=== PATIENT | male | born 1945 | race African-American/Black ===

== ENCOUNTER 2018-02-25 22:59 | Inpatient (IN) | payer MEDICARE, MEDICAID ==
[~2018-02-25] VITALS: Ht 170.2 cm; Wt 95.4 kg
--- NOTE | 2018-02-26 01:20 | NUR ---
NURSE NOTES: Patient admitted to 2W room 236-2 via ambulance from [facility].Received report from ELLIOT GIFFORD.patient is A/OX2 to name and place. Speaks in full clear sentences, no facial droop noted. Respiration even and unlabored.SR on monitor. BP 128/77 HR 98 Temp 99.0F. O2 sat 94% with RA. Denies any at this time.skin body assessment done. skin intact.but right side weakness noted. IV to RAC and LAC G 20 patent and asymptomatic, saline locked. Has 16 [address] in [address] with dark tono urine.call light in reach.bed in locked and lowest position.Bed alarm on. safety measures maintained.will initiate plan of nursing care.
[2018-02-26 01:30] VITALS: BP 128/77
--- NOTE | 2018-02-26 01:41 | NUR ---
NURSE NOTES: Left message to Dr ALEJANDRA for admitting orders. [place] Dennis already knows the patient is here.awaiting MD call back.
[2018-02-26 04:00] VITALS: BP 134/78
--- NOTE | 2018-02-26 04:01 | NUR ---
NURSE NOTES: Patient is asleep in no acute distress noted. vs stable. afebrile. no sign of pain. SR on monitor. keep patient comfortable.
[2018-02-26] MEDS ORDERED: Sodium Bicarbonate 50 ML in NS 1000ml 1,000 ML IV SCH ×2 (06:30→08:00)
--- NOTE | 2018-02-26 07:54 | NUR ---
HAND-OFF: Report given to CHARLENE GIFFORD.
--- NOTE | 2018-02-26 07:55 | NUR ---
NURSE NOTES: Received patient from BALTA Peck. Patient has a temperature at this time. Tylenol has been given. When temperature was reassessed, it was 101.8. Patient denies pain at this time. Patient alert and oriented to person and place but confused about time. Patient is lethargic at this time. Patient is on 2L NC and is short of breath. Patient RR is 28 at this time. Patient's abdomen is distended and taught. Patient reactive to cold touching the skin due to his fever. Patient placed on cooling measures at this time. Patient also has a high WBC count at this time. patient has a lugo for urine retention that was inserted at [place] before patient was transferred to the hospital. Patient has right AC 20G that is patent and asymptomatic at this time. Patient has a left AC 20G that is patent and asymptomatic at this time. Will follow up with primary MD regarding the fever, WBC count, and SOB. Patient has an order for renal ultrasound, chest x-ray, and EKG this morning. Will follow up.
[2018-02-26 08:00] VITALS: BP 154/82
[2018-02-26 08:34] LABS: HEMATOCRIT 34.2 % (42.0-52.0); HEMOGLOBIN 11.7 G/DL (14.2-18.0); MEAN CORPUSCULAR VOLUME 85 FL (80-99); PLATELET COUNT 276 K/UL (150-450); RED BLOOD COUNT 4.03 M/UL (4.70-6.10); RED CELL DISTRIBUTION WIDTH 11.3 % (11.6-14.8)
[2018-02-26 08:58] LABS: ANION GAP 24 mmol/L (5-15); BLOOD UREA NITROGEN 132 mg/dL (7-18); CALCIUM 8.2 MG/DL (8.5-10.1); CARBON DIOXIDE 15 MMOL/L (21-32); CHLORIDE 92 MMOL/L (98-107); CREATININE 8.6 MG/DL (0.55-1.30); POTASSIUM 4.5 MMOL/L (3.5-5.1); SODIUM 130 MMOL/L (136-145)
[2018-02-26 09:12] LABS: CREATINE KINASE > 10000 U/L (26-308); PHOSPHORUS 7.4 MG/DL (2.5-4.9)
--- NOTE | 2018-02-26 09:25 | NUR ---
NURSE NOTES: Patient temperature is 101.8 at this time. patient given tylenol at this time. Cooling measures applied at this time. Will continue to monitor.
[2018-02-26] MEDS: Heparin 5000 units/ml inj SUBQ SCH ×2 (09:27→21:35)
--- NOTE | 2018-02-26 09:32 | NUR ---
RADIOLOGY DEPT CHEST X-RAY DONE.-P.DYE
--- NOTE | 2018-02-26 10:15 | NUR ---
NURSE NOTES: Patient's temperature is now 102. Tylenol cannot be given again until 1pm. Dr Dinh made aware.
--- NOTE | 2018-02-26 10:24 | Diagnostic Imaging Report ---
Indication: Shortness of breath Technique: One view of the chest Comparison: none Findings: There is dense consolidation of the left midlung periphery. There is also some consolidation at the left lung base. There is likely some pleural fluid on the left. Right lung and pleural space are clear. The heart is borderline enlarged. Impression: Left lung infiltrates, likely pneumonia, and pleural fluid Borderline cardiomegaly
--- NOTE | 2018-02-26 10:25 | Consultation ---
History of Present Illness Present Illness HPI 72 year old male with unknown PMHx was taken to [facility] with CC of confusion. He as on the ground at his apartment for 3-4 days. Pt thinks it has been three weeks. He slipped in his bathroom and fell down and couldn't get up. He has new weakness of his right hand/arm. He was found in [place] to have acute renal failure. He is transferred to [facility] for further treatment. He is slightly short of breath and still is weak at right side of the body. Allergies: Coded Allergies: NO KNOWN ALLERGIES (Verified Allergy, Unknown, 02/26/18) Patient History Healthcare decision maker Resuscitation status Full Code Advanced Directive on File No Past Medical/Surgical History Past Medical/Surgical History: (1) Unknown Review of Systems All Other Systems: negative except mentioned in HPI Physical Exam General Appearance: WD/WN Lines, tubes and drains: peripheral HEENT: normocephalic, atraumatic Neck: non-tender, normal alignment Respiratory/Chest: chest wall non-tender, lungs clear Breasts: no masses Cardiovascular/Chest: normal peripheral pulses Abdomen: normal bowel sounds, soft Genitourinary/Rectal: normal rectal exam Extremities: normal range of motion Skin Exam: normal pigmentation 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 Lymphatic: anterior cervical Last 24 Hour Vital Signs Date Time Temp Pulse Resp B/P (MAP) Pulse Ox O2 Delivery O2 Flow Rate FiO2 02/26/18 08:00 107 02/26/18 04:00 Nasal Cannula 2.0 02/26/18 04:00 99.6 106 32 134/78 (96) 94 02/26/18 04:00 102 02/26/18 01:30 99.0 98 22 128/77 (94) 94 02/26/18 01:30 Room Air 02/26/18 01:27 100 Intake and Output 02/25/18 02/26/18 19:00 07:00 Output Total 100 ml Balance -100 ml Output Urine Total 100 ml Laboratory Tests Test 02/26/18 07:50 White Blood Count 30.0 K/UL (4.8-10.8) *H Red Blood Count 4.03 M/UL (4.70-6.10) L Hemoglobin 11.7 G/DL (14.2-18.0) L Hematocrit 34.2 % (42.0-52.0) L Mean Corpuscular Volume 85 FL (80-99) Mean Corpuscular Hemoglobin 29.0 PG (27.0-31.0) Mean Corpuscular Hemoglobin Concent 34.1 G/DL (32.0-36.0) Red Cell Distribution Width 11.3 % (11.6-14.8) L Platelet Count 276 K/UL (150-450) Mean Platelet Volume 7.8 FL (6.5-10.1) Neutrophils (%) (Auto) % (45.0-75.0) Lymphocytes (%) (Auto) % (20.0-45.0) Monocytes (%) (Auto) % (1.0-10.0) Eosinophils (%) (Auto) % (0.0-3.0) Basophils (%) (Auto) % (0.0-2.0) Neutrophils % (Manual) Pending Lymphocytes % (Manual) Pending Platelet Estimate Pending Platelet Morphology Pending Sodium Level 130 MMOL/L (136-145) L Potassium Level 4.5 MMOL/L (3.5-5.1) Chloride Level 92 MMOL/L (98-107) L Carbon Dioxide Level 15 MMOL/L (21-32) L Anion Gap 24 mmol/L (5-15) H Blood Urea Nitrogen 132 mg/dL (7-18) H Creatinine 8.6 MG/DL (0.55-1.30) H Estimat Glomerular Filtration Rate mL/min (>60) Glucose Level 120 MG/DL (74-106) H Osmolality 312 mOsm/kg (297-317) Calcium Level 8.2 MG/DL (8.5-10.1) L Phosphorus Level 7.4 MG/DL (2.5-4.9) H Magnesium Level 3.1 MG/DL (1.8-2.4) H Total Creatine Kinase > 06453 U/L (26-308) H Troponin I 1.257 ng/mL (0.000-0.056) Height (Feet): 5 Height (Inches): 7.00 Weight (Pounds): 210 Medications Current Medications Medications (Trade) Dose Ordered Sig/Aristides Route PRN Reason Start Time Stop Time Status Last Admin Dose Admin Acetaminophen (Tylenol) 650 mg Q6H PRN ORAL Mild Pain/Temp > 100.5 02/26/18 06:30 03/28/18 06:29 02/26/18 09:24 Heparin Sodium (Porcine) (Heparin 5000 units/ml) 5,000 units EVERY 12 HOURS SUBQ 02/26/18 09:00 03/28/18 08:59 02/26/18 09:27 Sodium Bicarbonate 50 ml/ Sodium Chloride 1,050 ml @ 75 mls/hr Q14H IV 02/26/18 08:00 03/28/18 07:59 02/26/18 07:51 Assessment/Plan Problem List: (1) Rhabdomyolysis ICD Codes: M62.82 - Rhabdomyolysis SNOMED: 694678834 (2) Pneumonia ICD Codes: J18.9 - Pneumonia, unspecified organism SNOMED: 732266209 (3) ATN (acute tubular necrosis) ICD Codes: N17.0 - Acute kidney failure with tubular necrosis SNOMED: 49503840 (4) Acute CVA (cerebrovascular accident) ICD Codes: I63.9 - Cerebral infarction, unspecified SNOMED: 883484212, 250813747 Status: ambulating well Assessment/Plan iv fluids, NS bolus renal studies, including US CT of chest when bun/creatinine better MRI of brain pt/ot check electrolytes might need HD if urine 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 James Dinh MD Feb 26, 2018 10:25
[2018-02-26] MEDS ORDERED: Miralax 17gm pkt ORAL PRN (10:30)
[2018-02-26] MEDS ORDERED: Morphine Sulfate 2mg/ml Inj IVP PRN (10:30)
[2018-02-26] MEDS ORDERED: Nitroglycerin Subl 0.4mg tab SL PRN (10:45)
[2018-02-26 11:03] LABS: ALANINE AMINOTRANSFERASE 242 U/L (12-78); ALBUMIN 1.9 G/DL (3.4-5.0); ALKALINE PHOSPHATASE 133 U/L (46-116); ASPARTATE AMINO TRANSFERASE 1189 U/L (15-37); BILIRUBIN,DIRECT 3.8 MG/DL (0.0-0.3); BILIRUBIN,TOTAL 4.4 MG/DL (0.2-1.0); PHOSPHORUS 7.3 MG/DL (2.5-4.9)
[2018-02-26 12:00] VITALS: BP 143/86
--- NOTE | 2018-02-26 12:02 | Consultation ---
History of Present Illness Present Illness HPI 72-year-old male, who presents with chief complaint of altered mental status. The patient states had shortness of breath. the pt is waxing and waning of consciousness. The pt has cognitive impairment. and is unable to provide any history. The pt is easily agitated Allergies: Coded Allergies: NO KNOWN ALLERGIES (Verified Allergy, Unknown, 02/26/18) Patient History Limited by: medical condition History Provided By: Patient Healthcare decision maker Resuscitation status Full Code Advanced Directive on File No Past Medical/Surgical History Past Medical/Surgical History: (1) Sepsis (2) Unknown (3) ATN (acute tubular necrosis) (4) Pneumonia (5) Acute CVA (cerebrovascular accident) (6) Rhabdomyolysis (7) Cardiac enzymes elevated (8) Hypercholesterolemia (9) Hyponatremia (10) Leukocytosis (11) Renal failure (12) Syncope (13) Prostate cancer (14) Colon cancer (15) Hypertension (16) Elevated liver function tests Review of Systems Psychiatric: Reports: prior hx, anxiety, depressed feelings, emotional problems Physical Exam General Appearance: lethargic, confused, agitated Neurologic: depressed affect Last 24 Hour Vital Signs Date Time Temp Pulse Resp B/P (MAP) Pulse Ox O2 Delivery O2 Flow Rate FiO2 02/26/18 09:54 102.0 02/26/18 08:00 107 02/26/18 04:00 Nasal Cannula 2.0 02/26/18 04:00 99.6 106 32 134/78 (96) 94 02/26/18 04:00 102 02/26/18 01:30 99.0 98 22 128/77 (94) 94 02/26/18 01:30 Room Air 02/26/18 01:27 100 Intake and Output 02/25/18 02/26/18 19:00 07:00 Output Total 100 ml Balance -100 ml Output Urine Total 100 ml Laboratory Tests Test 02/26/18 07:50 02/26/18 10:50 White Blood Count 30.0 K/UL (4.8-10.8) *H Red Blood Count 4.03 M/UL (4.70-6.10) L Hemoglobin 11.7 G/DL (14.2-18.0) L Hematocrit 34.2 % (42.0-52.0) L Mean Corpuscular Volume 85 FL (80-99) Mean Corpuscular Hemoglobin 29.0 PG (27.0-31.0) Mean Corpuscular Hemoglobin Concent 34.1 G/DL (32.0-36.0) Red Cell Distribution Width 11.3 % (11.6-14.8) L Platelet Count 276 K/UL (150-450) Mean Platelet Volume 7.8 FL (6.5-10.1) Neutrophils (%) (Auto) % (45.0-75.0) Lymphocytes (%) (Auto) % (20.0-45.0) Monocytes (%) (Auto) % (1.0-10.0) Eosinophils (%) (Auto) % (0.0-3.0) Basophils (%) (Auto) % (0.0-2.0) Differential Total Cells Counted 100 Neutrophils % (Manual) 83 % (45-75) H Lymphocytes % (Manual) 8 % (20-45) L Monocytes % (Manual) 5 % (1-10) Eosinophils % (Manual) 0 % (0-3) Basophils % (Manual) 0 % (0-2) Band Neutrophils 4 % (0-8) Platelet Estimate Adequate Platelet Morphology Normal Hypochromasia 1+ Sodium Level 130 MMOL/L (136-145) L Potassium Level 4.5 MMOL/L (3.5-5.1) Chloride Level 92 MMOL/L (98-107) L Carbon Dioxide Level 15 MMOL/L (21-32) L Anion Gap 24 mmol/L (5-15) H Blood Urea Nitrogen 132 mg/dL (7-18) H Creatinine 8.6 MG/DL (0.55-1.30) H Estimat Glomerular Filtration Rate mL/min (>60) Glucose Level 120 MG/DL (74-106) H Osmolality 312 mOsm/kg (297-317) Uric Acid 18.3 MG/DL (2.6-7.2) H Calcium Level 8.2 MG/DL (8.5-10.1) L Phosphorus Level 7.3 MG/DL (2.5-4.9) H Magnesium Level 3.1 MG/DL (1.8-2.4) H Total Bilirubin 4.4 MG/DL (0.2-1.0) H Direct Bilirubin 3.8 MG/DL (0.0-0.3) H Aspartate Amino Transf (AST/SGOT) 1189 U/L (15-37) H Alanine Aminotransferase (ALT/SGPT) 242 U/L (12-78) H Alkaline Phosphatase 133 U/L (46-116) H Total Creatine Kinase > 67863 U/L (26-308) H Troponin I 1.257 ng/mL (0.000-0.056) Total Protein 7.9 G/DL (6.4-8.2) Albumin 1.9 G/DL (3.4-5.0) L Free Thyroxine 0.89 NG/DL (0.76-1.46) Arterial Blood pH 7.433 (7.350-7.450) Arterial Blood Partial Pressure CO2 20.9 mmHg (35.0-45.0) *L Arterial Blood Partial Pressure O2 68.4 mmHg (75.0-100.0) L Arterial Blood HCO3 13.7 mmol/L (22.0-26.0) *L Arterial Blood Oxygen Saturation 92.1 % (95-100) L Arterial Blood Base Excess -8.6 (-2-2) L Scottie Test Positive Height (Feet): 5 Height (Inches): 7.00 Weight (Pounds): 210 Medications Current Medications Medications (Trade) Dose Ordered Sig/Aristides Route PRN Reason Start Time Stop Time Status Last Admin Dose Admin Acetaminophen (Tylenol) 650 mg Q4H PRN ORAL T>100.5 02/26/18 10:30 03/28/18 10:29 Acetaminophen (Tylenol) 650 mg Q6H PRN ORAL Mild Pain/Temp > 100.5 02/26/18 06:30 03/28/18 06:29 02/26/18 09:24 Albuterol/ Ipratropium (Albuterol/ Ipratropium) 3 ml Q4H PRN HHN Shortness of Breath 02/26/18 10:30 03/03/18 10:29 Cefepime HCl 1 gm/ Dextrose 55 ml @ 110 mls/hr Q24H IVPB 02/26/18 12:00 03/05/18 11:59 Dextrose (Dextrose 50%) 25 ml Q30M PRN IV hypoglycemia 02/26/18 10:45 03/28/18 10:42 Dextrose (Dextrose 50%) 50 ml Q30M PRN IV hypoglycemia 02/26/18 10:45 03/28/18 10:44 Heparin Sodium (Porcine) (Heparin 5000 units/ml) 5,000 units EVERY 12 HOURS SUBQ 02/26/18 09:00 03/28/18 08:59 02/26/18 09:27 Morphine Sulfate (Morphine Sulfate) 2 mg Q4H PRN IVP PAIN 4-10 02/26/18 10:30 03/05/18 10:29 Nitroglycerin (Ntg) 0.4 mg Q5MIN X 3 DOSES PRN SL Prn Chest Pain 02/26/18 10:45 03/28/18 10:44 Ondansetron HCl (Zofran) 4 mg Q6H PRN IVP Nausea & Vomiting 02/26/18 10:30 03/28/18 10:29 Polyethylene Glycol (Miralax) 17 gm DAILYPRN PRN ORAL Constipation 02/26/18 10:30 03/28/18 10:29 Sodium Chloride 1,000 ml @ 150 mls/hr Q6H40M IV 02/26/18 11:30 03/28/18 11:29 Temazepam (Restoril) 15 mg HSPRN PRN ORAL Insomnia 02/26/18 21:00 03/05/18 20:59 Vancomycin HCl (Vanco rx to dose) 1 ea DAILY PRN MISC . 02/26/18 11:00 03/28/18 10:59 Vancomycin HCl/ Dextrose 250 ml @ 125 mls/hr ONCE ONCE IVPB 02/26/18 13:00 02/26/18 14:59 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 Assessment/Plan seroquel prn provided ro/Emely Dangelo MD Feb 26, 2018 12:02
--- NOTE | 2018-02-26 12:14 | NUR ---
NURSE NOTES: Patient temp is now 101.8. Cooling measures replaced. Patient has a bolus running at this time. Patient is now on Venturi Mask at 50%. Patient has a stat ABG with result of pH 7.433, pCO2 20.9, pO2 68.4, and HCO3 13.7 and base excess -8.6. Patient tolerating venturi with O2 saturation of 91% at this time. Patient is forgetful and a little confused at this time.
--- NOTE | 2018-02-26 12:22 | Consultation ---
Consult Note Consult Note asked to eval for high BUN and Cr 72 year old male with unknown PMHx was taken to [facility] with CC of confusion. He as on the ground at his apartment for 3-4 days. Pt thinks it has been three weeks. He slipped in his bathroom and fell down and couldn't get up. He has new weakness of his right hand/arm. He was found in [place] to have acute renal failure. He is transferred to [facility] for further treatment. He is slightly short of breath and still is weak at right side of the body. Allergies: Coded Allergies: NO KNOWN ALLERGIES (Verified Allergy, Unknown, 02/26/18) interviewed examined data reviewed discussed with RN Patient confused Assessment/Plan Acute renal failure- Rhabdo Pneumonia CVA ? Vigorous Hydrate- Fortune Monitor CPK - Uric Acid- LFTs monitor Renal parameters Avoid Nephrotoxics per orders Yayo Lora MD Feb 26, 2018 12:22
[2018-02-26] MEDS ORDERED: Vancomycin 1.5 GM/D5W 250ML IVPB ONE (13:00)
[2018-02-26] MEDS: Cefepime 1gm/D5W 55ml IVPB SCH ×2 (13:58)
--- NOTE | 2018-02-26 14:14 | Consultation ---
History of Present Illness General Date patient seen: Feb 26, 2018 Present Illness HPI 72 y/o M with hx unknown prior medical history is transferred from [facility] to [place] on 02/26 with confusion. Patient was found on the ground in his apartment; he was like that for 3-4 days. He slipped in his bathroom and feel down and couldn't get up. Also endorses SOB and R side weakness. Allergies: Coded Allergies: NO KNOWN ALLERGIES (Verified Allergy, Unknown, 02/26/18) Patient History Healthcare decision maker Resuscitation status Full Code Advanced Directive on File No Patient History Narrative Pmhx: as above Shx: reviewed Fhx: non contributory Review of Systems All Other Systems: negative except mentioned in HPI Physical Exam Physical Exam Narrative General Appearance: WD/WN Lines, tubes and drains: peripheral HEENT: normocephalic, atraumatic Neck: non-tender, normal alignment Respiratory/Chest: chest wall non-tender, lungs clear Breasts: no masses Cardiovascular/Chest: normal peripheral pulses Abdomen: normal bowel sounds, soft Extremities: normal range of motion Skin Exam: normal pigmentation 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 Lymphatic: anterior cervical Last 24 Hour Vital Signs Date Time Temp Pulse Resp B/P (MAP) Pulse Ox O2 Delivery O2 Flow Rate FiO2 02/26/18 09:54 102.0 02/26/18 08:00 107 02/26/18 04:00 Nasal Cannula 2.0 02/26/18 04:00 99.6 106 32 134/78 (96) 94 02/26/18 04:00 102 02/26/18 01:30 99.0 98 22 128/77 (94) 94 02/26/18 01:30 Room Air 02/26/18 01:27 100 Intake and Output 02/25/18 02/26/18 19:00 07:00 Output Total 100 ml Balance -100 ml Output Urine Total 100 ml Laboratory Tests Test 02/26/18 07:50 02/26/18 10:50 White Blood Count 30.0 K/UL (4.8-10.8) *H Red Blood Count 4.03 M/UL (4.70-6.10) L Hemoglobin 11.7 G/DL (14.2-18.0) L Hematocrit 34.2 % (42.0-52.0) L Mean Corpuscular Volume 85 FL (80-99) Mean Corpuscular Hemoglobin 29.0 PG (27.0-31.0) Mean Corpuscular Hemoglobin Concent 34.1 G/DL (32.0-36.0) Red Cell Distribution Width 11.3 % (11.6-14.8) L Platelet Count 276 K/UL (150-450) Mean Platelet Volume 7.8 FL (6.5-10.1) Neutrophils (%) (Auto) % (45.0-75.0) Lymphocytes (%) (Auto) % (20.0-45.0) Monocytes (%) (Auto) % (1.0-10.0) Eosinophils (%) (Auto) % (0.0-3.0) Basophils (%) (Auto) % (0.0-2.0) Differential Total Cells Counted 100 Neutrophils % (Manual) 83 % (45-75) H Lymphocytes % (Manual) 8 % (20-45) L Monocytes % (Manual) 5 % (1-10) Eosinophils % (Manual) 0 % (0-3) Basophils % (Manual) 0 % (0-2) Band Neutrophils 4 % (0-8) Platelet Estimate Adequate Platelet Morphology Normal Hypochromasia 1+ Sodium Level 130 MMOL/L (136-145) L Potassium Level 4.5 MMOL/L (3.5-5.1) Chloride Level 92 MMOL/L (98-107) L Carbon Dioxide Level 15 MMOL/L (21-32) L Anion Gap 24 mmol/L (5-15) H Blood Urea Nitrogen 132 mg/dL (7-18) H Creatinine 8.6 MG/DL (0.55-1.30) H Estimat Glomerular Filtration Rate mL/min (>60) Glucose Level 120 MG/DL (74-106) H Osmolality 312 mOsm/kg (297-317) Uric Acid 18.3 MG/DL (2.6-7.2) H Calcium Level 8.2 MG/DL (8.5-10.1) L Phosphorus Level 7.3 MG/DL (2.5-4.9) H Magnesium Level 3.1 MG/DL (1.8-2.4) H Total Bilirubin 4.4 MG/DL (0.2-1.0) H Direct Bilirubin 3.8 MG/DL (0.0-0.3) H Gamma Glutamyl Transpeptidase 127 U/L (5-85) H Aspartate Amino Transf (AST/SGOT) 1189 U/L (15-37) H Alanine Aminotransferase (ALT/SGPT) 242 U/L (12-78) H Alkaline Phosphatase 133 U/L (46-116) H Total Creatine Kinase > 57134 U/L (26-308) H Troponin I 1.257 ng/mL (0.000-0.056) Total Protein 7.9 G/DL (6.4-8.2) Albumin 1.9 G/DL (3.4-5.0) L Free Thyroxine 0.89 NG/DL (0.76-1.46) Arterial Blood pH 7.433 (7.350-7.450) Arterial Blood Partial Pressure CO2 20.9 mmHg (35.0-45.0) *L Arterial Blood Partial Pressure O2 68.4 mmHg (75.0-100.0) L Arterial Blood HCO3 13.7 mmol/L (22.0-26.0) *L Arterial Blood Oxygen Saturation 92.1 % (95-100) L Arterial Blood Base Excess -8.6 (-2-2) L Scottie Test Positive Height (Feet): 5 Height (Inches): 7.00 Weight (Pounds): 210 Medications Current Medications Medications (Trade) Dose Ordered Sig/Aristides Route PRN Reason Start Time Stop Time Status Last Admin Dose Admin Acetaminophen (Tylenol) 650 mg Q4H PRN ORAL T>100.5 02/26/18 10:30 03/28/18 10:29 Acetaminophen (Tylenol) 650 mg Q6H PRN ORAL Mild Pain/Temp > 100.5 02/26/18 06:30 03/28/18 06:29 02/26/18 09:24 Albuterol/ Ipratropium (Albuterol/ Ipratropium) 3 ml Q4H PRN HHN Shortness of Breath 02/26/18 10:30 03/03/18 10:29 Cefepime HCl 1 gm/ Dextrose 55 ml @ 110 mls/hr Q24H IVPB 02/26/18 12:00 03/05/18 11:59 02/26/18 13:58 Dextrose (Dextrose 50%) 25 ml Q30M PRN IV hypoglycemia 02/26/18 10:45 03/28/18 10:42 Dextrose (Dextrose 50%) 50 ml Q30M PRN IV hypoglycemia 02/26/18 10:45 03/28/18 10:44 Heparin Sodium (Porcine) (Heparin 5000 units/ml) 5,000 units EVERY 12 HOURS SUBQ 02/26/18 09:00 03/28/18 08:59 02/26/18 09:27 Morphine Sulfate (Morphine Sulfate) 2 mg Q4H PRN IVP PAIN 4-10 02/26/18 10:30 03/05/18 10:29 Nitroglycerin (Ntg) 0.4 mg Q5MIN X 3 DOSES PRN SL Prn Chest Pain 02/26/18 10:45 03/28/18 10:44 Ondansetron HCl (Zofran) 4 mg Q6H PRN IVP Nausea & Vomiting 02/26/18 10:30 03/28/18 10:29 Polyethylene Glycol (Miralax) 17 gm DAILYPRN PRN ORAL Constipation 02/26/18 10:30 03/28/18 10:29 Quetiapine Fumarate (SEROquel) 12.5 mg Q4H PRN ORAL agitation 02/26/18 12:15 03/28/18 12:14 Sodium Chloride 1,000 ml @ 200 mls/hr Q5H IV 02/26/18 12:30 03/28/18 12:29 02/26/18 12:25 Temazepam (Restoril) 15 mg HSPRN PRN ORAL Insomnia 02/26/18 21:00 03/05/18 20:59 Vancomycin HCl (Vanco rx to dose) 1 ea DAILY PRN MISC . 02/26/18 11:00 03/28/18 10:59 Vancomycin HCl/ Dextrose 250 ml @ 125 mls/hr ONCE ONCE IVPB 02/26/18 13:00 02/26/18 14:59 Assessment/Plan Assessment/Plan Abx: IV Vancomycin 02/26- Cefepime 02/26- Assessment: SEpsis - 2ry to PNA- r/o bacteremia -CXR: Left lung infiltrates, likely pneumonia, and pleural fluid. Borderline cardiomegaly -Bcx p Fever Leukocytosis BRITT Rhabdomyolosis AMS s/p Fall Shock liver- r/o acute hepatitis Plan: -Continue empiric IV Vancomycin and Cefpime for PNA and add Flagyl for anaerobic coverage -Influenza sc, sp cx -Hep panel, HIV ab -f/u cx -Monitor CBC/CMP, temperatures -Renal f/u Thank you for this consultation. Will continue to follow along with you. Discussed with Melissa Coffman M.D. Feb 26, 2018 14:14
--- NOTE | 2018-02-26 14:17 | Cardiology Report ---
APPROVED REPORT EXAM: Two-dimensional and M-mode echocardiogram with Doppler and color Doppler. INDICATION Hypertension/HCVD M-Mode DIMENSIONS IVSd1.5 (0.7-1.1cm)Left Atrium (MM)4.0 (1.6-4.0cm) LVDd3.7 (3.5-5.6cm)Aortic Root3.6 (2.0-3.7cm) PWd0.9 (0.7-1.1cm)Aortic Cusp Exc.2.1 (1.5-2.0cm) IVSs1.6 cm LVDs2.6 (2.5-4.0cm) PWs1.4 cm Technically difficult study due to poor acoustical windows. Normal left ventricular chamber size, systolic function and wall motion to extent visualized. Left ventricular ejection fraction estimated to be 60-65%. No evidence of left ventricular hypertrophy. Anterior Echo-free space, may be due to pericardial fat or effusion. All other cardiac chamber sizes are within normal limits. Focal aortic valve sclerosis with adequate cusp excursion. Mildly thickened mitral valve leaflets with normal excursion. Mitral annulus and aortic root calcification. Pulmonic valve structure not well visualized . Normal tricuspid valve structure. IVC at size 2.1 with physiologic collapse. A color flow and spectral Doppler study was performed and revealed: No aortic regurgitation. Trace mitral regurgitation. Mitral diastolic velocities suggest reduced left ventricular relaxation c/w mild LV diastolic dysfunction (Grade I ) Mild tricuspid regurgitation. Tricuspid systolic velocities suggests peak right ventricular systolic pressure of 28mmHg.
--- NOTE | 2018-02-26 15:44 | NUR ---
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 102.0 HR 107 RR 32 B/P 134/78 2L NC O2 SAT @ 95% WBC 30.0 NA 130 BUN 132 CR 8.6 TCK>1000 TROP 1.257 PH 7.44 PCO2 20.9 PO2 68.8 HCO3 13.7 O2 SAT @ 92.0 CXR= LEFT LUNG INFILTRATES LIKELY PNA IS: IV BOLUS NS X 1 LITER NA BICARB IV CEFEPIME IV VANCO IV ALBUMIN IV ADMITTED TO STEP DOWN STEP DOWN STATUS DCP PENDING HOSPITAL STAY
[2018-02-26 16:00] VITALS: BP 120/62
[2018-02-26] MEDS: metroNIDAZOLE 500mg tab ORAL SCH ×2 (16:20→21:30)
[2018-02-26 16:51] LABS: APPEARANCE,URINE TURBID; BILIRUBIN, URINE 2+ (NEGATIVE); COLOR,URINE BROWN; GLUCOSE, URINE (UA) NEGATIVE (NEGATIVE); KETONES,URINE NEGATIVE (NEGATIVE); LEUKOCYTE ESTERASE ,URINE 2+ (NEGATIVE); NITRITE,URINE POSITIVE (NEGATIVE); PH,URINE 5 (4.5-8.0); PROTEIN,URINE 3+ (NEGATIVE); UROBILINOGEN,URINE 4 MG/DL (0.0-1.0)
--- NOTE | 2018-02-26 16:57 | Diagnostic Imaging Report ---
Indication: Abdominal pain and distention Technique: Supine view of the abdomen Comparison: none Findings: Considerable gas is seen in nondilated colon. Surgical clips are seen in the pelvis. No unusual masses or calcifications. There are degenerative changes of lumbar spine. Impression: Findings as noted. No definite acute process
--- NOTE | 2018-02-26 18:06 | History & Physical ---
History and Physical History & Physicial Dictated for Int Med-Dr Cowan no. [id number] Christofer Biggs MD Feb 26, 2018 18:06
[2018-02-26 18:50] LABS: ANION GAP 22 mmol/L (5-15); BLOOD UREA NITROGEN 138 mg/dL (7-18); CARBON DIOXIDE 15 MMOL/L (21-32); CHLORIDE 93 MMOL/L (98-107); CREATININE 9.4 MG/DL (0.55-1.30); POTASSIUM 4.5 MMOL/L (3.5-5.1); SODIUM 130 MMOL/L (136-145)
--- NOTE | 2018-02-26 19:15 | NUR ---
HAND-OFF: Report given to BALTA Kelley. Patient temperature is 99.3 at this time. Patient is runnign 1L bolus at this time. Patient had an abdominal x-ray today that showed gas in the colon. Dr Dinh is aware. Patient abdomen still distended. patient only had 275mL of urine output today. Patient to be put back on NS at 200mL/hr after bolus is finished. Patient denies discomfort at this time. Endorsed to follow up and monitor fever.
[2018-02-26 20:00] VITALS: BP 114/66
--- NOTE | 2018-02-26 20:00 | NUR ---
NURSE NOTES: Received Pt is sleeping on the bed and forgetful. On Tele monitor with SR. On Venturi mask with FiO2 50% with Sao2 96% noted. Rt decrease O2 to FiO2 45% and SaO2 95% noted. Denied pain. On Fortune cath and patent and tono color urine urinated. Iv site intact and no sign of infiltration noted. Still noted abdomen distention. changed position. Placed Fall precaution. checked BT : 99F. Keep cooling measure. Will continue to care plan. Will continue to monitor any change of condition.
[2018-02-26] MEDS ORDERED: Cefepime HCl 2 GM in D5W 110 ML IV SCH (21:00)
[2018-02-26] MEDS ORDERED: Heparin 5000 units/ml inj SUBQ SCH (21:00)
--- NOTE | 2018-02-26 22:00 | History and Physical Report ---
DATE OF ADMISSION: 02/26/2018 CHIEF COMPLAINT: The patient is a 72-year-old male, who presents with chief complaint of altered mental status. HISTORY OF PRESENT ILLNESS: The patient states he was not feeling well for approximately a week. The patient had shortness of breath. The patient apparently was found yesterday on the floor. The patient had right-sided weakness. The patient apparently had acute loss of consciousness. Last time, the patient had been seen by family members was on Sunday. The patient initially presented to [facility] Emergency Room. The patient was transferred to [facility] for insurance purposes. The patient is admitted for altered mental status and acute loss of consciousness. REVIEW OF SYSTEMS: CONSTITUTIONAL: The patient denies weight loss or weight gain. The patient denies fevers or chills. HEENT: The patient denies ear or throat pain. The patient denies headache. CARDIOVASCULAR: The patient denies palpitations or chest pain. CHEST: The patient complains of some shortness of breath as above. The patient denies wheezes. ABDOMEN: The patient denies nausea, vomiting, diarrhea, or constipation. GENITOURINARY: The patient denies dysuria or increased frequency of urination. NEUROMUSCULAR: The patient denies seizures or generalized weakness. PAST MEDICAL HISTORY: Significant for, 1. Hypertension. 2. Hypercholesterolemia. 3. Prostate cancer. 4. Colorectal cancer. PAST SURGICAL HISTORY: Significant for, 1. Colorectal resection. 2. Prostatectomy. CURRENT MEDICATIONS: Unknown. ALLERGIES: No known drug allergies. SOCIAL HISTORY: The patient is currently living alone. The patient denies tobacco use. The patient admits to occasional alcohol use. PHYSICAL EXAMINATION: VITAL SIGNS: Temperature 99.6, respirations 32, pulse 102 to 106, and blood pressure 134/70. GENERAL: The patient is a well-developed and well-nourished, slightly obese male, in no apparent distress. HEENT: Eyes, pupils are equal and responsive to light and accommodation. Extraocular movements are intact. NECK: Supple without lymphadenopathy. CHEST: Lungs are clear to auscultation bilaterally without wheezes or rales. CARDIOVASCULAR: Regular rhythm and rate. S1 and S2 are normal without murmurs, rubs, or gallops. ABDOMEN: Soft, nontender, and nondistended. Positive bowel sounds. No evidence of hepatosplenomegaly. Currently, no rebound or guarding noted. EXTREMITIES: Negative for clubbing, cyanosis, or edema. RECTAL/GENITAL: Refused. NEUROLOGICAL: Cranial nerves II through XII are grossly intact without focal deficits. Motor strength is 5/5 bilaterally. Deep tendon reflexes are 2+ plantar. LABORATORY AND DIAGNOSTIC DATA: WBC 29.3, hemoglobin 12.4, hematocrit 35.1, and platelets 269,000. Sodium 124, potassium 4.3, chloride 87, CO2 15, BUN 113, creatinine 8.01, and glucose 228. Troponin elevated at 0.22. AST elevated at 989 and ALT elevated at 180. Creatine kinase elevated at 24,719. Chest x-ray revealed left upper lobe pneumonia. ASSESSMENT: This is a 72-year-old male. 1. Left upper lobe pneumonia. 2. Hyponatremia. 3. Renal failure. 4. Syncope. 5. Right-sided weakness. 6. Hypertension. 7. Hypercholesteremia. 8. Rhabdomyolysis. 9. History of prostate cancer. 10. History of colon cancer. TREATMENT: 1. Left upper lobe pneumonia. An Infectious Disease consultation has been obtained with Dr. Ramirez. The patient has been started empirically on intravenous vancomycin and metronidazole. The patient has also been started on cefepime. We will follow recommendations of Infectious Disease. 2. Hyponatremia. The patient is currently receiving intravenous fluids. 3. Renal failure. A Nephrology consultation has been obtained with Dr. Lora. The patient may be severely dehydrated. We will follow recommendations of Nephrology. 4. Syncope. This may be secondary to pneumonia and shortness of breath as above. 5. Hypertension. The patient is currently hypotensive. 6. Hypercholesterolemia. 7. Rhabdomyolysis. The patient has elevated CPK and troponin. A Cardiology consultation has been obtained with Dr. Car Nelson. 8. History of prostate cancer. 9. History of colon cancer. Christofer Biggs M.D. DR: MARLENY JOB#: [id number] CC:
[2018-02-27] VITALS: BP 134/81
[2018-02-27] MEDS ORDERED: Vancomycin 1 GM in D5W 275 ML IV SCH (00:30)
[2018-02-27 04:00] VITALS: BP 149/73
[2018-02-27] MEDS: Albuterol/Ipratropium 3ml neb HHN PRN ×2 (04:14→23:03)
[2018-02-27 05:43] LABS: HEMATOCRIT 30.6 % (42.0-52.0); HEMOGLOBIN 10.3 G/DL (14.2-18.0); MEAN CORPUSCULAR VOLUME 90 FL (80-99); PLATELET COUNT 290 K/UL (150-450); RED BLOOD COUNT 3.41 M/UL (4.70-6.10); RED CELL DISTRIBUTION WIDTH 11.4 % (11.6-14.8)
[2018-02-27 05:47] LABS: INR 1.3 (0.9-1.1)
[2018-02-27] MEDS: metroNIDAZOLE 500mg tab ORAL SCH ×3 (06:01→21:41)
[2018-02-27 06:19] LABS: % IRON SATURATION 54 % (15-50); IRON 61 ug/dL (50-175); TOTAL IRON BINDING CAPACITY 114 ug/dL (250-450)
[2018-02-27 06:27] LABS: WHITE BLOOD COUNT 29.1 K/UL (4.8-10.8)
[2018-02-27 06:32] LABS: LACTATE DEHYDROGENASE 1504 U/L (81-234); PHOSPHORUS 8.5 MG/DL (2.5-4.9)
[2018-02-27 06:54] LABS: ALANINE AMINOTRANSFERASE 273 U/L (12-78); ALBUMIN 1.6 G/DL (3.4-5.0); ALBUMIN/GLOBULIN RATIO 0.3 (1.0-2.7); ALKALINE PHOSPHATASE 119 U/L (46-116); ANION GAP 22 mmol/L (5-15); ASPARTATE AMINO TRANSFERASE 1101 U/L (15-37); BILIRUBIN,TOTAL 4.9 MG/DL (0.2-1.0); BLOOD UREA NITROGEN 137 mg/dL (7-18); CALCIUM 7.4 MG/DL (8.5-10.1); CARBON DIOXIDE 13 MMOL/L (21-32); CHLORIDE 94 MMOL/L (98-107); CREATININE 9.6 MG/DL (0.55-1.30); POTASSIUM 4.5 MMOL/L (3.5-5.1); SODIUM 129 MMOL/L (136-145)
[2018-02-27 06:59] LABS: BILIRUBIN,DIRECT 4.2 MG/DL (0.0-0.3)
[2018-02-27 07:05] LABS: CREATINE KINASE > 10000 U/L (26-308)
--- NOTE | 2018-02-27 07:28 | NUR ---
NURSE NOTES: Report received from BALTA Kelley. Observed patient in bed sleeping. Arousable by voice and verbally responsive. Denies pain at this time. IVF running at prescribed rate. Receiving 10L of oxygen via venturi mask with no distress noted. F/C intact and draining well. Bed in lowest position. Call light within reach. Will continue to monitor.
--- NOTE | 2018-02-27 07:35 | NUR ---
HAND-OFF: Report given to BALTA Booker. Pt is resting on the bed and On Venturi mask with FiO2 45% and Sao2 95% noted.
--- NOTE | 2018-02-27 07:44 | NUR ---
NURSE NOTES: Bedside report received from BALTA Wilson at bedside. AOx4, able to make needs known. RA, sating well. Skin clean, dry, intact. Urinal at bedside. No apparent distress. Bed locked in lowest position, SRx3, call henderson within reach, bed alarm on. Report given to [facility]. Patient DC'd. Addendum: 02/27/18 at 2007 by Jacy Maravilla RN time 1944 Addendum: 02/27/18 at 2008 by Jacy Maravilla RN wrong pt
[2018-02-27 08:00] VITALS: BP 158/87
--- NOTE | 2018-02-27 08:36 | Diagnostic Imaging Report ---
Indication: Abnormal renal function tests Technique: Grayscale and duplex images of the kidneys, retroperitoneum, and bladder were obtained. Comparison: none Findings: Right kidney measures 13.3 cm in length. Left kidney measures 12.9 cm in length. Both kidneys demonstrate normal echogenicity. No hydronephrosis. The left kidney demonstrates an 8.1 cm lower pole cyst but contains a small mural calcification. Normal inferior vena cava. Bladder is empty, not visualized. Impression: Negative for hydronephrosis Incidental finding left lower pole renal cyst Nonvisualized bladder.
--- NOTE | 2018-02-27 08:56 | NUR ---
RADIOLOGY DEPT CHEST X-RAY DONE.-P.DYE
[2018-02-27] MEDS: Heparin 5000 units/ml inj SUBQ SCH ×2 (10:12→21:42)
--- NOTE | 2018-02-27 10:22 | Diagnostic Imaging Report ---
Indication: Dyspnea Technique: One view of the chest Comparison: 02/26/2018 Findings: There is increased consolidation in the left upper lobe. There may be a small amount of pleural fluid present. Right lung and pleural space remain clear. Impression: Increasing left upper lobe consolidation, over one day.
--- NOTE | 2018-02-27 10:45 | Pulmonology Progress Note ---
Assessment/Plan Problems: (1) Rhabdomyolysis (2) Pneumonia (3) ATN (acute tubular necrosis) (4) Acute CVA (cerebrovascular accident) Assessment/Plan getting NS 200 cc/hour, but still very small amount of urine might need HD if no response to Laisx 40 mg IV respiratory treatment check electrolytes, CPK cxr in am dvt prophylaxis sputum induction Subjective ROS Limited/Unobtainable: No Constitutional: Reports: no symptoms HEENT: Repors: no symptoms Allergies: Coded Allergies: NO KNOWN ALLERGIES (Verified Allergy, Unknown, 02/26/18) Objective Last 24 Hour Vital Signs Date Time Temp Pulse Resp B/P (MAP) Pulse Ox O2 Delivery O2 Flow Rate FiO2 02/27/18 08:00 Venturi Mask 10.0 02/27/18 08:00 106 02/27/18 08:00 100.8 106 24 158/87 (110) 95 02/27/18 04:23 103 22 93 Venturi Mask 10.0 45 02/27/18 04:14 45 02/27/18 04:14 102 20 92 Venturi Mask 10.0 45 02/27/18 04:00 99.2 101 22 149/73 (98) 95 02/27/18 04:00 104 02/27/18 04:00 Venturi Mask 10.0 02/27/18 00:00 95 02/27/18 00:00 100.0 100 22 134/81 (98) 95 02/27/18 00:00 Venturi Mask 10.0 02/26/18 20:31 98 Venturi Mask 10.0 45 02/26/18 20:31 Venturi Mask 10.0 45 02/26/18 20:19 80 14 Venturi Mask 10.0 45 02/26/18 20:00 99.0 93 22 114/66 (82) 95 02/26/18 20:00 Venturi Mask 10.0 02/26/18 20:00 93 02/26/18 16:00 Venturi Mask 15.0 02/26/18 16:00 100.0 96 22 120/62 (81) 95 02/26/18 16:00 98 02/26/18 14:38 100.2 02/26/18 12:00 107 02/26/18 12:00 102.6 106 24 143/86 (105) 94 02/26/18 12:00 Venturi Mask 15.0 Intake and Output 02/26/18 02/27/18 19:00 07:00 Intake Total 4055 ml 1400 ml Output Total 275 ml 400 ml Balance 3780 ml 1000 ml Intake Oral 1800 ml 200 ml IV Total 2255 ml 1200 ml Output Urine Total 275 ml 400 ml # Bowel Movements 2 2 General Appearance: WD/WN HEENT: normocephalic, atraumatic Respiratory/Chest: chest wall non-tender, crackles/rales Cardiovascular: normal peripheral pulses, normal rate Abdomen: distended Genitourinary: normal external genitalia Extremities: no cyanosis Skin: no rash Neurologic/Psychiatric: motor rebuilder II-XII grossly normal Lymphatic: no neck adenopathy Microbiology Date/Time Source Procedure Growth Status 02/26/18 22:30 Nasopharynx Influenza Types A,B Antigen (MARYSOL) - Final Complete 02/26/18 22:40 Stool Clostridium difficile Toxin Assay - Final Complete 02/26/18 14:15 Urine,Clean Catch Urine Culture - Preliminary NO GROWTH Resulted Laboratory Tests 02/26/18 10:50: Arterial Blood pH 7.433, Arterial Blood Partial Pressure CO2 20.9*L, Arterial Blood Partial Pressure O2 68.4L, Arterial Blood HCO3 13.7*L, Arterial Blood Oxygen Saturation 92.1L, Arterial Blood Base Excess -8.6L, Scottie Test Positive 02/26/18 14:15: Urine Color Brown, Urine Appearance Turbid, Urine pH 5, Urine Specific [place] 1.015, Urine Protein 3+H, Urine Glucose (UA) Negative, Urine Ketones Negative, Urine Blood 5+H, Urine Nitrite PositiveH, Urine Bilirubin 2+H, Urine Ictotest Positive, Urine Urobilinogen 4H, Urine Leukocyte Esterase 2+H, Urine RBC TntcH, Urine WBC 2-4, Urine Squamous Epithelial Cells ModerateH, Urine Amorphous Sediment ManyH, Urine Bacteria ManyH, Urine Eosinophils None seen, Urine Osmolality 318L, Urine Random Sodium 34, Urine Random Chloride 45L, Urine Potassium Timed 41, Urine Legionella Antigen [Pending] 02/26/18 16:38: Stool Occult Blood Negative 02/26/18 18:10: Sodium Level 130L, Potassium Level 4.5, Chloride Level 93L, Carbon Dioxide Level 15L, Anion Gap 22H, Blood Urea Nitrogen 138H, Creatinine 9.4H, Estimat Glomerular Filtration Rate , Glucose Level 148H, Calcium Level 7.0L 02/27/18 03:50: White Blood Count 29.1*H, Red Blood Count 3.41L, Hemoglobin 10.3L, Hematocrit 30.6L, Mean Corpuscular Volume 90, Mean Corpuscular Hemoglobin 30.2, Mean Corpuscular Hemoglobin Concent 33.7, Red Cell Distribution Width 11.4L, Platelet Count 290, Mean Platelet Volume 7.0, Neutrophils (%) (Auto) , Lymphocytes (%) (Auto) , Monocytes (%) (Auto) , Eosinophils (%) (Auto) , Basophils (%) (Auto) , Differential Total Cells Counted 100, Neutrophils % ( Manual) 87H, Lymphocytes % (Manual) 2L, Monocytes % (Manual) 2, Eosinophils % ( Manual) 0, Basophils % (Manual) 0, Band Neutrophils 9H, Platelet Estimate Adequate, Platelet Morphology Normal, Hypochromasia 1+, Erythrocyte Sedimentation Rate 88H, Reticulocyte Count 0.5, Prothrombin Time 13.6H, Prothromb Time International Ratio 1.3H, Activated Partial Thromboplast Time 42H , Sodium Level 129L, Potassium Level 4.5, Chloride Level 94L, Carbon Dioxide Level 13L, Anion Gap 22H, Blood Urea Nitrogen 137H, Creatinine 9.6H, Estimat Glomerular Filtration Rate , Glucose Level 81, Uric Acid 16.0H, Calcium Level 7.4L, Phosphorus Level 8.5H, Magnesium Level 2.6H, Iron Level 61, Total Iron Binding Capacity 114L, Percent Iron Saturation 54H, Unsaturated Iron Binding 53L , Total Bilirubin 4.9H, Direct Bilirubin 4.2H, Aspartate Amino Transf (AST/SGOT ) 1101H, Alanine Aminotransferase (ALT/SGPT) 273H, Alkaline Phosphatase 119H, Lactate Dehydrogenase 1504H, Total Creatine Kinase > 27005V, Troponin I 0.632H, C-Reactive Protein, Quantitative > 70.0H, Pro-B-Type Natriuretic Peptide 2444H, Total Protein 7.2, Albumin 1.6L, Globulin 5.6, Albumin/Globulin Ratio 0.3L, Carcinoembryonic Antigen [Pending], Vitamin B12 Level > 2000H, Folate 47.3, Hepatitis A IgM Antibody [Pending], Hepatitis B Surface Antigen [Pending], Hepatitis B Core IgM Antibody [Pending], Hepatitis C Antibody [Pending], HIV (1& 2) Antibody Rapid Negative Current Medications Medications (Trade) Dose Ordered Sig/Aristides Route PRN Reason Start Time Stop Time Status Last Admin Dose Admin Acetaminophen (Tylenol) 650 mg Q4H PRN ORAL T>100.5 02/26/18 10:30 03/28/18 10:29 02/26/18 14:08 Acetaminophen (Tylenol) 650 mg Q6H PRN ORAL Mild Pain/Temp > 100.5 02/26/18 06:30 03/28/18 06:29 02/26/18 09:24 Albuterol/ Ipratropium (Albuterol/ Ipratropium) 3 ml Q4H PRN HHN Shortness of Breath 02/26/18 10:30 03/03/18 10:29 02/27/18 04:14 Cefepime HCl 1 gm/ Dextrose 55 ml @ 110 mls/hr Q24H IVPB 02/26/18 12:00 03/05/18 11:59 02/26/18 13:58 Dextrose (Dextrose 50%) 25 ml Q30M PRN IV hypoglycemia 02/26/18 10:45 03/28/18 10:42 Dextrose (Dextrose 50%) 50 ml Q30M PRN IV hypoglycemia 02/26/18 10:45 03/28/18 10:44 Furosemide (Lasix) 100 mg ONCE ONCE IV 02/27/18 10:30 02/27/18 10:31 UNV Heparin Sodium (Porcine) (Heparin 5000 units/ml) 5,000 units EVERY 12 HOURS SUBQ 02/26/18 09:00 03/28/18 08:59 02/27/18 10:12 Metronidazole (Flagyl) 500 mg Q8HR ORAL 02/26/18 15:00 03/05/18 14:59 02/27/18 06:01 Morphine Sulfate (Morphine Sulfate) 2 mg Q4H PRN IVP PAIN 4-10 02/26/18 10:30 03/05/18 10:29 Nitroglycerin (Ntg) 0.4 mg Q5MIN X 3 DOSES PRN SL Prn Chest Pain 02/26/18 10:45 03/28/18 10:44 Ondansetron HCl (Zofran) 4 mg Q6H PRN IVP Nausea & Vomiting 02/26/18 10:30 03/28/18 10:29 Polyethylene Glycol (Miralax) 17 gm DAILYPRN PRN ORAL Constipation 02/26/18 10:30 03/28/18 10:29 Quetiapine Fumarate (SEROquel) 12.5 mg Q4H PRN ORAL agitation 02/26/18 12:15 03/28/18 12:14 Temazepam (Restoril) 15 mg HSPRN PRN ORAL Insomnia 02/26/18 21:00 03/05/18 20:59 Vancomycin HCl (Vanco rx to dose) 1 ea DAILY PRN MISC . 02/26/18 11:00 03/28/18 10:59 James Dinh MD Feb 27, 2018 10:45
[2018-02-27] MEDS ORDERED: Lidocaine 1% Plain 30 ml INJ ONE (11:15)
[2018-02-27] MEDS ORDERED: Heparin 2000 units/Ns 1000ml INJ ONE (11:15)
[2018-02-27] MEDS: Cefepime 1gm/D5W 55ml IVPB SCH ×2 (11:45)
[2018-02-27 12:00] VITALS: BP 143/86
--- NOTE | 2018-02-27 12:00 | Infectious Diseases Prog Note ---
Assessment/Plan Assessment/Plan Abx: IV Vancomycin 02/26- Cefepime 02/26- Assessment: SEpsis - 2ry to PNA and UTI- r/o bacteremia -02/27 CXR: Increasing left upper lobe consolidation, over one day. -CXR: Left lung infiltrates, likely pneumonia, and pleural fluid. Borderline cardiomegaly -Bcx p -u/a wbc tnct, nit +, leuk +2; cx NTD -influenza sc neg Fever, improving Leukocytosis, improving BRITT, worsening Rhabdomyolosis AMS s/p Fall Shock liver- r/o acute hepatitis -HIV ab sc neg Plan: -Switch empiric IV Vancomycin to PO Linezolid (in the setting of BRITT) and continue Cefepime #2 and Flagyl #2 for PNA, UTI, pending cultures -f/u Hep panel, HIV ab -f/u cx (Bl, sp, u) -Monitor CBC/CMP, temperatures -Renal f/u Thank you for this consultation. Will continue to follow along with you. Discussed with RN. Subjective Allergies: Coded Allergies: NO KNOWN ALLERGIES (Verified Allergy, Unknown, 02/26/18) Subjective Tm 102.6 wbc slighlty improved ucx NTD Objective Vital Signs Last 24 Hour Vital Signs Date Time Temp Pulse Resp B/P (MAP) Pulse Ox O2 Delivery O2 Flow Rate FiO2 02/27/18 11:21 99.8 02/27/18 08:00 Venturi Mask 10.0 02/27/18 08:00 106 02/27/18 08:00 100.8 106 24 158/87 (110) 95 02/27/18 04:23 103 22 93 Venturi Mask 10.0 45 02/27/18 04:14 45 02/27/18 04:14 102 20 92 Venturi Mask 10.0 45 02/27/18 04:00 99.2 101 22 149/73 (98) 95 02/27/18 04:00 104 02/27/18 04:00 Venturi Mask 10.0 02/27/18 00:00 95 02/27/18 00:00 100.0 100 22 134/81 (98) 95 02/27/18 00:00 Venturi Mask 10.0 02/26/18 20:31 98 Venturi Mask 10.0 45 02/26/18 20:31 Venturi Mask 10.0 45 02/26/18 20:19 80 14 Venturi Mask 10.0 45 02/26/18 20:00 99.0 93 22 114/66 (82) 95 02/26/18 20:00 Venturi Mask 10.0 02/26/18 20:00 93 02/26/18 16:00 Venturi Mask 15.0 02/26/18 16:00 100.0 96 22 120/62 (81) 95 02/26/18 16:00 98 02/26/18 12:00 107 02/26/18 12:00 102.6 106 24 143/86 (105) 94 02/26/18 12:00 Venturi Mask 15.0 Height (Feet): 5 Height (Inches): 7.00 Weight (Pounds): 216 Microbiology Date/Time Source Procedure Growth Status 02/26/18 22:30 Nasopharynx Influenza Types A,B Antigen (MARYSOL) - Final Complete 02/26/18 22:40 Stool Clostridium difficile Toxin Assay - Final Complete 02/26/18 14:15 Urine,Clean Catch Urine Culture - Preliminary NO GROWTH Resulted Laboratory Tests Test 02/26/18 14:15 02/26/18 16:38 02/26/18 18:10 02/27/18 03:50 Urine Color Brown Urine Appearance Turbid Urine pH 5 (4.5-8.0) Urine Specific [place] 1.015 (1.005-1.035) Urine Protein 3+ (NEGATIVE) H Urine Glucose (UA) Negative (NEGATIVE) Urine Ketones Negative (NEGATIVE) Urine Blood 5+ (NEGATIVE) H Urine Nitrite Positive (NEGATIVE) H Urine Bilirubin 2+ (NEGATIVE) H Urine Ictotest Positive (NEGATIVE) Urine Urobilinogen 4 MG/DL (0.0-1.0) H Urine Leukocyte Esterase 2+ (NEGATIVE) H Urine RBC Tntc /HPF (0 - 0) H Urine WBC 2-4 /HPF (0 - 0) Urine Squamous Epithelial Cells Moderate /LPF (NONE/OCC) H Urine Amorphous Sediment Many /LPF (NONE) H Urine Bacteria Many /HPF (NONE) H Urine Eosinophils None seen (NONE SEEN) Urine Osmolality 318 mOsm/kg (429-449) L Urine Random Sodium 34 mmol/L (20-110) Urine Random Chloride 45 mmol/L (55-125) L Urine Potassium Timed 41 mmol/L (12-62) Urine Legionella Antigen Pending Stool Occult Blood Negative (NEGATIVE) Sodium Level 130 MMOL/L (136-145) L 129 MMOL/L (136-145) L Potassium Level 4.5 MMOL/L (3.5-5.1) 4.5 MMOL/L (3.5-5.1) Chloride Level 93 MMOL/L (98-107) L 94 MMOL/L (98-107) L Carbon Dioxide Level 15 MMOL/L (21-32) L 13 MMOL/L (21-32) L Anion Gap 22 mmol/L (5-15) H 22 mmol/L (5-15) H Blood Urea Nitrogen 138 mg/dL (7-18) H 137 mg/dL (7-18) H Creatinine 9.4 MG/DL (0.55-1.30) H 9.6 MG/DL (0.55-1.30) H Estimat Glomerular Filtration Rate mL/min (>60) mL/min (>60) Glucose Level 148 MG/DL (74-106) H 81 MG/DL (74-106) Calcium Level 7.0 MG/DL (8.5-10.1) L 7.4 MG/DL (8.5-10.1) L White Blood Count 29.1 K/UL (4.8-10.8) *H Red Blood Count 3.41 M/UL (4.70-6.10) L Hemoglobin 10.3 G/DL (14.2-18.0) L Hematocrit 30.6 % (42.0-52.0) L Mean Corpuscular Volume 90 FL (80-99) Mean Corpuscular Hemoglobin 30.2 PG (27.0-31.0) Mean Corpuscular Hemoglobin Concent 33.7 G/DL (32.0-36.0) Red Cell Distribution Width 11.4 % (11.6-14.8) L Platelet Count 290 K/UL (150-450) Mean Platelet Volume 7.0 FL (6.5-10.1) Neutrophils (%) (Auto) % (45.0-75.0) Lymphocytes (%) (Auto) % (20.0-45.0) Monocytes (%) (Auto) % (1.0-10.0) Eosinophils (%) (Auto) % (0.0-3.0) Basophils (%) (Auto) % (0.0-2.0) Differential Total Cells Counted 100 Neutrophils % (Manual) 87 % (45-75) H Lymphocytes % (Manual) 2 % (20-45) L Monocytes % (Manual) 2 % (1-10) Eosinophils % (Manual) 0 % (0-3) Basophils % (Manual) 0 % (0-2) Band Neutrophils 9 % (0-8) H Platelet Estimate Adequate Platelet Morphology Normal Hypochromasia 1+ Erythrocyte Sedimentation Rate 88 MM/HR (0-20) H Reticulocyte Count 0.5 % (0.0-2.0) Prothrombin Time 13.6 SEC (9.30-11.50) H Prothromb Time International Ratio 1.3 (0.9-1.1) H Activated Partial Thromboplast Time 42 SEC (23-33) H Uric Acid 16.0 MG/DL (2.6-7.2) H Phosphorus Level 8.5 MG/DL (2.5-4.9) H Magnesium Level 2.6 MG/DL (1.8-2.4) H Iron Level 61 ug/dL (50-175) Total Iron Binding Capacity 114 ug/dL (250-450) L Percent Iron Saturation 54 % (15-50) H Unsaturated Iron Binding 53 ug/dL (112-346) L Total Bilirubin 4.9 MG/DL (0.2-1.0) H Direct Bilirubin 4.2 MG/DL (0.0-0.3) H Aspartate Amino Transf (AST/SGOT) 1101 U/L (15-37) H Alanine Aminotransferase (ALT/SGPT) 273 U/L (12-78) H Alkaline Phosphatase 119 U/L (46-116) H Lactate Dehydrogenase 1504 U/L (81-234) H Total Creatine Kinase > 22458 U/L (26-308) H Troponin I 0.632 ng/mL (0.000-0.056) C-Reactive Protein, Quantitative > 70.0 mg/dL (0.00-0.90) H Pro-B-Type Natriuretic Peptide 2444 pg/mL (0-125) H Total Protein 7.2 G/DL (6.4-8.2) Albumin 1.6 G/DL (3.4-5.0) L Globulin 5.6 g/dL Albumin/Globulin Ratio 0.3 (1.0-2.7) L Carcinoembryonic Antigen Pending Vitamin B12 Level > 2000 PG/ML (193-986) H Folate 47.3 NG/ML (8.6-58.9) Hepatitis A IgM Antibody Pending Hepatitis B Surface Antigen Pending Hepatitis B Core IgM Antibody Pending Hepatitis C Antibody Pending HIV (1&2) Antibody Rapid Negative (NEGATIVE) Current Medications Medications (Trade) Dose Ordered Sig/Aristides Route PRN Reason Start Time Stop Time Status Last Admin Dose Admin Acetaminophen (Tylenol) 650 mg Q4H PRN ORAL T>100.5 02/26/18 10:30 03/28/18 10:29 02/27/18 10:51 Acetaminophen (Tylenol) 650 mg Q6H PRN ORAL Mild Pain 02/27/18 11:45 03/28/18 06:29 Albuterol/ Ipratropium (Albuterol/ Ipratropium) 3 ml Q4H PRN HHN Shortness of Breath 02/26/18 10:30 03/03/18 10:29 02/27/18 04:14 Cefepime HCl 1 gm/ Dextrose 55 ml @ 110 mls/hr Q24H IVPB 02/26/18 12:00 03/05/18 11:59 02/27/18 11:45 Dextrose (Dextrose 50%) 25 ml Q30M PRN IV hypoglycemia 02/26/18 10:45 03/28/18 10:42 Dextrose (Dextrose 50%) 50 ml Q30M PRN IV hypoglycemia 02/26/18 10:45 03/28/18 10:44 Heparin Sodium (Porcine) (Heparin 5000 units/ml) 5,000 units EVERY 12 HOURS SUBQ 02/26/18 09:00 03/28/18 08:59 02/27/18 10:12 Metronidazole (Flagyl) 500 mg Q8HR ORAL 02/26/18 15:00 03/05/18 14:59 02/27/18 06:01 Morphine Sulfate (Morphine Sulfate) 2 mg Q4H PRN IVP PAIN 4-10 02/26/18 10:30 03/05/18 10:29 Nitroglycerin (Ntg) 0.4 mg Q5MIN X 3 DOSES PRN SL Prn Chest Pain 02/26/18 10:45 03/28/18 10:44 Ondansetron HCl (Zofran) 4 mg Q6H PRN IVP Nausea & Vomiting 02/26/18 10:30 03/28/18 10:29 Polyethylene Glycol (Miralax) 17 gm DAILYPRN PRN ORAL Constipation 02/26/18 10:30 03/28/18 10:29 Quetiapine Fumarate (SEROquel) 12.5 mg Q4H PRN ORAL agitation 02/26/18 12:15 03/28/18 12:14 Temazepam (Restoril) 15 mg HSPRN PRN ORAL Insomnia 02/26/18 21:00 03/05/18 20:59 Vancomycin HCl (Vanco rx to dose) 1 ea DAILY PRN MISC . 02/26/18 11:00 03/28/18 10:59 Melissa Martinez M.D. Feb 27, 2018 12:00
--- NOTE | 2018-02-27 12:57 | Internal Med Progress Note ---
Subjective Date of Service: Feb 27, 2018 Physician Name Christofer Biggs Attending Physician Ruperto Cowan MD Current Medications Medications (Trade) Dose Ordered Sig/Aristides Route PRN Reason Start Time Stop Time Status Last Admin Dose Admin Acetaminophen (Tylenol) 650 mg Q4H PRN ORAL T>100.5 02/26/18 10:30 03/28/18 10:29 02/27/18 10:51 Acetaminophen (Tylenol) 650 mg Q6H PRN ORAL Mild Pain 02/27/18 11:45 03/28/18 06:29 Albuterol/ Ipratropium (Albuterol/ Ipratropium) 3 ml Q4H PRN HHN Shortness of Breath 02/26/18 10:30 03/03/18 10:29 02/27/18 04:14 Cefepime HCl 1 gm/ Dextrose 55 ml @ 110 mls/hr Q24H IVPB 02/26/18 12:00 03/05/18 11:59 02/27/18 11:45 Dextrose (Dextrose 50%) 25 ml Q30M PRN IV hypoglycemia 02/26/18 10:45 03/28/18 10:42 Dextrose (Dextrose 50%) 50 ml Q30M PRN IV hypoglycemia 02/26/18 10:45 03/28/18 10:44 Heparin Sodium (Porcine) (Heparin 5000 units/ml) 5,000 units EVERY 12 HOURS SUBQ 02/26/18 09:00 03/28/18 08:59 02/27/18 10:12 Linezolid (Zyvox) 600 mg EVERY 12 HOURS ORAL 02/27/18 21:00 03/04/18 20:59 Metronidazole (Flagyl) 500 mg Q8HR ORAL 02/26/18 15:00 03/05/18 14:59 02/27/18 06:01 Morphine Sulfate (Morphine Sulfate) 2 mg Q4H PRN IVP PAIN 4-10 02/26/18 10:30 03/05/18 10:29 Nitroglycerin (Ntg) 0.4 mg Q5MIN X 3 DOSES PRN SL Prn Chest Pain 02/26/18 10:45 03/28/18 10:44 Ondansetron HCl (Zofran) 4 mg Q6H PRN IVP Nausea & Vomiting 02/26/18 10:30 03/28/18 10:29 Polyethylene Glycol (Miralax) 17 gm DAILYPRN PRN ORAL Constipation 02/26/18 10:30 03/28/18 10:29 Quetiapine Fumarate (SEROquel) 12.5 mg Q4H PRN ORAL agitation 02/26/18 12:15 03/28/18 12:14 Temazepam (Restoril) 15 mg HSPRN PRN ORAL Insomnia 02/26/18 21:00 03/05/18 20:59 Allergies: Coded Allergies: NO KNOWN ALLERGIES (Verified Allergy, Unknown, 02/26/18) ROS Limited/Unobtainable: No Constitutional: Reports: no symptoms HEENT: Reports: no symptoms Cardiovascular: Reports: no symptoms Respiratory: Reports: shortness of breath Gastrointestinal/Abdominal: Reports: no symptoms Genitourinary: Reports: no symptoms Neurologic/Psychiatric: Reports: no symptoms Subjective 72 YO M admitted after syncopal episode. Now pneumonia and renal failure. Cover for Int Med-Dr Cowan. HANANE. Continues on venturi mask Objective Last Vital Signs Date Time Temp Pulse Resp B/P (MAP) Pulse Ox O2 Delivery O2 Flow Rate FiO2 02/27/18 12:00 99.8 105 25 143/86 (105) 95 02/27/18 12:00 Venturi Mask 10.0 02/27/18 08:28 45 Laboratory Tests Test 02/26/18 14:15 02/26/18 16:38 02/26/18 18:10 02/27/18 03:50 Urine Color Brown Urine Appearance Turbid Urine pH 5 (4.5-8.0) Urine Specific [place] 1.015 (1.005-1.035) Urine Protein 3+ (NEGATIVE) H Urine Glucose (UA) Negative (NEGATIVE) Urine Ketones Negative (NEGATIVE) Urine Blood 5+ (NEGATIVE) H Urine Nitrite Positive (NEGATIVE) H Urine Bilirubin 2+ (NEGATIVE) H Urine Ictotest Positive (NEGATIVE) Urine Urobilinogen 4 MG/DL (0.0-1.0) H Urine Leukocyte Esterase 2+ (NEGATIVE) H Urine RBC Tntc /HPF (0 - 0) H Urine WBC 2-4 /HPF (0 - 0) Urine Squamous Epithelial Cells Moderate /LPF (NONE/OCC) H Urine Amorphous Sediment Many /LPF (NONE) H Urine Bacteria Many /HPF (NONE) H Urine Eosinophils None seen (NONE SEEN) Urine Osmolality 318 mOsm/kg (429-449) L Urine Random Sodium 34 mmol/L (20-110) Urine Random Chloride 45 mmol/L (55-125) L Urine Potassium Timed 41 mmol/L (12-62) Urine Legionella Antigen Pending Stool Occult Blood Negative (NEGATIVE) Sodium Level 130 MMOL/L (136-145) L 129 MMOL/L (136-145) L Potassium Level 4.5 MMOL/L (3.5-5.1) 4.5 MMOL/L (3.5-5.1) Chloride Level 93 MMOL/L (98-107) L 94 MMOL/L (98-107) L Carbon Dioxide Level 15 MMOL/L (21-32) L 13 MMOL/L (21-32) L Anion Gap 22 mmol/L (5-15) H 22 mmol/L (5-15) H Blood Urea Nitrogen 138 mg/dL (7-18) H 137 mg/dL (7-18) H Creatinine 9.4 MG/DL (0.55-1.30) H 9.6 MG/DL (0.55-1.30) H Estimat Glomerular Filtration Rate mL/min (>60) mL/min (>60) Glucose Level 148 MG/DL (74-106) H 81 MG/DL (74-106) Calcium Level 7.0 MG/DL (8.5-10.1) L 7.4 MG/DL (8.5-10.1) L White Blood Count 29.1 K/UL (4.8-10.8) *H Red Blood Count 3.41 M/UL (4.70-6.10) L Hemoglobin 10.3 G/DL (14.2-18.0) L Hematocrit 30.6 % (42.0-52.0) L Mean Corpuscular Volume 90 FL (80-99) Mean Corpuscular Hemoglobin 30.2 PG (27.0-31.0) Mean Corpuscular Hemoglobin Concent 33.7 G/DL (32.0-36.0) Red Cell Distribution Width 11.4 % (11.6-14.8) L Platelet Count 290 K/UL (150-450) Mean Platelet Volume 7.0 FL (6.5-10.1) Neutrophils (%) (Auto) % (45.0-75.0) Lymphocytes (%) (Auto) % (20.0-45.0) Monocytes (%) (Auto) % (1.0-10.0) Eosinophils (%) (Auto) % (0.0-3.0) Basophils (%) (Auto) % (0.0-2.0) Differential Total Cells Counted 100 Neutrophils % (Manual) 87 % (45-75) H Lymphocytes % (Manual) 2 % (20-45) L Monocytes % (Manual) 2 % (1-10) Eosinophils % (Manual) 0 % (0-3) Basophils % (Manual) 0 % (0-2) Band Neutrophils 9 % (0-8) H Other Cell Type Pathologist comment Platelet Estimate Adequate Platelet Morphology Normal Hypochromasia 1+ Erythrocyte Sedimentation Rate 88 MM/HR (0-20) H Reticulocyte Count 0.5 % (0.0-2.0) Prothrombin Time 13.6 SEC (9.30-11.50) H Prothromb Time International Ratio 1.3 (0.9-1.1) H Activated Partial Thromboplast Time 42 SEC (23-33) H Uric Acid 16.0 MG/DL (2.6-7.2) H Phosphorus Level 8.5 MG/DL (2.5-4.9) H Magnesium Level 2.6 MG/DL (1.8-2.4) H Iron Level 61 ug/dL (50-175) Total Iron Binding Capacity 114 ug/dL (250-450) L Percent Iron Saturation 54 % (15-50) H Unsaturated Iron Binding 53 ug/dL (112-346) L Total Bilirubin 4.9 MG/DL (0.2-1.0) H Direct Bilirubin 4.2 MG/DL (0.0-0.3) H Aspartate Amino Transf (AST/SGOT) 1101 U/L (15-37) H Alanine Aminotransferase (ALT/SGPT) 273 U/L (12-78) H Alkaline Phosphatase 119 U/L (46-116) H Lactate Dehydrogenase 1504 U/L (81-234) H Total Creatine Kinase > 06380 U/L (26-308) H Troponin I 0.632 ng/mL (0.000-0.056) C-Reactive Protein, Quantitative > 70.0 mg/dL (0.00-0.90) H Pro-B-Type Natriuretic Peptide 2444 pg/mL (0-125) H Total Protein 7.2 G/DL (6.4-8.2) Albumin 1.6 G/DL (3.4-5.0) L Globulin 5.6 g/dL Albumin/Globulin Ratio 0.3 (1.0-2.7) L Carcinoembryonic Antigen Pending Vitamin B12 Level > 2000 PG/ML (193-986) H Folate 47.3 NG/ML (8.6-58.9) Hepatitis A IgM Antibody Pending Hepatitis B Surface Antigen Pending Hepatitis B Core IgM Antibody Pending Hepatitis C Antibody Pending HIV (1&2) Antibody Rapid Negative (NEGATIVE) Microbiology Date/Time Source Procedure Growth Status 02/26/18 22:30 Nasopharynx Influenza Types A,B Antigen (MARYSOL) - Final Complete 02/26/18 22:40 Stool Clostridium difficile Toxin Assay - Final Complete 02/26/18 14:15 Urine,Clean Catch Urine Culture - Preliminary NO GROWTH Resulted Intake and Output 02/26/18 02/27/18 19:00 07:00 Intake Total 4055 ml 1400 ml Output Total 275 ml 400 ml Balance 3780 ml 1000 ml Intake Oral 1800 ml 200 ml IV Total 2255 ml 1200 ml Output Urine Total 275 ml 400 ml # Bowel Movements 2 2 Objective PHYSICAL EXAMINATION: GENERAL: The patient is a well-developed and well-nourished, slightly obese male, in no apparent distress. HEENT: Eyes, pupils are equal and responsive to light and accommodation. Extraocular movements are intact. NECK: Supple without lymphadenopathy. CHEST: venturi mask; wheezes bilaterally, without rales. CARDIOVASCULAR: Regular rhythm and rate. S1 and S2 are normal without murmurs, rubs, or gallops. ABDOMEN: Soft, nontender, and nondistended. Positive bowel sounds. No evidence of hepatosplenomegaly. Currently, no rebound or guarding noted. EXTREMITIES: Negative for clubbing, cyanosis, or edema. RECTAL/GENITAL: Refused. NEUROLOGICAL: Cranial nerves II through XII are grossly intact without focal deficits. Motor strength is 5/5 bilaterally. Deep tendon reflexes are 2+ plantar. Assessment/Plan Problem List: (1) Leukocytosis Assessment & Plan: See ID note. Continue linezolid, cefepime and flagyl per ID (2) Renal failure Assessment & Plan: See nephrology note. (3) Elevated liver function tests Assessment & Plan: Await GI consult. (4) Syncope (5) Hyponatremia Assessment & Plan: Continue IVF per nephrology (6) Hypertension (7) Hypercholesterolemia (8) Prostate cancer (9) Colon cancer (10) Rhabdomyolysis (11) Pneumonia Assessment & Plan: See pulmonary note. Continue linezolid, cefepime and flagyl per ID Status: not improved Christofer Biggs MD Feb 27, 2018 12:57
--- NOTE | 2018-02-27 13:09 | General Progress Note ---
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 Status: stable Assessment/Plan seroquel prn provided ro/st Subjective Neurologic/Psychiatric: Reports: anxiety Allergies: Coded Allergies: NO KNOWN ALLERGIES (Verified Allergy, Unknown, 02/26/18) Objective Last 24 Hour Vital Signs Date Time Temp Pulse Resp B/P (MAP) Pulse Ox O2 Delivery O2 Flow Rate FiO2 02/27/18 12:00 99.8 105 25 143/86 (105) 95 02/27/18 12:00 Venturi Mask 10.0 02/27/18 11:21 99.8 02/27/18 08:28 Venturi Mask 10.0 45 02/27/18 08:27 94 Venturi Mask 10.0 45 02/27/18 08:26 103 20 Venturi Mask 10.0 45 02/27/18 08:00 Venturi Mask 10.0 02/27/18 08:00 106 02/27/18 08:00 100.8 106 24 158/87 (110) 95 02/27/18 04:23 103 22 93 Venturi Mask 10.0 45 02/27/18 04:14 45 02/27/18 04:14 102 20 92 Venturi Mask 10.0 45 02/27/18 04:00 99.2 101 22 149/73 (98) 95 02/27/18 04:00 104 02/27/18 04:00 Venturi Mask 10.0 02/27/18 00:00 95 02/27/18 00:00 100.0 100 22 134/81 (98) 95 02/27/18 00:00 Venturi Mask 10.0 02/26/18 20:31 98 Venturi Mask 10.0 45 02/26/18 20:31 Venturi Mask 10.0 45 02/26/18 20:19 80 14 Venturi Mask 10.0 45 02/26/18 20:00 99.0 93 22 114/66 (82) 95 02/26/18 20:00 Venturi Mask 10.0 02/26/18 20:00 93 02/26/18 16:00 Venturi Mask 15.0 02/26/18 16:00 100.0 96 22 120/62 (81) 95 02/26/18 16:00 98 Intake and Output 02/26/18 02/27/18 19:00 07:00 Intake Total 4055 ml 1400 ml Output Total 275 ml 400 ml Balance 3780 ml 1000 ml Intake Oral 1800 ml 200 ml IV Total 2255 ml 1200 ml Output Urine Total 275 ml 400 ml # Bowel Movements 2 2 Laboratory Tests 02/26/18 14:15: Urine Color Brown, Urine Appearance Turbid, Urine pH 5, Urine Specific [place] 1.015, Urine Protein 3+H, Urine Glucose (UA) Negative, Urine Ketones Negative, Urine Blood 5+H, Urine Nitrite PositiveH, Urine Bilirubin 2+H, Urine Ictotest Positive, Urine Urobilinogen 4H, Urine Leukocyte Esterase 2+H, Urine RBC TntcH, Urine WBC 2-4, Urine Squamous Epithelial Cells ModerateH, Urine Amorphous Sediment ManyH, Urine Bacteria ManyH, Urine Eosinophils None seen, Urine Osmolality 318L, Urine Random Sodium 34, Urine Random Chloride 45L, Urine Potassium Timed 41, Urine Legionella Antigen [Pending] 02/26/18 16:38: Stool Occult Blood Negative 02/26/18 18:10: Sodium Level 130L, Potassium Level 4.5, Chloride Level 93L, Carbon Dioxide Level 15L, Anion Gap 22H, Blood Urea Nitrogen 138H, Creatinine 9.4H, Estimat Glomerular Filtration Rate , Glucose Level 148H, Calcium Level 7.0L 02/27/18 03:50: Sodium Level 129L, Potassium Level 4.5, Chloride Level 94L, Carbon Dioxide Level 13L, Anion Gap 22H, Blood Urea Nitrogen 137H, Creatinine 9.6H, Estimat Glomerular Filtration Rate , Glucose Level 81, Calcium Level 7.4L, White Blood Count 29.1*H, Red Blood Count 3.41L, Hemoglobin 10.3L, Hematocrit 30.6L, Mean Corpuscular Volume 90, Mean Corpuscular Hemoglobin 30.2, Mean Corpuscular Hemoglobin Concent 33.7, Red Cell Distribution Width 11.4L, Platelet Count 290, Mean Platelet Volume 7.0, Neutrophils (%) (Auto) , Lymphocytes (%) (Auto) , Monocytes (%) (Auto) , Eosinophils (%) (Auto) , Basophils (%) (Auto) , Differential Total Cells Counted 100, Neutrophils % (Manual) 87H, Lymphocytes % (Manual) 2L, Monocytes % (Manual) 2, Eosinophils % (Manual) 0, Basophils % ( Manual) 0, Band Neutrophils 9H, Other Cell Type Pathologist comment, Platelet Estimate Adequate, Platelet Morphology Normal, Hypochromasia 1+, Erythrocyte Sedimentation Rate 88H, Reticulocyte Count 0.5, Prothrombin Time 13.6H, Prothromb Time International Ratio 1.3H, Activated Partial Thromboplast Time 42H , Uric Acid 16.0H, Phosphorus Level 8.5H, Magnesium Level 2.6H, Iron Level 61, Total Iron Binding Capacity 114L, Percent Iron Saturation 54H, Unsaturated Iron Binding 53L, Total Bilirubin 4.9H, Direct Bilirubin 4.2H, Aspartate Amino Transf (AST/SGOT) 1101H, Alanine Aminotransferase (ALT/SGPT) 273H, Alkaline Phosphatase 119H, Lactate Dehydrogenase 1504H, Total Creatine Kinase > 64688J, Troponin I 0.632H, C-Reactive Protein, Quantitative > 70.0H, Pro-B-Type Natriuretic Peptide 2444H, Total Protein 7.2, Albumin 1.6L, Globulin 5.6, Albumin/Globulin Ratio 0.3L, Carcinoembryonic Antigen [Pending], Vitamin B12 Level > 2000H, Folate 47.3, Hepatitis A IgM Antibody [Pending], Hepatitis B Surface Antigen [Pending], Hepatitis B Core IgM Antibody [Pending], Hepatitis C Antibody [Pending], HIV (1&2) Antibody Rapid Negative Height (Feet): 5 Height (Inches): 7.00 Weight (Pounds): 216 General Appearance: lethargic, confused, agitated Emely Henry MD Feb 27, 2018 13:09
--- NOTE | 2018-02-27 14:17 | Nephrology Progress Note ---
Assessment/Plan Problem List: (1) ATN (acute tubular necrosis) (2) Rhabdomyolysis (3) Pneumonia Assessment Acute renal failure- Rhabdo Pneumonia CVA ? Plan hemodialysis Phos binders renal diet Vigorous Hydrate- Fortune Monitor CPK - Uric Acid- LFTs monitor Renal parameters Avoid Nephrotoxics per orders Subjective ROS Limited/Unobtainable: No Constitutional: Reports: malaise, weakness Objective Objective Last 24 Hour Vital Signs Date Time Temp Pulse Resp B/P (MAP) Pulse Ox O2 Delivery O2 Flow Rate FiO2 02/27/18 12:00 99.8 105 25 143/86 (105) 95 02/27/18 12:00 Venturi Mask 10.0 02/27/18 11:57 103 02/27/18 11:21 99.8 02/27/18 08:28 Venturi Mask 10.0 45 02/27/18 08:27 94 Venturi Mask 10.0 45 02/27/18 08:26 103 20 Venturi Mask 10.0 45 02/27/18 08:00 Venturi Mask 10.0 02/27/18 08:00 106 02/27/18 08:00 100.8 106 24 158/87 (110) 95 02/27/18 04:23 103 22 93 Venturi Mask 10.0 45 02/27/18 04:14 45 02/27/18 04:14 102 20 92 Venturi Mask 10.0 45 02/27/18 04:00 99.2 101 22 149/73 (98) 95 02/27/18 04:00 104 02/27/18 04:00 Venturi Mask 10.0 02/27/18 00:00 95 02/27/18 00:00 100.0 100 22 134/81 (98) 95 02/27/18 00:00 Venturi Mask 10.0 02/26/18 20:31 98 Venturi Mask 10.0 45 18 20:31 Venturi Mask 10.0 45 02/26/18 20:19 80 14 Venturi Mask 10.0 45 02/26/18 20:00 99.0 93 22 114/66 (82) 95 02/26/18 20:00 Venturi Mask 10.0 02/26/18 20:00 93 02/26/18 16:00 Venturi Mask 15.0 02/26/18 16:00 100.0 96 22 120/62 (81) 95 02/26/18 16:00 98 Intake and Output 02/26/18 02/27/18 19:00 07:00 Intake Total 4055 ml 1400 ml Output Total 275 ml 400 ml Balance 3780 ml 1000 ml Intake Oral 1800 ml 200 ml IV Total 2255 ml 1200 ml Output Urine Total 275 ml 400 ml # Bowel Movements 2 2 Laboratory Tests 02/26/18 16:38: Stool Occult Blood Negative 02/26/18 18:10: Sodium Level 130L, Potassium Level 4.5, Chloride Level 93L, Carbon Dioxide Level 15L, Anion Gap 22H, Blood Urea Nitrogen 138H, Creatinine 9.4H, Estimat Glomerular Filtration Rate , Glucose Level 148H, Calcium Level 7.0L 02/27/18 03:50: Sodium Level 129L, Potassium Level 4.5, Chloride Level 94L, Carbon Dioxide Level 13L, Anion Gap 22H, Blood Urea Nitrogen 137H, Creatinine 9.6H, Estimat Glomerular Filtration Rate , Glucose Level 81, Calcium Level 7.4L, White Blood Count 29.1*H, Red Blood Count 3.41L, Hemoglobin 10.3L, Hematocrit 30.6L, Mean Corpuscular Volume 90, Mean Corpuscular Hemoglobin 30.2, Mean Corpuscular Hemoglobin Concent 33.7, Red Cell Distribution Width 11.4L, Platelet Count 290, Mean Platelet Volume 7.0, Neutrophils (%) (Auto) , Lymphocytes (%) (Auto) , Monocytes (%) (Auto) , Eosinophils (%) (Auto) , Basophils (%) (Auto) , Differential Total Cells Counted 100, Neutrophils % (Manual) 87H, Lymphocytes % (Manual) 2L, Monocytes % (Manual) 2, Eosinophils % (Manual) 0, Basophils % ( Manual) 0, Band Neutrophils 9H, Other Cell Type Pathologist comment, Platelet Estimate Adequate, Platelet Morphology Normal, Hypochromasia 1+, Erythrocyte Sedimentation Rate 88H, Reticulocyte Count 0.5, Prothrombin Time 13.6H, Prothromb Time International Ratio 1.3H, Activated Partial Thromboplast Time 42H , Uric Acid 16.0H, Phosphorus Level 8.5H, Magnesium Level 2.6H, Iron Level 61, Total Iron Binding Capacity 114L, Percent Iron Saturation 54H, Unsaturated Iron Binding 53L, Total Bilirubin 4.9H, Direct Bilirubin 4.2H, Aspartate Amino Transf (AST/SGOT) 1101H, Alanine Aminotransferase (ALT/SGPT) 273H, Alkaline Phosphatase 119H, Lactate Dehydrogenase 1504H, Total Creatine Kinase > 32211B, Troponin I 0.632H, C-Reactive Protein, Quantitative > 70.0H, Pro-B-Type Natriuretic Peptide 2444H, Total Protein 7.2, Albumin 1.6L, Globulin 5.6, Albumin/Globulin Ratio 0.3L, Carcinoembryonic Antigen [Pending], Vitamin B12 Level > 2000H, Folate 47.3, Hepatitis A IgM Antibody [Pending], Hepatitis B Surface Antigen [Pending], Hepatitis B Core IgM Antibody [Pending], Hepatitis C Antibody [Pending], HIV (1&2) Antibody Rapid Negative Height (Feet): 5 Height (Inches): 7.00 Weight (Pounds): 216 General Appearance: mild distress Cardiovascular: tachycardia Respiratory/Chest: decreased breath sounds Abdomen: distended Yayo Lora MD Feb 27, 2018 14:17
--- NOTE | 2018-02-27 14:33 | NUR ---
NURSE NOTES: Called and inform Catracho, hemodialysis nurse from [facility] about dialysis order for today. Catracho said Paula will call us back with the ETA.
--- NOTE | 2018-02-27 14:42 | Pre-Procedure Note/Attestation ---
Pre-Procedure Note/Attestation Complete Prior to Procedure Planned Procedure: not applicable Procedure Narrative: Dialysis catheter Indications for Procedure Pre-Operative Diagnosis: Renal failure Attestation I attest that I discussed the nature of the procedure; its benefits; risks and complications; and alternatives (and the risks and benefits of such alternatives ), prior to the procedure, with the patient (or the patient's legal malt liquors sales representative). I attest that, if there was a reasonable possibility of needing a blood transfusion, the patient (or the patient's legal malt liquors sales representative) was given the [facility] standardized written summary, pursuant to the Daniel Dacia Blood Safety Act ([place] Health and Safety Code # 1645, as amended). I attest that I re-evaluated the patient just prior to the surgery and that there has been no change in the patient's H&P, except as documented below: discussed in person with pt's. Artemio Espinosa MD Feb 27, 2018 14:42
--- NOTE | 2018-02-27 14:44 | Brief Operative Note ---
Immediate Post Operative Note Operative Note Pre-op Diagnosis: Renal failure Procedure: Anat mcdonnell Post-op Diagnosis: same as pre-op Surgeon: Anat Osborne Anesthesia: local Specimen: none Complications: none Condition: stable Fluids: none Implant(s) used?: No Artemio Osborne MD Feb 27, 2018 14:44
--- NOTE | 2018-02-27 14:49 | Diagnostic Imaging Report ---
Indication: Needs access for dialysis; renal failure Technique: Procedure performed at bedside. Procedural timeout performed. Total sterile technique, including sterile probe cover and sterile gel, sterile gloves, hand hygiene, hat, mask, sterile gown, large sterile drape, and preparation with 2% chlorhexidine utilized. Local anesthesia with 1% lidocaine. Under real-time ultrasound guidance, puncture right internal jugular vein using 21-gauge micropuncture needle, passage 0.018 guidewire, insertion 4 [place] introducer, passage 0.035 guidewire, over which was passed serial dilators and then a 13 [place] 15 cm triple-lumen temporary dialysis catheter. Guidewire was removed. Catheter ports were aspirated and flushed. The catheter was fixed to the skin. Patient tolerated procedure well. A chest x-ray was obtained, documents catheter tip position at the cavoatrial junction, no pneumothorax. Comparison: 02/27/2018 Findings: As above Impression: Successful bedside placement of right transjugular temporary dialysis catheter, as described.
[2018-02-27 15:50] VITALS: BP 133/83
--- NOTE | 2018-02-27 16:19 | NUR ---
NURSE NOTES: Informed Dr. Nelson that patient had episode of 7 beats of V-tach with no new order at this time.
[2018-02-27] MEDS: Docusate 100mg cap ORAL SCH (17:21)
--- NOTE | 2018-02-27 17:57 | Cardiology Report ---
APPROVED REPORT EKG Measurement Heart [id number] Normal sinus rhythm Prolonged QT Abnormal ECG
--- NOTE | 2018-02-27 19:07 | NUR ---
HAND-OFF: Report given to BALTA Skelton. Stable condition.
--- NOTE | 2018-02-27 19:51 | Cardiology Progress Note ---
Assessment/Plan Assessment/Plan rhabdo acyute on chronic renal isnuf fall pneumonia abn trop relatedt o rhabdo with cross reactivity with cardaic tro pin setting of arf no evidence for sichemia on ekg echo normla wall motion s/p polypectomy near anl verge hs of prostae cancer s/ radi prostatectomy lyrica allergy will follow [id number] Objective Last 24 Hour Vital Signs Date Time Temp Pulse Resp B/P (MAP) Pulse Ox O2 Delivery O2 Flow Rate FiO2 02/27/18 16:00 Venturi Mask 10.0 02/27/18 15:50 98.5 98 23 133/83 (100) 96 02/27/18 15:20 97 02/27/18 12:00 99.8 105 25 143/86 (105) 95 02/27/18 12:00 Venturi Mask 10.0 02/27/18 11:57 103 02/27/18 11:21 99.8 02/27/18 08:28 Venturi Mask 10.0 45 02/27/18 08:27 94 Venturi Mask 10.0 45 02/27/18 08:26 103 20 Venturi Mask 10.0 45 02/27/18 08:00 Venturi Mask 10.0 02/27/18 08:00 106 02/27/18 08:00 100.8 106 24 158/87 (110) 95 02/27/18 04:23 103 22 93 Venturi Mask 10.0 45 02/27/18 04:14 45 02/27/18 04:14 102 20 92 Venturi Mask 10.0 45 02/27/18 04:00 99.2 101 22 149/73 (98) 95 02/27/18 04:00 104 02/27/18 04:00 Venturi Mask 10.0 02/27/18 00:00 95 02/27/18 00:00 100.0 100 22 134/81 (98) 95 02/27/18 00:00 Venturi Mask 10.0 02/26/18 20:31 98 Venturi Mask 10.0 45 18 20:31 Venturi Mask 10.0 45 18 20:19 80 14 Venturi Mask 10.0 45 02/26/18 20:00 99.0 93 22 114/66 (82) 95 02/26/18 20:00 Venturi Mask 10.0 02/26/18 20:00 93 Intake and Output 02/26/18 02/27/18 19:00 07:00 Intake Total 4055 ml 1400 ml Output Total 275 ml 400 ml Balance 3780 ml 1000 ml Intake Oral 1800 ml 200 ml IV Total 2255 ml 1200 ml Output Urine Total 275 ml 400 ml # Bowel Movements 2 2 Laboratory Tests Test 02/27/18 03:50 02/27/18 15:04 White Blood Count 29.1 K/UL (4.8-10.8) *H Red Blood Count 3.41 M/UL (4.70-6.10) L Hemoglobin 10.3 G/DL (14.2-18.0) L Hematocrit 30.6 % (42.0-52.0) L Mean Corpuscular Volume 90 FL (80-99) Mean Corpuscular Hemoglobin 30.2 PG (27.0-31.0) Mean Corpuscular Hemoglobin Concent 33.7 G/DL (32.0-36.0) Red Cell Distribution Width 11.4 % (11.6-14.8) L Platelet Count 290 K/UL (150-450) Mean Platelet Volume 7.0 FL (6.5-10.1) Neutrophils (%) (Auto) % (45.0-75.0) Lymphocytes (%) (Auto) % (20.0-45.0) Monocytes (%) (Auto) % (1.0-10.0) Eosinophils (%) (Auto) % (0.0-3.0) Basophils (%) (Auto) % (0.0-2.0) Differential Total Cells Counted 100 Neutrophils % (Manual) 87 % (45-75) H Lymphocytes % (Manual) 2 % (20-45) L Monocytes % (Manual) 2 % (1-10) Eosinophils % (Manual) 0 % (0-3) Basophils % (Manual) 0 % (0-2) Band Neutrophils 9 % (0-8) H Other Cell Type Pathologist comment Platelet Estimate Adequate Platelet Morphology Normal Hypochromasia 1+ Erythrocyte Sedimentation Rate 88 MM/HR (0-20) H Reticulocyte Count 0.5 % (0.0-2.0) Prothrombin Time 13.6 SEC (9.30-11.50) H Prothromb Time International Ratio 1.3 (0.9-1.1) H Activated Partial Thromboplast Time 42 SEC (23-33) H Sodium Level 129 MMOL/L (136-145) L Potassium Level 4.5 MMOL/L (3.5-5.1) Chloride Level 94 MMOL/L (98-107) L Carbon Dioxide Level 13 MMOL/L (21-32) L Anion Gap 22 mmol/L (5-15) H Blood Urea Nitrogen 137 mg/dL (7-18) H Creatinine 9.6 MG/DL (0.55-1.30) H Estimat Glomerular Filtration Rate mL/min (>60) Glucose Level 81 MG/DL (74-106) Uric Acid 16.0 MG/DL (2.6-7.2) H Calcium Level 7.4 MG/DL (8.5-10.1) L Phosphorus Level 8.5 MG/DL (2.5-4.9) H Magnesium Level 2.6 MG/DL (1.8-2.4) H Iron Level 61 ug/dL (50-175) Total Iron Binding Capacity 114 ug/dL (250-450) L Percent Iron Saturation 54 % (15-50) H Unsaturated Iron Binding 53 ug/dL (112-346) L Total Bilirubin 4.9 MG/DL (0.2-1.0) H Direct Bilirubin 4.2 MG/DL (0.0-0.3) H Aspartate Amino Transf (AST/SGOT) 1101 U/L (15-37) H Alanine Aminotransferase (ALT/SGPT) 273 U/L (12-78) H Alkaline Phosphatase 119 U/L (46-116) H Lactate Dehydrogenase 1504 U/L (81-234) H Total Creatine Kinase > 95745 U/L (26-308) H Troponin I 0.632 ng/mL (0.000-0.056) C-Reactive Protein, Quantitative > 70.0 mg/dL (0.00-0.90) H Pro-B-Type Natriuretic Peptide 2444 pg/mL (0-125) H Total Protein 7.2 G/DL (6.4-8.2) Albumin 1.6 G/DL (3.4-5.0) L Globulin 5.6 g/dL Albumin/Globulin Ratio 0.3 (1.0-2.7) L Carcinoembryonic Antigen Pending Vitamin B12 Level > 2000 PG/ML (193-986) H Folate 47.3 NG/ML (8.6-58.9) Hepatitis A IgM Antibody Pending Hepatitis B Surface Antigen Pending Hepatitis B Core IgM Antibody Pending Hepatitis C Antibody Pending HIV (1&2) Antibody Rapid Negative (NEGATIVE) Urine Opiates Screen Negative (NEGATIVE) Urine Barbiturates Screen Negative (NEGATIVE) Phencyclidine (PCP) Screen Negative (NEGATIVE) Urine Amphetamines Screen Negative (NEGATIVE) Urine Benzodiazepines Screen Negative (NEGATIVE) Urine Cocaine Screen Negative (NEGATIVE) Urine Marijuana (THC) Screen Negative (NEGATIVE) Microbiology Date/Time Source Procedure Growth Status 02/26/18 22:30 Nasopharynx Influenza Types A,B Antigen (MARYSOL) - Final Complete 02/26/18 22:40 Stool Clostridium difficile Toxin Assay - Final Complete 02/26/18 14:15 Urine,Clean Catch Urine Culture - Preliminary NO GROWTH Resulted Car Nelson MD Feb 27, 2018 19:51
[2018-02-27 20:00] VITALS: BP 115/60
[2018-02-27] MEDS: Dyna-Hex 2% Top Sol 2oz TOPIC SCH (21:40)
[2018-02-28] VITALS: BP 133/86
--- NOTE | 2018-02-28 00:17 | NUR ---
NURSE NOTES: Pt refusing sputum culture, and induced sputum culture. Unable to collect at this time. Educated pt on importance of collection and culture. Will continue to monitor and follow plan of care.
--- NOTE | 2018-02-28 01:45 | Consultation ---
DATE OF CONSULTATION: 02/27/2018 CARDIOLOGY CONSULTATION CONSULTING PHYSICIAN: Car Nelson M.D. REFERRING PHYSICIAN: Ruperto Cowan M.D. REASON FOR REFERRAL: Abnormal cardiac enzymes. HISTORY OF PRESENT ILLNESS: This is an elderly gentleman who is really not a very good historian. The patient was apparently initially taken to [facility] Emergency Room with complaints of having been found on the floor. Apparently, he told the staff at [facility] that he was on the floor for three weeks but the family and caregivers indicated that it was consistent with three to four days. He told them that he was urinating when he slipped in his bathroom and fell down. No head trauma. No loss of consciousness. He was unable to ambulate and remained on the ground since. The caretakers found him on the day of his presentation to [facility], which was on 02/25/2018 and they called the emergency medical services. He indicated initially that he had a problem moving his right hand. After he had some labs drawn, he was transferred to [facility]. His labs at the [facility] showed EKG showing sinus tachycardia, T-wave inversion in III and V1 only, no ST-elevation. No chest pain. Chest x-ray, left upper lobe infiltrate with mass and CT scan of the head, no intracranial hemorrhage was noted. His white count was 29,000 with hemoglobin 12.1 and platelet count 265,000. His sodium was down to 124 and his BUN was 113 with creatinine of 8. His total blood sugar was 220. Troponin was 0.22. AST and ALT both elevated, but AST of 989 with ALT of 180. Alkaline phosphatase was 97. Lactic acid was 3.6. CK was 24,719. He is on the dialysis machine at the present time here at [facility] placed. He denies having any chest pain or shortness of breath, although he does appear to be visibly short of breath at this time. PAST MEDICAL HISTORY: Information from the chart indicates that this patient's past medical history followed by [facility], history of gout, hypertension, hyperlipidemia, prostate cancer, status post radical prostatectomy in 2001, history of peripheral neuropathy, systemic hypertension, shingles, chronic kidney disease stage 3, tubular adenoma of the colon, and gout as well. His most recent evaluation indicated he has had a rectal polyp status post transanal excision one year ago, tubulovillous adenoma was diagnosed. He reportedly has a history of GI disorder as well as shingles. ALLERGIES: To Lyrica. SOCIAL HISTORY: He never smoked. 21 cans of beer per week. Previously, no drugs being used. REVIEW OF SYSTEMS: GASTROINTESTINAL: Denies any nausea or vomiting, though questionably he has had diarrhea. GENITOURINARY: Denies any burning on urination. PULMONARY: He does have some coughing and congestion. CONSTITUTIONAL: No fevers or chills. NEUROLOGIC: Negative. PHYSICAL EXAMINATION: NECK: Supple. LUNGS: Showed some crackles and some rhonchi noted mainly on the right side. CARDIAC: Regular rate and rhythm. No heaves or thrills. ABDOMEN: Soft and slightly distended. EXTREMITIES: There is trace edema. LABORATORY DATA: His labs from [facility] reviewed as mentioned above with sodium of 124, troponin of 0.22, BUN of 113, creatinine of 8.0, glucose of 226, AST of 989, total CK of 24,719, INR 1.6, lactic acid at 3.6, this is from [facility] and his telemetry shows sinus rhythm. His EKG shows sinus rhythm, normal QRS axis, no ST or T-wave abnormalities. Venous duplex of lower extremities showed no deep venous thrombosis. Labs here today showed a white count of 29.1, hemoglobin 10.3, platelet count of 290,000; 9% bands and neutrophils are noted and the pathologist comment no blasts were seen. The blood gases, pH is 7.4, pCO2 of 21, pO2 of 68, and bicarbonate of 13. Total CK was greater than 10,000. Troponin 0.632. ProBNP is 2400. CRP of greater than 70. Magnesium of 2.6. Iron is 54% saturation. Sodium 129, potassium 4.5, chloride 94, bicarbonate of 13, BUN of 137, creatinine 9.7, bilirubin of 4.9, and gamma GT of 1100. AST and ALT are elevated 273 and 119 respectively. Vitamin B12 greater than 2000. Free T4 of 0.89. ASSESSMENT AND PLAN: 1. Rhabdomyolysis. 2. Status post fall. 3. Prostate cancer, status post prostatectomy. 4. Colonic polyps, status post resection recently. 5. Acute renal failure on chronic renal insufficiency. 6. Leukocytosis. 7. Probable pneumonia, possible aspiration. 8. Mild diastolic relaxation on echocardiogram. Dr. Cowan, this patient was seen in cardiac consultation. [facility] data was reviewed. Present chart was reviewed. The patient is examined. He is getting dialysis. He has chronic renal insufficiency. Likely because of the rhabdomyolysis, he was pushed over to chronic renal failure. His echocardiogram shows normal left ventricular systolic function. His electrocardiogram does not show evidence of ischemia. His cardiac enzyme abnormalities are related to cross-reactivity between cardiac troponin as well as significantly elevated CK secondary to rhabdomyolysis and decreased clearance secondary to renal insufficiency. I doubt an acute coronary syndrome. The patient will be followed and further recommendations as they become necessary. Car Nelosn M.D. DR: ASAF JOB#: [id number] CC:
[2018-02-28 04:00] VITALS: BP 137/81
[2018-02-28 05:29] LABS: HEMATOCRIT 31.5 % (42.0-52.0); HEMOGLOBIN 10.8 G/DL (14.2-18.0); MEAN CORPUSCULAR VOLUME 89 FL (80-99); PLATELET COUNT 377 K/UL (150-450); RED BLOOD COUNT 3.54 M/UL (4.70-6.10); RED CELL DISTRIBUTION WIDTH 11.2 % (11.6-14.8)
[2018-02-28] MEDS: metroNIDAZOLE 500mg tab ORAL SCH (05:30)
[2018-02-28 06:07] LABS: WHITE BLOOD COUNT 29.9 K/UL (4.8-10.8)
[2018-02-28 06:11] LABS: ALANINE AMINOTRANSFERASE 218 U/L (12-78); ALBUMIN 1.6 G/DL (3.4-5.0); ALKALINE PHOSPHATASE 124 U/L (46-116); ANION GAP 21 mmol/L (5-15); ASPARTATE AMINO TRANSFERASE 634 U/L (15-37); BILIRUBIN,TOTAL 3.8 MG/DL (0.2-1.0); BLOOD UREA NITROGEN 113 mg/dL (7-18); CALCIUM 8.1 MG/DL (8.5-10.1); CARBON DIOXIDE 18 MMOL/L (21-32); CHLORIDE 95 MMOL/L (98-107); CREATININE 7.8 MG/DL (0.55-1.30); POTASSIUM 3.8 MMOL/L (3.5-5.1); SODIUM 134 MMOL/L (136-145)
[2018-02-28 06:20] LABS: BILIRUBIN,DIRECT 2.1 MG/DL (0.0-0.3)
--- NOTE | 2018-02-28 07:00 | NUR ---
HAND-OFF: Report given to BALTA Wilson.
--- NOTE | 2018-02-28 07:01 | NUR ---
NURSE NOTES: RECEIVED PATIENT FROM Addy JUNG RN. PATIENT IS AWAKE ALERT BUT CONFUSED. 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 ON VENTURI MASK AT 10L, FIO2 AT 45%. NO SIGNS OF DISTRESS. NOTED TO KEEP REMOVING MASK OFF. NPO FOR PROCEDURE TODAY. DUMAS FOR RETENTION, CONNECTED TO BAG, PATENT AND DRAINING DARK URINE. IVS ON R AC, G20 AND L AC G20, PATENT AND INTACT. R IJ FOR HD PORT, DRESSING DRY AND INTACT. CALL LIGHT WITHIN REACH. BED AT LOWEST POSITION. SIDE RAILS UP. WILL CONTINUE TO MONITOR.
[2018-02-28 08:00] VITALS: BP 147/93
--- NOTE | 2018-02-28 08:00 | NUR ---
NURSE NOTES: PATIENT WAS SEEN TAKING THE VENTURI MASK OFF. ENCOURAGED TO PUT IT BACK DUE TO O2 SAT WENT DOWN TO 90% ON ROOM AIR. NO SIGNS OF DISTRESS. WILL CONTINUE TO MONITOR.
[2018-02-28] MEDS: Docusate 100mg cap ORAL SCH ×3 (08:20→17:53)
[2018-02-28] MEDS: Heparin 5000 units/ml inj SUBQ SCH ×2 (08:21→20:09)
--- NOTE | 2018-02-28 10:01 | NUR ---
Concerning MRCP...Unstable respiratory, can't lay flat. BALTA Wilson to call. Also pt is confused, can't follow breathing instructions or stay still for exam. GOGO
--- NOTE | 2018-02-28 10:05 | NUR ---
NURSE NOTES: PATIENT NOTED OF PULLING THE VENTURI MASK ON AND OFF. NO SIGNS OF DISTRESS. WILL CONTINUE TO MONITOR.
--- NOTE | 2018-02-28 10:15 | Pulmonology Progress Note ---
Assessment/Plan Problems: (1) Rhabdomyolysis (2) Pneumonia (3) ATN (acute tubular necrosis) (4) Acute CVA (cerebrovascular accident) Assessment/Plan got dialyzed yesterday 400 CC of urine in the last 24 hours WBC still high, respiratory treatment check electrolytes, CPK cxr in am dvt prophylaxis sputum induction f/u CPK level Subjective ROS Limited/Unobtainable: No Constitutional: Reports: no symptoms HEENT: Repors: no symptoms Respiratory: Reports: no symptoms Allergies: Coded Allergies: NO KNOWN ALLERGIES (Verified Allergy, Unknown, 02/26/18) Objective Last 24 Hour Vital Signs Date Time Temp Pulse Resp B/P (MAP) Pulse Ox O2 Delivery O2 Flow Rate FiO2 02/28/18 08:00 98.0 109 23 147/93 (111) 93 02/28/18 08:00 Venturi Mask 10.0 02/28/18 07:36 109 02/28/18 04:00 Venturi Mask 10.0 02/28/18 04:00 105 02/28/18 04:00 97.7 104 32 137/81 (99) 94 02/28/18 01:05 98.8 02/28/18 00:00 100.2 110 32 133/86 (102) 94 02/28/18 00:00 Venturi Mask 10.0 02/28/18 00:00 110 02/27/18 23:02 96 Venturi Mask 10.0 45 02/27/18 23:02 108 24 96 Venturi Mask 10.0 45 02/27/18 23:02 Venturi Mask 10.0 45 02/27/18 23:00 108 24 Venturi Mask 10.0 45 02/27/18 20:00 99.3 107 22 115/60 (78) 96 02/27/18 20:00 Venturi Mask 10.0 02/27/18 19:11 102 02/27/18 16:00 Venturi Mask 10.0 02/27/18 15:50 98.5 98 23 133/83 (100) 96 02/27/18 15:20 97 02/27/18 12:00 99.8 105 25 143/86 (105) 95 02/27/18 12:00 Venturi Mask 10.0 02/27/18 11:57 103 02/27/18 11:21 99.8 Intake and Output 02/27/18 02/28/18 19:00 07:00 Intake Total 155 ml Output Total 425 ml 400 ml Balance -270 ml -400 ml Intake Oral 100 ml IV Total 55 ml Output Urine Total 425 ml 400 ml # Bowel Movements 1 General Appearance: WD/WN HEENT: normocephalic, atraumatic Respiratory/Chest: chest wall non-tender, lungs clear Cardiovascular: normal peripheral pulses, regular rhythm Abdomen: normal bowel sounds, soft, non tender Extremities: no cyanosis Skin: no rash Neurologic/Psychiatric: suspension cord tier II-XII grossly normal Lymphatic: no neck adenopathy Microbiology Date/Time Source Procedure Growth Status 02/26/18 08:00 Blood Blood Culture - Preliminary NO GROWTH AFTER 48 HOURS Resulted 02/26/18 07:50 Blood Blood Culture - Preliminary NO GROWTH AFTER 48 HOURS Resulted 02/26/18 22:30 Nasopharynx Influenza Types A,B Antigen (MARYSOL) - Final Complete 02/26/18 22:40 Stool Clostridium difficile Toxin Assay - Final Complete 02/26/18 14:15 Urine,Clean Catch Urine Culture - Final NO GROWTH AFTER 48 HOURS Complete Laboratory Tests 02/27/18 15:04: Urine Opiates Screen Negative, Urine Barbiturates Screen Negative, Phencyclidine (PCP) Screen Negative, Urine Amphetamines Screen Negative, Urine Benzodiazepines Screen Negative, Urine Cocaine Screen Negative, Urine Marijuana (THC) Screen Negative 02/28/18 03:55: White Blood Count 29.9*H, Red Blood Count 3.54L, Hemoglobin 10.8L, Hematocrit 31.5L, Mean Corpuscular Volume 89, Mean Corpuscular Hemoglobin 30.4, Mean Corpuscular Hemoglobin Concent 34.2, Red Cell Distribution Width 11.2L, Platelet Count 377, Mean Platelet Volume 7.0, Neutrophils (%) (Auto) , Lymphocytes (%) (Auto) , Monocytes (%) (Auto) , Eosinophils (%) (Auto) , Basophils (%) (Auto) , Differential Total Cells Counted 100, Neutrophils % ( Manual) 88H, Lymphocytes % (Manual) 3L, Monocytes % (Manual) 2, Eosinophils % ( Manual) 0, Basophils % (Manual) 0, Band Neutrophils 7, Platelet Estimate Adequate, Platelet Morphology Normal, Hypochromasia 1+, Sodium Level 134L, Potassium Level 3.8, Chloride Level 95L, Carbon Dioxide Level 18L, Anion Gap 21H , Blood Urea Nitrogen 113H, Creatinine 7.8H, Estimat Glomerular Filtration Rate , Glucose Level 118H, Uric Acid 11.8H, Calcium Level 8.1L, Phosphorus Level 9.0H , Magnesium Level 2.6H, Total Bilirubin 3.8H, Direct Bilirubin 2.1H, Gamma Glutamyl Transpeptidase 93H, Aspartate Amino Transf (AST/SGOT) 634H, Alanine Aminotransferase (ALT/SGPT) 218H, Alkaline Phosphatase 124H, Pro-B-Type Natriuretic Peptide 3919H, Total Protein 7.0, Albumin 1.6L, Globulin 6.0, Random Vancomycin Level 15.0, Hepatitis A IgM Antibody [Pending], Hepatitis B Surface Antigen [Pending], Hepatitis B Core IgM Antibody [Pending], Hepatitis C Antibody [Pending] Current Medications Medications (Trade) Dose Ordered Sig/Aristides Route PRN Reason Start Time Stop Time Status Last Admin Dose Admin Acetaminophen (Tylenol) 650 mg Q4H PRN ORAL T>100.5 02/26/18 10:30 03/28/18 10:29 02/27/18 10:51 Acetaminophen (Tylenol) 650 mg Q6H PRN ORAL Mild Pain 02/27/18 11:45 03/28/18 06:29 02/28/18 00:35 Albuterol/ Ipratropium (Albuterol/ Ipratropium) 3 ml Q4H PRN HHN Shortness of Breath 02/26/18 10:30 03/03/18 10:29 02/27/18 23:03 Cefepime HCl 1 gm/ Dextrose 55 ml @ 110 mls/hr Q24H IVPB 02/26/18 12:00 03/05/18 11:59 02/27/18 11:45 Chlorhexidine Gluconate (Silva-Hex 2%) 1 applic DAILY@2000 TOPIC 02/27/18 20:00 03/29/18 19:59 02/27/18 21:40 Dextrose (Dextrose 50%) 25 ml Q30M PRN IV hypoglycemia 02/26/18 10:45 03/28/18 10:42 Dextrose (Dextrose 50%) 50 ml Q30M PRN IV hypoglycemia 02/26/18 10:45 03/28/18 10:44 Docusate Sodium (Colace) 100 mg THREE TIMES A DAY ORAL 02/27/18 18:00 03/29/18 17:59 02/28/18 08:20 Heparin Sodium (Porcine) (Heparin 5000 units/ml) 5,000 units EVERY 12 HOURS SUBQ 02/26/18 09:00 03/28/18 08:59 02/28/18 08:21 Linezolid (Zyvox) 600 mg EVERY 12 HOURS ORAL 02/27/18 21:00 03/04/18 20:59 02/28/18 08:19 Metronidazole (Flagyl) 500 mg Q8HR ORAL 02/26/18 15:00 03/05/18 14:59 02/28/18 05:30 Morphine Sulfate (Morphine Sulfate) 2 mg Q4H PRN IVP PAIN 4-10 02/26/18 10:30 03/05/18 10:29 Nitroglycerin (Ntg) 0.4 mg Q5MIN X 3 DOSES PRN SL Prn Chest Pain 02/26/18 10:45 03/28/18 10:44 Ondansetron HCl (Zofran) 4 mg Q6H PRN IVP Nausea & Vomiting 02/26/18 10:30 03/28/18 10:29 Pantoprazole (Protonix) 40 mg EVERY 12 HOURS ORAL 02/27/18 21:00 03/29/18 20:59 02/28/18 08:20 Polyethylene Glycol (Miralax) 17 gm DAILYPRN PRN ORAL Constipation 02/26/18 10:30 03/28/18 10:29 Quetiapine Fumarate (SEROquel) 12.5 mg Q4H PRN ORAL agitation 02/26/18 12:15 03/28/18 12:14 Sevelamer Carbonate (Renvela) 1,600 mg THREE TIMES A DAY ORAL 02/27/18 18:00 03/29/18 17:59 02/28/18 08:20 Temazepam (Restoril) 15 mg HSPRN PRN ORAL Insomnia 02/26/18 21:00 03/05/18 20:59 James Dinh MD Feb 28, 2018 10:15
--- NOTE | 2018-02-28 10:48 | Diagnostic Imaging Report ---
Indication: Dyspnea Technique: XRAY Chest 1v Comparison: 02/27/2018 Findings: Interval placement of a right transjugular temporary dialysis catheter, tip in the region of the lower superior vena cava. No pneumothorax. Left upper lung airspace disease not significant changed allowing for differences in patient positioning. Small left-sided pleural effusion also likely unchanged. No definite pneumothorax. Osseous structures stable. Impression: Interval placement of a right transjugular temporary dialysis catheter. Left upper lung airspace disease and small left pleural effusion unchanged allowing for differences in patient positioning
--- NOTE | 2018-02-28 11:59 | Internal Med Progress Note ---
Subjective Date of Service: Feb 28, 2018 Physician Name Christofer Biggs Attending Physician Ruperto Cowan MD Current Medications Medications (Trade) Dose Ordered Sig/Aristides Route PRN Reason Start Time Stop Time Status Last Admin Dose Admin Acetaminophen (Tylenol) 650 mg Q4H PRN ORAL T>100.5 02/26/18 10:30 03/28/18 10:29 02/27/18 10:51 Acetaminophen (Tylenol) 650 mg Q6H PRN ORAL Mild Pain 02/27/18 11:45 03/28/18 06:29 02/28/18 00:35 Albuterol/ Ipratropium (Albuterol/ Ipratropium) 3 ml Q4H PRN HHN Shortness of Breath 02/26/18 10:30 03/03/18 10:29 02/27/18 23:03 Cefepime HCl 1 gm/ Dextrose 55 ml @ 110 mls/hr Q24H IVPB 02/26/18 12:00 03/05/18 11:59 02/27/18 11:45 Chlorhexidine Gluconate (Silva-Hex 2%) 1 applic DAILY@2000 TOPIC 02/27/18 20:00 03/29/18 19:59 02/27/18 21:40 Dextrose (Dextrose 50%) 25 ml Q30M PRN IV hypoglycemia 02/26/18 10:45 03/28/18 10:42 Dextrose (Dextrose 50%) 50 ml Q30M PRN IV hypoglycemia 02/26/18 10:45 03/28/18 10:44 Docusate Sodium (Colace) 100 mg THREE TIMES A DAY ORAL 02/27/18 18:00 03/29/18 17:59 02/28/18 08:20 Heparin Sodium (Porcine) (Heparin 5000 units/ml) 5,000 units EVERY 12 HOURS SUBQ 02/26/18 09:00 03/28/18 08:59 02/28/18 08:21 Linezolid (Zyvox) 600 mg EVERY 12 HOURS ORAL 02/27/18 21:00 03/04/18 20:59 02/28/18 08:19 Metronidazole (Flagyl) 500 mg Q8HR ORAL 02/26/18 15:00 03/05/18 14:59 02/28/18 05:30 Morphine Sulfate (Morphine Sulfate) 2 mg Q4H PRN IVP PAIN 4-10 02/26/18 10:30 03/05/18 10:29 Nitroglycerin (Ntg) 0.4 mg Q5MIN X 3 DOSES PRN SL Prn Chest Pain 02/26/18 10:45 03/28/18 10:44 Ondansetron HCl (Zofran) 4 mg Q6H PRN IVP Nausea & Vomiting 02/26/18 10:30 03/28/18 10:29 Pantoprazole (Protonix) 40 mg EVERY 12 HOURS ORAL 02/27/18 21:00 03/29/18 20:59 02/28/18 08:20 Polyethylene Glycol (Miralax) 17 gm DAILYPRN PRN ORAL Constipation 02/26/18 10:30 03/28/18 10:29 Quetiapine Fumarate (SEROquel) 12.5 mg Q4H PRN ORAL agitation 02/26/18 12:15 03/28/18 12:14 Sevelamer Carbonate (Renvela) 1,600 mg THREE TIMES A DAY ORAL 02/27/18 18:00 03/29/18 17:59 02/28/18 08:20 Temazepam (Restoril) 15 mg HSPRN PRN ORAL Insomnia 02/26/18 21:00 03/05/18 20:59 Allergies: Coded Allergies: NO KNOWN ALLERGIES (Verified Allergy, Unknown, 02/26/18) ROS Limited/Unobtainable: No Constitutional: Reports: no symptoms HEENT: Reports: no symptoms Cardiovascular: Reports: no symptoms Respiratory: Reports: shortness of breath Gastrointestinal/Abdominal: Reports: no symptoms Genitourinary: Reports: no symptoms Neurologic/Psychiatric: Reports: no symptoms Subjective 72 YO M admitted after syncopal episode. Now pneumonia and renal failure. Cover for Int Med-Dr Cowan. HANANE. Continues on venturi mask Objective Last Vital Signs Date Time Temp Pulse Resp B/P (MAP) Pulse Ox O2 Delivery O2 Flow Rate FiO2 02/28/18 08:00 98.0 109 23 147/93 (111) 93 02/28/18 08:00 Venturi Mask 10.0 02/27/18 23:02 45 Laboratory Tests Test 02/27/18 15:04 02/28/18 03:55 Urine Opiates Screen Negative (NEGATIVE) Urine Barbiturates Screen Negative (NEGATIVE) Phencyclidine (PCP) Screen Negative (NEGATIVE) Urine Amphetamines Screen Negative (NEGATIVE) Urine Benzodiazepines Screen Negative (NEGATIVE) Urine Cocaine Screen Negative (NEGATIVE) Urine Marijuana (THC) Screen Negative (NEGATIVE) White Blood Count 29.9 K/UL (4.8-10.8) *H Red Blood Count 3.54 M/UL (4.70-6.10) L Hemoglobin 10.8 G/DL (14.2-18.0) L Hematocrit 31.5 % (42.0-52.0) L Mean Corpuscular Volume 89 FL (80-99) Mean Corpuscular Hemoglobin 30.4 PG (27.0-31.0) Mean Corpuscular Hemoglobin Concent 34.2 G/DL (32.0-36.0) Red Cell Distribution Width 11.2 % (11.6-14.8) L Platelet Count 377 K/UL (150-450) Mean Platelet Volume 7.0 FL (6.5-10.1) Neutrophils (%) (Auto) % (45.0-75.0) Lymphocytes (%) (Auto) % (20.0-45.0) Monocytes (%) (Auto) % (1.0-10.0) Eosinophils (%) (Auto) % (0.0-3.0) Basophils (%) (Auto) % (0.0-2.0) Differential Total Cells Counted 100 Neutrophils % (Manual) 88 % (45-75) H Lymphocytes % (Manual) 3 % (20-45) L Monocytes % (Manual) 2 % (1-10) Eosinophils % (Manual) 0 % (0-3) Basophils % (Manual) 0 % (0-2) Band Neutrophils 7 % (0-8) Platelet Estimate Adequate Platelet Morphology Normal Hypochromasia 1+ Sodium Level 134 MMOL/L (136-145) L Potassium Level 3.8 MMOL/L (3.5-5.1) Chloride Level 95 MMOL/L (98-107) L Carbon Dioxide Level 18 MMOL/L (21-32) L Anion Gap 21 mmol/L (5-15) H Blood Urea Nitrogen 113 mg/dL (7-18) H Creatinine 7.8 MG/DL (0.55-1.30) H Estimat Glomerular Filtration Rate mL/min (>60) Glucose Level 118 MG/DL (74-106) H Uric Acid 11.8 MG/DL (2.6-7.2) H Calcium Level 8.1 MG/DL (8.5-10.1) L Phosphorus Level 9.0 MG/DL (2.5-4.9) H Magnesium Level 2.6 MG/DL (1.8-2.4) H Total Bilirubin 3.8 MG/DL (0.2-1.0) H Direct Bilirubin 2.1 MG/DL (0.0-0.3) H Gamma Glutamyl Transpeptidase 93 U/L (5-85) H Aspartate Amino Transf (AST/SGOT) 634 U/L (15-37) H Alanine Aminotransferase (ALT/SGPT) 218 U/L (12-78) H Alkaline Phosphatase 124 U/L (46-116) H Pro-B-Type Natriuretic Peptide 3919 pg/mL (0-125) H Total Protein 7.0 G/DL (6.4-8.2) Albumin 1.6 G/DL (3.4-5.0) L Globulin 6.0 g/dL Random Vancomycin Level 15.0 ug/mL Hepatitis A IgM Antibody Pending Hepatitis B Surface Antigen Pending Hepatitis B Core IgM Antibody Pending Hepatitis C Antibody Pending Microbiology Date/Time Source Procedure Growth Status 02/26/18 08:00 Blood Blood Culture - Preliminary NO GROWTH AFTER 48 HOURS Resulted 02/26/18 07:50 Blood Blood Culture - Preliminary NO GROWTH AFTER 48 HOURS Resulted 02/26/18 22:30 Nasopharynx Influenza Types A,B Antigen (MARYSOL) - Final Complete 02/26/18 22:40 Stool Clostridium difficile Toxin Assay - Final Complete 02/26/18 14:15 Urine,Clean Catch Urine Culture - Final NO GROWTH AFTER 48 HOURS Complete Intake and Output 02/27/18 02/28/18 19:00 07:00 Intake Total 155 ml Output Total 425 ml 400 ml Balance -270 ml -400 ml Intake Oral 100 ml IV Total 55 ml Output Urine Total 425 ml 400 ml # Bowel Movements 1 Objective PHYSICAL EXAMINATION: GENERAL: The patient is a well-developed and well-nourished, slightly obese male, in no apparent distress. HEENT: Eyes, pupils are equal and responsive to light and accommodation. Extraocular movements are intact. NECK: Supple without lymphadenopathy. CHEST: venturi mask; wheezes bilaterally, without rales. CARDIOVASCULAR: Regular rhythm and rate. S1 and S2 are normal without murmurs, rubs, or gallops. ABDOMEN: Soft, nontender, and nondistended. Positive bowel sounds. No evidence of hepatosplenomegaly. Currently, no rebound or guarding noted. EXTREMITIES: Negative for clubbing, cyanosis, or edema. RECTAL/GENITAL: Refused. NEUROLOGICAL: Cranial nerves II through XII are grossly intact without focal deficits. Motor strength is 5/5 bilaterally. Deep tendon reflexes are 2+ plantar. Assessment/Plan Problem List: (1) Leukocytosis Assessment & Plan: See ID note. Continue linezolid, cefepime and flagyl per ID (2) Renal failure Assessment & Plan: See nephrology note. (3) Elevated liver function tests Assessment & Plan: Await GI consult. (4) Syncope (5) Hyponatremia Assessment & Plan: Continue IVF per nephrology (6) Hypertension (7) Hypercholesterolemia (8) Prostate cancer (9) Colon cancer (10) Rhabdomyolysis Assessment & Plan: CK>10,000. See cardiology note. (11) Pneumonia Assessment & Plan: See pulmonary note. Continue linezolid, cefepime and flagyl per ID (12) Respiratory failure Status: not improved Christofer Biggs MD Feb 28, 2018 11:59
[2018-02-28 12:00] VITALS: BP 139/94
--- NOTE | 2018-02-28 12:01 | General Progress Note ---
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 Status: not improved, unchanged Assessment/Plan seroquel prn provided ro/st Subjective Neurologic/Psychiatric: Reports: anxiety, depressed, emotional problems Allergies: Coded Allergies: NO KNOWN ALLERGIES (Verified Allergy, Unknown, 02/26/18) Subjective more alert still confused Objective Last 24 Hour Vital Signs Date Time Temp Pulse Resp B/P (MAP) Pulse Ox O2 Delivery O2 Flow Rate FiO2 02/28/18 08:00 98.0 109 23 147/93 (111) 93 02/28/18 08:00 Venturi Mask 10.0 02/28/18 07:36 109 02/28/18 04:00 Venturi Mask 10.0 02/28/18 04:00 105 02/28/18 04:00 97.7 104 32 137/81 (99) 94 02/28/18 01:05 98.8 02/28/18 00:00 100.2 110 32 133/86 (102) 94 02/28/18 00:00 Venturi Mask 10.0 02/28/18 00:00 110 02/27/18 23:02 96 Venturi Mask 10.0 45 02/27/18 23:02 108 24 96 Venturi Mask 10.0 45 02/27/18 23:02 Venturi Mask 10.0 45 02/27/18 23:00 108 24 Venturi Mask 10.0 45 02/27/18 20:00 99.3 107 22 115/60 (78) 96 02/27/18 20:00 Venturi Mask 10.0 02/27/18 19:11 102 02/27/18 16:00 Venturi Mask 10.0 02/27/18 15:50 98.5 98 23 133/83 (100) 96 02/27/18 15:20 97 Intake and Output 02/27/18 02/28/18 19:00 07:00 Intake Total 155 ml Output Total 425 ml 400 ml Balance -270 ml -400 ml Intake Oral 100 ml IV Total 55 ml Output Urine Total 425 ml 400 ml # Bowel Movements 1 Laboratory Tests 02/27/18 15:04: Urine Opiates Screen Negative, Urine Barbiturates Screen Negative, Phencyclidine (PCP) Screen Negative, Urine Amphetamines Screen Negative, Urine Benzodiazepines Screen Negative, Urine Cocaine Screen Negative, Urine Marijuana (THC) Screen Negative 02/28/18 03:55: White Blood Count 29.9*H, Red Blood Count 3.54L, Hemoglobin 10.8L, Hematocrit 31.5L, Mean Corpuscular Volume 89, Mean Corpuscular Hemoglobin 30.4, Mean Corpuscular Hemoglobin Concent 34.2, Red Cell Distribution Width 11.2L, Platelet Count 377, Mean Platelet Volume 7.0, Neutrophils (%) (Auto) , Lymphocytes (%) (Auto) , Monocytes (%) (Auto) , Eosinophils (%) (Auto) , Basophils (%) (Auto) , Differential Total Cells Counted 100, Neutrophils % ( Manual) 88H, Lymphocytes % (Manual) 3L, Monocytes % (Manual) 2, Eosinophils % ( Manual) 0, Basophils % (Manual) 0, Band Neutrophils 7, Platelet Estimate Adequate, Platelet Morphology Normal, Hypochromasia 1+, Sodium Level 134L, Potassium Level 3.8, Chloride Level 95L, Carbon Dioxide Level 18L, Anion Gap 21H , Blood Urea Nitrogen 113H, Creatinine 7.8H, Estimat Glomerular Filtration Rate , Glucose Level 118H, Uric Acid 11.8H, Calcium Level 8.1L, Phosphorus Level 9.0H , Magnesium Level 2.6H, Total Bilirubin 3.8H, Direct Bilirubin 2.1H, Gamma Glutamyl Transpeptidase 93H, Aspartate Amino Transf (AST/SGOT) 634H, Alanine Aminotransferase (ALT/SGPT) 218H, Alkaline Phosphatase 124H, Pro-B-Type Natriuretic Peptide 3919H, Total Protein 7.0, Albumin 1.6L, Globulin 6.0, Random Vancomycin Level 15.0, Hepatitis A IgM Antibody [Pending], Hepatitis B Surface Antigen [Pending], Hepatitis B Core IgM Antibody [Pending], Hepatitis C Antibody [Pending] Height (Feet): 5 Height (Inches): 7.00 Weight (Pounds): 216 General Appearance: alert, confused, agitated Emely Henry MD Feb 28, 2018 12:01
--- NOTE | 2018-02-28 12:05 | Diagnostic Imaging Report ---
Indication: Abdominal pain Technique: Multiplanar grayscale and color Doppler imaging of the abdomen. Comparison: None Findings: Imaged portions of the pancreatic head are grossly unremarkable. Liver is normal in size with the right hepatic lobe measuring 16 cm in length. Liver demonstrates diffuse increased echogenicity. Hepatic contour is smooth. No focal hepatic mass lesion is appreciated sonographically. The portal vein is patent with normal direction of flow. Some layering sludge is noted within the gallbladder. No shadowing gallstones identified. No gallbladder wall thickening or pericholecystic fluid. Sonographic Mchugh sign reported as negative. No intrahepatic biliary ductal dilatation. Common bile duct measures 4 to 5 mm in diameter. No evidence of choledocholithiasis. Kidneys are symmetric in size. Both kidneys demonstrate normal echogenicity. There is no hydronephrosis or sonographically appreciable renal stone. A large simple appearing cyst in the left kidney measures up to approximately 8.8 cm. Normal color flow to the bilateral kidneys noted. Spleen is normal in size and appearance. A left pleural effusion is partially visualized. Imaged portions of the abdominal aorta are normal in caliber however please note that portions of the mid and distal abdominal aorta not visualized due to overlying bowel gas. No ascites demonstrated. IMPRESSION: * Mild gallbladder sludge. No sonographic evidence to suggest acute cholecystitis. Sonographic Mchugh sign reported as negative. * No biliary ductal dilatation. * Increased hepatic echogenicity most commonly related to hepatic steatosis. Additional hepatocellular disease should be excluded clinically. * Approximately 8.8 cm simple left renal cyst. * Left pleural effusion partially visualized.
[2018-02-28] MEDS ORDERED: Isovue-300 100ml vial INJ PRN (12:15)
[2018-02-28] MEDS ORDERED: Gastrograffin 30ml ORAL PRN (12:15)
[2018-02-28] MEDS: Cefepime 1gm/D5W 55ml IVPB SCH ×2 (12:16)
--- NOTE | 2018-02-28 12:42 | Infectious Diseases Prog Note ---
Assessment/Plan Assessment/Plan Abx: IV Vancomycin 02/26- Cefepime 02/26- Assessment: SEpsis - 2ry to Legionella PNA and UTI- r/o bacteremia -02/27 CXR: Increasing left upper lobe consolidation, over one day. -CXR: Left lung infiltrates, likely pneumonia, and pleural fluid. Borderline cardiomegaly -Bcx NTD -u/a wbc tnct, nit +, leuk +2; cx NTD -influenza sc neg -legionella ag urine + Fever, improving Leukocytosis, persistent BRITT, worsening- started on HD 02/28 Rhabdomyolosis AMS s/p Fall Acute transaminitis, infection-2ry to Legionella infection -HIV ab sc neg -Acute hepatitis panel neg Plan: -Start PO Levaquin 750mg q48hrs for LEgionella for 10-14 days -Continue empiric PO Linezolid #2 (abx d#3) and continue Cefepime #2 for now pending sp and ur cultures -D/c Flagyl #2 -02/27 SP IV Vancomycin #2 -f/u cx (Bl, sp, u) -Monitor CBC/CMP, temperatures -Renal f/u Thank you for this consultation. Will continue to follow along with you. Discussed with RN. Subjective Allergies: Coded Allergies: NO KNOWN ALLERGIES (Verified Allergy, Unknown, 02/26/18) Subjective Tm 102.6 wbc slighlty improved ucx NTD Objective Vital Signs Last 24 Hour Vital Signs Date Time Temp Pulse Resp B/P (MAP) Pulse Ox O2 Delivery O2 Flow Rate FiO2 02/28/18 08:00 98.0 109 23 147/93 (111) 93 02/28/18 08:00 Venturi Mask 10.0 02/28/18 07:36 109 02/28/18 04:00 Venturi Mask 10.0 02/28/18 04:00 105 02/28/18 04:00 97.7 104 32 137/81 (99) 94 02/28/18 01:05 98.8 02/28/18 00:00 100.2 110 32 133/86 (102) 94 02/28/18 00:00 Venturi Mask 10.0 02/28/18 00:00 110 02/27/18 23:02 96 Venturi Mask 10.0 45 02/27/18 23:02 108 24 96 Venturi Mask 10.0 45 02/27/18 23:02 Venturi Mask 10.0 45 02/27/18 23:00 108 24 Venturi Mask 10.0 45 02/27/18 20:00 99.3 107 22 115/60 (78) 96 02/27/18 20:00 Venturi Mask 10.0 02/27/18 19:11 102 02/27/18 16:00 Venturi Mask 10.0 02/27/18 15:50 98.5 98 23 133/83 (100) 96 02/27/18 15:20 97 Height (Feet): 5 Height (Inches): 7.00 Weight (Pounds): 216 Microbiology Date/Time Source Procedure Growth Status 02/26/18 08:00 Blood Blood Culture - Preliminary NO GROWTH AFTER 48 HOURS Resulted 02/26/18 07:50 Blood Blood Culture - Preliminary NO GROWTH AFTER 48 HOURS Resulted 02/26/18 22:30 Nasopharynx Influenza Types A,B Antigen (MARYSOL) - Final Complete 02/26/18 22:40 Stool Clostridium difficile Toxin Assay - Final Complete 02/26/18 14:15 Urine,Clean Catch Urine Culture - Final NO GROWTH AFTER 48 HOURS Complete Laboratory Tests Test 02/27/18 15:04 02/28/18 03:55 Urine Opiates Screen Negative (NEGATIVE) Urine Barbiturates Screen Negative (NEGATIVE) Phencyclidine (PCP) Screen Negative (NEGATIVE) Urine Amphetamines Screen Negative (NEGATIVE) Urine Benzodiazepines Screen Negative (NEGATIVE) Urine Cocaine Screen Negative (NEGATIVE) Urine Marijuana (THC) Screen Negative (NEGATIVE) White Blood Count 29.9 K/UL (4.8-10.8) *H Red Blood Count 3.54 M/UL (4.70-6.10) L Hemoglobin 10.8 G/DL (14.2-18.0) L Hematocrit 31.5 % (42.0-52.0) L Mean Corpuscular Volume 89 FL (80-99) Mean Corpuscular Hemoglobin 30.4 PG (27.0-31.0) Mean Corpuscular Hemoglobin Concent 34.2 G/DL (32.0-36.0) Red Cell Distribution Width 11.2 % (11.6-14.8) L Platelet Count 377 K/UL (150-450) Mean Platelet Volume 7.0 FL (6.5-10.1) Neutrophils (%) (Auto) % (45.0-75.0) Lymphocytes (%) (Auto) % (20.0-45.0) Monocytes (%) (Auto) % (1.0-10.0) Eosinophils (%) (Auto) % (0.0-3.0) Basophils (%) (Auto) % (0.0-2.0) Differential Total Cells Counted 100 Neutrophils % (Manual) 88 % (45-75) H Lymphocytes % (Manual) 3 % (20-45) L Monocytes % (Manual) 2 % (1-10) Eosinophils % (Manual) 0 % (0-3) Basophils % (Manual) 0 % (0-2) Band Neutrophils 7 % (0-8) Platelet Estimate Adequate Platelet Morphology Normal Hypochromasia 1+ Sodium Level 134 MMOL/L (136-145) L Potassium Level 3.8 MMOL/L (3.5-5.1) Chloride Level 95 MMOL/L (98-107) L Carbon Dioxide Level 18 MMOL/L (21-32) L Anion Gap 21 mmol/L (5-15) H Blood Urea Nitrogen 113 mg/dL (7-18) H Creatinine 7.8 MG/DL (0.55-1.30) H Estimat Glomerular Filtration Rate mL/min (>60) Glucose Level 118 MG/DL (74-106) H Uric Acid 11.8 MG/DL (2.6-7.2) H Calcium Level 8.1 MG/DL (8.5-10.1) L Phosphorus Level 9.0 MG/DL (2.5-4.9) H Magnesium Level 2.6 MG/DL (1.8-2.4) H Total Bilirubin 3.8 MG/DL (0.2-1.0) H Direct Bilirubin 2.1 MG/DL (0.0-0.3) H Gamma Glutamyl Transpeptidase 93 U/L (5-85) H Aspartate Amino Transf (AST/SGOT) 634 U/L (15-37) H Alanine Aminotransferase (ALT/SGPT) 218 U/L (12-78) H Alkaline Phosphatase 124 U/L (46-116) H Pro-B-Type Natriuretic Peptide 3919 pg/mL (0-125) H Total Protein 7.0 G/DL (6.4-8.2) Albumin 1.6 G/DL (3.4-5.0) L Globulin 6.0 g/dL Random Vancomycin Level 15.0 ug/mL Hepatitis A IgM Antibody Pending Hepatitis B Surface Antigen Pending Hepatitis B Core IgM Antibody Pending Hepatitis C Antibody Pending Current Medications Medications (Trade) Dose Ordered Sig/Aristides Route PRN Reason Start Time Stop Time Status Last Admin Dose Admin Acetaminophen (Tylenol) 650 mg Q4H PRN ORAL T>100.5 02/26/18 10:30 03/28/18 10:29 02/27/18 10:51 Acetaminophen (Tylenol) 650 mg Q6H PRN ORAL Mild Pain 02/27/18 11:45 03/28/18 06:29 02/28/18 00:35 Albuterol/ Ipratropium (Albuterol/ Ipratropium) 3 ml Q4H PRN HHN Shortness of Breath 02/26/18 10:30 03/03/18 10:29 02/27/18 23:03 Cefepime HCl 1 gm/ Dextrose 55 ml @ 110 mls/hr Q24H IVPB 02/26/18 12:00 03/05/18 11:59 02/28/18 12:16 Chlorhexidine Gluconate (Silva-Hex 2%) 1 applic DAILY@2000 TOPIC 02/27/18 20:00 03/29/18 19:59 02/27/18 21:40 Dextrose (Dextrose 50%) 25 ml Q30M PRN IV hypoglycemia 02/26/18 10:45 03/28/18 10:42 Dextrose (Dextrose 50%) 50 ml Q30M PRN IV hypoglycemia 02/26/18 10:45 03/28/18 10:44 Diatrizoate Meglum/ Diatrizoate Sod (Gastrografin) 30 ml NOW PRN ORAL Radiology Procedure 02/28/18 12:15 03/02/18 12:13 Docusate Sodium (Colace) 100 mg THREE TIMES A DAY ORAL 02/27/18 18:00 03/29/18 17:59 02/28/18 08:20 Heparin Sodium (Porcine) (Heparin 5000 units/ml) 5,000 units EVERY 12 HOURS SUBQ 02/26/18 09:00 03/28/18 08:59 02/28/18 08:21 Iopamidol (Isovue-300 100ml) 100 ml NOW PRN INJ Radiology Procedure 02/28/18 12:15 03/02/18 12:13 Linezolid (Zyvox) 600 mg EVERY 12 HOURS ORAL 02/27/18 21:00 03/04/18 20:59 02/28/18 08:19 Metronidazole (Flagyl) 500 mg Q8HR ORAL 02/26/18 15:00 03/05/18 14:59 02/28/18 05:30 Morphine Sulfate (Morphine Sulfate) 2 mg Q4H PRN IVP PAIN 4-10 02/26/18 10:30 03/05/18 10:29 Nitroglycerin (Ntg) 0.4 mg Q5MIN X 3 DOSES PRN SL Prn Chest Pain 02/26/18 10:45 03/28/18 10:44 Ondansetron HCl (Zofran) 4 mg Q6H PRN IVP Nausea & Vomiting 02/26/18 10:30 03/28/18 10:29 Pantoprazole (Protonix) 40 mg EVERY 12 HOURS ORAL 02/27/18 21:00 03/29/18 20:59 02/28/18 08:20 Polyethylene Glycol (Miralax) 17 gm DAILYPRN PRN ORAL Constipation 02/26/18 10:30 03/28/18 10:29 Quetiapine Fumarate (SEROquel) 12.5 mg Q4H PRN ORAL agitation 02/26/18 12:15 03/28/18 12:14 Sevelamer Carbonate (Renvela) 1,600 mg THREE TIMES A DAY ORAL 02/27/18 18:00 03/29/18 17:59 02/28/18 08:20 Temazepam (Restoril) 15 mg HSPRN PRN ORAL Insomnia 02/26/18 21:00 03/05/18 20:59 Melissa Martinez M.D. Feb 28, 2018 12:42
--- NOTE | 2018-02-28 13:07 | GI Initial Consult Note ---
History of Present Illness General Date patient seen: Feb 28, 2018 Time patient seen: 12:57 Referring physician: SHIELA ALEJANDRA Reason for Consultation: ABNORMAL LFTs Present Illness HPI The patient states he was not feeling well for approximately a week. The patient had shortness of breath. The patient apparently was found yesterday on the floor. The patient had right-sided weakness. The patient apparently had acute loss of consciousness. GI consulted for abnormal LFTs. ROS limited, the patient was seen awake alert no apparent distress. No noted nausea vomiting or reported diarrhea at this time. The abdomen was assessed, found to be very distended; tympanic in all quadrants. Recorded in the medical record the patient has had 5 bowel movements the past 2 days. labs reviewed showed that the patient presents today with severe leukocytosis with a WBC of 30, mild normocytic anemia, elevated creatinine levels, elevated LFTs with AST to ALT ratio of 3:1. Occult blood stool was also negative. Unknown history of endoscopic or colonoscopy at this time. Allergies: Coded Allergies: NO KNOWN ALLERGIES (Verified Allergy, Unknown, 02/26/18) Patient History Limited by: medical condition History Provided By: Medical Record [facility] Narrative 1. Hypertension. 2. Hypercholesterolemia. 3. Prostate cancer. 4. Colorectal cancer. PAST SURGICAL HISTORY: Significant for, 1. Colorectal resection. 2. Prostatectomy. Social History: Denies: smoking, alcohol use, drug use, other Review of Systems All Other Systems: limited Physical Exam Vital Signs Date Time Temp Pulse Resp B/P (MAP) Pulse Ox O2 Delivery O2 Flow Rate FiO2 02/26/18 01:27 100 02/26/18 01:30 Room Air 02/26/18 01:30 99.0 22 128/77 (94) 94 02/26/18 04:00 2.0 02/26/18 20:19 45 Sp02 EP Interpretation: reviewed, normal Labs Laboratory Tests Test 02/27/18 15:04 02/28/18 03:55 Urine Opiates Screen Negative (NEGATIVE) Urine Barbiturates Screen Negative (NEGATIVE) Phencyclidine (PCP) Screen Negative (NEGATIVE) Urine Amphetamines Screen Negative (NEGATIVE) Urine Benzodiazepines Screen Negative (NEGATIVE) Urine Cocaine Screen Negative (NEGATIVE) Urine Marijuana (THC) Screen Negative (NEGATIVE) White Blood Count 29.9 K/UL (4.8-10.8) *H Red Blood Count 3.54 M/UL (4.70-6.10) L Hemoglobin 10.8 G/DL (14.2-18.0) L Hematocrit 31.5 % (42.0-52.0) L Mean Corpuscular Volume 89 FL (80-99) Mean Corpuscular Hemoglobin 30.4 PG (27.0-31.0) Mean Corpuscular Hemoglobin Concent 34.2 G/DL (32.0-36.0) Red Cell Distribution Width 11.2 % (11.6-14.8) L Platelet Count 377 K/UL (150-450) Mean Platelet Volume 7.0 FL (6.5-10.1) Neutrophils (%) (Auto) % (45.0-75.0) Lymphocytes (%) (Auto) % (20.0-45.0) Monocytes (%) (Auto) % (1.0-10.0) Eosinophils (%) (Auto) % (0.0-3.0) Basophils (%) (Auto) % (0.0-2.0) Differential Total Cells Counted 100 Neutrophils % (Manual) 88 % (45-75) H Lymphocytes % (Manual) 3 % (20-45) L Monocytes % (Manual) 2 % (1-10) Eosinophils % (Manual) 0 % (0-3) Basophils % (Manual) 0 % (0-2) Band Neutrophils 7 % (0-8) Platelet Estimate Adequate Platelet Morphology Normal Hypochromasia 1+ Sodium Level 134 MMOL/L (136-145) L Potassium Level 3.8 MMOL/L (3.5-5.1) Chloride Level 95 MMOL/L (98-107) L Carbon Dioxide Level 18 MMOL/L (21-32) L Anion Gap 21 mmol/L (5-15) H Blood Urea Nitrogen 113 mg/dL (7-18) H Creatinine 7.8 MG/DL (0.55-1.30) H Estimat Glomerular Filtration Rate mL/min (>60) Glucose Level 118 MG/DL (74-106) H Uric Acid 11.8 MG/DL (2.6-7.2) H Calcium Level 8.1 MG/DL (8.5-10.1) L Phosphorus Level 9.0 MG/DL (2.5-4.9) H Magnesium Level 2.6 MG/DL (1.8-2.4) H Total Bilirubin 3.8 MG/DL (0.2-1.0) H Direct Bilirubin 2.1 MG/DL (0.0-0.3) H Gamma Glutamyl Transpeptidase 93 U/L (5-85) H Aspartate Amino Transf (AST/SGOT) 634 U/L (15-37) H Alanine Aminotransferase (ALT/SGPT) 218 U/L (12-78) H Alkaline Phosphatase 124 U/L (46-116) H Pro-B-Type Natriuretic Peptide 3919 pg/mL (0-125) H Total Protein 7.0 G/DL (6.4-8.2) Albumin 1.6 G/DL (3.4-5.0) L Globulin 6.0 g/dL Random Vancomycin Level 15.0 ug/mL Hepatitis A IgM Antibody Pending Hepatitis B Surface Antigen Pending Hepatitis B Core IgM Antibody Pending Hepatitis C Antibody Pending General Appearance: well appearing, no apparent distress, alert Head: normocephalic EENT: PERRL/EOMI, normal ENT inspection Neck: supple Respiratory: normal breath sounds, no respiratory distress Cardiovascular: normal rate Gastrointestinal: normal inspection, non tender, soft, normal bowel sounds, distended Rectal: deferred Genitourinary: deferred Musculoskeletal: normal inspection, back normal Neurologic: alert, responsive Skin: normal inspection, normal color, no rash, warm/dry, palpation normal, well hydrated Lymphatic: normal inspection, no adenopathy Current Medications Current Medications Medications (Trade) Dose Ordered Sig/Aristides Route PRN Reason Start Time Stop Time Status Last Admin Dose Admin Acetaminophen (Tylenol) 650 mg Q4H PRN ORAL T>100.5 02/26/18 10:30 03/28/18 10:29 02/27/18 10:51 Acetaminophen (Tylenol) 650 mg Q6H PRN ORAL Mild Pain 02/27/18 11:45 03/28/18 06:29 02/28/18 00:35 Albuterol/ Ipratropium (Albuterol/ Ipratropium) 3 ml Q4H PRN HHN Shortness of Breath 02/26/18 10:30 03/03/18 10:29 02/27/18 23:03 Cefepime HCl 1 gm/ Dextrose 55 ml @ 110 mls/hr Q24H IVPB 02/26/18 12:00 12/25/18 11:59 02/28/18 12:16 Chlorhexidine Gluconate (Silva-Hex 2%) 1 applic DAILY@2000 TOPIC 02/27/18 20:00 03/29/18 19:59 02/27/18 21:40 Dextrose (Dextrose 50%) 25 ml Q30M PRN IV hypoglycemia 02/26/18 10:45 03/28/18 10:42 Dextrose (Dextrose 50%) 50 ml Q30M PRN IV hypoglycemia 02/26/18 10:45 03/28/18 10:44 Diatrizoate Meglum/ Diatrizoate Sod (Gastrografin) 30 ml NOW PRN ORAL Radiology Procedure 02/28/18 12:15 03/02/18 12:13 Docusate Sodium (Colace) 100 mg THREE TIMES A DAY ORAL 02/27/18 18:00 03/29/18 17:59 02/28/18 08:20 Heparin Sodium (Porcine) (Heparin 5000 units/ml) 5,000 units EVERY 12 HOURS SUBQ 02/26/18 09:00 03/28/18 08:59 02/28/18 08:21 Iopamidol (Isovue-300 100ml) 100 ml NOW PRN INJ Radiology Procedure 02/28/18 12:15 03/02/18 12:13 Levofloxacin (Levaquin) 500 mg QOD ORAL 03/02/18 09:00 03/09/18 08:59 Levofloxacin (Levaquin) 750 mg ONCE ORAL 02/28/18 13:00 02/28/18 14:00 Linezolid (Zyvox) 600 mg EVERY 12 HOURS ORAL 02/27/18 21:00 03/04/18 20:59 02/28/18 08:19 Morphine Sulfate (Morphine Sulfate) 2 mg Q4H PRN IVP PAIN 4-10 02/26/18 10:30 03/05/18 10:29 Nitroglycerin (Ntg) 0.4 mg Q5MIN X 3 DOSES PRN SL Prn Chest Pain 02/26/18 10:45 03/28/18 10:44 Ondansetron HCl (Zofran) 4 mg Q6H PRN IVP Nausea & Vomiting 02/26/18 10:30 03/28/18 10:29 Pantoprazole (Protonix) 40 mg EVERY 12 HOURS ORAL 02/27/18 21:00 03/29/18 20:59 02/28/18 08:20 Polyethylene Glycol (Miralax) 17 gm DAILYPRN PRN ORAL Constipation 02/26/18 10:30 03/28/18 10:29 Quetiapine Fumarate (SEROquel) 12.5 mg Q4H PRN ORAL agitation 02/26/18 12:15 03/28/18 12:14 Sevelamer Carbonate (Renvela) 1,600 mg THREE TIMES A DAY ORAL 02/27/18 18:00 03/29/18 17:59 02/28/18 08:20 Temazepam (Restoril) 15 mg HSPRN PRN ORAL Insomnia 02/26/18 21:00 03/05/18 20:59 GI: Plan Problems: (1) Anemia (2) Elevated liver function tests (3) Colon cancer (4) encephalopathy due to toxin (5) Abdominal distention Plan History of colorectal cancer status post colorectal resection Abdominal ultrasound was reviewed with no evidence of cirrhosis, no evidence of choledocholithiasis, no evidence of intrahepatic biliary ductal dilation. Anemia workup reviewed Abdominal pelvis CT ordered We will consider rectal tube for colonic decompression Turn patient every 2 hours Simethicone as needed Maintain n.p.o. IV fluids Electrolyte correction PPI Follow-up labs Discussed with Dr. Matos. Thank you for this patient referral, we will follow. The patient was seen and examined at bedside and all new and available data was reviewed in the patients chart. I agree with the above findings, impression and plan. (Patient seen earlier today. Signature stamp does not reflect patient encounter time.). - MD Keila MendozaSt. Mary'S HospitalRomulo DINING ROOM HELPER Feb 28, 2018 13:07
[2018-02-28] MEDS ORDERED: Simethicone 80mg tab ORAL PRN (13:27)
[2018-02-28] MEDS ORDERED: Simethicone 80mg tab ORAL SCH (13:28)
--- NOTE | 2018-02-28 13:47 | Nephrology Progress Note ---
Assessment/Plan Problem List: (1) ATN (acute tubular necrosis) (2) Rhabdomyolysis (3) Pneumonia Assessment Acute renal failure- Rhabdo Pneumonia CVA ? Plan hemodialysis 02/27 next 03/01 Phos binders renal diet Vigorous Hydrate- Fortune Monitor CPK - Uric Acid- LFTs monitor Renal parameters Avoid Nephrotoxics per orders Subjective ROS Limited/Unobtainable: No Constitutional: Reports: malaise, weakness Objective Objective Last 24 Hour Vital Signs Date Time Temp Pulse Resp B/P (MAP) Pulse Ox O2 Delivery O2 Flow Rate FiO2 02/28/18 08:00 98.0 109 23 147/93 (111) 93 02/28/18 08:00 Venturi Mask 10.0 02/28/18 07:36 109 02/28/18 04:00 Venturi Mask 10.0 02/28/18 04:00 105 02/28/18 04:00 97.7 104 32 137/81 (99) 94 02/28/18 01:05 98.8 02/28/18 00:00 100.2 110 32 133/86 (102) 94 02/28/18 00:00 Venturi Mask 10.0 02/28/18 00:00 110 02/27/18 23:02 96 Venturi Mask 10.0 45 02/27/18 23:02 108 24 96 Venturi Mask 10.0 45 02/27/18 23:02 Venturi Mask 10.0 45 02/27/18 23:00 108 24 Venturi Mask 10.0 45 02/27/18 20:00 99.3 107 22 115/60 (78) 96 02/27/18 20:00 Venturi Mask 10.0 02/27/18 19:11 102 02/27/18 16:00 Venturi Mask 10.0 02/27/18 15:50 98.5 98 23 133/83 (100) 96 02/27/18 15:20 97 Intake and Output 02/27/18 02/28/18 19:00 07:00 Intake Total 155 ml Output Total 425 ml 400 ml Balance -270 ml -400 ml Intake Oral 100 ml IV Total 55 ml Output Urine Total 425 ml 400 ml # Bowel Movements 1 Laboratory Tests 02/27/18 15:04: Urine Opiates Screen Negative, Urine Barbiturates Screen Negative, Phencyclidine (PCP) Screen Negative, Urine Amphetamines Screen Negative, Urine Benzodiazepines Screen Negative, Urine Cocaine Screen Negative, Urine Marijuana (THC) Screen Negative 02/28/18 03:55: White Blood Count 29.9*H, Red Blood Count 3.54L, Hemoglobin 10.8L, Hematocrit 31.5L, Mean Corpuscular Volume 89, Mean Corpuscular Hemoglobin 30.4, Mean Corpuscular Hemoglobin Concent 34.2, Red Cell Distribution Width 11.2L, Platelet Count 377, Mean Platelet Volume 7.0, Neutrophils (%) (Auto) , Lymphocytes (%) (Auto) , Monocytes (%) (Auto) , Eosinophils (%) (Auto) , Basophils (%) (Auto) , Differential Total Cells Counted 100, Neutrophils % ( Manual) 88H, Lymphocytes % (Manual) 3L, Monocytes % (Manual) 2, Eosinophils % ( Manual) 0, Basophils % (Manual) 0, Band Neutrophils 7, Platelet Estimate Adequate, Platelet Morphology Normal, Hypochromasia 1+, Sodium Level 134L, Potassium Level 3.8, Chloride Level 95L, Carbon Dioxide Level 18L, Anion Gap 21H , Blood Urea Nitrogen 113H, Creatinine 7.8H, Estimat Glomerular Filtration Rate , Glucose Level 118H, Uric Acid 11.8H, Calcium Level 8.1L, Phosphorus Level 9.0H , Magnesium Level 2.6H, Total Bilirubin 3.8H, Direct Bilirubin 2.1H, Gamma Glutamyl Transpeptidase 93H, Aspartate Amino Transf (AST/SGOT) 634H, Alanine Aminotransferase (ALT/SGPT) 218H, Alkaline Phosphatase 124H, Pro-B-Type Natriuretic Peptide 3919H, Total Protein 7.0, Albumin 1.6L, Globulin 6.0, Random Vancomycin Level 15.0, Hepatitis A IgM Antibody [Pending], Hepatitis B Surface Antigen [Pending], Hepatitis B Core IgM Antibody [Pending], Hepatitis C Antibody [Pending] Height (Feet): 5 Height (Inches): 7.00 Weight (Pounds): 216 General Appearance: no apparent distress, lethargic, confused Cardiovascular: tachycardia Respiratory/Chest: decreased breath sounds Abdomen: distended Yayo Lora MD Feb 28, 2018 13:47
--- NOTE | 2018-02-28 13:57 | NUR ---
NURSE NOTES: PATIENT WAS SEEN REMOVING VENTURI MASK. HEALT TEACHING DONE RE USE OF O2. DR OCHOA MADE AWARE THAT PATIENT REFUSED SPUTUM COLLECTION AND ORAL MEDS. WILL CONTINUE TO MONITOR.
--- NOTE | 2018-02-28 14:31 | NUR ---
NURSE NOTES: PATIENT REFUSED TO USE THE VENTURI MASK. O2 SAT AT ROOM AIR AROUND 90%. INFORMED DR CALHOUN AND ASKED FOR RESTRAINT ORDER. WILL CONTINUE TO MONITOR.
[2018-02-28] MEDS ORDERED: NS 275ml ONE (15:05)
--- NOTE | 2018-02-28 15:41 | NUR ---
CASE MANAGEMENT: REVIEW SI: AMS . DEHYDRATION T 99.3 HR 109 RR 25 BP 147/93 SAT 93% VENTURI MASK 10.0 WBC 29.9 H/H 10.8/31.5 NA 134 IS: ZYVOX IV Q12HR LEVOFLOXACIN IV Q48HR CEFEPIME IV Q24HR HEMODIALYSIS PRN STEP DOWN UNIT STATUS DCP: PATIENT IS FROM HOME
[2018-02-28 16:00] VITALS: BP 136/89
--- NOTE | 2018-02-28 18:12 | NUR ---
NURSE NOTES: CONSENT WAS GIVEN BY BRAD (KIMMY) FOR THE CT SCAN W/ CONTRAST. MADE AWARE THAT PATIENT IS ON RESTRAINTS DUE TO PULLING OFF THE VENTURI MASK. KEPT CLEAN AND DRY. WILL CONTINUE TO MONITOR.
--- NOTE | 2018-02-28 19:06 | Cardiology Progress Note ---
Assessment/Plan Assessment/Plan 1. Rhabdomyolysis. 2. Status post fall. 3. Prostate cancer, status post prostatectomy. 4. Colonic polyps, status post resection recently. 5. Acute renal failure on chronic renal insufficiency. 6. Leukocytosis. 7. Probable pneumonia, possible aspiration. 8. Mild diastolic relaxation on echocardiogram. 9. lyrica allergy 10. non sustianed wide complex tachy tele noted nsvt sinus tachy ekg noted per rn refuses all po meds will see if able to take iv metoprolol for hr control echo has shown normal wall motion cp still sig elevated not able to measure on the presetn scale as sig elevated dialysis as sched Subjective Cardiovascular: Reports: lightheadedness; Denies: chest pain Respiratory: Denies: shortness of breath Gastrointestinal/Abdominal: Denies: abdominal pain Genitourinary: Denies: burning Objective Last 24 Hour Vital Signs Date Time Temp Pulse Resp B/P (MAP) Pulse Ox O2 Delivery O2 Flow Rate FiO2 02/28/18 16:00 Venturi Mask 10.0 02/28/18 16:00 98.9 108 23 136/89 (105) 95 02/28/18 15:47 108 02/28/18 13:52 Venturi Mask 10.0 45 02/28/18 13:52 92 Venturi Mask 10.0 45 02/28/18 13:50 108 18 Venturi Mask 10.0 45 02/28/18 12:00 Venturi Mask 10.0 02/28/18 12:00 99.3 109 25 139/94 (109) 91 02/28/18 11:41 107 02/28/18 08:00 98.0 109 23 147/93 (111) 93 02/28/18 08:00 Venturi Mask 10.0 02/28/18 07:36 109 02/28/18 04:00 Venturi Mask 10.0 02/28/18 04:00 105 02/28/18 04:00 97.7 104 32 137/81 (99) 94 02/28/18 01:05 98.8 02/28/18 00:00 100.2 110 32 133/86 (102) 94 02/28/18 00:00 Venturi Mask 10.0 02/28/18 00:00 110 02/27/18 23:02 96 Venturi Mask 10.0 45 02/27/18 23:02 108 24 96 Venturi Mask 10.0 45 02/27/18 23:02 Venturi Mask 10.0 45 02/27/18 23:00 108 24 Venturi Mask 10.0 45 02/27/18 20:00 99.3 107 22 115/60 (78) 96 02/27/18 20:00 Venturi Mask 10.0 02/27/18 19:11 102 General Appearance: no apparent distress, alert Neck: supple Cardiovascular: normal rate Respiratory/Chest: lungs clear Abdomen: normal bowel sounds, non tender, soft Extremities: no swelling Intake and Output 02/27/18 02/28/18 19:00 07:00 Intake Total 155 ml Output Total 425 ml 400 ml Balance -270 ml -400 ml Intake Oral 100 ml IV Total 55 ml Output Urine Total 425 ml 400 ml # Bowel Movements 1 Laboratory Tests Test 02/28/18 03:55 White Blood Count 29.9 K/UL (4.8-10.8) *H Red Blood Count 3.54 M/UL (4.70-6.10) L Hemoglobin 10.8 G/DL (14.2-18.0) L Hematocrit 31.5 % (42.0-52.0) L Mean Corpuscular Volume 89 FL (80-99) Mean Corpuscular Hemoglobin 30.4 PG (27.0-31.0) Mean Corpuscular Hemoglobin Concent 34.2 G/DL (32.0-36.0) Red Cell Distribution Width 11.2 % (11.6-14.8) L Platelet Count 377 K/UL (150-450) Mean Platelet Volume 7.0 FL (6.5-10.1) Neutrophils (%) (Auto) % (45.0-75.0) Lymphocytes (%) (Auto) % (20.0-45.0) Monocytes (%) (Auto) % (1.0-10.0) Eosinophils (%) (Auto) % (0.0-3.0) Basophils (%) (Auto) % (0.0-2.0) Differential Total Cells Counted 100 Neutrophils % (Manual) 88 % (45-75) H Lymphocytes % (Manual) 3 % (20-45) L Monocytes % (Manual) 2 % (1-10) Eosinophils % (Manual) 0 % (0-3) Basophils % (Manual) 0 % (0-2) Band Neutrophils 7 % (0-8) Platelet Estimate Adequate Platelet Morphology Normal Hypochromasia 1+ Sodium Level 134 MMOL/L (136-145) L Potassium Level 3.8 MMOL/L (3.5-5.1) Chloride Level 95 MMOL/L (98-107) L Carbon Dioxide Level 18 MMOL/L (21-32) L Anion Gap 21 mmol/L (5-15) H Blood Urea Nitrogen 113 mg/dL (7-18) H Creatinine 7.8 MG/DL (0.55-1.30) H Estimat Glomerular Filtration Rate mL/min (>60) Glucose Level 118 MG/DL (74-106) H Uric Acid 11.8 MG/DL (2.6-7.2) H Calcium Level 8.1 MG/DL (8.5-10.1) L Phosphorus Level 9.0 MG/DL (2.5-4.9) H Magnesium Level 2.6 MG/DL (1.8-2.4) H Total Bilirubin 3.8 MG/DL (0.2-1.0) H Direct Bilirubin 2.1 MG/DL (0.0-0.3) H Gamma Glutamyl Transpeptidase 93 U/L (5-85) H Aspartate Amino Transf (AST/SGOT) 634 U/L (15-37) H Alanine Aminotransferase (ALT/SGPT) 218 U/L (12-78) H Alkaline Phosphatase 124 U/L (46-116) H Pro-B-Type Natriuretic Peptide 3919 pg/mL (0-125) H Total Protein 7.0 G/DL (6.4-8.2) Albumin 1.6 G/DL (3.4-5.0) L Globulin 6.0 g/dL Random Vancomycin Level 15.0 ug/mL Hepatitis A IgM Antibody Pending Hepatitis B Surface Antigen Pending Hepatitis B Core IgM Antibody Pending Hepatitis C Antibody Pending Microbiology Date/Time Source Procedure Growth Status 02/26/18 08:00 Blood Blood Culture - Preliminary NO GROWTH AFTER 48 HOURS Resulted 02/26/18 07:50 Blood Blood Culture - Preliminary NO GROWTH AFTER 48 HOURS Resulted 02/26/18 22:30 Nasopharynx Influenza Types A,B Antigen (MARYSOL) - Final Complete 02/26/18 22:40 Stool Clostridium difficile Toxin Assay - Final Complete 02/26/18 14:15 Urine,Clean Catch Urine Culture - Final NO GROWTH AFTER 48 HOURS Complete Car Nelson MD Feb 28, 2018 19:06
[2018-02-28] MEDS ORDERED: Metoprolol Tartrate 5 MG in D5W 55 ML IVPB PRN (19:15)
--- NOTE | 2018-02-28 19:20 | NUR ---
NURSE NOTES: Received report from Katie RN, pt. in bed, Alert to name and place- no s/s of acute cardiac or respiratory distress noted, bed in lowest position and call light within easy reach, bed alarm on, side rails up x's3, safety brakes engaged, pt. appears to be tolerating current Venti mask settings at 10L Fio2 at 45%- sating at 97%, Fortune intact and draining to gravity, pt. clean and dry, bilateral soft restraints removed- skin intact and pulses palpable, Rt. AC 20G IV intact and patent, Rt. IJ for HD intact, pt. appears to be resting comfortably, safety measures continued, will continue with plan of care.
--- NOTE | 2018-02-28 19:42 | NUR ---
HAND-OFF: Report given to Maria Fountain RN.
[2018-02-28] MEDS ORDERED: Metoprolol 5mg/5ml Inj IVP PRN (19:45)
[2018-02-28 20:00] VITALS: BP 117/63
[2018-02-28] MEDS: Dyna-Hex 2% Top Sol 2oz TOPIC SCH (20:08)
[2018-03-01] VITALS: BP 128/75
[2018-03-01 04:00] VITALS: BP 121/72
[2018-03-01 05:53] LABS: HEMATOCRIT 29.4 % (42.0-52.0); HEMOGLOBIN 9.5 G/DL (14.2-18.0); MEAN CORPUSCULAR VOLUME 90 FL (80-99); PLATELET COUNT 419 K/UL (150-450); RED BLOOD COUNT 3.26 M/UL (4.70-6.10); RED CELL DISTRIBUTION WIDTH 12.1 % (11.6-14.8)
[2018-03-01 06:25] LABS: WHITE BLOOD COUNT 30.9 K/UL (4.8-10.8)
--- NOTE | 2018-03-01 06:32 | NUR ---
NURSE NOTES: left message for DR. Martinez- regarding elevated WBC's- left message with public message service supervisor- waiting for call back from doctor.
[2018-03-01 06:47] LABS: ALANINE AMINOTRANSFERASE 174 U/L (12-78); ALKALINE PHOSPHATASE 119 U/L (46-116); ANION GAP 20 mmol/L (5-15); ASPARTATE AMINO TRANSFERASE 396 U/L (15-37); BILIRUBIN,TOTAL 2.7 MG/DL (0.2-1.0); BLOOD UREA NITROGEN 155 mg/dL (7-18); CARBON DIOXIDE 18 MMOL/L (21-32); CHLORIDE 97 MMOL/L (98-107); CREATININE 8.4 MG/DL (0.55-1.30); POTASSIUM 3.8 MMOL/L (3.5-5.1); SODIUM 135 MMOL/L (136-145)
[2018-03-01 06:55] LABS: ALBUMIN 1.6 G/DL (3.4-5.0); PHOSPHORUS 10.7 MG/DL (2.5-4.9)
[2018-03-01 07:00] LABS: ALBUMIN/GLOBULIN RATIO 0.3 (1.0-2.7); BILIRUBIN,DIRECT 1.9 MG/DL (0.0-0.3)
--- NOTE | 2018-03-01 07:08 | NUR ---
HAND-OFF: Report given to Katie Rn, pt. stable and no s/s of acute distress noted. Aware to f/u on elevated WBC's.
--- NOTE | 2018-03-01 07:09 | NUR ---
NURSE NOTES: Report received from BALTA Monk. Patient seen in bed, alert, responsive, able to make needs known. denies any pain/ discomfort at this time. Patient is on oxygen via venturi mask at 10 L/min, fi02 45%. No acute respiratory distress present at this time. Remains on NPO. Iv site to right AC 20G and right IJ ( for HD) is intact. Patient is on soft wrist restraint secondary to taking off venturi mask. Bed is in lowest position. Call light is within easy reach. Will continue to monitor.
[2018-03-01 07:43] LABS: CREATINE KINASE 5884 U/L (26-308)
[2018-03-01 08:00] VITALS: BP 121/72
[2018-03-01] MEDS: Docusate 100mg cap ORAL SCH ×3 (08:22→18:30)
[2018-03-01] MEDS: Heparin 5000 units/ml inj SUBQ SCH ×2 (08:34→20:50)
[2018-03-01] MEDS ORDERED: D5NS 1,000 ML IV SCH (09:30)
[2018-03-01] MEDS: Cefepime 1gm/D5W 55ml IVPB SCH ×2 (11:42)
[2018-03-01 12:00] VITALS: BP 139/90
[2018-03-01] MEDS ORDERED: Gastrograffin 30ml ORAL PRN (12:15)
--- NOTE | 2018-03-01 12:49 | Diagnostic Imaging Report ---
Indication: Shortness of breath Technique: One view of the chest Comparison: 02/28/2018 Findings: Right jugular Keshav catheter remains. Infiltrates throughout the left lung persists, unchanged. Probable small left pleural effusion persists. Right lung and pleural space remain clear Impression: Unchanged, over one day, findings as above.
--- NOTE | 2018-03-01 13:41 | Pulmonology Progress Note ---
Assessment/Plan Assessment/Plan Pulmonary Progress Note Assessment/Plan Problems: (1) Rhabdomyolysis (2) Pneumonia (3) ATN (acute tubular necrosis) (4) Acute CVA (cerebrovascular accident) Assessment/Plan Intermittant Dialysis 400, oliguria WBC still high, respiratory treatment Antibiotics check electrolytes, CPK cxr in am dvt prophylaxis sputum induction f/u labs Subjective ROS Limited/Unobtainable: No Constitutional: Reports: no symptoms HEENT: Repors: no symptoms Respiratory: Reports: no symptoms Allergies: Coded Allergies: NO KNOWN ALLERGIES (Verified Allergy, Unknown, 02/26/18) Objective Vital Signs Notes General Appearance: WD/WN HEENT: normocephalic, atraumatic Respiratory/Chest: chest wall non-tender, lungs clear Cardiovascular: normal peripheral pulses, regular rhythm Abdomen: normal bowel sounds, soft, non tender Extremities: no cyanosis Skin: no rash 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 II-XII grossly normal Lymphatic: no neck adenopathy Microbiology Date/Time Source Procedure Growth Status 02/26/18 08:00 Blood Blood Culture - Preliminary NO GROWTH AFTER 48 HOURS Resulted 02/26/18 07:50 Blood Blood Culture - Preliminary NO GROWTH AFTER 48 HOURS Resulted 02/26/18 22:30 Nasopharynx Influenza Types A,B Antigen (MARYSOL) - Final Complete 02/26/18 22:40 Stool Clostridium difficile Toxin Assay - Final Complete 02/26/18 14:15 Urine,Clean Catch Urine Culture - Final NO GROWTH AFTER 48 HOURS Complete Laboratory Tests 02/27/18 15:04: Urine Opiates Screen Negative, Urine Barbiturates Screen Negative, Phencyclidine (PCP) Screen Negative, Urine Amphetamines Screen Negative, Urine Benzodiazepines Screen Negative, Urine Cocaine Screen Negative, Urine Marijuana (THC) Screen Negative 02/28/18 03:55: White Blood Count 29.9*H, Red Blood Count 3.54L, Hemoglobin 10.8L, Hematocrit 31.5L, Mean Corpuscular Volume 89, Mean Corpuscular Hemoglobin 30.4, Mean Corpuscular Hemoglobin Concent 34.2, Red Cell Distribution Width 11.2L, Platelet Count 377, Mean Platelet Volume 7.0, Neutrophils (%) (Auto) , Lymphocytes (%) (Auto) , Monocytes (%) (Auto) , Eosinophils (%) (Auto) , Basophils (%) (Auto) , Differential Total Cells Counted 100, Neutrophils % ( Manual) 88H, Lymphocytes % (Manual) 3L, Monocytes % (Manual) 2, Eosinophils % ( Manual) 0, Basophils % (Manual) 0, Band Neutrophils 7, Platelet Estimate Adequate, Platelet Morphology Normal, Hypochromasia 1+, Sodium Level 134L, Potassium Level 3.8, Chloride Level 95L, Carbon Dioxide Level 18L, Anion Gap 21H , Blood Urea Nitrogen 113H, Creatinine 7.8H, Estimat Glomerular Filtration Rate , Glucose Level 118H, Uric Acid 11.8H, Calcium Level 8.1L, Phosphorus Level 9.0H , Magnesium Level 2.6H, Total Bilirubin 3.8H, Direct Bilirubin 2.1H, Gamma Glutamyl Transpeptidase 93H, Aspartate Amino Transf (AST/SGOT) 634H, Alanine Aminotransferase (ALT/SGPT) 218H, Alkaline Phosphatase 124H, Pro-B-Type Natriuretic Peptide 3919H, Total Protein 7.0, Albumin 1.6L, Globulin 6.0, Random Vancomycin Level 15.0, Hepatitis A IgM Antibody [Pending], Hepatitis B Surface Antigen [Pending], Hepatitis B Core IgM Antibody [Pending], Hepatitis C Antibody [Pending] Current Medications Medications (Trade) Dose Ordered Sig/Aristides Route PRN Reason Start Time Stop Time Status Last Admin Dose Admin Acetaminophen (Tylenol) 650 mg Q4H PRN ORAL T>100.5 02/26/18 10:30 03/28/18 10:29 02/27/18 10:51 Acetaminophen (Tylenol) 650 mg Q6H PRN ORAL Mild Pain 02/27/18 11:45 03/28/18 06:29 02/28/18 00:35 Albuterol/ Ipratropium (Albuterol/ Ipratropium) 3 ml Q4H PRN HHN Shortness of Breath 02/26/18 10:30 03/03/18 10:29 02/27/18 23:03 Cefepime HCl 1 gm/ Dextrose 55 ml @ 110 mls/hr Q24H IVPB 02/26/18 12:00 03/05/18 11:59 02/27/18 11:45 Chlorhexidine Gluconate (Silva-Hex 2%) 1 applic DAILY@2000 TOPIC 02/27/18 20:00 03/29/18 19:59 02/27/18 21:40 Dextrose (Dextrose 50%) 25 ml Q30M PRN IV hypoglycemia 02/26/18 10:45 03/28/18 10:42 Dextrose (Dextrose 50%) 50 ml Q30M PRN IV hypoglycemia 02/26/18 10:45 03/28/18 10:44 Docusate Sodium (Colace) 100 mg THREE TIMES A DAY ORAL 02/27/18 18:00 03/29/18 17:59 02/28/18 08:20 Heparin Sodium (Porcine) (Heparin 5000 units/ml) 5,000 units EVERY 12 HOURS SUBQ 02/26/18 09:00 03/28/18 08:59 02/28/18 08:21 Linezolid (Zyvox) 600 mg EVERY 12 HOURS ORAL 02/27/18 21:00 03/04/18 20:59 02/28/18 08:19 Metronidazole (Flagyl) 500 mg Q8HR ORAL 02/26/18 15:00 03/05/18 14:59 02/28/18 05:30 Morphine Sulfate (Morphine Sulfate) 2 mg Q4H PRN IVP PAIN 4-10 02/26/18 10:30 03/05/18 10:29 Nitroglycerin (Ntg) 0.4 mg Q5MIN X 3 DOSES PRN SL Prn Chest Pain 02/26/18 10:45 03/28/18 10:44 Ondansetron HCl (Zofran) 4 mg Q6H PRN IVP Nausea & Vomiting 02/26/18 10:30 03/28/18 10:29 Pantoprazole (Protonix) 40 mg EVERY 12 HOURS ORAL 02/27/18 21:00 03/29/18 20:59 02/28/18 08:20 Polyethylene Glycol (Miralax) 17 gm DAILYPRN PRN ORAL Constipation 02/26/18 10:30 03/28/18 10:29 Quetiapine Fumarate (SEROquel) 12.5 mg Q4H PRN ORAL agitation 02/26/18 12:15 03/28/18 12:14 Sevelamer Carbonate (Renvela) 1,600 mg THREE TIMES A DAY ORAL 02/27/18 18:00 03/29/18 17:59 02/28/18 08:20 Temazepam (Restoril) 15 mg HSPRN PRN ORAL Insomnia 02/26/18 21:00 03/05/18 20:59 Subjective ROS Limited/Unobtainable: No Allergies: Coded Allergies: NO KNOWN ALLERGIES (Verified Allergy, Unknown, 02/26/18) Objective Last 24 Hour Vital Signs Date Time Temp Pulse Resp B/P (MAP) Pulse Ox O2 Delivery O2 Flow Rate FiO2 03/01/18 12:00 Venturi Mask 10.0 03/01/18 12:00 97.3 98 24 139/90 (106) 97 03/01/18 10:19 65 20 Venturi Mask 10.0 45 03/01/18 10:19 Venturi Mask 10.0 45 03/01/18 10:19 95 Trach Collar 10.0 45 03/01/18 08:00 Venturi Mask 10.0 03/01/18 08:00 98.2 104 18 121/72 (88) 96 03/01/18 08:00 97 03/01/18 04:00 98.2 104 18 121/72 (88) 96 03/01/18 04:00 99 03/01/18 04:00 Venturi Mask 10.0 03/01/18 00:00 Venturi Mask 10.0 03/01/18 00:00 103 03/01/18 00:00 98.3 101 18 128/75 (92) 97 02/28/18 21:49 96 Venturi Mask 10.0 45 02/28/18 21:49 96 18 Venturi Mask 10.0 45 02/28/18 21:49 Venturi Mask 10.0 45 02/28/18 20:00 Venturi Mask 10.0 02/28/18 20:00 105 02/28/18 20:00 98.1 91 20 117/63 (81) 96 02/28/18 16:00 Venturi Mask 10.0 02/28/18 16:00 98.9 108 23 136/89 (105) 95 02/28/18 15:47 108 02/28/18 13:52 Venturi Mask 10.0 45 02/28/18 13:52 92 Venturi Mask 10.0 45 02/28/18 13:50 108 18 Venturi Mask 10.0 45 Intake and Output 02/28/18 03/01/18 19:00 07:00 Intake Total 210 ml 300 ml Output Total 500 ml 600 ml Balance -290 ml -300 ml IV Total 210 ml 300 ml Output Urine Total 500 ml 600 ml Microbiology Date/Time Source Procedure Growth Status 02/26/18 22:30 Nasopharynx Influenza Types A,B Antigen (MARYSOL) - Final Complete 02/26/18 22:40 Stool Clostridium difficile Toxin Assay - Final Complete 02/26/18 14:15 Urine,Clean Catch Urine Culture - Final NO GROWTH AFTER 48 HOURS Complete Laboratory Tests 03/01/18 04:10: White Blood Count 30.9*H, Red Blood Count 3.26L, Hemoglobin 9.5L, Hematocrit 29.4L, Mean Corpuscular Volume 90, Mean Corpuscular Hemoglobin 29.2, Mean Corpuscular Hemoglobin Concent 32.3, Red Cell Distribution Width 12.1, Platelet Count 419, Mean Platelet Volume 6.6, Neutrophils (%) (Auto) , Lymphocytes (%) ( Auto) , Monocytes (%) (Auto) , Eosinophils (%) (Auto) , Basophils (%) (Auto) , Differential Total Cells Counted 100, Neutrophils % (Manual) 92H, Lymphocytes % (Manual) 6L, Monocytes % (Manual) 2, Eosinophils % (Manual) 0, Basophils % ( Manual) 0, Band Neutrophils 0, Platelet Estimate Adequate, Platelet Morphology Normal, Hypochromasia 2+, Anisocytosis 1+, Sodium Level 135L, Potassium Level 3.8, Chloride Level 97L, Carbon Dioxide Level 18L, Anion Gap 20H, Blood Urea Nitrogen 155H, Creatinine 8.4H, Estimat Glomerular Filtration Rate , Glucose Level 190H, Uric Acid 14.9H, Calcium Level 8.0L, Phosphorus Level 10.7H, Magnesium Level 3.0H, Total Bilirubin 2.7H, Direct Bilirubin 1.9H, Gamma Glutamyl Transpeptidase 79, Aspartate Amino Transf (AST/SGOT) 396H, Alanine Aminotransferase (ALT/SGPT) 174H, Alkaline Phosphatase 119H, Total Creatine Kinase 5884H, Troponin I 0.087H, C-Reactive Protein, Quantitative 57.1H, Pro-B- Type Natriuretic Peptide 2109H, Total Protein 6.9, Albumin 1.6L, Globulin 5.3, Albumin/Globulin Ratio 0.3L Current Medications Medications (Trade) Dose Ordered Sig/Aristides Route PRN Reason Start Time Stop Time Status Last Admin Dose Admin Acetaminophen (Tylenol) 650 mg Q4H PRN ORAL T>100.5 02/26/18 10:30 03/28/18 10:29 02/27/18 10:51 Acetaminophen (Tylenol) 650 mg Q6H PRN ORAL Mild Pain 02/27/18 11:45 03/28/18 06:29 02/28/18 00:35 Albuterol/ Ipratropium (Albuterol/ Ipratropium) 3 ml Q4H PRN HHN Shortness of Breath 02/26/18 10:30 03/03/18 10:29 02/27/18 23:03 Allopurinol (Allopurinol) 300 mg DAILY ORAL 03/02/18 09:00 04/01/18 08:59 Cefepime HCl 1 gm/ Dextrose 55 ml @ 110 mls/hr Q24H IVPB 02/26/18 12:00 03/05/18 11:59 03/01/18 11:42 Chlorhexidine Gluconate (Silva-Hex 2%) 1 applic DAILY@2000 TOPIC 02/27/18 20:00 03/29/18 19:59 02/28/18 20:08 Dextrose (Dextrose 50%) 25 ml Q30M PRN IV hypoglycemia 02/26/18 10:45 03/28/18 10:42 Dextrose (Dextrose 50%) 50 ml Q30M PRN IV hypoglycemia 02/26/18 10:45 03/28/18 10:44 Dextrose/Sodium Chloride 1,000 ml @ 75 mls/hr [id number] IV 03/01/18 09:30 03/31/18 09:29 03/01/18 11:39 Diatrizoate Meglum/ Diatrizoate Sod (Gastrografin) 30 ml NOW PRN ORAL Radiology Procedure 02/28/18 12:15 03/02/18 12:13 Docusate Sodium (Colace) 100 mg THREE TIMES A DAY ORAL 02/27/18 18:00 03/29/18 17:59 03/01/18 13:03 Heparin Sodium (Porcine) (Heparin 5000 units/ml) 5,000 units EVERY 12 HOURS SUBQ 02/26/18 09:00 03/28/18 08:59 03/01/18 08:34 Iopamidol (Isovue-300 100ml) 100 ml NOW PRN INJ Radiology Procedure 02/28/18 12:15 03/02/18 12:13 Levofloxacin 150 ml @ 100 mls/hr Q48H IVPB 02/28/18 17:00 03/07/18 16:59 02/28/18 16:52 Linezolid 300 ml @ 300 mls/hr Q12HR IVPB 02/28/18 21:00 03/07/18 20:59 03/01/18 08:22 Metoprolol Tartrate (Lopressor) 5 mg Q6H PRN IVP FOR HEART RATE >110 02/28/18 19:45 03/30/18 19:44 Morphine Sulfate (Morphine Sulfate) 2 mg Q4H PRN IVP PAIN 4-10 02/26/18 10:30 03/05/18 10:29 Nitroglycerin (Ntg) 0.4 mg Q5MIN X 3 DOSES PRN SL Prn Chest Pain 02/26/18 10:45 03/28/18 10:44 Ondansetron HCl (Zofran) 4 mg Q6H PRN IVP Nausea & Vomiting 02/26/18 10:30 03/28/18 10:29 Pantoprazole (Protonix) 40 mg EVERY 12 HOURS ORAL 02/27/18 21:00 03/29/18 20:59 03/01/18 08:22 Polyethylene Glycol (Miralax) 17 gm DAILYPRN PRN ORAL Constipation 02/26/18 10:30 03/28/18 10:29 Quetiapine Fumarate (SEROquel) 12.5 mg Q4H PRN ORAL agitation 02/26/18 12:15 03/28/18 12:14 Sevelamer Carbonate (Renvela) 2,400 mg THREE TIMES A DAY ORAL 03/01/18 13:00 03/29/18 17:59 03/01/18 13:07 Temazepam (Restoril) 15 mg HSPRN PRN ORAL Insomnia 02/26/18 21:00 03/05/18 20:59 Juancarlos Malin MD Mar 01, 2018 13:41
--- NOTE | 2018-03-01 14:39 | Internal Med Progress Note ---
Subjective Date of Service: Mar 01, 2018 Physician Name Christofer Biggs Attending Physician Ruperto Cowan MD Current Medications Medications (Trade) Dose Ordered Sig/Aristides Route PRN Reason Start Time Stop Time Status Last Admin Dose Admin Acetaminophen (Tylenol) 650 mg Q4H PRN ORAL T>100.5 02/26/18 10:30 03/28/18 10:29 02/27/18 10:51 Acetaminophen (Tylenol) 650 mg Q6H PRN ORAL Mild Pain 02/27/18 11:45 03/28/18 06:29 02/28/18 00:35 Albuterol/ Ipratropium (Albuterol/ Ipratropium) 3 ml Q4H PRN HHN Shortness of Breath 02/26/18 10:30 03/03/18 10:29 02/27/18 23:03 Allopurinol (Allopurinol) 300 mg DAILY ORAL 03/02/18 09:00 04/01/18 08:59 Cefepime HCl 1 gm/ Dextrose 55 ml @ 110 mls/hr Q24H IVPB 02/26/18 12:00 03/05/18 11:59 03/01/18 11:42 Chlorhexidine Gluconate (Silva-Hex 2%) 1 applic DAILY@2000 TOPIC 02/27/18 20:00 03/29/18 19:59 02/28/18 20:08 Dextrose (Dextrose 50%) 25 ml Q30M PRN IV hypoglycemia 02/26/18 10:45 03/28/18 10:42 Dextrose (Dextrose 50%) 50 ml Q30M PRN IV hypoglycemia 02/26/18 10:45 03/28/18 10:44 Dextrose/Sodium Chloride 1,000 ml @ 75 mls/hr [id number] IV 03/01/18 09:30 03/31/18 09:29 03/01/18 11:39 Diatrizoate Meglum/ Diatrizoate Sod (Gastrografin) 30 ml NOW PRN ORAL Radiology Procedure 02/28/18 12:15 03/02/18 12:13 Docusate Sodium (Colace) 100 mg THREE TIMES A DAY ORAL 02/27/18 18:00 03/29/18 17:59 03/01/18 13:03 Heparin Sodium (Porcine) (Heparin 5000 units/ml) 5,000 units EVERY 12 HOURS SUBQ 02/26/18 09:00 03/28/18 08:59 03/01/18 08:34 Iopamidol (Isovue-300 100ml) 100 ml NOW PRN INJ Radiology Procedure 02/28/18 12:15 03/02/18 12:13 Levofloxacin 150 ml @ 100 mls/hr Q48H IVPB 02/28/18 17:00 03/07/18 16:59 02/28/18 16:52 Linezolid 300 ml @ 300 mls/hr Q12HR IVPB 02/28/18 21:00 03/07/18 20:59 03/01/18 08:22 Metoprolol Tartrate (Lopressor) 5 mg Q6H PRN IVP FOR HEART RATE >110 02/28/18 19:45 03/30/18 19:44 Morphine Sulfate (Morphine Sulfate) 2 mg Q4H PRN IVP PAIN 4-10 02/26/18 10:30 03/05/18 10:29 Nitroglycerin (Ntg) 0.4 mg Q5MIN X 3 DOSES PRN SL Prn Chest Pain 02/26/18 10:45 03/28/18 10:44 Ondansetron HCl (Zofran) 4 mg Q6H PRN IVP Nausea & Vomiting 02/26/18 10:30 03/28/18 10:29 Pantoprazole (Protonix) 40 mg EVERY 12 HOURS ORAL 02/27/18 21:00 03/29/18 20:59 03/01/18 08:22 Polyethylene Glycol (Miralax) 17 gm DAILYPRN PRN ORAL Constipation 02/26/18 10:30 03/28/18 10:29 Quetiapine Fumarate (SEROquel) 12.5 mg Q4H PRN ORAL agitation 02/26/18 12:15 03/28/18 12:14 Sevelamer Carbonate (Renvela) 2,400 mg THREE TIMES A DAY ORAL 03/01/18 13:00 03/29/18 17:59 03/01/18 13:07 Temazepam (Restoril) 15 mg HSPRN PRN ORAL Insomnia 02/26/18 21:00 03/05/18 20:59 Allergies: Coded Allergies: NO KNOWN ALLERGIES (Verified Allergy, Unknown, 02/26/18) ROS Limited/Unobtainable: Yes Subjective 72 YO M admitted after syncopal episode. Now pneumonia and renal failure. Cover for Int [facility]-Dr Cowan. HANANE. Continues on venturi mask. Currently receiving hemodialysis Objective Last Vital Signs Date Time Temp Pulse Resp B/P (MAP) Pulse Ox O2 Delivery O2 Flow Rate FiO2 03/01/18 12:00 Venturi Mask 10.0 03/01/18 12:00 97.3 98 24 139/90 (106) 97 03/01/18 10:19 45 Laboratory Tests Test 03/01/18 04:10 White Blood Count 30.9 K/UL (4.8-10.8) *H Red Blood Count 3.26 M/UL (4.70-6.10) L Hemoglobin 9.5 G/DL (14.2-18.0) L Hematocrit 29.4 % (42.0-52.0) L Mean Corpuscular Volume 90 FL (80-99) Mean Corpuscular Hemoglobin 29.2 PG (27.0-31.0) Mean Corpuscular Hemoglobin Concent 32.3 G/DL (32.0-36.0) Red Cell Distribution Width 12.1 % (11.6-14.8) Platelet Count 419 K/UL (150-450) Mean Platelet Volume 6.6 FL (6.5-10.1) Neutrophils (%) (Auto) % (45.0-75.0) Lymphocytes (%) (Auto) % (20.0-45.0) Monocytes (%) (Auto) % (1.0-10.0) Eosinophils (%) (Auto) % (0.0-3.0) Basophils (%) (Auto) % (0.0-2.0) Differential Total Cells Counted 100 Neutrophils % (Manual) 92 % (45-75) H Lymphocytes % (Manual) 6 % (20-45) L Monocytes % (Manual) 2 % (1-10) Eosinophils % (Manual) 0 % (0-3) Basophils % (Manual) 0 % (0-2) Band Neutrophils 0 % (0-8) Platelet Estimate Adequate Platelet Morphology Normal Hypochromasia 2+ Anisocytosis 1+ Sodium Level 135 MMOL/L (136-145) L Potassium Level 3.8 MMOL/L (3.5-5.1) Chloride Level 97 MMOL/L (98-107) L Carbon Dioxide Level 18 MMOL/L (21-32) L Anion Gap 20 mmol/L (5-15) H Blood Urea Nitrogen 155 mg/dL (7-18) H Creatinine 8.4 MG/DL (0.55-1.30) H Estimat Glomerular Filtration Rate mL/min (>60) Glucose Level 190 MG/DL (74-106) H Uric Acid 14.9 MG/DL (2.6-7.2) H Calcium Level 8.0 MG/DL (8.5-10.1) L Phosphorus Level 10.7 MG/DL (2.5-4.9) H Magnesium Level 3.0 MG/DL (1.8-2.4) H Total Bilirubin 2.7 MG/DL (0.2-1.0) H Direct Bilirubin 1.9 MG/DL (0.0-0.3) H Gamma Glutamyl Transpeptidase 79 U/L (5-85) Aspartate Amino Transf (AST/SGOT) 396 U/L (15-37) H Alanine Aminotransferase (ALT/SGPT) 174 U/L (12-78) H Alkaline Phosphatase 119 U/L (46-116) H Total Creatine Kinase 5884 U/L (26-308) H Troponin I 0.087 ng/mL (0.000-0.056) C-Reactive Protein, Quantitative 57.1 mg/dL (0.00-0.90) H Pro-B-Type Natriuretic Peptide 2109 pg/mL (0-125) H Total Protein 6.9 G/DL (6.4-8.2) Albumin 1.6 G/DL (3.4-5.0) L Globulin 5.3 g/dL Albumin/Globulin Ratio 0.3 (1.0-2.7) L Microbiology Date/Time Source Procedure Growth Status 02/26/18 22:30 Nasopharynx Influenza Types A,B Antigen (MARYSOL) - Final Complete 02/26/18 22:40 Stool Clostridium difficile Toxin Assay - Final Complete Intake and Output 02/28/18 03/01/18 19:00 07:00 Intake Total 210 ml 300 ml Output Total 500 ml 600 ml Balance -290 ml -300 ml IV Total 210 ml 300 ml Output Urine Total 500 ml 600 ml Objective PHYSICAL EXAMINATION: GENERAL: The patient is a well-developed and well-nourished, slightly obese male, in no apparent distress. HEENT: Eyes, pupils are equal and responsive to light and accommodation. Extraocular movements are intact. NECK: Supple without lymphadenopathy. CHEST: venturi mask; wheezes bilaterally, without rales. CARDIOVASCULAR: Regular rhythm and rate. S1 and S2 are normal without murmurs, rubs, or gallops. ABDOMEN: Soft, nontender, and nondistended. Positive bowel sounds. No evidence of hepatosplenomegaly. Currently, no rebound or guarding noted. EXTREMITIES: Negative for clubbing, cyanosis, or edema. RECTAL/GENITAL: Refused. NEUROLOGICAL: Cranial nerves II through XII are grossly intact without focal deficits. Motor strength is 5/5 bilaterally. Deep tendon reflexes are 2+ plantar. Assessment/Plan Problem List: (1) Leukocytosis Assessment & Plan: See ID note. Continue linezolid, cefepime and flagyl per ID (2) Renal failure Assessment & Plan: Hemodialysis 03/01/18. See nephrology note. (3) Elevated liver function tests Assessment & Plan: Await GI consult. (4) Syncope (5) Hyponatremia Assessment & Plan: Continue IVF per nephrology (6) Hypertension (7) Hypercholesterolemia (8) Prostate cancer (9) Colon cancer (10) Rhabdomyolysis Assessment & Plan: CK>10,000. See cardiology note. (11) Pneumonia Assessment & Plan: See pulmonary note. Continue linezolid, cefepime and flagyl per ID (12) Respiratory failure Status: progressing Christofer Biggs MD Mar 01, 2018 14:38
--- NOTE | 2018-03-01 14:46 | GI Progress Note ---
Assessment/Plan Problems: (1) Abdominal distention ICD Codes: R14.0 - Abdominal distension (gaseous) SNOMED: 19839789 (2) Anemia ICD Codes: D64.9 - Anemia, unspecified SNOMED: 801794027 (3) encephalopathy due to toxin (4) Elevated liver function tests ICD Codes: R94.5 - Abnormal results of liver function studies SNOMED: 872313738, 153388715 Status: unchanged Status Narrative Discussed with Dr. Matos Assessment/Plan History of colorectal cancer status post colorectal resection Abdominal ultrasound was reviewed with no evidence of cirrhosis, no evidence of choledocholithiasis, no evidence of intrahepatic biliary ductal dilation. Anemia workup reviewed Abdominal pelvis CT done today, follow-up results Maintain n.p.o. IV fluids, will consider advancing diet after reviewing CT results We will consider rectal tube for colonic decompression Turn patient every 2 hours Simethicone as needed Electrolyte correction PPI Follow-up labs The patient was seen and examined at bedside and all new and available data was reviewed in the patients chart. I agree with the above findings, impression and plan. (Patient seen earlier today. Signature stamp does not reflect patient encounter time.). - Ismael Matso MD Subjective Subjective Hungry Objective Last 24 Hour Vital Signs Date Time Temp Pulse Resp B/P (MAP) Pulse Ox O2 Delivery O2 Flow Rate FiO2 03/01/18 12:00 Venturi Mask 10.0 03/01/18 12:00 97.3 98 24 139/90 (106) 97 03/01/18 10:19 65 20 Venturi Mask 10.0 45 03/01/18 10:19 Venturi Mask 10.0 45 03/01/18 10:19 95 Trach Collar 10.0 45 03/01/18 08:00 Venturi Mask 10.0 03/01/18 08:00 98.2 104 18 121/72 (88) 96 03/01/18 08:00 97 03/01/18 04:00 98.2 104 18 121/72 (88) 96 03/01/18 04:00 99 03/01/18 04:00 Venturi Mask 10.0 03/01/18 00:00 Venturi Mask 10.0 03/01/18 00:00 103 03/01/18 00:00 98.3 101 18 128/75 (92) 97 12/20/18 21:49 96 Venturi Mask 10.0 45 18 21:49 96 18 Venturi Mask 10.0 45 02/28/18 21:49 Venturi Mask 10.0 45 02/28/18 20:00 Venturi Mask 10.0 02/28/18 20:00 105 02/28/18 20:00 98.1 91 20 117/63 (81) 96 02/28/18 16:00 Venturi Mask 10.0 02/28/18 16:00 98.9 108 23 136/89 (105) 95 02/28/18 15:47 108 Intake and Output 02/28/18 03/01/18 19:00 07:00 Intake Total 210 ml 300 ml Output Total 500 ml 600 ml Balance -290 ml -300 ml IV Total 210 ml 300 ml Output Urine Total 500 ml 600 ml Laboratory Tests Test 03/01/18 04:10 White Blood Count 30.9 K/UL (4.8-10.8) *H Red Blood Count 3.26 M/UL (4.70-6.10) L Hemoglobin 9.5 G/DL (14.2-18.0) L Hematocrit 29.4 % (42.0-52.0) L Mean Corpuscular Volume 90 FL (80-99) Mean Corpuscular Hemoglobin 29.2 PG (27.0-31.0) Mean Corpuscular Hemoglobin Concent 32.3 G/DL (32.0-36.0) Red Cell Distribution Width 12.1 % (11.6-14.8) Platelet Count 419 K/UL (150-450) Mean Platelet Volume 6.6 FL (6.5-10.1) Neutrophils (%) (Auto) % (45.0-75.0) Lymphocytes (%) (Auto) % (20.0-45.0) Monocytes (%) (Auto) % (1.0-10.0) Eosinophils (%) (Auto) % (0.0-3.0) Basophils (%) (Auto) % (0.0-2.0) Differential Total Cells Counted 100 Neutrophils % (Manual) 92 % (45-75) H Lymphocytes % (Manual) 6 % (20-45) L Monocytes % (Manual) 2 % (1-10) Eosinophils % (Manual) 0 % (0-3) Basophils % (Manual) 0 % (0-2) Band Neutrophils 0 % (0-8) Platelet Estimate Adequate Platelet Morphology Normal Hypochromasia 2+ Anisocytosis 1+ Sodium Level 135 MMOL/L (136-145) L Potassium Level 3.8 MMOL/L (3.5-5.1) Chloride Level 97 MMOL/L (98-107) L Carbon Dioxide Level 18 MMOL/L (21-32) L Anion Gap 20 mmol/L (5-15) H Blood Urea Nitrogen 155 mg/dL (7-18) H Creatinine 8.4 MG/DL (0.55-1.30) H Estimat Glomerular Filtration Rate mL/min (>60) Glucose Level 190 MG/DL (74-106) H Uric Acid 14.9 MG/DL (2.6-7.2) H Calcium Level 8.0 MG/DL (8.5-10.1) L Phosphorus Level 10.7 MG/DL (2.5-4.9) H Magnesium Level 3.0 MG/DL (1.8-2.4) H Total Bilirubin 2.7 MG/DL (0.2-1.0) H Direct Bilirubin 1.9 MG/DL (0.0-0.3) H Gamma Glutamyl Transpeptidase 79 U/L (5-85) Aspartate Amino Transf (AST/SGOT) 396 U/L (15-37) H Alanine Aminotransferase (ALT/SGPT) 174 U/L (12-78) H Alkaline Phosphatase 119 U/L (46-116) H Total Creatine Kinase 5884 U/L (26-308) H Troponin I 0.087 ng/mL (0.000-0.056) C-Reactive Protein, Quantitative 57.1 mg/dL (0.00-0.90) H Pro-B-Type Natriuretic Peptide 2109 pg/mL (0-125) H Total Protein 6.9 G/DL (6.4-8.2) Albumin 1.6 G/DL (3.4-5.0) L Globulin 5.3 g/dL Albumin/Globulin Ratio 0.3 (1.0-2.7) L Height (Feet): 5 Height (Inches): 7.00 Weight (Pounds): 216 General Appearance: WD/WN, no apparent distress, alert Cardiovascular: normal rate Respiratory/Chest: normal breath sounds, no respiratory distress Abdominal Exam: normal bowel sounds, non tender, soft Extremities: normal range of motion, non-tender Chapito Pedraza NP Mar 01, 2018 14:46
--- NOTE | 2018-03-01 15:05 | Infectious Diseases Prog Note ---
Assessment/Plan Assessment/Plan Abx: IV Vancomycin 02/26- Cefepime 02/26- Assessment: SEpsis - 2ry to Legionella PNA and UTI- r/o bacteremia -02/27 CXR: Increasing left upper lobe consolidation, over one day. -CXR: Left lung infiltrates, likely pneumonia, and pleural fluid. Borderline cardiomegaly -Bcx NTD -u/a wbc tnct, nit +, leuk +2; cx NTD -influenza sc neg -legionella ag urine + Fever, improving Leukocytosis, persistent BRITT, worsening- started on HD 02/28 Rhabdomyolosis AMS s/p Fall Acute transaminitis, infection-2ry to Legionella infection -HIV ab sc neg -Acute hepatitis panel neg Plan: -Continue Levaquin 750mg q48hrs #2 for LEgionella for 10-14 days -IV as patient refusing PO -Continue empiric PO Linezolid #3 (abx d#4) and continue Cefepime #3 for now pending sp and ur cultures -02/28 SP Flagyl #2 -02/27 SP IV Vancomycin #2 - If wbc persistent, will obtain CT chest/abd/p -f/u cx (Bl, sp, u) -Monitor CBC/CMP, temperatures -Renal f/u Thank you for this consultation. Will continue to follow along with you. Discussed with RN. Subjective Allergies: Coded Allergies: NO KNOWN ALLERGIES (Verified Allergy, Unknown, 02/26/18) Subjective afebrile >36hrs WBC remains 30s Bcx NTD on VM Objective Vital Signs Last 24 Hour Vital Signs Date Time Temp Pulse Resp B/P (MAP) Pulse Ox O2 Delivery O2 Flow Rate FiO2 03/01/18 12:00 Venturi Mask 10.0 03/01/18 12:00 97.3 98 24 139/90 (106) 97 03/01/18 10:19 65 20 Venturi Mask 10.0 45 03/01/18 10:19 Venturi Mask 10.0 45 03/01/18 10:19 95 Trach Collar 10.0 45 03/01/18 08:00 Venturi Mask 10.0 03/01/18 08:00 98.2 104 18 121/72 (88) 96 03/01/18 08:00 97 03/01/18 04:00 98.2 104 18 121/72 (88) 96 03/01/18 04:00 99 03/01/18 04:00 Venturi Mask 10.0 03/01/18 00:00 Venturi Mask 10.0 03/01/18 00:00 103 03/01/18 00:00 98.3 101 18 128/75 (92) 97 02/28/18 21:49 96 Venturi Mask 10.0 45 18 21:49 96 18 Venturi Mask 10.0 45 02/28/18 21:49 Venturi Mask 10.0 45 02/28/18 20:00 Venturi Mask 10.0 02/28/18 20:00 105 02/28/18 20:00 98.1 91 20 117/63 (81) 96 02/28/18 16:00 Venturi Mask 10.0 02/28/18 16:00 98.9 108 23 136/89 (105) 95 02/28/18 15:47 108 Height (Feet): 5 Height (Inches): 7.00 Weight (Pounds): 216 Microbiology Date/Time Source Procedure Growth Status 02/26/18 22:30 Nasopharynx Influenza Types A,B Antigen (MARYSOL) - Final Complete 02/26/18 22:40 Stool Clostridium difficile Toxin Assay - Final Complete Laboratory Tests Test 03/01/18 04:10 White Blood Count 30.9 K/UL (4.8-10.8) *H Red Blood Count 3.26 M/UL (4.70-6.10) L Hemoglobin 9.5 G/DL (14.2-18.0) L Hematocrit 29.4 % (42.0-52.0) L Mean Corpuscular Volume 90 FL (80-99) Mean Corpuscular Hemoglobin 29.2 PG (27.0-31.0) Mean Corpuscular Hemoglobin Concent 32.3 G/DL (32.0-36.0) Red Cell Distribution Width 12.1 % (11.6-14.8) Platelet Count 419 K/UL (150-450) Mean Platelet Volume 6.6 FL (6.5-10.1) Neutrophils (%) (Auto) % (45.0-75.0) Lymphocytes (%) (Auto) % (20.0-45.0) Monocytes (%) (Auto) % (1.0-10.0) Eosinophils (%) (Auto) % (0.0-3.0) Basophils (%) (Auto) % (0.0-2.0) Differential Total Cells Counted 100 Neutrophils % (Manual) 92 % (45-75) H Lymphocytes % (Manual) 6 % (20-45) L Monocytes % (Manual) 2 % (1-10) Eosinophils % (Manual) 0 % (0-3) Basophils % (Manual) 0 % (0-2) Band Neutrophils 0 % (0-8) Platelet Estimate Adequate Platelet Morphology Normal Hypochromasia 2+ Anisocytosis 1+ Sodium Level 135 MMOL/L (136-145) L Potassium Level 3.8 MMOL/L (3.5-5.1) Chloride Level 97 MMOL/L (98-107) L Carbon Dioxide Level 18 MMOL/L (21-32) L Anion Gap 20 mmol/L (5-15) H Blood Urea Nitrogen 155 mg/dL (7-18) H Creatinine 8.4 MG/DL (0.55-1.30) H Estimat Glomerular Filtration Rate mL/min (>60) Glucose Level 190 MG/DL (74-106) H Uric Acid 14.9 MG/DL (2.6-7.2) H Calcium Level 8.0 MG/DL (8.5-10.1) L Phosphorus Level 10.7 MG/DL (2.5-4.9) H Magnesium Level 3.0 MG/DL (1.8-2.4) H Total Bilirubin 2.7 MG/DL (0.2-1.0) H Direct Bilirubin 1.9 MG/DL (0.0-0.3) H Gamma Glutamyl Transpeptidase 79 U/L (5-85) Aspartate Amino Transf (AST/SGOT) 396 U/L (15-37) H Alanine Aminotransferase (ALT/SGPT) 174 U/L (12-78) H Alkaline Phosphatase 119 U/L (46-116) H Total Creatine Kinase 5884 U/L (26-308) H Troponin I 0.087 ng/mL (0.000-0.056) C-Reactive Protein, Quantitative 57.1 mg/dL (0.00-0.90) H Pro-B-Type Natriuretic Peptide 2109 pg/mL (0-125) H Total Protein 6.9 G/DL (6.4-8.2) Albumin 1.6 G/DL (3.4-5.0) L Globulin 5.3 g/dL Albumin/Globulin Ratio 0.3 (1.0-2.7) L Current Medications Medications (Trade) Dose Ordered Sig/Aristides Route PRN Reason Start Time Stop Time Status Last Admin Dose Admin Acetaminophen (Tylenol) 650 mg Q4H PRN ORAL T>100.5 02/26/18 10:30 03/28/18 10:29 02/27/18 10:51 Acetaminophen (Tylenol) 650 mg Q6H PRN ORAL Mild Pain 02/27/18 11:45 03/28/18 06:29 02/28/18 00:35 Albuterol/ Ipratropium (Albuterol/ Ipratropium) 3 ml Q4H PRN HHN Shortness of Breath 02/26/18 10:30 03/03/18 10:29 02/27/18 23:03 Allopurinol (Allopurinol) 300 mg DAILY ORAL 03/02/18 09:00 04/01/18 08:59 Cefepime HCl 1 gm/ Dextrose 55 ml @ 110 mls/hr Q24H IVPB 02/26/18 12:00 03/05/18 11:59 03/01/18 11:42 Chlorhexidine Gluconate (Silva-Hex 2%) 1 applic DAILY@2000 TOPIC 02/27/18 20:00 03/29/18 19:59 02/28/18 20:08 Dextrose (Dextrose 50%) 25 ml Q30M PRN IV hypoglycemia 02/26/18 10:45 03/28/18 10:42 Dextrose (Dextrose 50%) 50 ml Q30M PRN IV hypoglycemia 02/26/18 10:45 03/28/18 10:44 Dextrose/Sodium Chloride 1,000 ml @ 75 mls/hr [id number] IV 03/01/18 09:30 03/31/18 09:29 03/01/18 11:39 Diatrizoate Meglum/ Diatrizoate Sod (Gastrografin) 30 ml NOW PRN ORAL Radiology Procedure 02/28/18 12:15 03/02/18 12:13 Docusate Sodium (Colace) 100 mg THREE TIMES A DAY ORAL 02/27/18 18:00 03/29/18 17:59 03/01/18 13:03 Heparin Sodium (Porcine) (Heparin 5000 units/ml) 5,000 units EVERY 12 HOURS SUBQ 02/26/18 09:00 03/28/18 08:59 03/01/18 08:34 Iopamidol (Isovue-300 100ml) 100 ml NOW PRN INJ Radiology Procedure 02/28/18 12:15 03/02/18 12:13 Levofloxacin 150 ml @ 100 mls/hr Q48H IVPB 02/28/18 17:00 03/07/18 16:59 02/28/18 16:52 Linezolid 300 ml @ 300 mls/hr Q12HR IVPB 02/28/18 21:00 03/07/18 20:59 03/01/18 08:22 Metoprolol Tartrate (Lopressor) 5 mg Q6H PRN IVP FOR HEART RATE >110 02/28/18 19:45 03/30/18 19:44 Morphine Sulfate (Morphine Sulfate) 2 mg Q4H PRN IVP PAIN 4-10 02/26/18 10:30 03/05/18 10:29 Nitroglycerin (Ntg) 0.4 mg Q5MIN X 3 DOSES PRN SL Prn Chest Pain 02/26/18 10:45 03/28/18 10:44 Ondansetron HCl (Zofran) 4 mg Q6H PRN IVP Nausea & Vomiting 02/26/18 10:30 03/28/18 10:29 Pantoprazole (Protonix) 40 mg EVERY 12 HOURS ORAL 02/27/18 21:00 03/29/18 20:59 03/01/18 08:22 Polyethylene Glycol (Miralax) 17 gm DAILYPRN PRN ORAL Constipation 02/26/18 10:30 03/28/18 10:29 Quetiapine Fumarate (SEROquel) 12.5 mg Q4H PRN ORAL agitation 02/26/18 12:15 03/28/18 12:14 Sevelamer Carbonate (Renvela) 2,400 mg THREE TIMES A DAY ORAL 03/01/18 13:00 03/29/18 17:59 03/01/18 13:07 Temazepam (Restoril) 15 mg HSPRN PRN ORAL Insomnia 02/26/18 21:00 03/05/18 20:59 Melissa Martinez M.D. Mar 01, 2018 15:05
--- NOTE | 2018-03-01 15:54 | Diagnostic Imaging Report ---
Clinical Indication: Abdominal distention Technique: Patient given oral contrast. IV administration nonionic contrast. Venous phase spiral acquisition obtained through the abdomen and pelvis. Multiplanar reconstructions were generated. Total dose length product 902.11 mGycm. CTDIvol(s) 17.25 mGy. Dose reduction achieved using automated exposure control Comparison: Reference made to ultrasound abdomen dated 02/28/2018. No comparison CTs Findings: The appendix is normal. The colon is gas-filled, diffusely upper limits normal in caliber no evidence of diverticulosis or diverticulitis. Contrast has traversed the entirety of the small bowel and reached the colon. No small bowel distention or small bowel wall thickening. The distal esophagus, stomach, duodenum are unremarkable. No free or loculated intraperitoneal gas or fluid. The liver is unremarkable. Hepatic steatosis suspected on recent ultrasound is not clearly evident. The gallbladder demonstrates equivocal slight increased density of the luminal contents, may reflect sludge described on recent ultrasound. Bile ducts, pancreas, spleen, adrenals are unremarkable. There is slight indistinctness to the renal margins bilaterally and slight perinephric fat stranding. The kidneys are somewhat diffusely hypoattenuating No renal or ureteral calculi, hydronephrosis, or hydroureter. A 9 cm cyst is seen coming off of the lower pole of the left kidney. No retroperitoneal or mesenteric mass or adenopathy. A Fortune catheter is present within the bladder, which is nondistended. There is evidence of prior prostatectomy. There are small bilateral fat-containing inguinal hernias. There is edema of the subcutaneous fat of the flanks bilaterally. Included lung bases demonstrate dense consolidation of the posterior left upper lobe. There is a small amount of pleural fluid on the left. Impression: Dense left lower lobe consolidation and small pleural effusion. This is consistent with findings described on recent chest radiograph Hypoattenuating bilateral kidneys with indistinctness of the renal margins, could indicate inflammatory change Edema of the subcutaneous fat of the flanks bilaterally The colon is diffusely gas-filled, upper limits normal in caliber. Probably indicates functional changes as no obstructive pathology is demonstrated Other findings as noted, including small fat-containing bilateral inguinal hernias, 9 cm left renal cyst The CT scanner at [facility] is accredited by the [employer] and the scans are performed using protocols designed to limit radiation exposure to as low as reasonably achievable to attain images of sufficient resolution adequate for diagnostic evaluation.
[2018-03-01 16:00] VITALS: BP 115/61
--- NOTE | 2018-03-01 17:39 | Nephrology Progress Note ---
Assessment/Plan Problem List: (1) ATN (acute tubular necrosis) (2) Rhabdomyolysis (3) Pneumonia Assessment Acute renal failure- Rhabdo Pneumonia CVA ? Plan Slow Hydrate- Add Allopurinol hemodialysis 02/27 next 03/01 Phos binders renal diet Vigorous Hydrate- Fortune Monitor CPK - Uric Acid- LFTs monitor Renal parameters Avoid Nephrotoxics per orders Subjective ROS Limited/Unobtainable: No Constitutional: Reports: malaise, weakness Objective Objective Last 24 Hour Vital Signs Date Time Temp Pulse Resp B/P (MAP) Pulse Ox O2 Delivery O2 Flow Rate FiO2 03/01/18 12:00 Venturi Mask 10.0 03/01/18 12:00 98 03/01/18 12:00 97.3 98 24 139/90 (106) 97 03/01/18 10:19 65 20 Venturi Mask 10.0 45 03/01/18 10:19 Venturi Mask 10.0 45 03/01/18 10:19 95 Trach Collar 10.0 45 03/01/18 08:00 Venturi Mask 10.0 03/01/18 08:00 98.2 104 18 121/72 (88) 96 03/01/18 08:00 97 03/01/18 04:00 98.2 104 18 121/72 (88) 96 03/01/18 04:00 99 03/01/18 04:00 Venturi Mask 10.0 03/01/18 00:00 Venturi Mask 10.0 03/01/18 00:00 103 03/01/18 00:00 98.3 101 18 128/75 (92) 97 02/28/18 21:49 96 Venturi Mask 10.0 45 02/28/18 21:49 96 18 Venturi Mask 10.0 45 02/28/18 21:49 Venturi Mask 10.0 45 02/28/18 20:00 Venturi Mask 10.0 02/28/18 20:00 105 02/28/18 20:00 98.1 91 20 117/63 (81) 96 Intake and Output 02/28/18 03/01/18 19:00 07:00 Intake Total 210 ml 300 ml Output Total 500 ml 600 ml Balance -290 ml -300 ml IV Total 210 ml 300 ml Output Urine Total 500 ml 600 ml Laboratory Tests 03/01/18 04:10: White Blood Count 30.9*H, Red Blood Count 3.26L, Hemoglobin 9.5L, Hematocrit 29.4L, Mean Corpuscular Volume 90, Mean Corpuscular Hemoglobin 29.2, Mean Corpuscular Hemoglobin Concent 32.3, Red Cell Distribution Width 12.1, Platelet Count 419, Mean Platelet Volume 6.6, Neutrophils (%) (Auto) , Lymphocytes (%) ( Auto) , Monocytes (%) (Auto) , Eosinophils (%) (Auto) , Basophils (%) (Auto) , Differential Total Cells Counted 100, Neutrophils % (Manual) 92H, Lymphocytes % (Manual) 6L, Monocytes % (Manual) 2, Eosinophils % (Manual) 0, Basophils % ( Manual) 0, Band Neutrophils 0, Platelet Estimate Adequate, Platelet Morphology Normal, Hypochromasia 2+, Anisocytosis 1+, Sodium Level 135L, Potassium Level 3.8, Chloride Level 97L, Carbon Dioxide Level 18L, Anion Gap 20H, Blood Urea Nitrogen 155H, Creatinine 8.4H, Estimat Glomerular Filtration Rate , Glucose Level 190H, Uric Acid 14.9H, Calcium Level 8.0L, Phosphorus Level 10.7H, Magnesium Level 3.0H, Total Bilirubin 2.7H, Direct Bilirubin 1.9H, Gamma Glutamyl Transpeptidase 79, Aspartate Amino Transf (AST/SGOT) 396H, Alanine Aminotransferase (ALT/SGPT) 174H, Alkaline Phosphatase 119H, Total Creatine Kinase 5884H, Troponin I 0.087H, C-Reactive Protein, Quantitative 57.1H, Pro-B- Type Natriuretic Peptide 2109H, Total Protein 6.9, Albumin 1.6L, Globulin 5.3, Albumin/Globulin Ratio 0.3L Height (Feet): 5 Height (Inches): 7.00 Weight (Pounds): 216 General Appearance: no apparent distress, confused Cardiovascular: tachycardia Respiratory/Chest: decreased breath sounds Abdomen: distended Yayo Lora MD Mar 01, 2018 17:39
--- NOTE | 2018-03-01 18:42 | Cardiology Progress Note ---
Assessment/Plan Assessment/Plan 1. Rhabdomyolysis. 2. Status post fall. 3. Prostate cancer, status post prostatectomy. 4. Colonic polyps, status post resection recently. 5. Acute renal failure on chronic renal insufficiency. 6. Leukocytosis. 7. Probable pneumonia, possible aspiration. 8. Mild diastolic relaxation on echocardiogram. 9. lyrica allergy 10. non sustianed wide complex tachy tele noted sinus iv metoprolol for hr control echo has shown normal wall motion dialysis as sched ct noted min trop down trend liekly demand related / renal insuf related Subjective Cardiovascular: Denies: chest pain Respiratory: Reports: cough, shortness of breath Gastrointestinal/Abdominal: Denies: abdomen distended Genitourinary: Denies: burning Objective Last 24 Hour Vital Signs Date Time Temp Pulse Resp B/P (MAP) Pulse Ox O2 Delivery O2 Flow Rate FiO2 03/01/18 12:00 Venturi Mask 10.0 03/01/18 12:00 98 03/01/18 12:00 97.3 98 24 139/90 (106) 97 03/01/18 10:19 65 20 Venturi Mask 10.0 45 03/01/18 10:19 Venturi Mask 10.0 45 03/01/18 10:19 95 Trach Collar 10.0 45 03/01/18 08:00 Venturi Mask 10.0 03/01/18 08:00 98.2 104 18 121/72 (88) 96 03/01/18 08:00 97 03/01/18 04:00 98.2 104 18 121/72 (88) 96 03/01/18 04:00 99 03/01/18 04:00 Venturi Mask 10.0 03/01/18 00:00 Venturi Mask 10.0 03/01/18 00:00 103 03/01/18 00:00 98.3 101 18 128/75 (92) 97 02/28/18 21:49 96 Venturi Mask 10.0 45 02/28/18 21:49 96 18 Venturi Mask 10.0 45 02/28/18 21:49 Venturi Mask 10.0 45 02/28/18 20:00 Venturi Mask 10.0 02/28/18 20:00 105 02/28/18 20:00 98.1 91 20 117/63 (81) 96 General Appearance: no apparent distress, alert Neck: supple Cardiovascular: normal rate Respiratory/Chest: lungs clear Abdomen: normal bowel sounds, non tender, soft Extremities: no swelling Intake and Output 02/28/18 03/01/18 19:00 07:00 Intake Total 210 ml 300 ml Output Total 500 ml 600 ml Balance -290 ml -300 ml IV Total 210 ml 300 ml Output Urine Total 500 ml 600 ml Laboratory Tests Test 03/01/18 04:10 White Blood Count 30.9 K/UL (4.8-10.8) *H Red Blood Count 3.26 M/UL (4.70-6.10) L Hemoglobin 9.5 G/DL (14.2-18.0) L Hematocrit 29.4 % (42.0-52.0) L Mean Corpuscular Volume 90 FL (80-99) Mean Corpuscular Hemoglobin 29.2 PG (27.0-31.0) Mean Corpuscular Hemoglobin Concent 32.3 G/DL (32.0-36.0) Red Cell Distribution Width 12.1 % (11.6-14.8) Platelet Count 419 K/UL (150-450) Mean Platelet Volume 6.6 FL (6.5-10.1) Neutrophils (%) (Auto) % (45.0-75.0) Lymphocytes (%) (Auto) % (20.0-45.0) Monocytes (%) (Auto) % (1.0-10.0) Eosinophils (%) (Auto) % (0.0-3.0) Basophils (%) (Auto) % (0.0-2.0) Differential Total Cells Counted 100 Neutrophils % (Manual) 92 % (45-75) H Lymphocytes % (Manual) 6 % (20-45) L Monocytes % (Manual) 2 % (1-10) Eosinophils % (Manual) 0 % (0-3) Basophils % (Manual) 0 % (0-2) Band Neutrophils 0 % (0-8) Platelet Estimate Adequate Platelet Morphology Normal Hypochromasia 2+ Anisocytosis 1+ Sodium Level 135 MMOL/L (136-145) L Potassium Level 3.8 MMOL/L (3.5-5.1) Chloride Level 97 MMOL/L (98-107) L Carbon Dioxide Level 18 MMOL/L (21-32) L Anion Gap 20 mmol/L (5-15) H Blood Urea Nitrogen 155 mg/dL (7-18) H Creatinine 8.4 MG/DL (0.55-1.30) H Estimat Glomerular Filtration Rate mL/min (>60) Glucose Level 190 MG/DL (74-106) H Uric Acid 14.9 MG/DL (2.6-7.2) H Calcium Level 8.0 MG/DL (8.5-10.1) L Phosphorus Level 10.7 MG/DL (2.5-4.9) H Magnesium Level 3.0 MG/DL (1.8-2.4) H Total Bilirubin 2.7 MG/DL (0.2-1.0) H Direct Bilirubin 1.9 MG/DL (0.0-0.3) H Gamma Glutamyl Transpeptidase 79 U/L (5-85) Aspartate Amino Transf (AST/SGOT) 396 U/L (15-37) H Alanine Aminotransferase (ALT/SGPT) 174 U/L (12-78) H Alkaline Phosphatase 119 U/L (46-116) H Total Creatine Kinase 5884 U/L (26-308) H Troponin I 0.087 ng/mL (0.000-0.056) C-Reactive Protein, Quantitative 57.1 mg/dL (0.00-0.90) H Pro-B-Type Natriuretic Peptide 2109 pg/mL (0-125) H Total Protein 6.9 G/DL (6.4-8.2) Albumin 1.6 G/DL (3.4-5.0) L Globulin 5.3 g/dL Albumin/Globulin Ratio 0.3 (1.0-2.7) L Microbiology Date/Time Source Procedure Growth Status 02/26/18 22:30 Nasopharynx Influenza Types A,B Antigen (MARYSOL) - Final Complete 02/26/18 22:40 Stool Clostridium difficile Toxin Assay - Final Complete Car Nelson MD Mar 01, 2018 18:42
--- NOTE | 2018-03-01 19:24 | NUR ---
HAND-OFF: Report given to Rodger Reynoso RN.
--- NOTE | 2018-03-01 19:25 | NUR ---
NURSE NOTES: Received patient from DAGMAR/JOSHUA RN.Awake, able to communicate.Breathing via Venturi mask 45% with no SOB. O2 sat 97%. SR on monitor vs table. afebrile.Denies any pain at this time.Keep NPO as ordered. Fortune cath in place with dark tono urine.on Bilateral soft wrist restraints to prevent removing IV line and venturi mask. skin intact on both wrist.Right IJ for HD and LH G 22 is intact and infusing D5NS at 75cc/hr.bed in locked and lowest position. bed alarm on.safety measures maintained. will resume plan of nursing care.
[2018-03-01] MEDS ORDERED: Tubing IV Secondary IV ONE (19:36)
[2018-03-01] MEDS ORDERED: NS 275ml ONE (19:36)
[2018-03-01 20:00] VITALS: BP 113/72
[2018-03-01] MEDS: Dyna-Hex 2% Top Sol 2oz TOPIC SCH (20:47)
[2018-03-01] MEDS ORDERED: Nitroglycerin Subl 0.4mg tab SL PRN (21:15)
[2018-03-01] MEDS ORDERED: Isovue-300 100ml vial INJ PRN (21:15)
--- NOTE | 2018-03-01 22:00 | NUR ---
NURSE NOTES: Report received from Liv GIFFORD. Pt transferred to 203-1 without incidence. Belongings checked with patient and transferring RN. Pt is resting in bed in stable condition. Pt is awake, alert, and oriented x3. Pt is on Venturi mask at 10L and 45% FiO2. Breathing is even and unlabored. O2 saturation noted to be 97%. Bilateral soft wrist restraints are noted to be in place. No swelling noted at sites and skin is intact. Fortune is noted to be patent and draining tono colored urine. IV site is asymptomatic, patent, and intact and running IV fluids at rx rate. Central line site is noted to be dry and intact, dressing is coming off and will be changed per RN. Bed is in lowest position with brake engaged, side rails up x3, and bed alarm on. Call light and side table are within reach. Will continue to monitor.
--- NOTE | 2018-03-01 22:00 | NUR ---
NURSE NOTES: Patient transferred to Room 203-1. Report given to Alban ENGEL RN. no acute distress noted upon transfer. Belongings carried with patient.patient remains stable.
[2018-03-01] MEDS ORDERED: Albuterol/Ipratropium 3ml neb HHN PRN (22:30)
[2018-03-01] MEDS ORDERED: Morphine Sulfate 2mg/ml Inj IVP PRN (22:30)
[2018-03-01] MEDS: D5NS 1,000 ML IV SCH (22:50)
[2018-03-02] VITALS: BP 125/82
--- NOTE | 2018-03-02 01:27 | General Progress Note ---
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 Assessment/Plan seroquel prn provided ro/st Subjective Neurologic/Psychiatric: Reports: anxiety Allergies: Coded Allergies: NO KNOWN ALLERGIES (Verified Allergy, Unknown, 02/26/18) Subjective more alert still confused Objective Last 24 Hour Vital Signs Date Time Temp Pulse Resp B/P (MAP) Pulse Ox O2 Delivery O2 Flow Rate FiO2 03/02/18 00:00 Venturi Mask 10.0 03/02/18 00:00 98.0 100 20 125/82 (96) 97 03/01/18 21:00 Venturi Mask 10.0 45 03/01/18 21:00 96 Venturi Mask 10.0 45 03/01/18 21:00 98 20 Venturi Mask 10.0 45 03/01/18 20:00 Venturi Mask 10.0 03/01/18 20:00 97.5 101 28 113/72 (86) 97 03/01/18 20:00 98 03/01/18 16:00 97.3 99 24 115/61 (79) 96 03/01/18 16:00 Venturi Mask 10.0 03/01/18 16:00 100 03/01/18 16:00 97.3 99 24 115/61 (79) 96 03/01/18 12:00 Venturi Mask 10.0 03/01/18 12:00 98 03/01/18 12:00 97.3 98 24 139/90 (106) 97 03/01/18 10:19 65 20 Venturi Mask 10.0 45 03/01/18 10:19 Venturi Mask 10.0 45 03/01/18 10:19 95 Trach Collar 10.0 45 03/01/18 08:00 Venturi Mask 10.0 03/01/18 08:00 98.2 104 18 121/72 (88) 96 03/01/18 08:00 97 03/01/18 04:00 98.2 104 18 121/72 (88) 96 03/01/18 04:00 99 03/01/18 04:00 Venturi Mask 10.0 Intake and Output 03/01/18 03/02/18 19:00 07:00 Intake Total 972.5 ml Output Total 1150 ml Balance -177.5 ml IV Total 972.5 ml Output Urine Total 150 ml Hemodialysis UF 1000 ml Laboratory Tests 03/01/18 04:10: White Blood Count 30.9*H, Red Blood Count 3.26L, Hemoglobin 9.5L, Hematocrit 29.4L, Mean Corpuscular Volume 90, Mean Corpuscular Hemoglobin 29.2, Mean Corpuscular Hemoglobin Concent 32.3, Red Cell Distribution Width 12.1, Platelet Count 419, Mean Platelet Volume 6.6, Neutrophils (%) (Auto) , Lymphocytes (%) ( Auto) , Monocytes (%) (Auto) , Eosinophils (%) (Auto) , Basophils (%) (Auto) , Differential Total Cells Counted 100, Neutrophils % (Manual) 92H, Lymphocytes % (Manual) 6L, Monocytes % (Manual) 2, Eosinophils % (Manual) 0, Basophils % ( Manual) 0, Band Neutrophils 0, Platelet Estimate Adequate, Platelet Morphology Normal, Hypochromasia 2+, Anisocytosis 1+, Sodium Level 135L, Potassium Level 3.8, Chloride Level 97L, Carbon Dioxide Level 18L, Anion Gap 20H, Blood Urea Nitrogen 155H, Creatinine 8.4H, Estimat Glomerular Filtration Rate , Glucose Level 190H, Uric Acid 14.9H, Calcium Level 8.0L, Phosphorus Level 10.7H, Magnesium Level 3.0H, Total Bilirubin 2.7H, Direct Bilirubin 1.9H, Gamma Glutamyl Transpeptidase 79, Aspartate Amino Transf (AST/SGOT) 396H, Alanine Aminotransferase (ALT/SGPT) 174H, Alkaline Phosphatase 119H, Total Creatine Kinase 5884H, Troponin I 0.087H, C-Reactive Protein, Quantitative 57.1H, Pro-B- Type Natriuretic Peptide 2109H, Total Protein 6.9, Albumin 1.6L, Globulin 5.3, Albumin/Globulin Ratio 0.3L Height (Feet): 5 Height (Inches): 7.00 Weight (Pounds): 216 General Appearance: alert, confused, agitated Emely Henry MD Mar 02, 2018 01:27
[2018-03-02] MEDS ORDERED: Metoprolol 5mg/5ml Inj IVP PRN (01:45)
[2018-03-02 04:00] VITALS: BP 117/73
--- NOTE | 2018-03-02 07:31 | NUR ---
HAND-OFF: Report given to Katt Dietrich RN. Pt is resting in bed in stable condition. No acute distress noted. Endorsed plan of care.
[2018-03-02 07:33] LABS: ALANINE AMINOTRANSFERASE 138 U/L (12-78); ALBUMIN 1.5 G/DL (3.4-5.0); ALBUMIN/GLOBULIN RATIO 0.3 (1.0-2.7); ALKALINE PHOSPHATASE 105 U/L (46-116); ANION GAP 18 mmol/L (5-15); ASPARTATE AMINO TRANSFERASE 232 U/L (15-37); BILIRUBIN,TOTAL 1.9 MG/DL (0.2-1.0); BLOOD UREA NITROGEN 147 mg/dL (7-18); CALCIUM 7.3 MG/DL (8.5-10.1); CARBON DIOXIDE 22 MMOL/L (21-32); CHLORIDE 99 MMOL/L (98-107); CREATINE KINASE 3056 U/L (26-308); CREATININE 7.6 MG/DL (0.55-1.30); GAMMA GLUTAMYL TRANSPEPTIDASE 69 U/L (5-85); PHOSPHORUS 7.8 MG/DL (2.5-4.9); POTASSIUM 3.1 MMOL/L (3.5-5.1); SODIUM 139 MMOL/L (136-145)
[2018-03-02 07:34] LABS: HEMOGLOBIN 8.5 G/DL (14.2-18.0); MEAN CORPUSCULAR VOLUME 90 FL (80-99); PLATELET COUNT 454 K/UL (150-450); RED BLOOD COUNT 2.89 M/UL (4.70-6.10); RED CELL DISTRIBUTION WIDTH 11.7 % (11.6-14.8)
[2018-03-02 07:36] LABS: WHITE BLOOD COUNT 26.8 K/UL (4.8-10.8)
--- NOTE | 2018-03-02 07:45 | NUR ---
NURSE NOTES: Received report from BALTA Carl. Patient sinus rhythm with HR 95. Patient in bed resting, bed in lowest position, side rails up x2, call light within reach. Patient noted in soft wrist restraints as protocol. Will continue to monitor.
[2018-03-02 07:48] LABS: BILIRUBIN,DIRECT 1.4 MG/DL (0.0-0.3)
[2018-03-02 08:00] VITALS: BP 106/55
[2018-03-02] MEDS: Levofloxacin 500mg tab ORAL SCH (08:33)
[2018-03-02] MEDS: Docusate 100mg cap ORAL SCH ×3 (08:33→17:17)
[2018-03-02] MEDS: Heparin 5000 units/ml inj SUBQ SCH ×2 (08:36→21:00)
--- NOTE | 2018-03-02 08:52 | General Progress Note ---
Assessment/Plan Problem List: (1) colonic ileus (2) PNA (pneumonia) ICD Codes: J18.9 - Pneumonia, unspecified organism SNOMED: 182068517 (3) Abdominal distention ICD Codes: R14.0 - Abdominal distension (gaseous) SNOMED: 44036493 (4) Anemia ICD Codes: D64.9 - Anemia, unspecified SNOMED: 520494146 (5) Elevated liver function tests ICD Codes: R94.5 - Abnormal results of liver function studies SNOMED: 361006310, 459907501 (6) Hypertension ICD Codes: I10 - Essential (primary) hypertension SNOMED: 16508919 (7) Colon cancer ICD Codes: C18.9 - Malignant neoplasm of colon, unspecified SNOMED: 114219805 (8) Renal failure ICD Codes: N19 - Unspecified kidney failure SNOMED: 07493736 Assessment/Plan swallow eval colace and miralax abx rectal tube KUB in am trending down LFTS ct and us reviewed fu Subjective ROS Limited/Unobtainable: Yes Allergies: Coded Allergies: NO KNOWN ALLERGIES (Verified Allergy, Unknown, 02/26/18) Objective Last 24 Hour Vital Signs Date Time Temp Pulse Resp B/P (MAP) Pulse Ox O2 Delivery O2 Flow Rate FiO2 03/02/18 04:00 97.2 98 20 117/73 (88) 100 03/02/18 04:00 94 03/02/18 00:00 Venturi Mask 10.0 03/02/18 00:00 99 03/02/18 00:00 98.0 100 20 125/82 (96) 97 03/01/18 21:00 Venturi Mask 10.0 45 03/01/18 21:00 96 Venturi Mask 10.0 45 03/01/18 21:00 98 20 Venturi Mask 10.0 45 03/01/18 20:00 Venturi Mask 10.0 03/01/18 20:00 97.5 101 28 113/72 (86) 97 03/01/18 20:00 98 03/01/18 16:00 97.3 99 24 115/61 (79) 96 03/01/18 16:00 Venturi Mask 10.0 03/01/18 16:00 100 03/01/18 16:00 97.3 99 24 115/61 (79) 96 03/01/18 12:00 Venturi Mask 10.0 03/01/18 12:00 98 03/01/18 12:00 97.3 98 24 139/90 (106) 97 03/01/18 10:19 65 20 Venturi Mask 10.0 45 03/01/18 10:19 Venturi Mask 10.0 45 03/01/18 10:19 95 Trach Collar 10.0 45 Intake and Output 03/01/18 03/02/18 18:59 06:59 Intake Total 897.5 ml 75 ml Output Total 1150 ml 400 ml Balance -252.5 ml -325 ml IV Total 897.5 ml 75 ml Output Urine Total 150 ml 400 ml Hemodialysis UF 1000 ml Laboratory Tests 03/02/18 05:30: White Blood Count 26.8*H, Red Blood Count 2.89L, Hemoglobin 8.5L, Hematocrit 26.0L, Mean Corpuscular Volume 90, Mean Corpuscular Hemoglobin 29.5, Mean Corpuscular Hemoglobin Concent 32.8, Red Cell Distribution Width 11.7, Platelet Count 454H, Mean Platelet Volume 6.3L, Neutrophils (%) (Auto) , Lymphocytes (%) (Auto) , Monocytes (%) (Auto) , Eosinophils (%) (Auto) , Basophils (%) (Auto) , Neutrophils % (Manual) [Pending], Lymphocytes % (Manual) [Pending], Platelet Estimate [Pending], Platelet Morphology [Pending], Sodium Level 139, Potassium Level 3.1L, Chloride Level 99, Carbon Dioxide Level 22, Anion Gap 18H, Blood Urea Nitrogen 147H, Creatinine 7.6H, Estimat Glomerular Filtration Rate , Glucose Level 198H, Uric Acid 13.6H, Calcium Level 7.3L, Phosphorus Level 7.8H, Magnesium Level 2.8H, Total Bilirubin 1.9H, Direct Bilirubin 1.4H, Gamma Glutamyl Transpeptidase 69, Aspartate Amino Transf (AST/SGOT) 232H, Alanine Aminotransferase (ALT/SGPT) 138H, Alkaline Phosphatase 105, Total Creatine Kinase 3056H, C-Reactive Protein, Quantitative > 70.0H, Pro-B-Type Natriuretic Peptide 1059H, Total Protein 6.0L, Albumin 1.5L, Globulin 4.5, Albumin/Globulin Ratio 0.3L Height (Feet): 5 Height (Inches): 7.00 Weight (Pounds): 216 General Appearance: mild distress Neck: supple Cardiovascular: tachycardia Respiratory/Chest: decreased breath sounds Abdomen: hypoactive bowel sounds, distended, tender Extremities: non-tender Ismael Matos MD Mar 02, 2018 08:52
[2018-03-02] MEDS ORDERED: Levofloxacin 500mg tab ORAL SCH (09:00)
[2018-03-02] MEDS ORDERED: Miralax 17gm pkt ORAL PRN (10:30)
--- NOTE | 2018-03-02 10:42 | NUR ---
NURSE NOTES: Patient refused rectal tube. Dr. Matos made aware. awaiting for callback and new orders.
--- NOTE | 2018-03-02 10:46 | NUR ---
NURSE NOTES: Dr. Lora made aware of K level 3.1, mg 2.8. Per. Dr. Lora, he will order HD for tomorrow 03/03/18.
--- NOTE | 2018-03-02 11:03 | Infectious Diseases Prog Note ---
Assessment/Plan Assessment/Plan Abx: IV Vancomycin 02/26- Cefepime 02/26- Assessment: SEpsis - 2ry to Legionella PNA and UTI- r/o bacteremia -02/27 CXR: Increasing left upper lobe consolidation, over one day. -CXR: Left lung infiltrates, likely pneumonia, and pleural fluid. Borderline cardiomegaly -Bcx NTD -u/a wbc tnct, nit +, leuk +2; cx NTD -influenza sc neg -legionella ag urine + -sp cx p Fever, improving Leukocytosis, improving slowly -CT abd/p: Dense left lower lobe consolidation and small pleural effusion. This is consistent with findings described on recent chest radiograph. Hypoattenuating bilateral kidneys with indistinctness of the renal margins, could indicate inflammatory change. Edema of the subcutaneous fat of the flanks bilaterally. The colon is diffusely gas-filled, upper limits normal in caliber. Probably indicates functional changes as no obstructive pathology is demonstrated. Other findings as noted, including small fat-containing bilateral inguinal hernias, 9 cm left renal cyst BRITT, worsening- started on HD 02/28 Rhabdomyolosis; improving AMS s/p Fall Acute transaminitis, infection-2ry to Legionella infection; improving -HIV ab sc neg -Acute hepatitis panel neg Plan: -Continue Levaquin 750mg q48hrs #2 for LEgionella for 10-14 days -IV as patient refusing PO -Continue empiric PO Linezolid #4 (abx d#5/5) and continue Cefepime #4/5 for now pending sp and ur cultures -02/28 SP Flagyl #2 -02/27 SP IV Vancomycin #2 -f/u cx (Bl, sp, u) -Monitor CBC/CMP, temperatures -Renal f/u Thank you for this consultation. Will continue to follow along with you. Discussed with RN. Subjective Allergies: Coded Allergies: NO KNOWN ALLERGIES (Verified Allergy, Unknown, 02/26/18) Subjective afebrile >48hrs WBC improving Bcx NTD on VM transferred from [facility] to telemetry Objective Vital Signs Last 24 Hour Vital Signs Date Time Temp Pulse Resp B/P (MAP) Pulse Ox O2 Delivery O2 Flow Rate FiO2 03/02/18 09:13 Venturi Mask 10.0 45 03/02/18 09:13 87 22 Venturi Mask 10.0 45 03/02/18 09:13 95 Venturi Mask 10.0 45 03/02/18 09:00 Venturi Mask 10.0 03/02/18 08:00 98.6 95 20 106/55 (72) 100 03/02/18 08:00 97 03/02/18 04:00 97.2 98 20 117/73 (88) 100 03/02/18 04:00 94 03/02/18 00:00 Venturi Mask 10.0 03/02/18 00:00 99 03/02/18 00:00 98.0 100 20 125/82 (96) 97 03/01/18 21:00 Venturi Mask 10.0 45 03/01/18 21:00 96 Venturi Mask 10.0 45 03/01/18 21:00 98 20 Venturi Mask 10.0 45 03/01/18 20:00 Venturi Mask 10.0 03/01/18 20:00 97.5 101 28 113/72 (86) 97 03/01/18 20:00 98 03/01/18 16:00 97.3 99 24 115/61 (79) 96 03/01/18 16:00 Venturi Mask 10.0 03/01/18 16:00 100 03/01/18 16:00 97.3 99 24 115/61 (79) 96 03/01/18 12:00 Venturi Mask 10.0 03/01/18 12:00 98 03/01/18 12:00 97.3 98 24 139/90 (106) 97 Height (Feet): 5 Height (Inches): 7.00 Weight (Pounds): 216 Microbiology Date/Time Source Procedure Growth Status 03/01/18 20:20 Sputum Gram Stain - Final Resulted 03/01/18 20:20 Sputum Sputum Culture Pending Resulted Laboratory Tests Test 03/02/18 05:30 White Blood Count 26.8 K/UL (4.8-10.8) *H Red Blood Count 2.89 M/UL (4.70-6.10) L Hemoglobin 8.5 G/DL (14.2-18.0) L Hematocrit 26.0 % (42.0-52.0) L Mean Corpuscular Volume 90 FL (80-99) Mean Corpuscular Hemoglobin 29.5 PG (27.0-31.0) Mean Corpuscular Hemoglobin Concent 32.8 G/DL (32.0-36.0) Red Cell Distribution Width 11.7 % (11.6-14.8) Platelet Count 454 K/UL (150-450) H Mean Platelet Volume 6.3 FL (6.5-10.1) L Neutrophils (%) (Auto) % (45.0-75.0) Lymphocytes (%) (Auto) % (20.0-45.0) Monocytes (%) (Auto) % (1.0-10.0) Eosinophils (%) (Auto) % (0.0-3.0) Basophils (%) (Auto) % (0.0-2.0) Differential Total Cells Counted 100 Neutrophils % (Manual) 85 % (45-75) H Lymphocytes % (Manual) 5 % (20-45) L Monocytes % (Manual) 3 % (1-10) Eosinophils % (Manual) 2 % (0-3) Basophils % (Manual) 0 % (0-2) Band Neutrophils 5 % (0-8) Nucleated Red Blood Cells 1 /100 WBC Platelet Estimate Increased H Platelet Morphology Normal Red Blood Cell Morphology Normal Sodium Level 139 MMOL/L (136-145) Potassium Level 3.1 MMOL/L (3.5-5.1) L Chloride Level 99 MMOL/L (98-107) Carbon Dioxide Level 22 MMOL/L (21-32) Anion Gap 18 mmol/L (5-15) H Blood Urea Nitrogen 147 mg/dL (7-18) H Creatinine 7.6 MG/DL (0.55-1.30) H Estimat Glomerular Filtration Rate mL/min (>60) Glucose Level 198 MG/DL (74-106) H Uric Acid 13.6 MG/DL (2.6-7.2) H Calcium Level 7.3 MG/DL (8.5-10.1) L Phosphorus Level 7.8 MG/DL (2.5-4.9) H Magnesium Level 2.8 MG/DL (1.8-2.4) H Total Bilirubin 1.9 MG/DL (0.2-1.0) H Direct Bilirubin 1.4 MG/DL (0.0-0.3) H Gamma Glutamyl Transpeptidase 69 U/L (5-85) Aspartate Amino Transf (AST/SGOT) 232 U/L (15-37) H Alanine Aminotransferase (ALT/SGPT) 138 U/L (12-78) H Alkaline Phosphatase 105 U/L (46-116) Total Creatine Kinase 3056 U/L (26-308) H C-Reactive Protein, Quantitative > 70.0 mg/dL (0.00-0.90) H Pro-B-Type Natriuretic Peptide 1059 pg/mL (0-125) H Total Protein 6.0 G/DL (6.4-8.2) L Albumin 1.5 G/DL (3.4-5.0) L Globulin 4.5 g/dL Albumin/Globulin Ratio 0.3 (1.0-2.7) L Current Medications Medications (Trade) Dose Ordered Sig/Aristides Route PRN Reason Start Time Stop Time Status Last Admin Dose Admin Acetaminophen (Tylenol) 650 mg Q4H PRN ORAL T>100.5 03/01/18 22:30 03/28/18 10:29 Acetaminophen (Tylenol) 650 mg Q6H PRN ORAL Mild Pain 03/01/18 23:45 03/28/18 06:29 Albuterol/ Ipratropium (Albuterol/ Ipratropium) 3 ml Q4H PRN HHN Shortness of Breath 03/01/18 22:30 03/03/18 10:29 Allopurinol (Allopurinol) 300 mg DAILY ORAL 03/02/18 09:00 04/01/18 08:59 03/02/18 08:34 Cefepime HCl 1 gm/ Dextrose 55 ml @ 110 mls/hr Q24H IVPB 03/02/18 12:00 03/05/18 11:59 Chlorhexidine Gluconate (Silva-Hex 2%) 1 applic DAILY@2000 TOPIC 03/02/18 20:00 03/29/18 19:59 Dextrose (Dextrose 50%) 25 ml Q30M PRN IV hypoglycemia 03/01/18 21:45 03/28/18 10:42 Dextrose (Dextrose 50%) 50 ml Q30M PRN IV hypoglycemia 03/01/18 21:45 03/28/18 10:44 Dextrose/Sodium Chloride 1,000 ml @ 75 mls/hr [id number] IV 03/01/18 21:15 03/31/18 09:29 03/01/18 22:50 Diatrizoate Meglum/ Diatrizoate Sod (Gastrografin) 30 ml NOW PRN ORAL Radiology Procedure 03/01/18 12:15 03/02/18 12:13 Docusate Sodium (Colace) 100 mg THREE TIMES A DAY ORAL 03/02/18 09:00 03/29/18 17:59 03/02/18 08:33 Heparin Sodium (Porcine) (Heparin 5000 units/ml) 5,000 units EVERY 12 HOURS SUBQ 03/02/18 09:00 03/28/18 08:59 03/02/18 08:36 Iopamidol (Isovue-300 100ml) 100 ml NOW PRN INJ Radiology Procedure 03/01/18 21:15 03/02/18 12:13 Levofloxacin (Levaquin) 500 mg QOD ORAL 03/02/18 09:00 03/09/18 08:59 03/02/18 08:33 Linezolid 300 ml @ 300 mls/hr Q12HR IVPB 03/02/18 09:00 03/09/18 08:59 03/02/18 08:35 Metoprolol Tartrate (Lopressor) 5 mg Q6H PRN IVP FOR HEART RATE >110 03/02/18 01:45 03/30/18 19:44 Morphine Sulfate (Morphine Sulfate) 2 mg Q4H PRN IVP PAIN 4-10 03/01/18 22:30 03/05/18 10:29 Nitroglycerin (Ntg) 0.4 mg Q5MIN X 3 DOSES PRN SL Prn Chest Pain 03/01/18 21:15 03/28/18 10:44 Ondansetron HCl (Zofran) 4 mg Q6H PRN IVP Nausea & Vomiting 03/01/18 22:30 03/28/18 10:29 Pantoprazole (Protonix) 40 mg EVERY 12 HOURS ORAL 03/02/18 09:00 03/29/18 20:59 03/02/18 08:33 Polyethylene Glycol (Miralax) 17 gm DAILYPRN PRN ORAL Constipation 03/02/18 10:30 03/28/18 10:29 Sevelamer Carbonate (Renvela) 2,400 mg THREE TIMES A DAY ORAL 03/02/18 09:00 03/29/18 17:59 03/02/18 08:33 Temazepam (Restoril) 15 mg HSPRN PRN ORAL Insomnia 03/02/18 21:00 03/05/18 20:59 Melissa Martinez M.D. Mar 02, 2018 11:03
[2018-03-02] MEDS: Cefepime HCl 1 GM in D5W 55 ML IVPB SCH (11:47)
[2018-03-02] MEDS: D5NS 1,000 ML IV SCH (11:48)
--- NOTE | 2018-03-02 11:49 | Cardiology Progress Note ---
Assessment/Plan Assessment/Plan 1. Rhabdomyolysis. 2. Status post fall. 3. Prostate cancer, status post prostatectomy. 4. Colonic polyps, status post resection recently. 5. Acute renal failure on chronic renal insufficiency. 6. Leukocytosis. 7. Probable pneumonia, possible aspiration. 8. Mild diastolic relaxation on echocardiogram. 9. lyrica allergy 10. non sustianed wide complex tachy tele noted sinus iv metoprolol for hr control echo has shown normal wall motion dialysis as sched ct noted min trop down trend liekly demand related / renal insuf related has needed restriants is on face mask still abx hhn Subjective Cardiovascular: Denies: chest pain, lightheadedness, palpitations Respiratory: Denies: cough, shortness of breath Gastrointestinal/Abdominal: Denies: abdominal pain Genitourinary: Denies: burning Objective Last 24 Hour Vital Signs Date Time Temp Pulse Resp B/P (MAP) Pulse Ox O2 Delivery O2 Flow Rate FiO2 03/02/18 09:13 Venturi Mask 10.0 45 03/02/18 09:13 87 22 Venturi Mask 10.0 45 03/02/18 09:13 95 Venturi Mask 10.0 45 03/02/18 09:00 Venturi Mask 10.0 03/02/18 08:00 98.6 95 20 106/55 (72) 100 03/02/18 08:00 97 03/02/18 04:00 97.2 98 20 117/73 (88) 100 03/02/18 04:00 94 03/02/18 00:00 Venturi Mask 10.0 03/02/18 00:00 99 03/02/18 00:00 98.0 100 20 125/82 (96) 97 03/01/18 21:00 Venturi Mask 10.0 45 03/01/18 21:00 96 Venturi Mask 10.0 45 03/01/18 21:00 98 20 Venturi Mask 10.0 45 03/01/18 20:00 Venturi Mask 10.0 03/01/18 20:00 97.5 101 28 113/72 (86) 97 03/01/18 20:00 98 03/01/18 16:00 97.3 99 24 115/61 (79) 96 03/01/18 16:00 Venturi Mask 10.0 03/01/18 16:00 100 03/01/18 16:00 97.3 99 24 115/61 (79) 96 03/01/18 12:00 Venturi Mask 10.0 03/01/18 12:00 98 03/01/18 12:00 97.3 98 24 139/90 (106) 97 General Appearance: no apparent distress, alert, other - in restraints Neck: supple Cardiovascular: normal rate Respiratory/Chest: inspiratory wheezing Abdomen: normal bowel sounds, non tender, soft Extremities: no swelling Intake and Output 03/01/18 03/02/18 19:00 07:00 Intake Total 972.5 ml Output Total 1150 ml 400 ml Balance -177.5 ml -400 ml IV Total 972.5 ml Output Urine Total 150 ml 400 ml Hemodialysis UF 1000 ml Laboratory Tests Test 03/02/18 05:30 White Blood Count 26.8 K/UL (4.8-10.8) *H Red Blood Count 2.89 M/UL (4.70-6.10) L Hemoglobin 8.5 G/DL (14.2-18.0) L Hematocrit 26.0 % (42.0-52.0) L Mean Corpuscular Volume 90 FL (80-99) Mean Corpuscular Hemoglobin 29.5 PG (27.0-31.0) Mean Corpuscular Hemoglobin Concent 32.8 G/DL (32.0-36.0) Red Cell Distribution Width 11.7 % (11.6-14.8) Platelet Count 454 K/UL (150-450) H Mean Platelet Volume 6.3 FL (6.5-10.1) L Neutrophils (%) (Auto) % (45.0-75.0) Lymphocytes (%) (Auto) % (20.0-45.0) Monocytes (%) (Auto) % (1.0-10.0) Eosinophils (%) (Auto) % (0.0-3.0) Basophils (%) (Auto) % (0.0-2.0) Differential Total Cells Counted 100 Neutrophils % (Manual) 85 % (45-75) H Lymphocytes % (Manual) 5 % (20-45) L Monocytes % (Manual) 3 % (1-10) Eosinophils % (Manual) 2 % (0-3) Basophils % (Manual) 0 % (0-2) Band Neutrophils 5 % (0-8) Nucleated Red Blood Cells 1 /100 WBC Platelet Estimate Increased H Platelet Morphology Normal Red Blood Cell Morphology Normal Sodium Level 139 MMOL/L (136-145) Potassium Level 3.1 MMOL/L (3.5-5.1) L Chloride Level 99 MMOL/L (98-107) Carbon Dioxide Level 22 MMOL/L (21-32) Anion Gap 18 mmol/L (5-15) H Blood Urea Nitrogen 147 mg/dL (7-18) H Creatinine 7.6 MG/DL (0.55-1.30) H Estimat Glomerular Filtration Rate mL/min (>60) Glucose Level 198 MG/DL (74-106) H Uric Acid 13.6 MG/DL (2.6-7.2) H Calcium Level 7.3 MG/DL (8.5-10.1) L Phosphorus Level 7.8 MG/DL (2.5-4.9) H Magnesium Level 2.8 MG/DL (1.8-2.4) H Total Bilirubin 1.9 MG/DL (0.2-1.0) H Direct Bilirubin 1.4 MG/DL (0.0-0.3) H Gamma Glutamyl Transpeptidase 69 U/L (5-85) Aspartate Amino Transf (AST/SGOT) 232 U/L (15-37) H Alanine Aminotransferase (ALT/SGPT) 138 U/L (12-78) H Alkaline Phosphatase 105 U/L (46-116) Total Creatine Kinase 3056 U/L (26-308) H C-Reactive Protein, Quantitative > 70.0 mg/dL (0.00-0.90) H Pro-B-Type Natriuretic Peptide 1059 pg/mL (0-125) H Total Protein 6.0 G/DL (6.4-8.2) L Albumin 1.5 G/DL (3.4-5.0) L Globulin 4.5 g/dL Albumin/Globulin Ratio 0.3 (1.0-2.7) L Microbiology Date/Time Source Procedure Growth Status 03/01/18 20:20 Sputum Gram Stain - Final Resulted 03/01/18 20:20 Sputum Sputum Culture Pending Resulted Car Nelson MD Mar 02, 2018 11:48
[2018-03-02 12:00] VITALS: BP 131/90
--- NOTE | 2018-03-02 12:04 | Nephrology Progress Note ---
Assessment/Plan Problem List: (1) ATN (acute tubular necrosis) (2) Rhabdomyolysis (3) Pneumonia Assessment Acute renal failure- Rhabdo Pneumonia CVA ? Plan Slow Hydrate- Add Allopurinol hemodialysis 03/01 next 03/03 Phos binders NPO check ABG Fortune Monitor CPK - Uric Acid- LFTs monitor Renal parameters Avoid Nephrotoxics per orders Subjective ROS Limited/Unobtainable: No Constitutional: Reports: malaise, weakness Objective Objective Last 24 Hour Vital Signs Date Time Temp Pulse Resp B/P (MAP) Pulse Ox O2 Delivery O2 Flow Rate FiO2 03/02/18 09:13 Venturi Mask 10.0 45 03/02/18 09:13 87 22 Venturi Mask 10.0 45 03/02/18 09:13 95 Venturi Mask 10.0 45 03/02/18 09:00 Venturi Mask 10.0 03/02/18 08:00 98.6 95 20 106/55 (72) 100 03/02/18 08:00 97 03/02/18 04:00 97.2 98 20 117/73 (88) 100 03/02/18 04:00 94 03/02/18 00:00 Venturi Mask 10.0 03/02/18 00:00 99 03/02/18 00:00 98.0 100 20 125/82 (96) 97 03/01/18 21:00 Venturi Mask 10.0 45 03/01/18 21:00 96 Venturi Mask 10.0 45 03/01/18 21:00 98 20 Venturi Mask 10.0 45 03/01/18 20:00 Venturi Mask 10.0 03/01/18 20:00 97.5 101 28 113/72 (86) 97 03/01/18 20:00 98 03/01/18 16:00 97.3 99 24 115/61 (79) 96 03/01/18 16:00 Venturi Mask 10.0 03/01/18 16:00 100 03/01/18 16:00 97.3 99 24 115/61 (79) 96 Intake and Output 03/01/18 03/02/18 19:00 07:00 Intake Total 972.5 ml Output Total 1150 ml 400 ml Balance -177.5 ml -400 ml IV Total 972.5 ml Output Urine Total 150 ml 400 ml Hemodialysis UF 1000 ml Laboratory Tests 03/02/18 05:30: White Blood Count 26.8*H, Red Blood Count 2.89L, Hemoglobin 8.5L, Hematocrit 26.0L, Mean Corpuscular Volume 90, Mean Corpuscular Hemoglobin 29.5, Mean Corpuscular Hemoglobin Concent 32.8, Red Cell Distribution Width 11.7, Platelet Count 454H, Mean Platelet Volume 6.3L, Neutrophils (%) (Auto) , Lymphocytes (%) (Auto) , Monocytes (%) (Auto) , Eosinophils (%) (Auto) , Basophils (%) (Auto) , Differential Total Cells Counted 100, Neutrophils % (Manual) 85H, Lymphocytes % (Manual) 5L, Monocytes % (Manual) 3, Eosinophils % (Manual) 2, Basophils % ( Manual) 0, Band Neutrophils 5, Nucleated Red Blood Cells 1, Platelet Estimate IncreasedH, Platelet Morphology Normal, Red Blood Cell Morphology Normal, Sodium Level 139, Potassium Level 3.1L, Chloride Level 99, Carbon Dioxide Level 22, Anion Gap 18H, Blood Urea Nitrogen 147H, Creatinine 7.6H, Estimat Glomerular Filtration Rate , Glucose Level 198H, Uric Acid 13.6H, Calcium Level 7.3L, Phosphorus Level 7.8H, Magnesium Level 2.8H, Total Bilirubin 1.9H, Direct Bilirubin 1.4H, Gamma Glutamyl Transpeptidase 69, Aspartate Amino Transf (AST/ SGOT) 232H, Alanine Aminotransferase (ALT/SGPT) 138H, Alkaline Phosphatase 105, Total Creatine Kinase 3056H, C-Reactive Protein, Quantitative > 70.0H, Pro-B- Type Natriuretic Peptide 1059H, Total Protein 6.0L, Albumin 1.5L, Globulin 4.5, Albumin/Globulin Ratio 0.3L Height (Feet): 5 Height (Inches): 7.00 Weight (Pounds): 216 General Appearance: mild distress Cardiovascular: tachycardia Respiratory/Chest: decreased breath sounds Abdomen: distended Yayo Lora MD Mar 02, 2018 12:04
--- NOTE | 2018-03-02 13:03 | NUR ---
NURSE NOTES: Dr. Cowan made aware of Blood sugar level 218, 229. Waiting for callback and new order.
--- NOTE | 2018-03-02 13:09 | NUR ---
NURSE NOTES: Called [facility] nephrology tele: [phone] spoke with Poncho and informed patient scheduled for HD 03/03/[address] Lora. Will continue to monitor.
--- NOTE | 2018-03-02 13:21 | NUR ---
NURSE NOTES: Patient family member Hollie, called for med reconcile. Waiting for callback.
--- NOTE | 2018-03-02 14:21 | NUR ---
NURSE NOTES: RT called and made aware patient ABG levels pCO2 28.2, pO2 108.5, HCO3 17.9. Will continue to monitor.
[2018-03-02 16:00] VITALS: BP 130/78
[2018-03-02] MEDS ORDERED: D5NS 1000ml IV ONE ×2 (16:17→16:33)
--- NOTE | 2018-03-02 16:23 | Internal Med Progress Note ---
Subjective Date of Service: Mar 02, 2018 Physician Name Christofer Biggs Attending Physician Ruperto Cowan MD Current Medications Medications (Trade) Dose Ordered Sig/Aristides Route PRN Reason Start Time Stop Time Status Last Admin Dose Admin Acetaminophen (Tylenol) 650 mg Q4H PRN ORAL T>100.5 03/01/18 22:30 03/28/18 10:29 Acetaminophen (Tylenol) 650 mg Q6H PRN ORAL Mild Pain 03/01/18 23:45 03/28/18 06:29 Albuterol/ Ipratropium (Albuterol/ Ipratropium) 3 ml Q4H PRN HHN Shortness of Breath 03/01/18 22:30 03/03/18 10:29 Allopurinol (Allopurinol) 300 mg DAILY ORAL 03/02/18 09:00 04/01/18 08:59 03/02/18 08:34 Cefepime HCl 1 gm/ Dextrose 55 ml @ 110 mls/hr Q24H IVPB 03/02/18 12:00 03/05/18 11:59 03/02/18 11:47 Chlorhexidine Gluconate (Silva-Hex 2%) 1 applic DAILY@2000 TOPIC 03/02/18 20:00 03/29/18 19:59 Dextrose (Dextrose 50%) 25 ml Q30M PRN IV Hypoglycemia 03/02/18 13:45 04/01/18 13:44 Dextrose (Dextrose 50%) 50 ml Q30M PRN IV Hypoglycemia 03/02/18 13:45 04/01/18 13:44 Dextrose/Sodium Chloride 1,000 ml @ 75 mls/hr [id number] IV 03/01/18 21:15 03/31/18 09:29 03/02/18 11:48 Docusate Sodium (Colace) 100 mg THREE TIMES A DAY ORAL 03/02/18 09:00 03/29/18 17:59 03/02/18 13:33 Heparin Sodium (Porcine) (Heparin 5000 units/ml) 5,000 units EVERY 12 HOURS SUBQ 03/02/18 09:00 03/28/18 08:59 03/02/18 08:36 Insulin Aspart (NovoLOG) BEFORE MEALS AND HS SUBQ 03/02/18 16:30 04/01/18 16:29 Levofloxacin (Levaquin) 500 mg QOD ORAL 03/02/18 09:00 03/09/18 08:59 03/02/18 08:33 Linezolid 300 ml @ 300 mls/hr Q12HR IVPB 03/02/18 09:00 03/09/18 08:59 03/02/18 08:35 Nitroglycerin (Ntg) 0.4 mg Q5MIN X 3 DOSES PRN SL Prn Chest Pain 03/01/18 21:15 03/28/18 10:44 Ondansetron HCl (Zofran) 4 mg Q6H PRN IVP Nausea & Vomiting 03/01/18 22:30 03/28/18 10:29 Pantoprazole (Protonix) 40 mg EVERY 12 HOURS ORAL 03/02/18 09:00 03/29/18 20:59 03/02/18 08:33 Polyethylene Glycol (Miralax) 17 gm DAILYPRN PRN ORAL Constipation 03/02/18 10:30 03/28/18 10:29 Sevelamer Carbonate (Renvela) 2,400 mg THREE TIMES A DAY ORAL 03/02/18 09:00 03/29/18 17:59 03/02/18 13:32 Temazepam (Restoril) 15 mg HSPRN PRN ORAL Insomnia 03/02/18 21:00 03/05/18 20:59 Allergies: Coded Allergies: NO KNOWN ALLERGIES (Verified Allergy, Unknown, 02/26/18) ROS Limited/Unobtainable: No Constitutional: Reports: no symptoms HEENT: Reports: no symptoms Cardiovascular: Reports: no symptoms Respiratory: Reports: no symptoms Gastrointestinal/Abdominal: Reports: no symptoms Genitourinary: Reports: no symptoms Neurologic/Psychiatric: Reports: no symptoms Subjective 72 YO M admitted after syncopal episode. Now pneumonia and renal failure. Cover for Int Ronan-Dr Cowan. Continues on venturi mask. Objective Last Vital Signs Date Time Temp Pulse Resp B/P (MAP) Pulse Ox O2 Delivery O2 Flow Rate FiO2 03/02/18 16:00 97.9 100 20 130/78 (95) 99 03/02/18 09:13 Venturi Mask 10.0 45 Laboratory Tests Test 03/02/18 05:30 03/02/18 13:05 White Blood Count 26.8 K/UL (4.8-10.8) *H Red Blood Count 2.89 M/UL (4.70-6.10) L Hemoglobin 8.5 G/DL (14.2-18.0) L Hematocrit 26.0 % (42.0-52.0) L Mean Corpuscular Volume 90 FL (80-99) Mean Corpuscular Hemoglobin 29.5 PG (27.0-31.0) Mean Corpuscular Hemoglobin Concent 32.8 G/DL (32.0-36.0) Red Cell Distribution Width 11.7 % (11.6-14.8) Platelet Count 454 K/UL (150-450) H Mean Platelet Volume 6.3 FL (6.5-10.1) L Neutrophils (%) (Auto) % (45.0-75.0) Lymphocytes (%) (Auto) % (20.0-45.0) Monocytes (%) (Auto) % (1.0-10.0) Eosinophils (%) (Auto) % (0.0-3.0) Basophils (%) (Auto) % (0.0-2.0) Differential Total Cells Counted 100 Neutrophils % (Manual) 85 % (45-75) H Lymphocytes % (Manual) 5 % (20-45) L Monocytes % (Manual) 3 % (1-10) Eosinophils % (Manual) 2 % (0-3) Basophils % (Manual) 0 % (0-2) Band Neutrophils 5 % (0-8) Nucleated Red Blood Cells 1 /100 WBC Platelet Estimate Increased H Platelet Morphology Normal Red Blood Cell Morphology Normal Sodium Level 139 MMOL/L (136-145) Potassium Level 3.1 MMOL/L (3.5-5.1) L Chloride Level 99 MMOL/L (98-107) Carbon Dioxide Level 22 MMOL/L (21-32) Anion Gap 18 mmol/L (5-15) H Blood Urea Nitrogen 147 mg/dL (7-18) H Creatinine 7.6 MG/DL (0.55-1.30) H Estimat Glomerular Filtration Rate mL/min (>60) Glucose Level 198 MG/DL (74-106) H Uric Acid 13.6 MG/DL (2.6-7.2) H Calcium Level 7.3 MG/DL (8.5-10.1) L Phosphorus Level 7.8 MG/DL (2.5-4.9) H Magnesium Level 2.8 MG/DL (1.8-2.4) H Total Bilirubin 1.9 MG/DL (0.2-1.0) H Direct Bilirubin 1.4 MG/DL (0.0-0.3) H Gamma Glutamyl Transpeptidase 69 U/L (5-85) Aspartate Amino Transf (AST/SGOT) 232 U/L (15-37) H Alanine Aminotransferase (ALT/SGPT) 138 U/L (12-78) H Alkaline Phosphatase 105 U/L (46-116) Total Creatine Kinase 3056 U/L (26-308) H C-Reactive Protein, Quantitative > 70.0 mg/dL (0.00-0.90) H Pro-B-Type Natriuretic Peptide 1059 pg/mL (0-125) H Total Protein 6.0 G/DL (6.4-8.2) L Albumin 1.5 G/DL (3.4-5.0) L Globulin 4.5 g/dL Albumin/Globulin Ratio 0.3 (1.0-2.7) L Arterial Blood pH 7.421 (7.350-7.450) Arterial Blood Partial Pressure CO2 28.2 mmHg (35.0-45.0) L Arterial Blood Partial Pressure O2 108.5 mmHg (75.0-100.0) H Arterial Blood HCO3 17.9 mmol/L (22.0-26.0) *L Arterial Blood Oxygen Saturation 96.6 % (95-100) Arterial Blood Base Excess -5.6 (-2-2) L Scottie Test Positive Microbiology Date/Time Source Procedure Growth Status 03/01/18 20:20 Sputum Gram Stain - Final Resulted 03/01/18 20:20 Sputum Sputum Culture Pending Resulted Intake and Output 03/01/18 03/02/18 19:00 07:00 Intake Total 972.5 ml Output Total 1150 ml 400 ml Balance -177.5 ml -400 ml IV Total 972.5 ml Output Urine Total 150 ml 400 ml Hemodialysis UF 1000 ml Objective PHYSICAL EXAMINATION: GENERAL: The patient is a well-developed and well-nourished, slightly obese male, in no apparent distress. HEENT: Eyes, pupils are equal and responsive to light and accommodation. Extraocular movements are intact. NECK: Supple without lymphadenopathy. CHEST: venturi mask; wheezes bilaterally, without rales. CARDIOVASCULAR: Regular rhythm and rate. S1 and S2 are normal without murmurs, rubs, or gallops. ABDOMEN: Soft, nontender, and nondistended. Positive bowel sounds. No evidence of hepatosplenomegaly. Currently, no rebound or guarding noted. EXTREMITIES: Negative for clubbing, cyanosis, or edema. RECTAL/GENITAL: Refused. NEUROLOGICAL: Cranial nerves II through XII are grossly intact without focal deficits. Motor strength is 5/5 bilaterally. Deep tendon reflexes are 2+ plantar. Assessment/Plan Problem List: (1) Leukocytosis Assessment & Plan: See ID note. Continue linezolid, cefepime and flagyl per ID (2) Renal failure Assessment & Plan: Last Hemodialysis 03/01/18. See nephrology note. (3) Elevated liver function tests Assessment & Plan: Await GI consult. (4) Syncope (5) Hyponatremia Assessment & Plan: Continue IVF per nephrology (6) Hypertension (7) Hypercholesterolemia (8) Prostate cancer (9) Colon cancer (10) Rhabdomyolysis Assessment & Plan: CK>10,000. See cardiology note. (11) Pneumonia Assessment & Plan: See pulmonary note. Continue linezolid, cefepime and flagyl per ID (12) Respiratory failure Christofer Biggs MD Mar 02, 2018 16:23
[2018-03-02] MEDS: NovoLOG Insulin Flexpen SUBQ SCH ×2 (16:30→21:00)
--- NOTE | 2018-03-02 19:23 | NUR ---
HAND-OFF: Report given to BALTA Carl.
--- NOTE | 2018-03-02 19:30 | NUR ---
NURSE NOTES: Report received from Gayathri GIFFORD and Gianfranco. Pt is resting in bed in stable condition. Pt is awake, alert, and oriented x3. Pt is on Venturi mask at 6L, 35% FiO2 and breathing is even and unlabored. No acute distress noted. Bilateral soft wrist restraints are noted to be in place. No swelling or skin breakdown noted, pt reports sensation in bilateral upper extremities. Pt denies pain at this time. IV site noted to be asymptomatic, patent, and intact and IV fluids are running at rx rate. R IJ dialysis site and dressing are noted to be dry and intact. Fortune catheter is patent and draining tono colored urine. Per day shift RN, pt is refusing rectal tube and MD Matos is aware. Bed is in lowest position with brake engaged, side rails up x3, and bed alarm on. Call light and side table are within reach. Will continue to monitor.
[2018-03-02 20:00] VITALS: BP 132/79
[2018-03-02] MEDS: Dyna-Hex 2% Top Sol 2oz TOPIC SCH (20:57)
--- NOTE | 2018-03-02 21:40 | General Progress Note ---
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 Assessment/Plan seroquel prn provided ro/st Subjective Neurologic/Psychiatric: Reports: anxiety, depressed, emotional problems Allergies: Coded Allergies: NO KNOWN ALLERGIES (Verified Allergy, Unknown, 02/26/18) Subjective more alert more oriented was able to answer the questions Objective Last 24 Hour Vital Signs Date Time Temp Pulse Resp B/P (MAP) Pulse Ox O2 Delivery O2 Flow Rate FiO2 03/02/18 20:19 Venturi Mask 6.0 35 03/02/18 20:18 95 Venturi Mask 6.0 35 03/02/18 20:17 94 20 Venturi Mask 6.0 35 03/02/18 20:00 97.7 95 20 132/79 (96) 95 03/02/18 16:00 97.9 100 20 130/78 (95) 99 03/02/18 15:23 97 03/02/18 12:00 98.1 98 20 131/90 (104) 98 03/02/18 11:44 95 03/02/18 09:13 Venturi Mask 10.0 45 03/02/18 09:13 87 22 Venturi Mask 10.0 45 03/02/18 09:13 95 Venturi Mask 10.0 45 03/02/18 09:00 Venturi Mask 10.0 03/02/18 08:00 98.6 95 20 106/55 (72) 100 03/02/18 08:00 97 03/02/18 04:00 97.2 98 20 117/73 (88) 100 03/02/18 04:00 94 03/02/18 00:00 Venturi Mask 10.0 03/02/18 00:00 99 03/02/18 00:00 98.0 100 20 125/82 (96) 97 Intake and Output 03/01/18 03/02/18 19:00 07:00 Intake Total 972.5 ml Output Total 1150 ml 400 ml Balance -177.5 ml -400 ml IV Total 972.5 ml Output Urine Total 150 ml 400 ml Hemodialysis UF 1000 ml Laboratory Tests 03/02/18 05:30: White Blood Count 26.8*H, Red Blood Count 2.89L, Hemoglobin 8.5L, Hematocrit 26.0L, Mean Corpuscular Volume 90, Mean Corpuscular Hemoglobin 29.5, Mean Corpuscular Hemoglobin Concent 32.8, Red Cell Distribution Width 11.7, Platelet Count 454H, Mean Platelet Volume 6.3L, Neutrophils (%) (Auto) , Lymphocytes (%) (Auto) , Monocytes (%) (Auto) , Eosinophils (%) (Auto) , Basophils (%) (Auto) , Differential Total Cells Counted 100, Neutrophils % (Manual) 85H, Lymphocytes % (Manual) 5L, Monocytes % (Manual) 3, Eosinophils % (Manual) 2, Basophils % ( Manual) 0, Band Neutrophils 5, Nucleated Red Blood Cells 1, Platelet Estimate IncreasedH, Platelet Morphology Normal, Red Blood Cell Morphology Normal, Sodium Level 139, Potassium Level 3.1L, Chloride Level 99, Carbon Dioxide Level 22, Anion Gap 18H, Blood Urea Nitrogen 147H, Creatinine 7.6H, Estimat Glomerular Filtration Rate , Glucose Level 198H, Uric Acid 13.6H, Calcium Level 7.3L, Phosphorus Level 7.8H, Magnesium Level 2.8H, Total Bilirubin 1.9H, Direct Bilirubin 1.4H, Gamma Glutamyl Transpeptidase 69, Aspartate Amino Transf (AST/ SGOT) 232H, Alanine Aminotransferase (ALT/SGPT) 138H, Alkaline Phosphatase 105, Total Creatine Kinase 3056H, C-Reactive Protein, Quantitative > 70.0H, Pro-B- Type Natriuretic Peptide 1059H, Total Protein 6.0L, Albumin 1.5L, Globulin 4.5, Albumin/Globulin Ratio 0.3L 03/02/18 13:05: Arterial Blood pH 7.421, Arterial Blood Partial Pressure CO2 28.2L, Arterial Blood Partial Pressure O2 108.5H, Arterial Blood HCO3 17.9*L, Arterial Blood Oxygen Saturation 96.6, Arterial Blood Base Excess -5.6L, Scottie Test Positive Height (Feet): 5 Height (Inches): 7.00 Weight (Pounds): 216 General Appearance: alert, agitated Neurologic: oriented x 3, responsive Emely Henry MD Mar 02, 2018 21:40
[2018-03-03] VITALS: BP 122/80
[2018-03-03] MEDS: D5NS 1,000 ML IV SCH ×2 (00:41→14:26)
[2018-03-03 04:00] VITALS: BP 125/89
[2018-03-03 05:55] LABS: HEMATOCRIT 24.9 % (42.0-52.0); HEMOGLOBIN 8.1 G/DL (14.2-18.0); MEAN CORPUSCULAR VOLUME 91 FL (80-99); PLATELET COUNT 523 K/UL (150-450); RED BLOOD COUNT 2.73 M/UL (4.70-6.10); RED CELL DISTRIBUTION WIDTH 11.8 % (11.6-14.8)
[2018-03-03 06:00] LABS: WHITE BLOOD COUNT 24.9 K/UL (4.8-10.8)
--- NOTE | 2018-03-03 06:00 | NUR ---
NURSE NOTES: Courtney, wharf labourer, called to report critical high WBC count of 24.9. MD not notified d/t trend in expected direction. WBC are trending down at this time. Pt in stable condition. Will continue to monitor and follow plan of care.
[2018-03-03] MEDS: NovoLOG Insulin Flexpen SUBQ SCH ×4 (06:30→20:48)
--- NOTE | 2018-03-03 06:48 | NUR ---
NURSE NOTES: utility engineer from [facility] nephro at bedside to perform scheduled routine dialysis per MD Lora.
--- NOTE | 2018-03-03 07:10 | NUR ---
NURSE NOTES: Daughter, Hollie, called and reported that she is coming from [place] of [place] and does not have a list of medications that pt was taking at home. Per daughter, she is attempting to have a family member go to the house to get list of medications and name of primary care physician. Day shift RNs Gianfranco and Gayathri updated with information.
--- NOTE | 2018-03-03 07:12 | NUR ---
HAND-OFF: Report given to Isaias Gamez and Katt Dietrich RNs. Pt is resting in bed in stable condition and currently receiving dialysis. No acute distress noted. Endorsed plan of care.
--- NOTE | 2018-03-03 07:17 | NUR ---
NURSE NOTES: Received report from BALTA Carl. Patient in bed receiving HD at bedside. Bed in lowest position, side rails up x2, call light within reach. Patient on venturi mask 6L 35%, soft wrist restraint bilaterally on, cap refill <3 sec. IV running at prescribed rate, IV site asymptomatic, intact, and patent. No active s/s of cardiac, respiratory distress noticed at this time. Will continue to monitor.
[2018-03-03 07:40] LABS: ALANINE AMINOTRANSFERASE 129 U/L (12-78); ALBUMIN 1.6 G/DL (3.4-5.0); ALBUMIN/GLOBULIN RATIO 0.3 (1.0-2.7); ALKALINE PHOSPHATASE 100 U/L (46-116); ANION GAP 21 mmol/L (5-15); ASPARTATE AMINO TRANSFERASE 193 U/L (15-37); BILIRUBIN,TOTAL 1.7 MG/DL (0.2-1.0); BLOOD UREA NITROGEN 170 mg/dL (7-18); CARBON DIOXIDE 19 MMOL/L (21-32); CHLORIDE 102 MMOL/L (98-107); CREATININE 8.4 MG/DL (0.55-1.30); GAMMA GLUTAMYL TRANSPEPTIDASE 85 U/L (5-85); PHOSPHORUS 7.9 MG/DL (2.5-4.9); POTASSIUM 3.2 MMOL/L (3.5-5.1); SODIUM 142 MMOL/L (136-145)
[2018-03-03 07:58] LABS: BILIRUBIN,DIRECT 1.2 MG/DL (0.0-0.3)
[2018-03-03 08:00] VITALS: BP 138/88
[2018-03-03 08:07] LABS: CREATINE KINASE 2683 U/L (26-308)
--- NOTE | 2018-03-03 08:29 | Pulmonology Progress Note ---
Assessment/Plan Assessment/Plan Pulmonary Progress Note Patient seen 03/02/2018 Assessment/Plan Problems: (1) Rhabdomyolysis (2) Pneumonia (3) ATN (acute tubular necrosis) (4) Acute CVA (cerebrovascular accident) Assessment/Plan Intermittant Dialysis 400, oliguria WBC still high, respiratory treatment Antibiotics check electrolytes, CPK cxr in am dvt prophylaxis sputum induction f/u labs Subjective ROS Limited/Unobtainable: No Constitutional: Reports: no symptoms HEENT: Repors: no symptoms Respiratory: Reports: no symptoms Allergies: Coded Allergies: NO KNOWN ALLERGIES (Verified Allergy, Unknown, 02/26/18) Objective Vital Signs Notes General Appearance: WD/WN HEENT: normocephalic, atraumatic Respiratory/Chest: chest wall non-tender, lungs clear Cardiovascular: normal peripheral pulses, regular rhythm Abdomen: normal bowel sounds, soft, non tender, moderate distension Extremities: no cyanosis Skin: no rash 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 Lymphatic: no neck adenopathy Microbiology Date/Time Source Procedure Growth Status 02/26/18 08:00 Blood Blood Culture - Preliminary NO GROWTH AFTER 48 HOURS Resulted 02/26/18 07:50 Blood Blood Culture - Preliminary NO GROWTH AFTER 48 HOURS Resulted 02/26/18 22:30 Nasopharynx Influenza Types A,B Antigen (MARYSOL) - Final Complete 02/26/18 22:40 Stool Clostridium difficile Toxin Assay - Final Complete 02/26/18 14:15 Urine,Clean Catch Urine Culture - Final NO GROWTH AFTER 48 HOURS Complete Laboratory Tests 02/27/18 15:04: Urine Opiates Screen Negative, Urine Barbiturates Screen Negative, Phencyclidine (PCP) Screen Negative, Urine Amphetamines Screen Negative, Urine Benzodiazepines Screen Negative, Urine Cocaine Screen Negative, Urine Marijuana (THC) Screen Negative 02/28/18 03:55: White Blood Count 29.9*H, Red Blood Count 3.54L, Hemoglobin 10.8L, Hematocrit 31.5L, Mean Corpuscular Volume 89, Mean Corpuscular Hemoglobin 30.4, Mean Corpuscular Hemoglobin Concent 34.2, Red Cell Distribution Width 11.2L, Platelet Count 377, Mean Platelet Volume 7.0, Neutrophils (%) (Auto) , Lymphocytes (%) (Auto) , Monocytes (%) (Auto) , Eosinophils (%) (Auto) , Basophils (%) (Auto) , Differential Total Cells Counted 100, Neutrophils % ( Manual) 88H, Lymphocytes % (Manual) 3L, Monocytes % (Manual) 2, Eosinophils % ( Manual) 0, Basophils % (Manual) 0, Band Neutrophils 7, Platelet Estimate Adequate, Platelet Morphology Normal, Hypochromasia 1+, Sodium Level 134L, Potassium Level 3.8, Chloride Level 95L, Carbon Dioxide Level 18L, Anion Gap 21H , Blood Urea Nitrogen 113H, Creatinine 7.8H, Estimat Glomerular Filtration Rate , Glucose Level 118H, Uric Acid 11.8H, Calcium Level 8.1L, Phosphorus Level 9.0H , Magnesium Level 2.6H, Total Bilirubin 3.8H, Direct Bilirubin 2.1H, Gamma Glutamyl Transpeptidase 93H, Aspartate Amino Transf (AST/SGOT) 634H, Alanine Aminotransferase (ALT/SGPT) 218H, Alkaline Phosphatase 124H, Pro-B-Type Natriuretic Peptide 3919H, Total Protein 7.0, Albumin 1.6L, Globulin 6.0, Random Vancomycin Level 15.0, Hepatitis A IgM Antibody [Pending], Hepatitis B Surface Antigen [Pending], Hepatitis B Core IgM Antibody [Pending], Hepatitis C Antibody [Pending] Current Medications Medications (Trade) Dose Ordered Sig/Aristides Route PRN Reason Start Time Stop Time Status Last Admin Dose Admin Acetaminophen (Tylenol) 650 mg Q4H PRN ORAL T>100.5 02/26/18 10:30 03/28/18 10:29 02/27/18 10:51 Acetaminophen (Tylenol) 650 mg Q6H PRN ORAL Mild Pain 02/27/18 11:45 03/28/18 06:29 02/28/18 00:35 Albuterol/ Ipratropium (Albuterol/ Ipratropium) 3 ml Q4H PRN HHN Shortness of Breath 02/26/18 10:30 03/03/18 10:29 02/27/18 23:03 Cefepime HCl 1 gm/ Dextrose 55 ml @ 110 mls/hr Q24H IVPB 02/26/18 12:00 03/05/18 11:59 02/27/18 11:45 Chlorhexidine Gluconate (Silva-Hex 2%) 1 applic DAILY@2000 TOPIC 02/27/18 20:00 03/29/18 19:59 02/27/18 21:40 Dextrose (Dextrose 50%) 25 ml Q30M PRN IV hypoglycemia 02/26/18 10:45 03/28/18 10:42 Dextrose (Dextrose 50%) 50 ml Q30M PRN IV hypoglycemia 02/26/18 10:45 03/28/18 10:44 Docusate Sodium (Colace) 100 mg THREE TIMES A DAY ORAL 02/27/18 18:00 03/29/18 17:59 02/28/18 08:20 Heparin Sodium (Porcine) (Heparin 5000 units/ml) 5,000 units EVERY 12 HOURS SUBQ 02/26/18 09:00 03/28/18 08:59 02/28/18 08:21 Linezolid (Zyvox) 600 mg EVERY 12 HOURS ORAL 02/27/18 21:00 03/04/18 20:59 02/28/18 08:19 Metronidazole (Flagyl) 500 mg Q8HR ORAL 02/26/18 15:00 03/05/18 14:59 02/28/18 05:30 Morphine Sulfate (Morphine Sulfate) 2 mg Q4H PRN IVP PAIN 4-10 02/26/18 10:30 03/05/18 10:29 Nitroglycerin (Ntg) 0.4 mg Q5MIN X 3 DOSES PRN SL Prn Chest Pain 02/26/18 10:45 03/28/18 10:44 Ondansetron HCl (Zofran) 4 mg Q6H PRN IVP Nausea & Vomiting 02/26/18 10:30 03/28/18 10:29 Pantoprazole (Protonix) 40 mg EVERY 12 HOURS ORAL 02/27/18 21:00 03/29/18 20:59 02/28/18 08:20 Polyethylene Glycol (Miralax) 17 gm DAILYPRN PRN ORAL Constipation 02/26/18 10:30 03/28/18 10:29 Quetiapine Fumarate (SEROquel) 12.5 mg Q4H PRN ORAL agitation 02/26/18 12:15 03/28/18 12:14 Sevelamer Carbonate (Renvela) 1,600 mg THREE TIMES A DAY ORAL 02/27/18 18:00 03/29/18 17:59 02/28/18 08:20 Temazepam (Restoril) 15 mg HSPRN PRN ORAL Insomnia 02/26/18 21:00 03/05/18 20:59 Subjective ROS Limited/Unobtainable: No Allergies: Coded Allergies: NO KNOWN ALLERGIES (Verified Allergy, Unknown, 02/26/18) Objective Last 24 Hour Vital Signs Date Time Temp Pulse Resp B/P (MAP) Pulse Ox O2 Delivery O2 Flow Rate FiO2 03/03/18 08:00 97.1 93 20 138/88 (105) 98 03/03/18 07:29 Simple Mask 5.0 03/03/18 04:00 93 03/03/18 04:00 97.3 95 20 125/89 (101) 96 03/03/18 00:00 98.0 94 20 122/80 (94) 97 03/03/18 00:00 96 03/02/18 21:00 Venturi Mask 6.0 03/02/18 20:19 Venturi Mask 6.0 35 03/02/18 20:18 95 Venturi Mask 6.0 35 03/02/18 20:17 94 20 Venturi Mask 6.0 35 03/02/18 20:00 97.7 95 20 132/79 (96) 95 03/02/18 20:00 94 03/02/18 16:00 97.9 100 20 130/78 (95) 99 03/02/18 15:23 97 03/02/18 12:00 98.1 98 20 131/90 (104) 98 03/02/18 11:44 95 03/02/18 09:13 Venturi Mask 10.0 45 03/02/18 09:13 87 22 Venturi Mask 10.0 45 03/02/18 09:13 95 Venturi Mask 10.0 45 03/02/18 09:00 Venturi Mask 10.0 Intake and Output 03/02/18 03/03/18 18:59 06:59 Intake Total 1335 ml 825 ml Output Total 300 ml 550 ml Balance 1035 ml 275 ml IV Total 1335 ml 825 ml Output Urine Total 300 ml 550 ml Microbiology Date/Time Source Procedure Growth Status 03/01/18 20:20 Sputum Gram Stain - Final Resulted 03/01/18 20:20 Sputum Sputum Culture - Preliminary NORMAL UPPER RESPIRATORY RIDGE AT 24 ... Resulted Laboratory Tests 03/02/18 13:05: Arterial Blood pH 7.421, Arterial Blood Partial Pressure CO2 28.2L, Arterial Blood Partial Pressure O2 108.5H, Arterial Blood HCO3 17.9*L, Arterial Blood Oxygen Saturation 96.6, Arterial Blood Base Excess -5.6L, Scottie Test Positive 03/03/18 05:30: White Blood Count 24.9*H, Red Blood Count 2.73L, Hemoglobin 8.1L, Hematocrit 24.9L, Mean Corpuscular Volume 91, Mean Corpuscular Hemoglobin 29.8, Mean Corpuscular Hemoglobin Concent 32.6, Red Cell Distribution Width 11.8, Platelet Count 523H, Mean Platelet Volume 5.7L, Neutrophils (%) (Auto) , Lymphocytes (%) (Auto) , Monocytes (%) (Auto) , Eosinophils (%) (Auto) , Basophils (%) (Auto) , Differential Total Cells Counted 100, Neutrophils % (Manual) 82H, Lymphocytes % (Manual) 10L, Monocytes % (Manual) 5, Eosinophils % (Manual) 3, Basophils % ( Manual) 0, Band Neutrophils 0, Nucleated Red Blood Cells 1, Platelet Estimate IncreasedH, Platelet Morphology Normal, Hypochromasia 1+, Sodium Level 142, Potassium Level 3.2L, Chloride Level 102, Carbon Dioxide Level 19L, Anion Gap 21H, Blood Urea Nitrogen 170H, Creatinine 8.4H, Estimat Glomerular Filtration Rate , Glucose Level 186H, Uric Acid 14.6H, Calcium Level 7.0L, Phosphorus Level 7.9H, Magnesium Level 3.1H, Total Bilirubin 1.7H, Direct Bilirubin 1.2H, Gamma Glutamyl Transpeptidase 85, Aspartate Amino Transf (AST/SGOT) 193H, Alanine Aminotransferase (ALT/SGPT) 129H, Alkaline Phosphatase 100, Total Creatine Kinase 2683H, C-Reactive Protein, Quantitative 30.4H, Pro-B-Type Natriuretic Peptide 676H, Total Protein 6.2L, Albumin 1.6L, Globulin 4.6, Albumin/Globulin Ratio 0.3L Current Medications Medications (Trade) Dose Ordered Sig/Aristides Route PRN Reason Start Time Stop Time Status Last Admin Dose Admin Acetaminophen (Tylenol) 650 mg Q4H PRN ORAL T>100.5 03/01/18 22:30 03/28/18 10:29 Acetaminophen (Tylenol) 650 mg Q6H PRN ORAL Mild Pain 03/01/18 23:45 03/28/18 06:29 Albuterol/ Ipratropium (Albuterol/ Ipratropium) 3 ml Q4H PRN HHN Shortness of Breath 03/01/18 22:30 03/03/18 10:29 Allopurinol (Allopurinol) 300 mg DAILY ORAL 03/02/18 09:00 04/01/18 08:59 03/02/18 08:34 Cefepime HCl 1 gm/ Dextrose 55 ml @ 110 mls/hr Q24H IVPB 03/02/18 12:00 03/05/18 11:59 03/02/18 11:47 Chlorhexidine Gluconate (Silva-Hex 2%) 1 applic DAILY@2000 TOPIC 03/02/18 20:00 03/29/18 19:59 03/02/18 20:57 Dextrose (Dextrose 50%) 25 ml Q30M PRN IV Hypoglycemia 03/02/18 13:45 04/01/18 13:44 Dextrose (Dextrose 50%) 50 ml Q30M PRN IV Hypoglycemia 03/02/18 13:45 04/01/18 13:44 Dextrose/Sodium Chloride 1,000 ml @ 75 mls/hr [id number] IV 03/01/18 21:15 03/31/18 09:29 03/03/18 00:41 Docusate Sodium (Colace) 100 mg THREE TIMES A DAY ORAL 03/02/18 09:00 03/29/18 17:59 03/02/18 17:17 Heparin Sodium (Porcine) (Heparin 5000 units/ml) 5,000 units EVERY 12 HOURS SUBQ 03/02/18 09:00 03/28/18 08:59 03/02/18 21:00 Insulin Aspart (NovoLOG) BEFORE MEALS AND HS SUBQ 03/02/18 16:30 04/01/18 16:29 03/02/18 21:00 Levofloxacin (Levaquin) 500 mg QOD ORAL 03/02/18 09:00 03/09/18 08:59 03/02/18 08:33 Linezolid 300 ml @ 300 mls/hr Q12HR IVPB 03/02/18 09:00 03/09/18 08:59 03/02/18 20:58 Nitroglycerin (Ntg) 0.4 mg Q5MIN X 3 DOSES PRN SL Prn Chest Pain 03/01/18 21:15 03/28/18 10:44 Ondansetron HCl (Zofran) 4 mg Q6H PRN IVP Nausea & Vomiting 03/01/18 22:30 03/28/18 10:29 Pantoprazole (Protonix) 40 mg EVERY 12 HOURS ORAL 03/02/18 09:00 03/29/18 20:59 03/02/18 20:57 Polyethylene Glycol (Miralax) 17 gm DAILYPRN PRN ORAL Constipation 03/02/18 10:30 03/28/18 10:29 Sevelamer Carbonate (Renvela) 2,400 mg THREE TIMES A DAY ORAL 03/02/18 09:00 03/29/18 17:59 03/02/18 17:17 Temazepam (Restoril) 15 mg HSPRN PRN ORAL Insomnia 03/02/18 21:00 03/05/18 20:59 Juancarlos Malin MD Mar 03, 2018 08:29
--- NOTE | 2018-03-03 08:39 | General Progress Note ---
Assessment/Plan Problem List: (1) colonic ileus (2) PNA (pneumonia) ICD Codes: J18.9 - Pneumonia, unspecified organism SNOMED: 625850738 (3) Abdominal distention ICD Codes: R14.0 - Abdominal distension (gaseous) SNOMED: 44224811 (4) Anemia ICD Codes: D64.9 - Anemia, unspecified SNOMED: 472658918 (5) Elevated liver function tests ICD Codes: R94.5 - Abnormal results of liver function studies SNOMED: 868259653, 535299561 (6) Hypertension ICD Codes: I10 - Essential (primary) hypertension SNOMED: 06756664 (7) Colon cancer ICD Codes: C18.9 - Malignant neoplasm of colon, unspecified SNOMED: 229508272 (8) Renal failure ICD Codes: N19 - Unspecified kidney failure SNOMED: 56684058 Assessment/Plan swallow eval colace and miralax abx rectal tube>>>patient refused KUB in am>>pending trending down LFTS ct and us reviewed fu Subjective ROS Limited/Unobtainable: Yes Allergies: Coded Allergies: NO KNOWN ALLERGIES (Verified Allergy, Unknown, 02/26/18) Subjective no abd pain Objective Last 24 Hour Vital Signs Date Time Temp Pulse Resp B/P (MAP) Pulse Ox O2 Delivery O2 Flow Rate FiO2 03/03/18 08:00 97.1 93 20 138/88 (105) 98 03/03/18 07:29 Simple Mask 5.0 03/03/18 04:00 93 03/03/18 04:00 97.3 95 20 125/89 (101) 96 03/03/18 00:00 98.0 94 20 122/80 (94) 97 03/03/18 00:00 96 03/02/18 21:00 Venturi Mask 6.0 03/02/18 20:19 Venturi Mask 6.0 35 03/02/18 20:18 95 Venturi Mask 6.0 35 03/02/18 20:17 94 20 Venturi Mask 6.0 35 03/02/18 20:00 97.7 95 20 132/79 (96) 95 03/02/18 20:00 94 03/02/18 16:00 97.9 100 20 130/78 (95) 99 03/02/18 15:23 97 03/02/18 12:00 98.1 98 20 131/90 (104) 98 03/02/18 11:44 95 03/02/18 09:13 Venturi Mask 10.0 45 03/02/18 09:13 87 22 Venturi Mask 10.0 45 03/02/18 09:13 95 Venturi Mask 10.0 45 03/02/18 09:00 Venturi Mask 10.0 Intake and Output 03/02/18 03/03/18 18:59 06:59 Intake Total 1335 ml 825 ml Output Total 300 ml 550 ml Balance 1035 ml 275 ml IV Total 1335 ml 825 ml Output Urine Total 300 ml 550 ml Laboratory Tests 03/02/18 13:05: Arterial Blood pH 7.421, Arterial Blood Partial Pressure CO2 28.2L, Arterial Blood Partial Pressure O2 108.5H, Arterial Blood HCO3 17.9*L, Arterial Blood Oxygen Saturation 96.6, Arterial Blood Base Excess -5.6L, Scottie Test Positive 03/03/18 05:30: White Blood Count 24.9*H, Red Blood Count 2.73L, Hemoglobin 8.1L, Hematocrit 24.9L, Mean Corpuscular Volume 91, Mean Corpuscular Hemoglobin 29.8, Mean Corpuscular Hemoglobin Concent 32.6, Red Cell Distribution Width 11.8, Platelet Count 523H, Mean Platelet Volume 5.7L, Neutrophils (%) (Auto) , Lymphocytes (%) (Auto) , Monocytes (%) (Auto) , Eosinophils (%) (Auto) , Basophils (%) (Auto) , Differential Total Cells Counted 100, Neutrophils % (Manual) 82H, Lymphocytes % (Manual) 10L, Monocytes % (Manual) 5, Eosinophils % (Manual) 3, Basophils % ( Manual) 0, Band Neutrophils 0, Nucleated Red Blood Cells 1, Platelet Estimate IncreasedH, Platelet Morphology Normal, Hypochromasia 1+, Sodium Level 142, Potassium Level 3.2L, Chloride Level 102, Carbon Dioxide Level 19L, Anion Gap 21H, Blood Urea Nitrogen 170H, Creatinine 8.4H, Estimat Glomerular Filtration Rate , Glucose Level 186H, Uric Acid 14.6H, Calcium Level 7.0L, Phosphorus Level 7.9H, Magnesium Level 3.1H, Total Bilirubin 1.7H, Direct Bilirubin 1.2H, Gamma Glutamyl Transpeptidase 85, Aspartate Amino Transf (AST/SGOT) 193H, Alanine Aminotransferase (ALT/SGPT) 129H, Alkaline Phosphatase 100, Total Creatine Kinase 2683H, C-Reactive Protein, Quantitative 30.4H, Pro-B-Type Natriuretic Peptide 676H, Total Protein 6.2L, Albumin 1.6L, Globulin 4.6, Albumin/Globulin Ratio 0.3L Height (Feet): 5 Height (Inches): 7.00 Weight (Pounds): 216 General Appearance: alert EENT: normal ENT inspection Neck: supple Cardiovascular: normal rate Respiratory/Chest: decreased breath sounds Abdomen: soft, hypoactive bowel sounds, distended Extremities: non-tender Ismael Matos MD Mar 03, 2018 08:39
[2018-03-03] MEDS: Docusate 100mg cap ORAL SCH ×3 (09:44→17:25)
[2018-03-03] MEDS: Heparin 5000 units/ml inj SUBQ SCH ×2 (09:46→20:48)
--- NOTE | 2018-03-03 10:55 | NUR ---
NURSE NOTES: patient was agitated after HD. refused venturi mask. O2 sat was checked and resulted to 90-93%. offered NC instead but patient still refused. refused enema ordered by dr [email or web address] let Md ferrera aware.
[2018-03-03 11:43] VITALS: BP 138/70
--- NOTE | 2018-03-03 11:45 | NUR ---
NURSE NOTES: dr ferrera made aware of patient refusal to tap water enema. dr ferrera aknowledged and stated "OK"
[2018-03-03] MEDS: Cefepime HCl 1 GM in D5W 55 ML IVPB SCH (12:13)
--- NOTE | 2018-03-03 12:22 | Diagnostic Imaging Report ---
EXAM: XR Abdomen, one view CLINICAL HISTORY: Abdominal tenderness TECHNIQUE: Frontal view of the abdomen/pelvis. COMPARISON: Abdominal x-rays dated 02/26/18. CT abdomen and pelvis dated 03/01/18. FINDINGS: Intraperitoneal space: No evidence of intraperitoneal free air. Gastrointestinal tract: Diffuse gaseous distention of colonic and small bowel loops, nonspecific. Organs: Renal shadows obscured by overlying bowel gas. No abnormal calcifications identified in the abdomen or pelvis. Bones/joints: Degenerative changes throughout the visualized spine. IMPRESSION: Diffuse gaseous distention of colonic and small bowel loops, nonspecific. Not significantly changed compared to the recent CT exam.
--- NOTE | 2018-03-03 13:12 | Cardiology Progress Note ---
Assessment/Plan Assessment/Plan 1. Rhabdomyolysis. 2. Status post fall. 3. Prostate cancer, status post prostatectomy. 4. Colonic polyps, status post resection recently. 5. Acute renal failure on chronic renal insufficiency. 6. Leukocytosis. 7. Probable pneumonia, possible aspiration. 8. Mild diastolic relaxation on echocardiogram. 9. lyrica allergy 10. non sustianed wide complex tachy 11. afib spont converted to sinus tele noted sinus one episode of afib rvr iv metoprolol for hr control echo has shown normal wall motion dialysis as sched ct noted min trop down trend liekly demand related / renal insuf related has needed restriants is on face mask still but he removes , on nc per rn ast 90-91% abx hhn need to see if can limit hhn due to afib if has recurrent afib i may need to start on meds Subjective Cardiovascular: Denies: chest pain, lightheadedness, palpitations Respiratory: Denies: shortness of breath Gastrointestinal/Abdominal: Denies: abdominal pain Genitourinary: Denies: burning Objective Last 24 Hour Vital Signs Date Time Temp Pulse Resp B/P (MAP) Pulse Ox O2 Delivery O2 Flow Rate FiO2 03/03/18 11:43 97.6 93 20 138/70 (92) 92 03/03/18 09:19 Simple Mask 5.0 03/03/18 09:02 96 Venturi Mask 6.0 35 03/03/18 09:02 95 20 Venturi Mask 6.0 35 03/03/18 09:02 Venturi Mask 6.0 35 03/03/18 09:00 Venturi Mask 6.0 03/03/18 08:01 96 03/03/18 08:00 97.1 93 20 138/88 (105) 98 03/03/18 07:29 Simple Mask 5.0 03/03/18 04:00 93 03/03/18 04:00 97.3 95 20 125/89 (101) 96 03/03/18 00:00 98.0 94 20 122/80 (94) 97 03/03/18 00:00 96 03/02/18 21:00 Venturi Mask 6.0 03/02/18 20:19 Venturi Mask 6.0 35 03/02/18 20:18 95 Venturi Mask 6.0 35 03/02/18 20:17 94 20 Venturi Mask 6.0 35 03/02/18 20:00 97.7 95 20 132/79 (96) 95 03/02/18 20:00 94 03/02/18 16:00 97.9 100 20 130/78 (95) 99 03/02/18 15:23 97 General Appearance: other - awake Neck: supple Cardiovascular: normal rate, regular rhythm Respiratory/Chest: rhonchi - bilaterally, expiratory wheezing Abdomen: normal bowel sounds, non tender, soft, distended Extremities: no swelling Intake and Output 03/02/18 03/03/18 18:59 06:59 Intake Total 1335 ml 825 ml Output Total 300 ml 550 ml Balance 1035 ml 275 ml IV Total 1335 ml 825 ml Output Urine Total 300 ml 550 ml Laboratory Tests Test 03/03/18 05:30 White Blood Count 24.9 K/UL (4.8-10.8) *H Red Blood Count 2.73 M/UL (4.70-6.10) L Hemoglobin 8.1 G/DL (14.2-18.0) L Hematocrit 24.9 % (42.0-52.0) L Mean Corpuscular Volume 91 FL (80-99) Mean Corpuscular Hemoglobin 29.8 PG (27.0-31.0) Mean Corpuscular Hemoglobin Concent 32.6 G/DL (32.0-36.0) Red Cell Distribution Width 11.8 % (11.6-14.8) Platelet Count 523 K/UL (150-450) H Mean Platelet Volume 5.7 FL (6.5-10.1) L Neutrophils (%) (Auto) % (45.0-75.0) Lymphocytes (%) (Auto) % (20.0-45.0) Monocytes (%) (Auto) % (1.0-10.0) Eosinophils (%) (Auto) % (0.0-3.0) Basophils (%) (Auto) % (0.0-2.0) Differential Total Cells Counted 100 Neutrophils % (Manual) 82 % (45-75) H Lymphocytes % (Manual) 10 % (20-45) L Monocytes % (Manual) 5 % (1-10) Eosinophils % (Manual) 3 % (0-3) Basophils % (Manual) 0 % (0-2) Band Neutrophils 0 % (0-8) Nucleated Red Blood Cells 1 /100 WBC Platelet Estimate Increased H Platelet Morphology Normal Hypochromasia 1+ Sodium Level 142 MMOL/L (136-145) Potassium Level 3.2 MMOL/L (3.5-5.1) L Chloride Level 102 MMOL/L (98-107) Carbon Dioxide Level 19 MMOL/L (21-32) L Anion Gap 21 mmol/L (5-15) H Blood Urea Nitrogen 170 mg/dL (7-18) H Creatinine 8.4 MG/DL (0.55-1.30) H Estimat Glomerular Filtration Rate mL/min (>60) Glucose Level 186 MG/DL (74-106) H Uric Acid 14.6 MG/DL (2.6-7.2) H Calcium Level 7.0 MG/DL (8.5-10.1) L Phosphorus Level 7.9 MG/DL (2.5-4.9) H Magnesium Level 3.1 MG/DL (1.8-2.4) H Total Bilirubin 1.7 MG/DL (0.2-1.0) H Direct Bilirubin 1.2 MG/DL (0.0-0.3) H Gamma Glutamyl Transpeptidase 85 U/L (5-85) Aspartate Amino Transf (AST/SGOT) 193 U/L (15-37) H Alanine Aminotransferase (ALT/SGPT) 129 U/L (12-78) H Alkaline Phosphatase 100 U/L (46-116) Total Creatine Kinase 2683 U/L (26-308) H C-Reactive Protein, Quantitative 30.4 mg/dL (0.00-0.90) H Pro-B-Type Natriuretic Peptide 676 pg/mL (0-125) H Total Protein 6.2 G/DL (6.4-8.2) L Albumin 1.6 G/DL (3.4-5.0) L Globulin 4.6 g/dL Albumin/Globulin Ratio 0.3 (1.0-2.7) L Microbiology Date/Time Source Procedure Growth Status 03/01/18 20:20 Sputum Gram Stain - Final Resulted 03/01/18 20:20 Sputum Sputum Culture - Preliminary NORMAL UPPER RESPIRATORY RIDGE AT 24 ... Resulted Car Nelson MD Mar 03, 2018 13:11
--- NOTE | 2018-03-03 13:33 | Nephrology Progress Note ---
Assessment/Plan Problem List: (1) ATN (acute tubular necrosis) (2) Rhabdomyolysis (3) Pneumonia Assessment Acute renal failure- Rhabdo Pneumonia CVA ? Plan Slow Hydrate- Add Allopurinol hemodialysis 03/01 next 03/03 Phos binders NPO check ABG- results noted Fortune Monitor CPK - Uric Acid- LFTs monitor Renal parameters Avoid Nephrotoxics per orders Subjective ROS Limited/Unobtainable: No Constitutional: Reports: malaise Objective Objective Last 24 Hour Vital Signs Date Time Temp Pulse Resp B/P (MAP) Pulse Ox O2 Delivery O2 Flow Rate FiO2 03/03/18 11:43 97.6 93 20 138/70 (92) 92 03/03/18 09:19 Simple Mask 5.0 03/03/18 09:02 96 Venturi Mask 6.0 35 03/03/18 09:02 95 20 Venturi Mask 6.0 35 03/03/18 09:02 Venturi Mask 6.0 35 03/03/18 09:00 Venturi Mask 6.0 03/03/18 08:01 96 03/03/18 08:00 97.1 93 20 138/88 (105) 98 03/03/18 07:29 Simple Mask 5.0 03/03/18 04:00 93 03/03/18 04:00 97.3 95 20 125/89 (101) 96 03/03/18 00:00 98.0 94 20 122/80 (94) 97 03/03/18 00:00 96 03/02/18 21:00 Venturi Mask 6.0 03/02/18 20:19 Venturi Mask 6.0 35 03/02/18 20:18 95 Venturi Mask 6.0 35 03/02/18 20:17 94 20 Venturi Mask 6.0 35 03/02/18 20:00 97.7 95 20 132/79 (96) 95 03/02/18 20:00 94 03/02/18 16:00 97.9 100 20 130/78 (95) 99 03/02/18 15:23 97 Intake and Output 03/02/18 03/03/18 19:00 07:00 Intake Total 1335 ml 825 ml Output Total 300 ml 550 ml Balance 1035 ml 275 ml IV Total 1335 ml 825 ml Output Urine Total 300 ml 550 ml Current Medications Medications (Trade) Dose Ordered Sig/Aristides Route PRN Reason Start Time Stop Time Status Last Admin Dose Admin Acetaminophen (Tylenol) 650 mg Q4H PRN ORAL T>100.5 03/01/18 22:30 03/28/18 10:29 Acetaminophen (Tylenol) 650 mg Q6H PRN ORAL Mild Pain 03/01/18 23:45 03/28/18 06:29 Allopurinol (Allopurinol) 300 mg DAILY ORAL 03/02/18 09:00 04/01/18 08:59 03/03/18 09:44 Cefepime HCl 1 gm/ Dextrose 55 ml @ 110 mls/hr Q24H IVPB 03/02/18 12:00 03/05/18 11:59 03/03/18 12:13 Chlorhexidine Gluconate (Silva-Hex 2%) 1 applic DAILY@2000 TOPIC 03/02/18 20:00 03/29/18 19:59 03/02/18 20:57 Dextrose (Dextrose 50%) 25 ml Q30M PRN IV Hypoglycemia 03/02/18 13:45 04/01/18 13:44 Dextrose (Dextrose 50%) 50 ml Q30M PRN IV Hypoglycemia 03/02/18 13:45 04/01/18 13:44 Dextrose/Sodium Chloride 1,000 ml @ 75 mls/hr [id number] IV 03/01/18 21:15 03/31/18 09:29 03/03/18 00:41 Docusate Sodium (Colace) 100 mg THREE TIMES A DAY ORAL 03/02/18 09:00 03/29/18 17:59 03/03/18 09:44 Heparin Sodium (Porcine) (Heparin 5000 units/ml) 5,000 units EVERY 12 HOURS SUBQ 03/02/18 09:00 03/28/18 08:59 03/03/18 09:46 Insulin Aspart (NovoLOG) BEFORE MEALS AND HS SUBQ 03/02/18 16:30 04/01/18 16:29 03/02/18 21:00 Levofloxacin (Levaquin) 500 mg QOD ORAL 03/02/18 09:00 03/09/18 08:59 03/02/18 08:33 Linezolid 300 ml @ 300 mls/hr Q12HR IVPB 03/02/18 09:00 03/09/18 08:59 03/03/18 09:44 Nitroglycerin (Ntg) 0.4 mg Q5MIN X 3 DOSES PRN SL Prn Chest Pain 03/01/18 21:15 03/28/18 10:44 Ondansetron HCl (Zofran) 4 mg Q6H PRN IVP Nausea & Vomiting 03/01/18 22:30 03/28/18 10:29 Pantoprazole (Protonix) 40 mg EVERY 12 HOURS ORAL 03/02/18 09:00 03/29/18 20:59 03/03/18 09:44 Polyethylene Glycol (Miralax) 17 gm DAILYPRN PRN ORAL Constipation 03/02/18 10:30 03/28/18 10:29 Sevelamer Carbonate (Renvela) 2,400 mg THREE TIMES A DAY ORAL 03/02/18 09:00 03/29/18 17:59 03/03/18 09:44 Temazepam (Restoril) 15 mg HSPRN PRN ORAL Insomnia 03/02/18 21:00 03/05/18 20:59 Laboratory Tests 03/03/18 05:30: White Blood Count 24.9*H, Red Blood Count 2.73L, Hemoglobin 8.1L, Hematocrit 24.9L, Mean Corpuscular Volume 91, Mean Corpuscular Hemoglobin 29.8, Mean Corpuscular Hemoglobin Concent 32.6, Red Cell Distribution Width 11.8, Platelet Count 523H, Mean Platelet Volume 5.7L, Neutrophils (%) (Auto) , Lymphocytes (%) (Auto) , Monocytes (%) (Auto) , Eosinophils (%) (Auto) , Basophils (%) (Auto) , Differential Total Cells Counted 100, Neutrophils % (Manual) 82H, Lymphocytes % (Manual) 10L, Monocytes % (Manual) 5, Eosinophils % (Manual) 3, Basophils % ( Manual) 0, Band Neutrophils 0, Nucleated Red Blood Cells 1, Platelet Estimate IncreasedH, Platelet Morphology Normal, Hypochromasia 1+, Sodium Level 142, Potassium Level 3.2L, Chloride Level 102, Carbon Dioxide Level 19L, Anion Gap 21H, Blood Urea Nitrogen 170H, Creatinine 8.4H, Estimat Glomerular Filtration Rate , Glucose Level 186H, Uric Acid 14.6H, Calcium Level 7.0L, Phosphorus Level 7.9H, Magnesium Level 3.1H, Total Bilirubin 1.7H, Direct Bilirubin 1.2H, Gamma Glutamyl Transpeptidase 85, Aspartate Amino Transf (AST/SGOT) 193H, Alanine Aminotransferase (ALT/SGPT) 129H, Alkaline Phosphatase 100, Total Creatine Kinase 2683H, C-Reactive Protein, Quantitative 30.4H, Pro-B-Type Natriuretic Peptide 676H, Total Protein 6.2L, Albumin 1.6L, Globulin 4.6, Albumin/Globulin Ratio 0.3L Height (Feet): 5 Height (Inches): 7.00 Weight (Pounds): 216 General Appearance: no apparent distress Respiratory/Chest: decreased breath sounds Abdomen: distended Yayo Lora MD Mar 03, 2018 13:33
--- NOTE | 2018-03-03 15:37 | Internal Med Progress Note ---
Subjective Physician Name Ruperto Cowan Attending Physician Ruperto Cowan MD Current Medications Medications (Trade) Dose Ordered Sig/Aristides Route PRN Reason Start Time Stop Time Status Last Admin Dose Admin Acetaminophen (Tylenol) 650 mg Q4H PRN ORAL T>100.5 03/01/18 22:30 03/28/18 10:29 Acetaminophen (Tylenol) 650 mg Q6H PRN ORAL Mild Pain 03/01/18 23:45 03/28/18 06:29 Allopurinol (Allopurinol) 300 mg DAILY ORAL 03/02/18 09:00 04/01/18 08:59 03/03/18 09:44 Cefepime HCl 1 gm/ Dextrose 55 ml @ 110 mls/hr Q24H IVPB 03/02/18 12:00 03/05/18 11:59 03/03/18 12:13 Chlorhexidine Gluconate (Silva-Hex 2%) 1 applic DAILY@2000 TOPIC 03/02/18 20:00 03/29/18 19:59 03/02/18 20:57 Dextrose (Dextrose 50%) 25 ml Q30M PRN IV Hypoglycemia 03/02/18 13:45 04/01/18 13:44 Dextrose (Dextrose 50%) 50 ml Q30M PRN IV Hypoglycemia 03/02/18 13:45 04/01/18 13:44 Dextrose/Sodium Chloride 1,000 ml @ 75 mls/hr [id number] IV 03/01/18 21:15 03/31/18 09:29 03/03/18 14:26 Docusate Sodium (Colace) 100 mg THREE TIMES A DAY ORAL 03/02/18 09:00 03/29/18 17:59 03/03/18 09:44 Heparin Sodium (Porcine) (Heparin 5000 units/ml) 5,000 units EVERY 12 HOURS SUBQ 03/02/18 09:00 03/28/18 08:59 03/03/18 09:46 Insulin Aspart (NovoLOG) BEFORE MEALS AND HS SUBQ 03/02/18 16:30 04/01/18 16:29 03/02/18 21:00 Levofloxacin (Levaquin) 500 mg QOD ORAL 03/02/18 09:00 03/09/18 08:59 03/02/18 08:33 Linezolid 300 ml @ 300 mls/hr Q12HR IVPB 03/02/18 09:00 03/09/18 08:59 03/03/18 09:44 Nitroglycerin (Ntg) 0.4 mg Q5MIN X 3 DOSES PRN SL Prn Chest Pain 03/01/18 21:15 03/28/18 10:44 Ondansetron HCl (Zofran) 4 mg Q6H PRN IVP Nausea & Vomiting 03/01/18 22:30 03/28/18 10:29 Pantoprazole (Protonix) 40 mg EVERY 12 HOURS ORAL 03/02/18 09:00 03/29/18 20:59 03/03/18 09:44 Polyethylene Glycol (Miralax) 17 gm DAILYPRN PRN ORAL Constipation 03/02/18 10:30 03/28/18 10:29 Sevelamer Carbonate (Renvela) 2,400 mg THREE TIMES A DAY ORAL 03/02/18 09:00 03/29/18 17:59 03/03/18 09:44 Temazepam (Restoril) 15 mg HSPRN PRN ORAL Insomnia 03/02/18 21:00 03/05/18 20:59 Allergies: Coded Allergies: NO KNOWN ALLERGIES (Verified Allergy, Unknown, 02/26/18) Subjective awake, alert, responsive, NAD, watching TV, WBC: 24.9 Objective Last Vital Signs Date Time Temp Pulse Resp B/P (MAP) Pulse Ox O2 Delivery O2 Flow Rate FiO2 03/03/18 11:53 101 03/03/18 11:43 97.6 20 138/70 (92) 92 03/03/18 09:19 Simple Mask 5.0 03/03/18 09:02 35 Laboratory Tests Test 03/03/18 05:30 White Blood Count 24.9 K/UL (4.8-10.8) *H Red Blood Count 2.73 M/UL (4.70-6.10) L Hemoglobin 8.1 G/DL (14.2-18.0) L Hematocrit 24.9 % (42.0-52.0) L Mean Corpuscular Volume 91 FL (80-99) Mean Corpuscular Hemoglobin 29.8 PG (27.0-31.0) Mean Corpuscular Hemoglobin Concent 32.6 G/DL (32.0-36.0) Red Cell Distribution Width 11.8 % (11.6-14.8) Platelet Count 523 K/UL (150-450) H Mean Platelet Volume 5.7 FL (6.5-10.1) L Neutrophils (%) (Auto) % (45.0-75.0) Lymphocytes (%) (Auto) % (20.0-45.0) Monocytes (%) (Auto) % (1.0-10.0) Eosinophils (%) (Auto) % (0.0-3.0) Basophils (%) (Auto) % (0.0-2.0) Differential Total Cells Counted 100 Neutrophils % (Manual) 82 % (45-75) H Lymphocytes % (Manual) 10 % (20-45) L Monocytes % (Manual) 5 % (1-10) Eosinophils % (Manual) 3 % (0-3) Basophils % (Manual) 0 % (0-2) Band Neutrophils 0 % (0-8) Nucleated Red Blood Cells 1 /100 WBC Platelet Estimate Increased H Platelet Morphology Normal Hypochromasia 1+ Sodium Level 142 MMOL/L (136-145) Potassium Level 3.2 MMOL/L (3.5-5.1) L Chloride Level 102 MMOL/L (98-107) Carbon Dioxide Level 19 MMOL/L (21-32) L Anion Gap 21 mmol/L (5-15) H Blood Urea Nitrogen 170 mg/dL (7-18) H Creatinine 8.4 MG/DL (0.55-1.30) H Estimat Glomerular Filtration Rate mL/min (>60) Glucose Level 186 MG/DL (74-106) H Uric Acid 14.6 MG/DL (2.6-7.2) H Calcium Level 7.0 MG/DL (8.5-10.1) L Phosphorus Level 7.9 MG/DL (2.5-4.9) H Magnesium Level 3.1 MG/DL (1.8-2.4) H Total Bilirubin 1.7 MG/DL (0.2-1.0) H Direct Bilirubin 1.2 MG/DL (0.0-0.3) H Gamma Glutamyl Transpeptidase 85 U/L (5-85) Aspartate Amino Transf (AST/SGOT) 193 U/L (15-37) H Alanine Aminotransferase (ALT/SGPT) 129 U/L (12-78) H Alkaline Phosphatase 100 U/L (46-116) Total Creatine Kinase 2683 U/L (26-308) H C-Reactive Protein, Quantitative 30.4 mg/dL (0.00-0.90) H Pro-B-Type Natriuretic Peptide 676 pg/mL (0-125) H Total Protein 6.2 G/DL (6.4-8.2) L Albumin 1.6 G/DL (3.4-5.0) L Globulin 4.6 g/dL Albumin/Globulin Ratio 0.3 (1.0-2.7) L Microbiology Date/Time Source Procedure Growth Status 03/01/18 20:20 Sputum Gram Stain - Final Resulted 03/01/18 20:20 Sputum Sputum Culture - Preliminary NORMAL UPPER RESPIRATORY RIDGE AT 24 ... Resulted Intake and Output 03/02/18 03/03/18 19:00 07:00 Intake Total 1335 ml 825 ml Output Total 300 ml 550 ml Balance 1035 ml 275 ml IV Total 1335 ml 825 ml Output Urine Total 300 ml 550 ml Objective General: No acute distress, awake and alert HEENT: NCAT, sclera anicteric, PERRL, EOMI. Neck: Supple, Right IJ Dialysis cath. Lungs: Fair inspiratory effort, Bilateral air entry, no Wheeze or Rales. Heart: Regular rate and rhythm, normal S1/S2, no murmur. Abdomen: soft, nontender, nondistended. Normoactive bowel sounds, obesity, / Rectal: Refused and deferred. Extremities: No Cyanosis , clubbing or edema. Neuro: A&O x 3, Able to move all extremities Skin: warm, no rashes. Assessment/Plan Assessment/Plan Sepsis due to Legionella PNA and UTI- r/o bacteremia Fever, improving BRITT, worsening- started on HD 02/28 Rhabdomyolysis; improving AMS s/p Fall Acute transaminitis, infection-2ry to Legionella infection; improving Obesity Plan: Abx: Levaquin 750mg q48hrs, empiric PO Linezolid, Cefepime Monitor Labs and cultures. Full code Heparin SQ Dialysis PT Mobility Ruperto Cowan MD Mar 03, 2018 15:37
[2018-03-03 16:00] VITALS: BP 165/92
[2018-03-03] MEDS ORDERED: MULTIVITAMINS1 EAC2 ORAL (17:54)
[2018-03-03] MEDS ORDERED: TRIAMTERENE-HC1 EAC6 ORAL (17:54)
[2018-03-03] MEDS ORDERED: GABAPENTIN300 MG ORAL (17:54)
[2018-03-03] MEDS ORDERED: ASPIR 8181 MG ORAL (17:54)
[2018-03-03] MEDS ORDERED: ATORVASTATIN CA40 MG ORAL (17:54)
[2018-03-03] MEDS ORDERED: PROBENECID500 MG PO (17:54)
[2018-03-03] MEDS ORDERED: ENALAPRIL MALEA10 MG ORAL (17:54)
--- NOTE | 2018-03-03 19:09 | Pulmonology Progress Note ---
Assessment/Plan Assessment/Plan Pulmonary Progress Note Assessment/Plan Problems: (1) Rhabdomyolysis (2) Pneumonia (3) ATN (acute tubular necrosis) (4) Acute CVA (cerebrovascular accident) Assessment/Plan Intermittant Dialysis 400, oliguria WBC still high, respiratory treatment Antibiotics check electrolytes, CPK cxr in am dvt prophylaxis sputum induction f/u labs Subjective ROS Limited/Unobtainable: No Constitutional: Reports: no symptoms HEENT: Repors: no symptoms Respiratory: Reports: no symptoms Allergies: Coded Allergies: NO KNOWN ALLERGIES (Verified Allergy, Unknown, 02/26/18) Objective Vital Signs Notes General Appearance: WD/WN HEENT: normocephalic, atraumatic Respiratory/Chest: chest wall non-tender, lungs clear Cardiovascular: normal peripheral pulses, regular rhythm Abdomen: normal bowel sounds, soft, non tender, moderate distension Extremities: no cyanosis Skin: no rash Neurologic/Psychiatric: channel director II-XII grossly normal Lymphatic: no neck adenopathy Microbiology Date/Time Source Procedure Growth Status 02/26/18 08:00 Blood Blood Culture - Preliminary NO GROWTH AFTER 48 HOURS Resulted 02/26/18 07:50 Blood Blood Culture - Preliminary NO GROWTH AFTER 48 HOURS Resulted 02/26/18 22:30 Nasopharynx Influenza Types A,B Antigen (MARYSOL) - Final Complete 02/26/18 22:40 Stool Clostridium difficile Toxin Assay - Final Complete 02/26/18 14:15 Urine,Clean Catch Urine Culture - Final NO GROWTH AFTER 48 HOURS Complete Laboratory Tests 02/27/18 15:04: Urine Opiates Screen Negative, Urine Barbiturates Screen Negative, Phencyclidine (PCP) Screen Negative, Urine Amphetamines Screen Negative, Urine Benzodiazepines Screen Negative, Urine Cocaine Screen Negative, Urine Marijuana (THC) Screen Negative 02/28/18 03:55: White Blood Count 29.9*H, Red Blood Count 3.54L, Hemoglobin 10.8L, Hematocrit 31.5L, Mean Corpuscular Volume 89, Mean Corpuscular Hemoglobin 30.4, Mean Corpuscular Hemoglobin Concent 34.2, Red Cell Distribution Width 11.2L, Platelet Count 377, Mean Platelet Volume 7.0, Neutrophils (%) (Auto) , Lymphocytes (%) (Auto) , Monocytes (%) (Auto) , Eosinophils (%) (Auto) , Basophils (%) (Auto) , Differential Total Cells Counted 100, Neutrophils % ( Manual) 88H, Lymphocytes % (Manual) 3L, Monocytes % (Manual) 2, Eosinophils % ( Manual) 0, Basophils % (Manual) 0, Band Neutrophils 7, Platelet Estimate Adequate, Platelet Morphology Normal, Hypochromasia 1+, Sodium Level 134L, Potassium Level 3.8, Chloride Level 95L, Carbon Dioxide Level 18L, Anion Gap 21H , Blood Urea Nitrogen 113H, Creatinine 7.8H, Estimat Glomerular Filtration Rate , Glucose Level 118H, Uric Acid 11.8H, Calcium Level 8.1L, Phosphorus Level 9.0H , Magnesium Level 2.6H, Total Bilirubin 3.8H, Direct Bilirubin 2.1H, Gamma Glutamyl Transpeptidase 93H, Aspartate Amino Transf (AST/SGOT) 634H, Alanine Aminotransferase (ALT/SGPT) 218H, Alkaline Phosphatase 124H, Pro-B-Type Natriuretic Peptide 3919H, Total Protein 7.0, Albumin 1.6L, Globulin 6.0, Random Vancomycin Level 15.0, Hepatitis A IgM Antibody [Pending], Hepatitis B Surface Antigen [Pending], Hepatitis B Core IgM Antibody [Pending], Hepatitis C Antibody [Pending] Current Medications Medications (Trade) Dose Ordered Sig/Aristides Route PRN Reason Start Time Stop Time Status Last Admin Dose Admin Acetaminophen (Tylenol) 650 mg Q4H PRN ORAL T>100.5 02/26/18 10:30 03/28/18 10:29 02/27/18 10:51 Acetaminophen (Tylenol) 650 mg Q6H PRN ORAL Mild Pain 02/27/18 11:45 03/28/18 06:29 02/28/18 00:35 Albuterol/ Ipratropium (Albuterol/ Ipratropium) 3 ml Q4H PRN HHN Shortness of Breath 02/26/18 10:30 03/03/18 10:29 02/27/18 23:03 Cefepime HCl 1 gm/ Dextrose 55 ml @ 110 mls/hr Q24H IVPB 02/26/18 12:00 03/05/18 11:59 02/27/18 11:45 Chlorhexidine Gluconate (Silva-Hex 2%) 1 applic DAILY@1999 TOPIC 02/27/18 20:00 03/29/18 19:59 02/27/18 21:40 Dextrose (Dextrose 50%) 25 ml Q30M PRN IV hypoglycemia 02/26/18 10:45 03/28/18 10:42 Dextrose (Dextrose 50%) 50 ml Q30M PRN IV hypoglycemia 02/26/18 10:45 03/28/18 10:44 Docusate Sodium (Colace) 100 mg THREE TIMES A DAY ORAL 02/27/18 18:00 03/29/18 17:59 02/28/18 08:20 Heparin Sodium (Porcine) (Heparin 5000 units/ml) 5,000 units EVERY 12 HOURS SUBQ 02/26/18 09:00 03/28/18 08:59 02/28/18 08:21 Linezolid (Zyvox) 600 mg EVERY 12 HOURS ORAL 02/27/18 21:00 03/04/18 20:59 02/28/18 08:19 Metronidazole (Flagyl) 500 mg Q8HR ORAL 02/26/18 15:00 03/05/18 14:59 02/28/18 05:30 Morphine Sulfate (Morphine Sulfate) 2 mg Q4H PRN IVP PAIN 4-10 02/26/18 10:30 03/05/18 10:29 Nitroglycerin (Ntg) 0.4 mg Q5MIN X 3 DOSES PRN SL Prn Chest Pain 02/26/18 10:45 03/28/18 10:44 Ondansetron HCl (Zofran) 4 mg Q6H PRN IVP Nausea & Vomiting 02/26/18 10:30 03/28/18 10:29 Pantoprazole (Protonix) 40 mg EVERY 12 HOURS ORAL 02/27/18 21:00 03/29/18 20:59 02/28/18 08:20 Polyethylene Glycol (Miralax) 17 gm DAILYPRN PRN ORAL Constipation 02/26/18 10:30 03/28/18 10:29 Quetiapine Fumarate (SEROquel) 12.5 mg Q4H PRN ORAL agitation 02/26/18 12:15 03/28/18 12:14 Sevelamer Carbonate (Renvela) 1,600 mg THREE TIMES A DAY ORAL 02/27/18 18:00 03/29/18 17:59 02/28/18 08:20 Temazepam (Restoril) 15 mg HSPRN PRN ORAL Insomnia 02/26/18 21:00 03/05/18 20:59 Subjective ROS Limited/Unobtainable: No Allergies: Coded Allergies: NO KNOWN ALLERGIES (Verified Allergy, Unknown, 02/26/18) Objective Last 24 Hour Vital Signs Date Time Temp Pulse Resp B/P (MAP) Pulse Ox O2 Delivery O2 Flow Rate FiO2 03/03/18 16:00 97.7 99 18 165/92 (116) 92 03/03/18 16:00 95 03/03/18 11:53 101 03/03/18 11:43 97.6 93 20 138/70 (92) 92 03/03/18 09:19 Simple Mask 5.0 03/03/18 09:02 96 Venturi Mask 6.0 35 03/03/18 09:02 95 20 Venturi Mask 6.0 35 03/03/18 09:02 Venturi Mask 6.0 35 03/03/18 09:00 Venturi Mask 6.0 03/03/18 08:01 96 03/03/18 08:00 97.1 93 20 138/88 (105) 98 03/03/18 07:29 Simple Mask 5.0 03/03/18 04:00 93 03/03/18 04:00 97.3 95 20 125/89 (101) 96 03/03/18 00:00 98.0 94 20 122/80 (94) 97 03/03/18 00:00 96 03/02/18 21:00 Venturi Mask 6.0 03/02/18 20:19 Venturi Mask 6.0 35 03/02/18 20:18 95 Venturi Mask 6.0 35 03/02/18 20:17 94 20 Venturi Mask 6.0 35 03/02/18 20:00 97.7 95 20 132/79 (96) 95 03/02/18 20:00 94 Intake and Output 03/02/18 03/03/18 19:00 07:00 Intake Total 1335 ml 825 ml Output Total 300 ml 550 ml Balance 1035 ml 275 ml IV Total 1335 ml 825 ml Output Urine Total 300 ml 550 ml Microbiology Date/Time Source Procedure Growth Status 03/01/18 20:20 Sputum Gram Stain - Final Resulted 03/01/18 20:20 Sputum Sputum Culture - Preliminary NORMAL UPPER RESPIRATORY RIDGE AT 24 ... Resulted Laboratory Tests 03/03/18 05:30: White Blood Count 24.9*H, Red Blood Count 2.73L, Hemoglobin 8.1L, Hematocrit 24.9L, Mean Corpuscular Volume 91, Mean Corpuscular Hemoglobin 29.8, Mean Corpuscular Hemoglobin Concent 32.6, Red Cell Distribution Width 11.8, Platelet Count 523H, Mean Platelet Volume 5.7L, Neutrophils (%) (Auto) , Lymphocytes (%) (Auto) , Monocytes (%) (Auto) , Eosinophils (%) (Auto) , Basophils (%) (Auto) , Differential Total Cells Counted 100, Neutrophils % (Manual) 82H, Lymphocytes % (Manual) 10L, Monocytes % (Manual) 5, Eosinophils % (Manual) 3, Basophils % ( Manual) 0, Band Neutrophils 0, Nucleated Red Blood Cells 1, Platelet Estimate IncreasedH, Platelet Morphology Normal, Hypochromasia 1+, Sodium Level 142, Potassium Level 3.2L, Chloride Level 102, Carbon Dioxide Level 19L, Anion Gap 21H, Blood Urea Nitrogen 170H, Creatinine 8.4H, Estimat Glomerular Filtration Rate , Glucose Level 186H, Uric Acid 14.6H, Calcium Level 7.0L, Phosphorus Level 7.9H, Magnesium Level 3.1H, Total Bilirubin 1.7H, Direct Bilirubin 1.2H, Gamma Glutamyl Transpeptidase 85, Aspartate Amino Transf (AST/SGOT) 193H, Alanine Aminotransferase (ALT/SGPT) 129H, Alkaline Phosphatase 100, Total Creatine Kinase 2683H, C-Reactive Protein, Quantitative 30.4H, Pro-B-Type Natriuretic Peptide 676H, Total Protein 6.2L, Albumin 1.6L, Globulin 4.6, Albumin/Globulin Ratio 0.3L 03/03/18 16:30: C-Reactive Protein, Quantitative 22.7H Current Medications Medications (Trade) Dose Ordered Sig/Aristides Route PRN Reason Start Time Stop Time Status Last Admin Dose Admin Acetaminophen (Tylenol) 650 mg Q4H PRN ORAL T>100.5 03/01/18 22:30 03/28/18 10:29 Acetaminophen (Tylenol) 650 mg Q6H PRN ORAL Mild Pain 03/01/18 23:45 03/28/18 06:29 Allopurinol (Allopurinol) 300 mg DAILY ORAL 03/02/18 09:00 04/01/18 08:59 03/03/18 09:44 Cefepime HCl 1 gm/ Dextrose 55 ml @ 110 mls/hr Q24H IVPB 03/02/18 12:00 03/05/18 11:59 03/03/18 12:13 Chlorhexidine Gluconate (Silva-Hex 2%) 1 applic DAILY@2000 TOPIC 03/02/18 20:00 03/29/18 19:59 03/02/18 20:57 Dextrose (Dextrose 50%) 25 ml Q30M PRN IV Hypoglycemia 03/02/18 13:45 04/01/18 13:44 Dextrose (Dextrose 50%) 50 ml Q30M PRN IV Hypoglycemia 03/02/18 13:45 04/01/18 13:44 Dextrose/Sodium Chloride 1,000 ml @ 75 mls/hr [id number] IV 03/01/18 21:15 03/31/18 09:29 03/03/18 14:26 Docusate Sodium (Colace) 100 mg THREE TIMES A DAY ORAL 03/02/18 09:00 03/29/18 17:59 03/03/18 09:44 Heparin Sodium (Porcine) (Heparin 5000 units/ml) 5,000 units EVERY 12 HOURS SUBQ 03/02/18 09:00 03/28/18 08:59 03/03/18 09:46 Insulin Aspart (NovoLOG) BEFORE MEALS AND HS SUBQ 03/02/18 16:30 04/01/18 16:29 03/03/18 17:37 Levofloxacin (Levaquin) 500 mg QOD ORAL 03/02/18 09:00 03/09/18 08:59 03/02/18 08:33 Linezolid 300 ml @ 300 mls/hr Q12HR IVPB 03/02/18 09:00 03/09/18 08:59 03/03/18 09:44 Nitroglycerin (Ntg) 0.4 mg Q5MIN X 3 DOSES PRN SL Prn Chest Pain 03/01/18 21:15 03/28/18 10:44 Ondansetron HCl (Zofran) 4 mg Q6H PRN IVP Nausea & Vomiting 03/01/18 22:30 03/28/18 10:29 Pantoprazole (Protonix) 40 mg EVERY 12 HOURS ORAL 03/02/18 09:00 03/29/18 20:59 03/03/18 09:44 Polyethylene Glycol (Miralax) 17 gm DAILYPRN PRN ORAL Constipation 03/02/18 10:30 03/28/18 10:29 Sevelamer Carbonate (Renvela) 2,400 mg THREE TIMES A DAY ORAL 03/02/18 09:00 03/29/18 17:59 03/03/18 09:44 Temazepam (Restoril) 15 mg HSPRN PRN ORAL Insomnia 03/02/18 21:00 03/05/18 20:59 Juancarlos Malin MD Mar 03, 2018 19:09
--- NOTE | 2018-03-03 19:14 | NUR ---
HAND-OFF: Report given to miranda barnes.
--- NOTE | 2018-03-03 19:30 | NUR ---
NURSE NOTES: Report received from Gayathri RN and Gianfranco RN. Pt is resting in bed in stable condition. Pt is awake, alert, and oriented x2. Reorientation to date provided. Pt verbalized understanding. Pt is currently refusing Venturi mask or nasal cannula. O2 saturation checked and noted to be 93% on room air. Will monitor for changes in condition. Fortune is patent and draining to gravity. Dark tono urine noted. R IJ Keshav cath site and dressing noted to be dry and intact. Bilateral soft wrist restraints noted to be in place. Skin is intact at restraint sites, no swelling noted, peripheral pulses palpated. Bed is in lowest position with brake engaged, side rails up x3, and bed alarm on. Call light and side table are within reach. Will continue to monitor.
[2018-03-03 20:00] VITALS: BP 138/77
[2018-03-03] MEDS: Dyna-Hex 2% Top Sol 2oz TOPIC SCH (21:01)
--- NOTE | 2018-03-03 22:45 | General Progress Note ---
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 Status: stable, progressing Assessment/Plan seroquel prn provided ro/st Subjective Neurologic/Psychiatric: Reports: anxiety Allergies: Coded Allergies: NO KNOWN ALLERGIES (Verified Allergy, Unknown, 02/26/18) Subjective more alert more oriented was able to answer the questions Objective Last 24 Hour Vital Signs Date Time Temp Pulse Resp B/P (MAP) Pulse Ox O2 Delivery O2 Flow Rate FiO2 03/03/18 21:00 Room Air 03/03/18 21:00 98 03/03/18 20:00 98.3 96 24 138/77 (97) 93 03/03/18 16:00 97.7 99 18 165/92 (116) 92 03/03/18 16:00 95 03/03/18 11:53 101 03/03/18 11:43 97.6 93 20 138/70 (92) 92 03/03/18 09:19 Simple Mask 5.0 03/03/18 09:02 96 Venturi Mask 6.0 35 03/03/18 09:02 95 20 Venturi Mask 6.0 35 03/03/18 09:02 Venturi Mask 6.0 35 03/03/18 09:00 Venturi Mask 6.0 03/03/18 08:01 96 03/03/18 08:00 97.1 93 20 138/88 (105) 98 03/03/18 07:29 Simple Mask 5.0 03/03/18 04:00 93 03/03/18 04:00 97.3 95 20 125/89 (101) 96 03/03/18 00:00 98.0 94 20 122/80 (94) 97 03/03/18 00:00 96 Intake and Output 03/02/18 03/03/18 19:00 07:00 Intake Total 1335 ml 825 ml Output Total 300 ml 550 ml Balance 1035 ml 275 ml IV Total 1335 ml 825 ml Output Urine Total 300 ml 550 ml Laboratory Tests 03/03/18 05:30: White Blood Count 24.9*H, Red Blood Count 2.73L, Hemoglobin 8.1L, Hematocrit 24.9L, Mean Corpuscular Volume 91, Mean Corpuscular Hemoglobin 29.8, Mean Corpuscular Hemoglobin Concent 32.6, Red Cell Distribution Width 11.8, Platelet Count 523H, Mean Platelet Volume 5.7L, Neutrophils (%) (Auto) , Lymphocytes (%) (Auto) , Monocytes (%) (Auto) , Eosinophils (%) (Auto) , Basophils (%) (Auto) , Differential Total Cells Counted 100, Neutrophils % (Manual) 82H, Lymphocytes % (Manual) 10L, Monocytes % (Manual) 5, Eosinophils % (Manual) 3, Basophils % ( Manual) 0, Band Neutrophils 0, Nucleated Red Blood Cells 1, Platelet Estimate IncreasedH, Platelet Morphology Normal, Hypochromasia 1+, Sodium Level 142, Potassium Level 3.2L, Chloride Level 102, Carbon Dioxide Level 19L, Anion Gap 21H, Blood Urea Nitrogen 170H, Creatinine 8.4H, Estimat Glomerular Filtration Rate , Glucose Level 186H, Uric Acid 14.6H, Calcium Level 7.0L, Phosphorus Level 7.9H, Magnesium Level 3.1H, Total Bilirubin 1.7H, Direct Bilirubin 1.2H, Gamma Glutamyl Transpeptidase 85, Aspartate Amino Transf (AST/SGOT) 193H, Alanine Aminotransferase (ALT/SGPT) 129H, Alkaline Phosphatase 100, Total Creatine Kinase 2683H, C-Reactive Protein, Quantitative 30.4H, Pro-B-Type Natriuretic Peptide 676H, Total Protein 6.2L, Albumin 1.6L, Globulin 4.6, Albumin/Globulin Ratio 0.3L 03/03/18 16:30: C-Reactive Protein, Quantitative 22.7H Height (Feet): 5 Height (Inches): 7.00 Weight (Pounds): 216 General Appearance: no apparent distress, alert, agitated Emely Henry MD Mar 03, 2018 22:45
[2018-03-04] VITALS: BP 146/78
[2018-03-04] MEDS: D5NS 1,000 ML IV SCH ×2 (03:39→15:16)
[2018-03-04 04:00] VITALS: BP 130/77
[2018-03-04] MEDS: NovoLOG Insulin Flexpen SUBQ SCH ×4 (05:53→20:21)
[2018-03-04 06:11] LABS: ALANINE AMINOTRANSFERASE 109 U/L (12-78); ALBUMIN 1.5 G/DL (3.4-5.0); ALBUMIN/GLOBULIN RATIO 0.3 (1.0-2.7); ALKALINE PHOSPHATASE 101 U/L (46-116); ANION GAP 14 mmol/L (5-15); ASPARTATE AMINO TRANSFERASE 154 U/L (15-37); BILIRUBIN,TOTAL 1.5 MG/DL (0.2-1.0); BLOOD UREA NITROGEN 114 mg/dL (7-18); CALCIUM 7.2 MG/DL (8.5-10.1); CARBON DIOXIDE 25 MMOL/L (21-32); CHLORIDE 102 MMOL/L (98-107); CREATININE 5.9 MG/DL (0.55-1.30); POTASSIUM 2.8 MMOL/L (3.5-5.1); SODIUM 141 MMOL/L (136-145)
[2018-03-04 06:15] LABS: HEMATOCRIT 23.6 % (42.0-52.0); HEMOGLOBIN 7.8 G/DL (14.2-18.0); MEAN CORPUSCULAR VOLUME 91 FL (80-99); PHOSPHORUS 5.3 MG/DL (2.5-4.9); PLATELET COUNT 514 K/UL (150-450); RED CELL DISTRIBUTION WIDTH 11.9 % (11.6-14.8); WHITE BLOOD COUNT 20.8 K/UL (4.8-10.8)
[2018-03-04 06:20] LABS: BILIRUBIN,DIRECT 0.9 MG/DL (0.0-0.3)
--- NOTE | 2018-03-04 07:28 | NUR ---
HAND-OFF: Report given to Dave Dutton RN. Pt is resting in bed in stable condition. No acute distress noted. Endorsed plan of care.
[2018-03-04 08:00] VITALS: BP 125/84
--- NOTE | 2018-03-04 08:00 | NUR ---
NURSE NOTES: Received patient in bed. On bilateral soft wrist restraint, patient is a/o x 2, confused, does not follow command. Call light within reach. Safety measures applied.
[2018-03-04] MEDS: Docusate 100mg cap ORAL SCH ×4 (08:44→17:30)
[2018-03-04] MEDS: Levofloxacin 500mg tab ORAL SCH ×2 (08:44→09:00)
[2018-03-04] MEDS: Heparin 5000 units/ml inj SUBQ SCH ×2 (08:48→20:25)
--- NOTE | 2018-03-04 08:59 | NUR ---
NURSE NOTES: Spoke with Dr. Matos, made him aware that patient is refusing all PO medications this morning, including Kdur.
--- NOTE | 2018-03-04 09:03 | General Progress Note ---
Assessment/Plan Problem List: (1) colonic ileus (2) PNA (pneumonia) ICD Codes: J18.9 - Pneumonia, unspecified organism SNOMED: 842407388 (3) Abdominal distention ICD Codes: R14.0 - Abdominal distension (gaseous) SNOMED: 86038021 (4) Anemia ICD Codes: D64.9 - Anemia, unspecified SNOMED: 283163248 (5) Elevated liver function tests ICD Codes: R94.5 - Abnormal results of liver function studies SNOMED: 695199400, 045678567 (6) Hypertension ICD Codes: I10 - Essential (primary) hypertension SNOMED: 13065253 (7) Colon cancer ICD Codes: C18.9 - Malignant neoplasm of colon, unspecified SNOMED: 790379795 (8) Renal failure ICD Codes: N19 - Unspecified kidney failure SNOMED: 82555970 Assessment/Plan swallow eval>>>pending start puree diet pending swallow eval colace and miralax abx rectal tube>>>patient refused KUB in am>>no sig changes trending down LFTS ct and us reviewed fu replace K Subjective ROS Limited/Unobtainable: No Allergies: Coded Allergies: NO KNOWN ALLERGIES (Verified Allergy, Unknown, 02/26/18) Subjective no abd pain refusing meds Objective Last 24 Hour Vital Signs Date Time Temp Pulse Resp B/P (MAP) Pulse Ox O2 Delivery O2 Flow Rate FiO2 03/04/18 08:00 97.7 89 22 125/84 (98) 96 03/04/18 07:49 Nasal Cannula 3.0 32 03/04/18 07:49 97 Nasal Cannula 3.0 32 03/04/18 07:48 84 18 Nasal Cannula 3.0 32 03/04/18 04:00 85 03/04/18 04:00 98.5 93 22 130/77 (94) 96 03/04/18 00:00 95 03/04/18 00:00 98.8 95 22 146/78 (100) 96 03/03/18 23:52 96 Nasal Cannula 3.0 32 03/03/18 23:52 Nasal Cannula 3.0 32 03/03/18 21:00 Room Air 03/03/18 21:00 98 03/03/18 20:00 98.3 96 24 138/77 (97) 93 03/03/18 19:30 93 20 Nasal Cannula 3.0 32 03/03/18 16:00 97.7 99 18 165/92 (116) 92 03/03/18 16:00 95 03/03/18 11:53 101 03/03/18 11:43 97.6 93 20 138/70 (92) 92 03/03/18 09:19 Simple Mask 5.0 03/03/18 09:02 96 Venturi Mask 6.0 35 03/03/18 09:02 95 20 Venturi Mask 6.0 35 03/03/18 09:02 Venturi Mask 6.0 35 Intake and Output 03/03/18 03/04/18 19:00 07:00 Intake Total 1050 ml 1550 ml Output Total 1300 ml 500 ml Balance -250 ml 1050 ml Intake Oral 450 ml 500 ml IV Total 600 ml 1050 ml Output Urine Total 300 ml 500 ml Hemodialysis UF 1000 ml Laboratory Tests 03/03/18 16:30: C-Reactive Protein, Quantitative 22.7H 03/04/18 05:24: White Blood Count 20.8H, Red Blood Count 2.60L, Hemoglobin 7.8L, Hematocrit 23.6L, Mean Corpuscular Volume 91, Mean Corpuscular Hemoglobin 29.9, Mean Corpuscular Hemoglobin Concent 32.9, Red Cell Distribution Width 11.9, Platelet Count 514H, Mean Platelet Volume 5.5L, Neutrophils (%) (Auto) , Lymphocytes (%) (Auto) , Monocytes (%) (Auto) , Eosinophils (%) (Auto) , Basophils (%) (Auto) , Differential Total Cells Counted 100, Neutrophils % (Manual) 75, Lymphocytes % ( Manual) 16L, Monocytes % (Manual) 6, Eosinophils % (Manual) 1, Basophils % ( Manual) 0, Band Neutrophils 2, Platelet Estimate IncreasedH, Platelet Morphology Normal, Hypochromasia 1+, Sodium Level 141, Potassium Level 2.8L, Chloride Level 102, Carbon Dioxide Level 25, Anion Gap 14, Blood Urea Nitrogen 114H, Creatinine 5.9H, Estimat Glomerular Filtration Rate , Glucose Level 149H, Uric Acid 9.9H, Calcium Level 7.2L, Phosphorus Level 5.3H, Magnesium Level 2.3, Total Bilirubin 1.5H, Direct Bilirubin 0.9H, Aspartate Amino Transf (AST/SGOT) 154H, Alanine Aminotransferase (ALT/SGPT) 109H, Alkaline Phosphatase 101, Pro-B- Type Natriuretic Peptide 672H, Total Protein 6.3L, Albumin 1.5L, Globulin 4.8, Albumin/Globulin Ratio 0.3L Height (Feet): 5 Height (Inches): 7.00 Weight (Pounds): 216 General Appearance: mild distress EENT: normal ENT inspection Neck: supple Cardiovascular: normal rate Respiratory/Chest: decreased breath sounds Abdomen: hypoactive bowel sounds, distended Extremities: non-tender Ismael Matos MD Mar 04, 2018 09:03
--- NOTE | 2018-03-04 09:54 | NUR ---
NURSE NOTES: Left msg to Dr. Lora that patient refused morning medication including k-dur. only 1 kdur 20meq pill patient took. Brother in law by the bedside, RN highly encouraged the patient to take medication, patient still refused.
[2018-03-04] MEDS ORDERED: D5NS 1000ml IV ONE (10:34)
--- NOTE | 2018-03-04 11:53 | Cardiology Progress Note ---
Assessment/Plan Assessment/Plan 1. Rhabdomyolysis. 2. Status post fall. 3. Prostate cancer, status post prostatectomy. 4. Colonic polyps, status post resection recently. 5. Acute renal failure on chronic renal insufficiency. 6. Leukocytosis. 7. Probable pneumonia, possible aspiration. 8. Mild diastolic relaxation on echocardiogram. 9. lyrica allergy 10. non sustianed wide complex tachy 11. afib spont converted to sinus tele noted sinus one episode of afib rvr yet but not recurrence iv metoprolol for hr control echo has shown normal wall motion dialysis as sched ct noted min trop down trend liekly demand related / renal insuf related has needed restriants is on nc abx hhn need to see if can limit hhn due to afib if has recurrent afib i may need to start on meds Subjective Cardiovascular: Denies: chest pain, lightheadedness, palpitations Respiratory: Denies: shortness of breath Gastrointestinal/Abdominal: Denies: abdominal pain Genitourinary: Denies: burning Objective Last 24 Hour Vital Signs Date Time Temp Pulse Resp B/P (MAP) Pulse Ox O2 Delivery O2 Flow Rate FiO2 03/04/18 09:08 Room Air 03/04/18 08:00 85 03/04/18 08:00 97.7 89 22 125/84 (98) 96 03/04/18 07:49 Nasal Cannula 3.0 32 03/04/18 07:49 97 Nasal Cannula 3.0 32 03/04/18 07:48 84 18 Nasal Cannula 3.0 32 03/04/18 04:00 85 03/04/18 04:00 98.5 93 22 130/77 (94) 96 03/04/18 00:00 95 03/04/18 00:00 98.8 95 22 146/78 (100) 96 03/03/18 23:52 96 Nasal Cannula 3.0 32 03/03/18 23:52 Nasal Cannula 3.0 32 03/03/18 21:00 Room Air 03/03/18 21:00 98 03/03/18 20:00 98.3 96 24 138/77 (97) 93 03/03/18 19:30 93 20 Nasal Cannula 3.0 32 03/03/18 16:00 97.7 99 18 165/92 (116) 92 03/03/18 16:00 95 03/03/18 11:53 101 General Appearance: alert Cardiovascular: normal rate, regular rhythm Respiratory/Chest: lungs clear Abdomen: non tender, soft Extremities: no swelling Intake and Output 03/03/18 03/04/18 18:59 06:59 Intake Total 1050 ml 1550 ml Output Total 1300 ml 500 ml Balance -250 ml 1050 ml Intake Oral 450 ml 500 ml IV Total 600 ml 1050 ml Output Urine Total 300 ml 500 ml Hemodialysis UF 1000 ml Laboratory Tests Test 03/03/18 16:30 03/04/18 05:24 C-Reactive Protein, Quantitative 22.7 mg/dL (0.00-0.90) H White Blood Count 20.8 K/UL (4.8-10.8) H Red Blood Count 2.60 M/UL (4.70-6.10) L Hemoglobin 7.8 G/DL (14.2-18.0) L Hematocrit 23.6 % (42.0-52.0) L Mean Corpuscular Volume 91 FL (80-99) Mean Corpuscular Hemoglobin 29.9 PG (27.0-31.0) Mean Corpuscular Hemoglobin Concent 32.9 G/DL (32.0-36.0) Red Cell Distribution Width 11.9 % (11.6-14.8) Platelet Count 514 K/UL (150-450) H Mean Platelet Volume 5.5 FL (6.5-10.1) L Neutrophils (%) (Auto) % (45.0-75.0) Lymphocytes (%) (Auto) % (20.0-45.0) Monocytes (%) (Auto) % (1.0-10.0) Eosinophils (%) (Auto) % (0.0-3.0) Basophils (%) (Auto) % (0.0-2.0) Differential Total Cells Counted 100 Neutrophils % (Manual) 75 % (45-75) Lymphocytes % (Manual) 16 % (20-45) L Monocytes % (Manual) 6 % (1-10) Eosinophils % (Manual) 1 % (0-3) Basophils % (Manual) 0 % (0-2) Band Neutrophils 2 % (0-8) Platelet Estimate Increased H Platelet Morphology Normal Hypochromasia 1+ Sodium Level 141 MMOL/L (136-145) Potassium Level 2.8 MMOL/L (3.5-5.1) L Chloride Level 102 MMOL/L (98-107) Carbon Dioxide Level 25 MMOL/L (21-32) Anion Gap 14 mmol/L (5-15) Blood Urea Nitrogen 114 mg/dL (7-18) H Creatinine 5.9 MG/DL (0.55-1.30) H Estimat Glomerular Filtration Rate mL/min (>60) Glucose Level 149 MG/DL (74-106) H Uric Acid 9.9 MG/DL (2.6-7.2) H Calcium Level 7.2 MG/DL (8.5-10.1) L Phosphorus Level 5.3 MG/DL (2.5-4.9) H Magnesium Level 2.3 MG/DL (1.8-2.4) Total Bilirubin 1.5 MG/DL (0.2-1.0) H Direct Bilirubin 0.9 MG/DL (0.0-0.3) H Aspartate Amino Transf (AST/SGOT) 154 U/L (15-37) H Alanine Aminotransferase (ALT/SGPT) 109 U/L (12-78) H Alkaline Phosphatase 101 U/L (46-116) Pro-B-Type Natriuretic Peptide 672 pg/mL (0-125) H Total Protein 6.3 G/DL (6.4-8.2) L Albumin 1.5 G/DL (3.4-5.0) L Globulin 4.8 g/dL Albumin/Globulin Ratio 0.3 (1.0-2.7) L Microbiology Date/Time Source Procedure Growth Status 03/01/18 20:20 Sputum Gram Stain - Final Complete 03/01/18 20:20 Sputum Sputum Culture - Final NORMAL UPPER RESPIRATORY RIDGE PRESENT Complete Car Nelson MD Mar 04, 2018 11:53
[2018-03-04 12:00] VITALS: BP 152/82
--- NOTE | 2018-03-04 12:13 | NUR ---
ST NOTE: BEDSIDE SWALLOW EVAL RECEIVED BEDSIDE SWALLOW EVAL ORDER CHART REVIEWED PRIOR THE EVALUATION PT IS A 72-YEAR-OLD MALE WHO WAS ADMITTED TO [facility] ON 02/25/18 DUE TO THE FALL AND AMS, PT WAS TRANSFERRED TO [facility] [place]. DYSPHAGIA RISK FACTOR: ELI INFILTRATE, HTN, ENCEPHALOPATHY, CARDIAC DISORDERS, H/O COLON CA AND PROSTATE CA. PER CXR: L LUNG INFILTRATE AND PLEURAL FLUID PER CT HEAD AT [place]: NO INTRACRANIAL HEMORRHAGE. PLOF: PT LIVES AT HOME. PT ALSO HAS CAREGIVER. NO POSLT WAS NOTED. PT IS FULL CODE. CURRENT STATUS: PT SEEN AT BEDSIDE IN LATE AM. ALERT, COOPERATIVE, SEEMS SLIGHTLY CONFUSED. PT WITH NC(3L), PT ORIENTED X 2, UNABLE TO RECALL THE NAME OF HOSPITAL BUT KNOWS HE IS IN THE HOSPITAL. PT RECALLED THE YEAR BUT DID NOT RECALL THE MONTH. POOR PO INTAKE. GIVEN PO TRIAL: THIN(STRAW), NECTAR THICK(TSP) AND PUREE(TSP), PT REFUSED MASTICATED SOLID INITIAL IMPRESSION: PROBABLE MILD OR WORSENED OROPHARYNGEAL DYSPHAGIA MISSING A FEW TEETH. QUESTIONABLE TONGUE SLIGHTLY DEVIATED TO R-SIDED. MILD INCREASED ORAL TRANSIT TIME AND OROPHARYNGEAL TRANSIT TIME. FAIR LARYNGEAL ELEVATION, NO OVERT S/S OF ASPIRATION. DUE TO PT HAS L-SIDED PNA, PT HAS RISK FOR ASPIRATION. RECOMMENDATIONS: 1. CONTINUE RENAL MOIST PUREE WITH NECTAR THICK LIQUIDS DIET. 2. STRICT ASPIRATION PRECAUTION WITH 1TO1 FEEDING. 3. VIDEOSWALLOW STUDY IF PT IS WILLING TO PARTICIPATE D/W PT, RNACOSTA AND BACK ORDER CLERK. POSTED ASPIRATION PRECAUTIONS SIGN.
--- NOTE | 2018-03-04 12:15 | Infectious Diseases Prog Note ---
Assessment/Plan Assessment/Plan Abx: IV Vancomycin 02/26- Cefepime 02/26- Assessment: SEpsis,imropving - 2ry to Legionella PNA and UTI- r/o bacteremia -02/27 CXR: Increasing left upper lobe consolidation, over one day. -CXR: Left lung infiltrates, likely pneumonia, and pleural fluid. Borderline cardiomegaly -Bcx NTD -u/a wbc tnct, nit +, leuk +2; cx NTD -influenza sc neg -legionella ag urine + -sp cx normal resp ceci Fever, SP Leukocytosis, improving slowly -CT abd/p: Dense left lower lobe consolidation and small pleural effusion. This is consistent with findings described on recent chest radiograph. Hypoattenuating bilateral kidneys with indistinctness of the renal margins, could indicate inflammatory change. Edema of the subcutaneous fat of the flanks bilaterally. The colon is diffusely gas-filled, upper limits normal in caliber. Probably indicates functional changes as no obstructive pathology is demonstrated. Other findings as noted, including small fat-containing bilateral inguinal hernias, 9 cm left renal cyst Acute respiratory failure, now on NC BRITT, worsening- started on HD 02/28 Rhabdomyolosis; improving AMS, improvign s/p Fall Acute transaminitis, infection-2ry to Legionella infection; improving -HIV ab sc neg -Acute hepatitis panel neg Plan: -Continue Levaquin 750mg q48hrs #4 for LEgionella for 10-14 days -IV as patient refusing PO -D/c empiric PO Linezolid #6 (abx d#7/7) and Cefepime #6 -02/28 SP Flagyl #2 -02/27 SP IV Vancomycin #2 -f/u cx (Bl, sp, u) -Monitor CBC/CMP, temperatures -Renal f/u -CXR am Thank you for this consultation. Will continue to follow along with you. Discussed with RN. Subjective Allergies: Coded Allergies: NO KNOWN ALLERGIES (Verified Allergy, Unknown, 02/26/18) Subjective afebrile >72hrs WBC improving Bcx NTD at RA now Objective Vital Signs Last 24 Hour Vital Signs Date Time Temp Pulse Resp B/P (MAP) Pulse Ox O2 Delivery O2 Flow Rate FiO2 03/04/18 09:08 Room Air 03/04/18 08:00 85 03/04/18 08:00 97.7 89 22 125/84 (98) 96 03/04/18 07:49 Nasal Cannula 3.0 32 03/04/18 07:49 97 Nasal Cannula 3.0 32 03/04/18 07:48 84 18 Nasal Cannula 3.0 32 03/04/18 04:00 85 03/04/18 04:00 98.5 93 22 130/77 (94) 96 03/04/18 00:00 95 03/04/18 00:00 98.8 95 22 146/78 (100) 96 03/03/18 23:52 96 Nasal Cannula 3.0 32 03/03/18 23:52 Nasal Cannula 3.0 32 03/03/18 21:00 Room Air 03/03/18 21:00 98 03/03/18 20:00 98.3 96 24 138/77 (97) 93 03/03/18 19:30 93 20 Nasal Cannula 3.0 32 03/03/18 16:00 97.7 99 18 165/92 (116) 92 03/03/18 16:00 95 Height (Feet): 5 Height (Inches): 7.00 Weight (Pounds): 216 Objective General Appearance: WD/WN HEENT: normocephalic, atraumatic Respiratory/Chest: chest wall non-tender, lungs clear Cardiovascular: normal peripheral pulses, regular rhythm Abdomen: normal bowel sounds, soft, non tender, moderate distension Extremities: no cyanosis Skin: no rash Neurologic/Psychiatric: office receptionist II-XII grossly normal Lymphatic: no neck adenopathy Microbiology Date/Time Source Procedure Growth Status 03/01/18 20:20 Sputum Gram Stain - Final Complete 03/01/18 20:20 Sputum Sputum Culture - Final NORMAL UPPER RESPIRATORY CECI PRESENT Complete Laboratory Tests Test 03/03/18 16:30 03/04/18 05:24 C-Reactive Protein, Quantitative 22.7 mg/dL (0.00-0.90) H White Blood Count 20.8 K/UL (4.8-10.8) H Red Blood Count 2.60 M/UL (4.70-6.10) L Hemoglobin 7.8 G/DL (14.2-18.0) L Hematocrit 23.6 % (42.0-52.0) L Mean Corpuscular Volume 91 FL (80-99) Mean Corpuscular Hemoglobin 29.9 PG (27.0-31.0) Mean Corpuscular Hemoglobin Concent 32.9 G/DL (32.0-36.0) Red Cell Distribution Width 11.9 % (11.6-14.8) Platelet Count 514 K/UL (150-450) H Mean Platelet Volume 5.5 FL (6.5-10.1) L Neutrophils (%) (Auto) % (45.0-75.0) Lymphocytes (%) (Auto) % (20.0-45.0) Monocytes (%) (Auto) % (1.0-10.0) Eosinophils (%) (Auto) % (0.0-3.0) Basophils (%) (Auto) % (0.0-2.0) Differential Total Cells Counted 100 Neutrophils % (Manual) 75 % (45-75) Lymphocytes % (Manual) 16 % (20-45) L Monocytes % (Manual) 6 % (1-10) Eosinophils % (Manual) 1 % (0-3) Basophils % (Manual) 0 % (0-2) Band Neutrophils 2 % (0-8) Platelet Estimate Increased H Platelet Morphology Normal Hypochromasia 1+ Sodium Level 141 MMOL/L (136-145) Potassium Level 2.8 MMOL/L (3.5-5.1) L Chloride Level 102 MMOL/L (98-107) Carbon Dioxide Level 25 MMOL/L (21-32) Anion Gap 14 mmol/L (5-15) Blood Urea Nitrogen 114 mg/dL (7-18) H Creatinine 5.9 MG/DL (0.55-1.30) H Estimat Glomerular Filtration Rate mL/min (>60) Glucose Level 149 MG/DL (74-106) H Uric Acid 9.9 MG/DL (2.6-7.2) H Calcium Level 7.2 MG/DL (8.5-10.1) L Phosphorus Level 5.3 MG/DL (2.5-4.9) H Magnesium Level 2.3 MG/DL (1.8-2.4) Total Bilirubin 1.5 MG/DL (0.2-1.0) H Direct Bilirubin 0.9 MG/DL (0.0-0.3) H Aspartate Amino Transf (AST/SGOT) 154 U/L (15-37) H Alanine Aminotransferase (ALT/SGPT) 109 U/L (12-78) H Alkaline Phosphatase 101 U/L (46-116) Pro-B-Type Natriuretic Peptide 672 pg/mL (0-125) H Total Protein 6.3 G/DL (6.4-8.2) L Albumin 1.5 G/DL (3.4-5.0) L Globulin 4.8 g/dL Albumin/Globulin Ratio 0.3 (1.0-2.7) L Current Medications Medications (Trade) Dose Ordered Sig/Aristides Route PRN Reason Start Time Stop Time Status Last Admin Dose Admin Acetaminophen (Tylenol) 650 mg Q4H PRN ORAL T>100.5 03/01/18 22:30 03/28/18 10:29 Acetaminophen (Tylenol) 650 mg Q6H PRN ORAL Mild Pain 03/01/18 23:45 03/28/18 06:29 Allopurinol (Allopurinol) 300 mg DAILY ORAL 03/02/18 09:00 04/01/18 08:59 03/03/18 09:44 Cefepime HCl 1 gm/ Dextrose 55 ml @ 110 mls/hr Q24H IVPB 03/02/18 12:00 03/05/18 11:59 03/03/18 12:13 Chlorhexidine Gluconate (Silva-Hex 2%) 1 applic DAILY@2000 TOPIC 03/02/18 20:00 03/29/18 19:59 03/03/18 21:01 Dextrose (Dextrose 50%) 25 ml Q30M PRN IV Hypoglycemia 03/02/18 13:45 04/01/18 13:44 Dextrose (Dextrose 50%) 50 ml Q30M PRN IV Hypoglycemia 03/02/18 13:45 04/01/18 13:44 Dextrose/Sodium Chloride 1,000 ml @ 75 mls/hr [id number] IV 03/01/18 21:15 03/31/18 09:29 03/04/18 03:39 Docusate Sodium (Colace) 100 mg THREE TIMES A DAY ORAL 03/02/18 09:00 03/29/18 17:59 03/03/18 09:44 Heparin Sodium (Porcine) (Heparin 5000 units/ml) 5,000 units EVERY 12 HOURS SUBQ 03/02/18 09:00 03/28/18 08:59 03/04/18 08:48 Insulin Aspart (NovoLOG) BEFORE MEALS AND HS SUBQ 03/02/18 16:30 04/01/18 16:29 03/04/18 05:53 Levofloxacin (Levaquin) 500 mg QOD ORAL 03/02/18 09:00 03/09/18 08:59 03/02/18 08:33 Linezolid 300 ml @ 300 mls/hr Q12HR IVPB 03/02/18 09:00 03/09/18 08:59 03/04/18 08:48 Nitroglycerin (Ntg) 0.4 mg Q5MIN X 3 DOSES PRN SL Prn Chest Pain 03/01/18 21:15 03/28/18 10:44 Ondansetron HCl (Zofran) 4 mg Q6H PRN IVP Nausea & Vomiting 03/01/18 22:30 03/28/18 10:29 Pantoprazole (Protonix) 40 mg EVERY 12 HOURS ORAL 03/02/18 09:00 03/29/18 20:59 03/04/18 08:44 Polyethylene Glycol (Miralax) 17 gm DAILYPRN PRN ORAL Constipation 03/02/18 10:30 03/28/18 10:29 Sevelamer Carbonate (Renvela) 2,400 mg THREE TIMES A DAY ORAL 03/02/18 09:00 03/29/18 17:59 03/03/18 09:44 Temazepam (Restoril) 15 mg HSPRN PRN ORAL Insomnia 03/02/18 21:00 03/05/18 20:59 Melissa Martinez M.D. Mar 04, 2018 12:15
--- NOTE | 2018-03-04 13:01 | Nephrology Progress Note ---
Assessment/Plan Problem List: (1) ATN (acute tubular necrosis) (2) Rhabdomyolysis Assessment: CPK lowering (3) Pneumonia (4) encephalopathy due to toxin Assessment Acute renal failure- Rhabdo Pneumonia CVA ? Plan Slow Hydrate- albumin bolus monitor urine output Add Allopurinol hemodialysis 03/01 next 03/03 Phos binders NPO check ABG- results noted Fortune Monitor CPK - Uric Acid- LFTs monitor Renal parameters Avoid Nephrotoxics per orders Subjective ROS Limited/Unobtainable: No Constitutional: Reports: malaise, weakness Objective Objective Last 24 Hour Vital Signs Date Time Temp Pulse Resp B/P (MAP) Pulse Ox O2 Delivery O2 Flow Rate FiO2 03/04/18 12:00 97.3 92 20 152/82 (105) 94 03/04/18 09:08 Room Air 03/04/18 08:00 85 03/04/18 08:00 97.7 89 22 125/84 (98) 96 03/04/18 07:49 Nasal Cannula 3.0 32 03/04/18 07:49 97 Nasal Cannula 3.0 32 03/04/18 07:48 84 18 Nasal Cannula 3.0 32 03/04/18 04:00 85 03/04/18 04:00 98.5 93 22 130/77 (94) 96 03/04/18 00:00 95 03/04/18 00:00 98.8 95 22 146/78 (100) 96 03/03/18 23:52 96 Nasal Cannula 3.0 32 03/03/18 23:52 Nasal Cannula 3.0 32 03/03/18 21:00 Room Air 03/03/18 21:00 98 03/03/18 20:00 98.3 96 24 138/77 (97) 93 03/03/18 19:30 93 20 Nasal Cannula 3.0 32 03/03/18 16:00 97.7 99 18 165/92 (116) 92 03/03/18 16:00 95 Intake and Output 03/03/18 03/04/18 18:59 06:59 Intake Total 1050 ml 1550 ml Output Total 1300 ml 500 ml Balance -250 ml 1050 ml Intake Oral 450 ml 500 ml IV Total 600 ml 1050 ml Output Urine Total 300 ml 500 ml Hemodialysis UF 1000 ml Laboratory Tests 03/03/18 16:30: C-Reactive Protein, Quantitative 22.7H 03/04/18 05:24: White Blood Count 20.8H, Red Blood Count 2.60L, Hemoglobin 7.8L, Hematocrit 23.6L, Mean Corpuscular Volume 91, Mean Corpuscular Hemoglobin 29.9, Mean Corpuscular Hemoglobin Concent 32.9, Red Cell Distribution Width 11.9, Platelet Count 514H, Mean Platelet Volume 5.5L, Neutrophils (%) (Auto) , Lymphocytes (%) (Auto) , Monocytes (%) (Auto) , Eosinophils (%) (Auto) , Basophils (%) (Auto) , Differential Total Cells Counted 100, Neutrophils % (Manual) 75, Lymphocytes % ( Manual) 16L, Monocytes % (Manual) 6, Eosinophils % (Manual) 1, Basophils % ( Manual) 0, Band Neutrophils 2, Platelet Estimate IncreasedH, Platelet Morphology Normal, Hypochromasia 1+, Sodium Level 141, Potassium Level 2.8L, Chloride Level 102, Carbon Dioxide Level 25, Anion Gap 14, Blood Urea Nitrogen 114H, Creatinine 5.9H, Estimat Glomerular Filtration Rate , Glucose Level 149H, Uric Acid 9.9H, Calcium Level 7.2L, Phosphorus Level 5.3H, Magnesium Level 2.3, Total Bilirubin 1.5H, Direct Bilirubin 0.9H, Aspartate Amino Transf (AST/SGOT) 154H, Alanine Aminotransferase (ALT/SGPT) 109H, Alkaline Phosphatase 101, Pro-B- Type Natriuretic Peptide 672H, Total Protein 6.3L, Albumin 1.5L, Globulin 4.8, Albumin/Globulin Ratio 0.3L Height (Feet): 5 Height (Inches): 7.00 Weight (Pounds): 216 General Appearance: no apparent distress Cardiovascular: tachycardia Respiratory/Chest: decreased breath sounds Abdomen: distended Yayo Lora MD Mar 04, 2018 13:01
--- NOTE | 2018-03-04 13:37 | NUR ---
RD ASSESSMENT & RECOMMENDATIONS SEE CARE ACTIVITY FOR COMPLETE ASSESSMENT DAILY ESTIMATED NEEDS: Needs based on ARF, on HD 74.5kg 25-30 kcals/kg 1124-7208 total kcals 1.5-2 g protein/kg 112-149 g total protein Fluid per MD, on HD NUTRITION DIAGNOSIS: 1) Increased protein needs r/t ARF as evidenced by pt with ATN, requiring HD, elev Creat (9.6-> 5.9), elev BUN, elev Phos (5.3), adm w. Rhabdo (Creat kinase >[id number] on adm). 2) Swallowing difficulty r/t dysphagia and PNA as evidenced by [employer] eval, recs for puree texture and NTL. CURRENT DIET: Now RENAL puree NTL PO DIET RECOMMENDATIONS: RENAL DIET + DOUBLE PROTEIN PORTIONS (texture per [employer]) ADDITIONAL RECOMMENDATIONS: 1) Add NEPRO 1 tetra meggan daily w/ variable po intake (425 kcal/ 19g prot each) 2) Recalibrate bed scale for accurate CBW -> POST HD for dry wt 3) Monitor po intake, need for snacks
--- NOTE | 2018-03-04 14:43 | Internal Med Progress Note ---
Subjective Physician Name Ruperto Cowan Attending Physician Ruperto Cowan MD Current Medications Medications (Trade) Dose Ordered Sig/Aristides Route PRN Reason Start Time Stop Time Status Last Admin Dose Admin Acetaminophen (Tylenol) 650 mg Q4H PRN ORAL T>100.5 03/01/18 22:30 03/28/18 10:29 Acetaminophen (Tylenol) 650 mg Q6H PRN ORAL Mild Pain 03/01/18 23:45 03/28/18 06:29 Allopurinol (Allopurinol) 300 mg DAILY ORAL 03/02/18 09:00 04/01/18 08:59 03/03/18 09:44 Chlorhexidine Gluconate (Silva-Hex 2%) 1 applic DAILY@2000 TOPIC 03/02/18 20:00 03/29/18 19:59 03/03/18 21:01 Dextrose (Dextrose 50%) 25 ml Q30M PRN IV Hypoglycemia 03/02/18 13:45 04/01/18 13:44 Dextrose (Dextrose 50%) 50 ml Q30M PRN IV Hypoglycemia 03/02/18 13:45 04/01/18 13:44 Dextrose/Sodium Chloride 1,000 ml @ 75 mls/hr [id number] IV 03/01/18 21:15 03/31/18 09:29 03/04/18 03:39 Docusate Sodium (Colace) 100 mg THREE TIMES A DAY ORAL 03/02/18 09:00 03/29/18 17:59 03/03/18 09:44 Heparin Sodium (Porcine) (Heparin 5000 units/ml) 5,000 units EVERY 12 HOURS SUBQ 03/02/18 09:00 03/28/18 08:59 03/04/18 08:48 Insulin Aspart (NovoLOG) BEFORE MEALS AND HS SUBQ 03/02/18 16:30 04/01/18 16:29 03/04/18 12:19 Levofloxacin 100 ml @ 100 mls/hr Q48H IVPB 03/06/18 12:00 03/13/18 11:59 Levofloxacin 150 ml @ 100 mls/hr NOW IVPB 03/04/18 15:00 03/04/18 18:00 Nitroglycerin (Ntg) 0.4 mg Q5MIN X 3 DOSES PRN SL Prn Chest Pain 03/01/18 21:15 03/28/18 10:44 Ondansetron HCl (Zofran) 4 mg Q6H PRN IVP Nausea & Vomiting 03/01/18 22:30 03/28/18 10:29 Pantoprazole (Protonix) 40 mg EVERY 12 HOURS ORAL 03/02/18 09:00 03/29/18 20:59 03/04/18 08:44 Polyethylene Glycol (Miralax) 17 gm DAILYPRN PRN ORAL Constipation 03/02/18 10:30 03/28/18 10:29 Sevelamer Carbonate (Renvela) 2,400 mg THREE TIMES A DAY ORAL 03/02/18 09:00 03/29/18 17:59 03/03/18 09:44 Temazepam (Restoril) 15 mg HSPRN PRN ORAL Insomnia 03/02/18 21:00 03/05/18 20:59 Allergies: Coded Allergies: NO KNOWN ALLERGIES (Verified Allergy, Unknown, 02/26/18) Subjective awake, alert, responsive, NAD, WBC: 20.8, Renal function improving. Objective Last Vital Signs Date Time Temp Pulse Resp B/P (MAP) Pulse Ox O2 Delivery O2 Flow Rate FiO2 03/04/18 12:00 97.3 92 20 152/82 (105) 94 03/04/18 09:08 Room Air 03/04/18 07:49 3.0 32 Laboratory Tests Test 03/03/18 16:30 03/04/18 05:24 C-Reactive Protein, Quantitative 22.7 mg/dL (0.00-0.90) H White Blood Count 20.8 K/UL (4.8-10.8) H Red Blood Count 2.60 M/UL (4.70-6.10) L Hemoglobin 7.8 G/DL (14.2-18.0) L Hematocrit 23.6 % (42.0-52.0) L Mean Corpuscular Volume 91 FL (80-99) Mean Corpuscular Hemoglobin 29.9 PG (27.0-31.0) Mean Corpuscular Hemoglobin Concent 32.9 G/DL (32.0-36.0) Red Cell Distribution Width 11.9 % (11.6-14.8) Platelet Count 514 K/UL (150-450) H Mean Platelet Volume 5.5 FL (6.5-10.1) L Neutrophils (%) (Auto) % (45.0-75.0) Lymphocytes (%) (Auto) % (20.0-45.0) Monocytes (%) (Auto) % (1.0-10.0) Eosinophils (%) (Auto) % (0.0-3.0) Basophils (%) (Auto) % (0.0-2.0) Differential Total Cells Counted 100 Neutrophils % (Manual) 75 % (45-75) Lymphocytes % (Manual) 16 % (20-45) L Monocytes % (Manual) 6 % (1-10) Eosinophils % (Manual) 1 % (0-3) Basophils % (Manual) 0 % (0-2) Band Neutrophils 2 % (0-8) Platelet Estimate Increased H Platelet Morphology Normal Hypochromasia 1+ Sodium Level 141 MMOL/L (136-145) Potassium Level 2.8 MMOL/L (3.5-5.1) L Chloride Level 102 MMOL/L (98-107) Carbon Dioxide Level 25 MMOL/L (21-32) Anion Gap 14 mmol/L (5-15) Blood Urea Nitrogen 114 mg/dL (7-18) H Creatinine 5.9 MG/DL (0.55-1.30) H Estimat Glomerular Filtration Rate mL/min (>60) Glucose Level 149 MG/DL (74-106) H Uric Acid 9.9 MG/DL (2.6-7.2) H Calcium Level 7.2 MG/DL (8.5-10.1) L Phosphorus Level 5.3 MG/DL (2.5-4.9) H Magnesium Level 2.3 MG/DL (1.8-2.4) Total Bilirubin 1.5 MG/DL (0.2-1.0) H Direct Bilirubin 0.9 MG/DL (0.0-0.3) H Aspartate Amino Transf (AST/SGOT) 154 U/L (15-37) H Alanine Aminotransferase (ALT/SGPT) 109 U/L (12-78) H Alkaline Phosphatase 101 U/L (46-116) Pro-B-Type Natriuretic Peptide 672 pg/mL (0-125) H Total Protein 6.3 G/DL (6.4-8.2) L Albumin 1.5 G/DL (3.4-5.0) L Globulin 4.8 g/dL Albumin/Globulin Ratio 0.3 (1.0-2.7) L Microbiology Date/Time Source Procedure Growth Status 03/01/18 20:20 Sputum Gram Stain - Final Complete 03/01/18 20:20 Sputum Sputum Culture - Final NORMAL UPPER RESPIRATORY RIDGE PRESENT Complete Intake and Output 03/03/18 03/04/18 18:59 06:59 Intake Total 1050 ml 1550 ml Output Total 1300 ml 500 ml Balance -250 ml 1050 ml Intake Oral 450 ml 500 ml IV Total 600 ml 1050 ml Output Urine Total 300 ml 500 ml Hemodialysis UF 1000 ml Objective General: No acute distress, awake and alert HEENT: NCAT, sclera anicteric, PERRL, EOMI. Neck: Supple, Right IJ Dialysis cath. Lungs: Fair inspiratory effort, Bilateral air entry, no Wheeze or Rales. Heart: Regular rate and rhythm, normal S1/S2, no murmur. Abdomen: soft, nontender, nondistended. Normoactive bowel sounds, obesity, / Rectal: Refused and deferred. Extremities: No Cyanosis , clubbing or edema. Neuro: A&O x 3, Able to move all extremities Skin: warm, no rashes. Assessment/Plan Assessment/Plan Sepsis due to Legionella PNA and UTI- r/o bacteremia Fever, improving BRITT, worsening- started on HD 02/28 Rhabdomyolysis; improving AMS s/p Fall Acute transaminitis, infection-2ry to Legionella infection; improving Obesity Plan: Abx: Levaquin 750mg q48hrs, empiric PO Linezolid, Cefepime Monitor Labs and cultures. Full code Heparin SQ Dialysis PT Mobility Ruperto Cowan MD Mar 04, 2018 14:43
[2018-03-04] MEDS ORDERED: LEVOFLOXACIN IVPB SCH (15:00)
[2018-03-04] MEDS ORDERED: D5W IVPB SCH (15:00)
--- NOTE | 2018-03-04 15:01 | Pulmonology Progress Note ---
Assessment/Plan Assessment/Plan Pulmonary Progress Note Assessment/Plan Problems: (1) Rhabdomyolysis (2) Legionella Pneumonia LLL (3) ATN (acute tubular necrosis) (4) Acute CVA (cerebrovascular accident) (5) Abdominal distension (6) Hypokalemia (7) Anemia Assessment/Plan Intermittant Dialysis 400, oliguria AB per ID WBC still high, respiratory treatment Antibiotics check electrolytes, CPK cxr in am dvt prophylaxis sputum induction f/u labs Subjective ROS Limited/Unobtainable: No Constitutional: Reports: no symptoms HEENT: Repors: no symptoms Respiratory: Reports: no symptoms Allergies: Coded Allergies: NO KNOWN ALLERGIES (Verified Allergy, Unknown, 02/26/18) Objective Vital Signs Notes General Appearance: WD/WN HEENT: normocephalic, atraumatic Respiratory/Chest: chest wall non-tender, lungs clear Cardiovascular: normal peripheral pulses, regular rhythm Abdomen: normal bowel sounds, soft, non tender, moderate distension Extremities: no cyanosis Skin: no rash 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 Lymphatic: no neck adenopathy Microbiology Date/Time Source Procedure Growth Status 02/26/18 08:00 Blood Blood Culture - Preliminary NO GROWTH AFTER 48 HOURS Resulted 02/26/18 07:50 Blood Blood Culture - Preliminary NO GROWTH AFTER 48 HOURS Resulted 02/26/18 22:30 Nasopharynx Influenza Types A,B Antigen (MARYSOL) - Final Complete 02/26/18 22:40 Stool Clostridium difficile Toxin Assay - Final Complete 02/26/18 14:15 Urine,Clean Catch Urine Culture - Final NO GROWTH AFTER 48 HOURS Complete Laboratory Tests 02/27/18 15:04: Urine Opiates Screen Negative, Urine Barbiturates Screen Negative, Phencyclidine (PCP) Screen Negative, Urine Amphetamines Screen Negative, Urine Benzodiazepines Screen Negative, Urine Cocaine Screen Negative, Urine Marijuana (THC) Screen Negative 02/28/18 03:55: White Blood Count 29.9*H, Red Blood Count 3.54L, Hemoglobin 10.8L, Hematocrit 31.5L, Mean Corpuscular Volume 89, Mean Corpuscular Hemoglobin 30.4, Mean Corpuscular Hemoglobin Concent 34.2, Red Cell Distribution Width 11.2L, Platelet Count 377, Mean Platelet Volume 7.0, Neutrophils (%) (Auto) , Lymphocytes (%) (Auto) , Monocytes (%) (Auto) , Eosinophils (%) (Auto) , Basophils (%) (Auto) , Differential Total Cells Counted 100, Neutrophils % ( Manual) 88H, Lymphocytes % (Manual) 3L, Monocytes % (Manual) 2, Eosinophils % ( Manual) 0, Basophils % (Manual) 0, Band Neutrophils 7, Platelet Estimate Adequate, Platelet Morphology Normal, Hypochromasia 1+, Sodium Level 134L, Potassium Level 3.8, Chloride Level 95L, Carbon Dioxide Level 18L, Anion Gap 21H , Blood Urea Nitrogen 113H, Creatinine 7.8H, Estimat Glomerular Filtration Rate , Glucose Level 118H, Uric Acid 11.8H, Calcium Level 8.1L, Phosphorus Level 9.0H , Magnesium Level 2.6H, Total Bilirubin 3.8H, Direct Bilirubin 2.1H, Gamma Glutamyl Transpeptidase 93H, Aspartate Amino Transf (AST/SGOT) 634H, Alanine Aminotransferase (ALT/SGPT) 218H, Alkaline Phosphatase 124H, Pro-B-Type Natriuretic Peptide 3919H, Total Protein 7.0, Albumin 1.6L, Globulin 6.0, Random Vancomycin Level 15.0, Hepatitis A IgM Antibody [Pending], Hepatitis B Surface Antigen [Pending], Hepatitis B Core IgM Antibody [Pending], Hepatitis C Antibody [Pending] Current Medications Medications (Trade) Dose Ordered Sig/Aristides Route PRN Reason Start Time Stop Time Status Last Admin Dose Admin Acetaminophen (Tylenol) 650 mg Q4H PRN ORAL T>100.5 02/26/18 10:30 03/28/18 10:29 02/27/18 10:51 Acetaminophen (Tylenol) 650 mg Q6H PRN ORAL Mild Pain 02/27/18 11:45 03/28/18 06:29 02/28/18 00:35 Albuterol/ Ipratropium (Albuterol/ Ipratropium) 3 ml Q4H PRN HHN Shortness of Breath 02/26/18 10:30 03/03/18 10:29 02/27/18 23:03 Cefepime HCl 1 gm/ Dextrose 55 ml @ 110 mls/hr Q24H IVPB 02/26/18 12:00 03/05/18 11:59 02/27/18 11:45 Chlorhexidine Gluconate (Silva-Hex 2%) 1 applic DAILY@2000 TOPIC 02/27/18 20:00 03/29/18 19:59 02/27/18 21:40 Dextrose (Dextrose 50%) 25 ml Q30M PRN IV hypoglycemia 02/26/18 10:45 03/28/18 10:42 Dextrose (Dextrose 50%) 50 ml Q30M PRN IV hypoglycemia 02/26/18 10:45 03/28/18 10:44 Docusate Sodium (Colace) 100 mg THREE TIMES A DAY ORAL 02/27/18 18:00 03/29/18 17:59 02/28/18 08:20 Heparin Sodium (Porcine) (Heparin 5000 units/ml) 5,000 units EVERY 12 HOURS SUBQ 02/26/18 09:00 03/28/18 08:59 02/28/18 08:21 Linezolid (Zyvox) 600 mg EVERY 12 HOURS ORAL 02/27/18 21:00 03/04/18 20:59 02/28/18 08:19 Metronidazole (Flagyl) 500 mg Q8HR ORAL 02/26/18 15:00 03/05/18 14:59 02/28/18 05:30 Morphine Sulfate (Morphine Sulfate) 2 mg Q4H PRN IVP PAIN 4-10 02/26/18 10:30 03/05/18 10:29 Nitroglycerin (Ntg) 0.4 mg Q5MIN X 3 DOSES PRN SL Prn Chest Pain 02/26/18 10:45 03/28/18 10:44 Ondansetron HCl (Zofran) 4 mg Q6H PRN IVP Nausea & Vomiting 02/26/18 10:30 03/28/18 10:29 Pantoprazole (Protonix) 40 mg EVERY 12 HOURS ORAL 02/27/18 21:00 03/29/18 20:59 02/28/18 08:20 Polyethylene Glycol (Miralax) 17 gm DAILYPRN PRN ORAL Constipation 02/26/18 10:30 03/28/18 10:29 Quetiapine Fumarate (SEROquel) 12.5 mg Q4H PRN ORAL agitation 02/26/18 12:15 03/28/18 12:14 Sevelamer Carbonate (Renvela) 1,600 mg THREE TIMES A DAY ORAL 02/27/18 18:00 03/29/18 17:59 02/28/18 08:20 Temazepam (Restoril) 15 mg HSPRN PRN ORAL Insomnia 02/26/18 21:00 03/05/18 20:59 Subjective ROS Limited/Unobtainable: No Allergies: Coded Allergies: NO KNOWN ALLERGIES (Verified Allergy, Unknown, 02/26/18) Objective Last 24 Hour Vital Signs Date Time Temp Pulse Resp B/P (MAP) Pulse Ox O2 Delivery O2 Flow Rate FiO2 03/04/18 12:00 97.3 92 20 152/82 (105) 94 03/04/18 09:08 Room Air 03/04/18 08:00 85 03/04/18 08:00 97.7 89 22 125/84 (98) 96 03/04/18 07:49 Nasal Cannula 3.0 32 03/04/18 07:49 97 Nasal Cannula 3.0 32 03/04/18 07:48 84 18 Nasal Cannula 3.0 32 03/04/18 04:00 85 03/04/18 04:00 98.5 93 22 130/77 (94) 96 03/04/18 00:00 95 03/04/18 00:00 98.8 95 22 146/78 (100) 96 03/03/18 23:52 96 Nasal Cannula 3.0 32 03/03/18 23:52 Nasal Cannula 3.0 32 03/03/18 21:00 Room Air 03/03/18 21:00 98 03/03/18 20:00 98.3 96 24 138/77 (97) 93 03/03/18 19:30 93 20 Nasal Cannula 3.0 32 03/03/18 16:00 97.7 99 18 165/92 (116) 92 03/03/18 16:00 95 Intake and Output 03/03/18 03/04/18 18:59 06:59 Intake Total 1050 ml 1550 ml Output Total 1300 ml 500 ml Balance -250 ml 1050 ml Intake Oral 450 ml 500 ml IV Total 600 ml 1050 ml Output Urine Total 300 ml 500 ml Hemodialysis UF 1000 ml Microbiology Date/Time Source Procedure Growth Status 03/01/18 20:20 Sputum Gram Stain - Final Complete 03/01/18 20:20 Sputum Sputum Culture - Final NORMAL UPPER RESPIRATORY RIDGE PRESENT Complete Laboratory Tests 03/03/18 16:30: C-Reactive Protein, Quantitative 22.7H 03/04/18 05:24: White Blood Count 20.8H, Red Blood Count 2.60L, Hemoglobin 7.8L, Hematocrit 23.6L, Mean Corpuscular Volume 91, Mean Corpuscular Hemoglobin 29.9, Mean Corpuscular Hemoglobin Concent 32.9, Red Cell Distribution Width 11.9, Platelet Count 514H, Mean Platelet Volume 5.5L, Neutrophils (%) (Auto) , Lymphocytes (%) (Auto) , Monocytes (%) (Auto) , Eosinophils (%) (Auto) , Basophils (%) (Auto) , Differential Total Cells Counted 100, Neutrophils % (Manual) 75, Lymphocytes % ( Manual) 16L, Monocytes % (Manual) 6, Eosinophils % (Manual) 1, Basophils % ( Manual) 0, Band Neutrophils 2, Platelet Estimate IncreasedH, Platelet Morphology Normal, Hypochromasia 1+, Sodium Level 141, Potassium Level 2.8L, Chloride Level 102, Carbon Dioxide Level 25, Anion Gap 14, Blood Urea Nitrogen 114H, Creatinine 5.9H, Estimat Glomerular Filtration Rate , Glucose Level 149H, Uric Acid 9.9H, Calcium Level 7.2L, Phosphorus Level 5.3H, Magnesium Level 2.3, Total Bilirubin 1.5H, Direct Bilirubin 0.9H, Aspartate Amino Transf (AST/SGOT) 154H, Alanine Aminotransferase (ALT/SGPT) 109H, Alkaline Phosphatase 101, Pro-B- Type Natriuretic Peptide 672H, Total Protein 6.3L, Albumin 1.5L, Globulin 4.8, Albumin/Globulin Ratio 0.3L Current Medications Medications (Trade) Dose Ordered Sig/Aristides Route PRN Reason Start Time Stop Time Status Last Admin Dose Admin Acetaminophen (Tylenol) 650 mg Q4H PRN ORAL T>100.5 03/01/18 22:30 03/28/18 10:29 Acetaminophen (Tylenol) 650 mg Q6H PRN ORAL Mild Pain 03/01/18 23:45 03/28/18 06:29 Allopurinol (Allopurinol) 300 mg DAILY ORAL 03/02/18 09:00 04/01/18 08:59 03/03/18 09:44 Chlorhexidine Gluconate (Silva-Hex 2%) 1 applic DAILY@1999 TOPIC 03/02/18 20:00 03/29/18 19:59 03/03/18 21:01 Dextrose (Dextrose 50%) 25 ml Q30M PRN IV Hypoglycemia 03/02/18 13:45 04/01/18 13:44 Dextrose (Dextrose 50%) 50 ml Q30M PRN IV Hypoglycemia 03/02/18 13:45 04/01/18 13:44 Dextrose/Sodium Chloride 1,000 ml @ 75 mls/hr [id number] IV 03/01/18 21:15 03/31/18 09:29 03/04/18 03:39 Docusate Sodium (Colace) 100 mg THREE TIMES A DAY ORAL 03/02/18 09:00 03/29/18 17:59 03/03/18 09:44 Heparin Sodium (Porcine) (Heparin 5000 units/ml) 5,000 units EVERY 12 HOURS SUBQ 03/02/18 09:00 03/28/18 08:59 03/04/18 08:48 Insulin Aspart (NovoLOG) BEFORE MEALS AND HS SUBQ 03/02/18 16:30 04/01/18 16:29 03/04/18 12:19 Levofloxacin 100 ml @ 100 mls/hr Q48H IVPB 03/06/18 12:00 03/13/18 11:59 Levofloxacin 150 ml @ 100 mls/hr NOW IVPB 03/04/18 15:00 03/04/18 18:00 Nitroglycerin (Ntg) 0.4 mg Q5MIN X 3 DOSES PRN SL Prn Chest Pain 03/01/18 21:15 03/28/18 10:44 Ondansetron HCl (Zofran) 4 mg Q6H PRN IVP Nausea & Vomiting 03/01/18 22:30 03/28/18 10:29 Pantoprazole (Protonix) 40 mg EVERY 12 HOURS ORAL 03/02/18 09:00 03/29/18 20:59 03/04/18 08:44 Polyethylene Glycol (Miralax) 17 gm DAILYPRN PRN ORAL Constipation 03/02/18 10:30 03/28/18 10:29 Sevelamer Carbonate (Renvela) 2,400 mg THREE TIMES A DAY ORAL 03/02/18 09:00 03/29/18 17:59 03/03/18 09:44 Temazepam (Restoril) 15 mg HSPRN PRN ORAL Insomnia 03/02/18 21:00 03/05/18 20:59 Juancralos Malin MD Mar 04, 2018 15:01
[2018-03-04 16:43] VITALS: BP 150/71
--- NOTE | 2018-03-04 16:55 | NUR ---
NURSE NOTES: Left msg to Dr. Nelson regarding patient's episode of 4 sec of PVCs.
--- NOTE | 2018-03-04 17:27 | NUR ---
NURSE NOTES: patient has temp of 102.9 axillary, HR [address] Roach made aware. new orders received, carried out Addendum: 03/04/18 at 1729 by ACOSTA MORALEZ RN RN NURSE NOTES: wrong patient.
--- NOTE | 2018-03-04 17:31 | NUR ---
NURSE NOTES: Patient has been refusing PO medications, Dr. Cowan made aware. Dr. Malin also made aware, new orders received.
--- NOTE | 2018-03-04 18:17 | General Progress Note ---
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 Status: stable Assessment/Plan seroquel prn provided ro/st Subjective Allergies: Coded Allergies: NO KNOWN ALLERGIES (Verified Allergy, Unknown, 02/26/18) Subjective more alert more oriented forgetful Objective Last 24 Hour Vital Signs Date Time Temp Pulse Resp B/P (MAP) Pulse Ox O2 Delivery O2 Flow Rate FiO2 03/04/18 16:43 97.7 90 20 150/71 (97) 94 03/04/18 16:00 90 03/04/18 12:00 97.3 92 20 152/82 (105) 94 03/04/18 12:00 92 03/04/18 09:08 Room Air 03/04/18 08:00 85 03/04/18 08:00 97.7 89 22 125/84 (98) 96 03/04/18 07:49 Nasal Cannula 3.0 32 03/04/18 07:49 97 Nasal Cannula 3.0 32 03/04/18 07:48 84 18 Nasal Cannula 3.0 32 03/04/18 04:00 85 03/04/18 04:00 98.5 93 22 130/77 (94) 96 03/04/18 00:00 95 03/04/18 00:00 98.8 95 22 146/78 (100) 96 03/03/18 23:52 96 Nasal Cannula 3.0 32 03/03/18 23:52 Nasal Cannula 3.0 32 03/03/18 21:00 Room Air 03/03/18 21:00 98 03/03/18 20:00 98.3 96 24 138/77 (97) 93 03/03/18 19:30 93 20 Nasal Cannula 3.0 32 Intake and Output 03/03/18 03/04/18 19:00 07:00 Intake Total 1050 ml 1550 ml Output Total 1300 ml 500 ml Balance -250 ml 1050 ml Intake Oral 450 ml 500 ml IV Total 600 ml 1050 ml Output Urine Total 300 ml 500 ml Hemodialysis UF 1000 ml Laboratory Tests 03/04/18 05:24: White Blood Count 20.8H, Red Blood Count 2.60L, Hemoglobin 7.8L, Hematocrit 23.6L, Mean Corpuscular Volume 91, Mean Corpuscular Hemoglobin 29.9, Mean Corpuscular Hemoglobin Concent 32.9, Red Cell Distribution Width 11.9, Platelet Count 514H, Mean Platelet Volume 5.5L, Neutrophils (%) (Auto) , Lymphocytes (%) (Auto) , Monocytes (%) (Auto) , Eosinophils (%) (Auto) , Basophils (%) (Auto) , Differential Total Cells Counted 100, Neutrophils % (Manual) 75, Lymphocytes % ( Manual) 16L, Monocytes % (Manual) 6, Eosinophils % (Manual) 1, Basophils % ( Manual) 0, Band Neutrophils 2, Platelet Estimate IncreasedH, Platelet Morphology Normal, Hypochromasia 1+, Sodium Level 141, Potassium Level 2.8L, Chloride Level 102, Carbon Dioxide Level 25, Anion Gap 14, Blood Urea Nitrogen 114H, Creatinine 5.9H, Estimat Glomerular Filtration Rate , Glucose Level 149H, Uric Acid 9.9H, Calcium Level 7.2L, Phosphorus Level 5.3H, Magnesium Level 2.3, Total Bilirubin 1.5H, Direct Bilirubin 0.9H, Aspartate Amino Transf (AST/SGOT) 154H, Alanine Aminotransferase (ALT/SGPT) 109H, Alkaline Phosphatase 101, Pro-B- Type Natriuretic Peptide 672H, Total Protein 6.3L, Albumin 1.5L, Globulin 4.8, Albumin/Globulin Ratio 0.3L Height (Feet): 5 Height (Inches): 7.00 Weight (Pounds): 216 General Appearance: alert Neurologic: responsive, depressed affect Emely Henry MD Mar 04, 2018 18:17
[2018-03-04 20:00] VITALS: BP 157/85
[2018-03-04] MEDS: Dyna-Hex 2% Top Sol 2oz TOPIC SCH (20:19)
--- NOTE | 2018-03-04 20:22 | NUR ---
HAND-OFF: Report given to Harsha Osman RN. Endorsed about the bilateral soft wrist restraint. Patient is stable in bed.
--- NOTE | 2018-03-04 20:25 | NUR ---
NURSE NOTES: Received report from Zakiya GIFFORD. Pt was resting in the bed wo any acute distress noted. Pt is AO x2. Call light is within reach. monitoring manager is on and showing SR. Bed is in the lowest position and rails up x3. Will continue to follow the plan of care.
[2018-03-05] VITALS: BP 156/88
[2018-03-05 04:00] VITALS: BP 154/86
[2018-03-05] MEDS: D5NS 1,000 ML IV SCH ×3 (04:37→20:59)
[2018-03-05] MEDS: NovoLOG Insulin Flexpen SUBQ SCH ×4 (06:33→21:01)
--- NOTE | 2018-03-05 07:00 | NUR ---
NURSE NOTES: received patient report from brooks barnes. patient is on bed asleep. no acute distress noted. patient had 2 small bm per night maria l nurse report. no arryhtmias during the night. will continue to care.
--- NOTE | 2018-03-05 07:18 | NUR ---
HAND-OFF: Report given to Gayathri GIFFORD.
[2018-03-05 07:33] LABS: HEMATOCRIT 23.7 % (42.0-52.0); HEMOGLOBIN 7.4 G/DL (14.2-18.0); MEAN CORPUSCULAR VOLUME 95 FL (80-99); PLATELET COUNT 491 K/UL (150-450); RED CELL DISTRIBUTION WIDTH 13.5 % (11.6-14.8); WHITE BLOOD COUNT 16.5 K/UL (4.8-10.8)
[2018-03-05 08:00] VITALS: BP 146/88
[2018-03-05 08:18] LABS: ALANINE AMINOTRANSFERASE 97 U/L (12-78); ALBUMIN/GLOBULIN RATIO 0.4 (1.0-2.7); ALKALINE PHOSPHATASE 103 U/L (46-116); ANION GAP 16 mmol/L (5-15); ASPARTATE AMINO TRANSFERASE 111 U/L (15-37); BILIRUBIN,TOTAL 1.1 MG/DL (0.2-1.0); BLOOD UREA NITROGEN 116 mg/dL (7-18); CALCIUM 7.6 MG/DL (8.5-10.1); CARBON DIOXIDE 21 MMOL/L (21-32); CHLORIDE 104 MMOL/L (98-107); CREATINE KINASE 1051 U/L (26-308); CREATININE 5.5 MG/DL (0.55-1.30); PHOSPHORUS 5.8 MG/DL (2.5-4.9); POTASSIUM 2.9 MMOL/L (3.5-5.1); SODIUM 141 MMOL/L (136-145)
[2018-03-05 08:23] LABS: BILIRUBIN,DIRECT 0.6 MG/DL (0.0-0.3)
[2018-03-05] MEDS: Docusate 100mg cap ORAL SCH ×4 (08:51→17:11)
[2018-03-05] MEDS: Heparin 5000 units/ml inj SUBQ SCH ×2 (08:52→21:04)
--- NOTE | 2018-03-05 10:06 | Infectious Diseases Prog Note ---
Assessment/Plan Assessment/Plan Assessment/Plan Abx: IV Vancomycin 02/26- Cefepime 02/26- Assessment: Sepsis,improving - 2ry to Legionella PNA and UTI -02/27 CXR: Increasing left upper lobe consolidation, over one day. -CXR: Left lung infiltrates, likely pneumonia, and pleural fluid. Borderline cardiomegaly -Bcx NTD -u/a wbc tnct, nit +, leuk +2; cx NTD -influenza sc neg -legionella ag urine + -sp cx normal resp ceci Fever, SP Leukocytosis, improving slowly -CT abd/p: Dense left lower lobe consolidation and small pleural effusion. This is consistent with findings described on recent chest radiograph. Hypoattenuating bilateral kidneys with indistinctness of the renal margins, could indicate inflammatory change. Edema of the subcutaneous fat of the flanks bilaterally. The colon is diffusely gas-filled, upper limits normal in caliber. Probably indicates functional changes as no obstructive pathology is demonstrated. Other findings as noted, including small fat-containing bilateral inguinal hernias, 9 cm left renal cyst Acute respiratory failure, now on NC BRITT, SP HD improving Rhabdomyolosis; improving AMS, improving s/p Fall Acute transaminitis, infection-2ry to Legionella infection; improving -HIV ab sc neg -Acute hepatitis panel neg Plan: -Continue Levaquin 750mg q48hrs # 5 for LEgionella for 10-14 days -IV as patient refusing PO - 03/04 Sp PO Linezolid #6 (abx d#7/7) and Cefepime #6 -02/28 SP Flagyl #2 -02/27 SP IV Vancomycin #2 -Monitor CBC/CMP, temperatures -Renal f/u -CXR am Subjective Allergies: Coded Allergies: NO KNOWN ALLERGIES (Verified Allergy, Unknown, 02/26/18) Subjective feeling better HD on hold since Objective Vital Signs Last 24 Hour Vital Signs Date Time Temp Pulse Resp B/P (MAP) Pulse Ox O2 Delivery O2 Flow Rate FiO2 03/05/18 09:00 Nasal Cannula 2.0 03/05/18 08:00 97.8 91 18 146/88 (107) 97 03/05/18 08:00 96 03/05/18 04:00 97.8 60 22 154/86 (108) 98 03/05/18 04:00 93 03/05/18 00:00 87 03/05/18 00:00 98.1 98 23 156/88 (110) 97 03/04/18 22:02 98 Nasal Cannula 2.0 28 03/04/18 22:02 Nasal Cannula 2.0 28 03/04/18 22:02 90 18 Nasal Cannula 2.0 32 03/04/18 21:00 Nasal Cannula 2.0 03/04/18 20:00 97.6 92 20 157/85 (109) 95 03/04/18 20:00 93 03/04/18 16:43 97.7 90 20 150/71 (97) 94 03/04/18 16:00 90 03/04/18 12:00 97.3 92 20 152/82 (105) 94 03/04/18 12:00 92 Height (Feet): 5 Height (Inches): 7.00 Weight (Pounds): 216 HEENT: anicteric Respiratory/Chest: no accessory muscle use Cardiovascular: regularly irregular Abdomen: non distended Laboratory Tests Test 03/05/18 05:07 White Blood Count 16.5 K/UL (4.8-10.8) H Red Blood Count 2.50 M/UL (4.70-6.10) L Hemoglobin 7.4 G/DL (14.2-18.0) L Hematocrit 23.7 % (42.0-52.0) L Mean Corpuscular Volume 95 FL (80-99) Mean Corpuscular Hemoglobin 29.8 PG (27.0-31.0) Mean Corpuscular Hemoglobin Concent 31.4 G/DL (32.0-36.0) L Red Cell Distribution Width 13.5 % (11.6-14.8) Platelet Count 491 K/UL (150-450) H Mean Platelet Volume 5.4 FL (6.5-10.1) L Neutrophils (%) (Auto) % (45.0-75.0) Lymphocytes (%) (Auto) % (20.0-45.0) Monocytes (%) (Auto) % (1.0-10.0) Eosinophils (%) (Auto) % (0.0-3.0) Basophils (%) (Auto) % (0.0-2.0) Differential Total Cells Counted 100 Neutrophils % (Manual) 83 % (45-75) H Lymphocytes % (Manual) 8 % (20-45) L Monocytes % (Manual) 3 % (1-10) Eosinophils % (Manual) 0 % (0-3) Basophils % (Manual) 0 % (0-2) Myelocytes % 1 % (0-0) H Band Neutrophils 5 % (0-8) Platelet Estimate Adequate Platelet Morphology Normal Polychromasia Hypochromasia 2+ Anisocytosis 1+ Sodium Level 141 MMOL/L (136-145) Potassium Level 2.9 MMOL/L (3.5-5.1) L Chloride Level 104 MMOL/L (98-107) Carbon Dioxide Level 21 MMOL/L (21-32) Anion Gap 16 mmol/L (5-15) H Blood Urea Nitrogen 116 mg/dL (7-18) H Creatinine 5.5 MG/DL (0.55-1.30) H Estimat Glomerular Filtration Rate mL/min (>60) Glucose Level 147 MG/DL (74-106) H Uric Acid 10.7 MG/DL (2.6-7.2) H Calcium Level 7.6 MG/DL (8.5-10.1) L Phosphorus Level 5.8 MG/DL (2.5-4.9) H Magnesium Level 2.2 MG/DL (1.8-2.4) Total Bilirubin 1.1 MG/DL (0.2-1.0) H Direct Bilirubin 0.6 MG/DL (0.0-0.3) H Aspartate Amino Transf (AST/SGOT) 111 U/L (15-37) H Alanine Aminotransferase (ALT/SGPT) 97 U/L (12-78) H Alkaline Phosphatase 103 U/L (46-116) Total Creatine Kinase 1051 U/L (26-308) H Total Protein 6.5 G/DL (6.4-8.2) Albumin 2.0 G/DL (3.4-5.0) L Globulin 4.5 g/dL Albumin/Globulin Ratio 0.4 (1.0-2.7) L Current Medications Medications (Trade) Dose Ordered Sig/Aristides Route PRN Reason Start Time Stop Time Status Last Admin Dose Admin Acetaminophen (Tylenol) 650 mg Q4H PRN ORAL T>100.5 03/01/18 22:30 03/28/18 10:29 Acetaminophen (Tylenol) 650 mg Q6H PRN ORAL Mild Pain 03/01/18 23:45 03/28/18 06:29 Allopurinol (Allopurinol) 300 mg DAILY ORAL 03/02/18 09:00 04/01/18 08:59 03/05/18 08:51 Chlorhexidine Gluconate (Silva-Hex 2%) 1 applic DAILY@2000 TOPIC 03/02/18 20:00 03/29/18 19:59 03/04/18 20:19 Dextrose (Dextrose 50%) 25 ml Q30M PRN IV Hypoglycemia 03/02/18 13:45 04/01/18 13:44 Dextrose (Dextrose 50%) 50 ml Q30M PRN IV Hypoglycemia 03/02/18 13:45 04/01/18 13:44 Dextrose/Sodium Chloride 1,000 ml @ 75 mls/hr [id number] IV 03/01/18 21:15 03/31/18 09:29 03/05/18 04:37 Docusate Sodium (Colace) 100 mg THREE TIMES A DAY ORAL 03/02/18 09:00 03/29/18 17:59 03/05/18 08:51 Heparin Sodium (Porcine) (Heparin 5000 units/ml) 5,000 units EVERY 12 HOURS SUBQ 03/02/18 09:00 03/28/18 08:59 03/05/18 08:52 Insulin Aspart (NovoLOG) BEFORE MEALS AND HS SUBQ 03/02/18 16:30 04/01/18 16:29 03/05/18 06:33 Levofloxacin 100 ml @ 100 mls/hr Q48H IVPB 03/06/18 12:00 03/13/18 11:59 Nitroglycerin (Ntg) 0.4 mg Q5MIN X 3 DOSES PRN SL Prn Chest Pain 03/01/18 21:15 03/28/18 10:44 Ondansetron HCl (Zofran) 4 mg Q6H PRN IVP Nausea & Vomiting 03/01/18 22:30 03/28/18 10:29 Pantoprazole (Protonix) 40 mg EVERY 12 HOURS ORAL 03/02/18 09:00 03/29/18 20:59 03/05/18 08:51 Polyethylene Glycol (Miralax) 17 gm DAILYPRN PRN ORAL Constipation 03/02/18 10:30 03/28/18 10:29 03/04/18 20:19 Sevelamer Carbonate (Renvela) 2,400 mg THREE TIMES A DAY ORAL 03/02/18 09:00 03/29/18 17:59 03/05/18 08:51 Temazepam (Restoril) 15 mg HSPRN PRN ORAL Insomnia 03/02/18 21:00 03/05/18 20:59 Varun Ramirez MD Mar 05, 2018 10:06
--- NOTE | 2018-03-05 11:14 | General Progress Note ---
Assessment/Plan Problem List: (1) colonic ileus (2) PNA (pneumonia) ICD Codes: J18.9 - Pneumonia, unspecified organism SNOMED: 259005840 (3) Abdominal distention ICD Codes: R14.0 - Abdominal distension (gaseous) SNOMED: 18476080 (4) Anemia ICD Codes: D64.9 - Anemia, unspecified SNOMED: 658229870 (5) Elevated liver function tests ICD Codes: R94.5 - Abnormal results of liver function studies SNOMED: 556902011, 540802058 (6) Hypertension ICD Codes: I10 - Essential (primary) hypertension SNOMED: 77196085 (7) Colon cancer ICD Codes: C18.9 - Malignant neoplasm of colon, unspecified SNOMED: 673273969 (8) Renal failure ICD Codes: N19 - Unspecified kidney failure SNOMED: 98490680 Assessment/Plan colace and miralax abx rectal tube>>>patient refused KUB in am>>no sig changes trending down LFTS ct and us reviewed fu replace K Subjective ROS Limited/Unobtainable: Yes Allergies: Coded Allergies: NO KNOWN ALLERGIES (Verified Allergy, Unknown, 02/26/18) Subjective no abd pain Objective Last 24 Hour Vital Signs Date Time Temp Pulse Resp B/P (MAP) Pulse Ox O2 Delivery O2 Flow Rate FiO2 03/05/18 09:00 Nasal Cannula 2.0 03/05/18 08:00 97.8 91 18 146/88 (107) 97 03/05/18 08:00 96 03/05/18 04:00 97.8 60 22 154/86 (108) 98 03/05/18 04:00 93 03/05/18 00:00 87 03/05/18 00:00 98.1 98 23 156/88 (110) 97 03/04/18 22:02 98 Nasal Cannula 2.0 28 03/04/18 22:02 Nasal Cannula 2.0 28 03/04/18 22:02 90 18 Nasal Cannula 2.0 32 03/04/18 21:00 Nasal Cannula 2.0 03/04/18 20:00 97.6 92 20 157/85 (109) 95 03/04/18 20:00 93 03/04/18 16:43 97.7 90 20 150/71 (97) 94 03/04/18 16:00 90 03/04/18 12:00 97.3 92 20 152/82 (105) 94 03/04/18 12:00 92 Intake and Output 03/04/18 03/05/18 19:00 07:00 Intake Total 300 ml 390 ml Output Total 800 ml 977 ml Balance -500 ml -587 ml Intake Oral 300 ml 390 ml Output Urine Total 800 ml 975 ml Stool Total 2 ml # Voids 1 Laboratory Tests 03/05/18 05:05: C-Reactive Protein, Quantitative 11.3H 03/05/18 05:07: White Blood Count 16.5H, Red Blood Count 2.50L, Hemoglobin 7.4L, Hematocrit 23.7L, Mean Corpuscular Volume 95, Mean Corpuscular Hemoglobin 29.8, Mean Corpuscular Hemoglobin Concent 31.4L, Red Cell Distribution Width 13.5, Platelet Count 491H, Mean Platelet Volume 5.4L, Neutrophils (%) (Auto) , Lymphocytes (%) (Auto) , Monocytes (%) (Auto) , Eosinophils (%) (Auto) , Basophils (%) (Auto) , Differential Total Cells Counted 100, Neutrophils % ( Manual) 83H, Lymphocytes % (Manual) 8L, Monocytes % (Manual) 3, Eosinophils % ( Manual) 0, Basophils % (Manual) 0, Myelocytes % 1H, Band Neutrophils 5, Platelet Estimate Adequate, Platelet Morphology Normal, Polychromasia , Hypochromasia 2+, Anisocytosis 1+, Sodium Level 141, Potassium Level 2.9L, Chloride Level 104, Carbon Dioxide Level 21, Anion Gap 16H, Blood Urea Nitrogen 116H, Creatinine 5.5H, Estimat Glomerular Filtration Rate , Glucose Level 147H, Uric Acid 10.7H, Calcium Level 7.6L, Phosphorus Level 5.8H, Magnesium Level 2.2 , Total Bilirubin 1.1H, Direct Bilirubin 0.6H, Aspartate Amino Transf (AST/SGOT ) 111H, Alanine Aminotransferase (ALT/SGPT) 97H, Alkaline Phosphatase 103, Total Creatine Kinase 1051H, Total Protein 6.5, Albumin 2.0L, Globulin 4.5, Albumin/Globulin Ratio 0.4L Height (Feet): 5 Height (Inches): 7.00 Weight (Pounds): 216 General Appearance: alert EENT: normal ENT inspection Neck: supple Cardiovascular: normal rate Respiratory/Chest: decreased breath sounds Abdomen: normal bowel sounds, non tender, soft Extremities: non-tender Ismael Matos MD Mar 05, 2018 11:14
--- NOTE | 2018-03-05 11:16 | Diagnostic Imaging Report ---
INDICATION: Cough COMPARISON: Chest x-ray dated 03/01/18 FINDINGS: Single frontal view demonstrates a prominent cardiac size. Improved aeration the left lung. Right internal jugular central venous catheter with tip in the proximal superior vena cava. No pleural effusions. The visualized osseous structures are within normal limits. IMPRESSION: Improved aeration of the left lung. Otherwise no significant change. Stable line as outlined above.
[2018-03-05 12:00] VITALS: BP_SYST 140; BP_SYST 143; BP_DIAS 83; BP_DIAS 86
--- NOTE | 2018-03-05 12:18 | Internal Med Progress Note ---
Subjective Physician Name Ruperto Cowan Attending Physician Ruperto Cowan MD Current Medications Medications (Trade) Dose Ordered Sig/Aristides Route PRN Reason Start Time Stop Time Status Last Admin Dose Admin Acetaminophen (Tylenol) 650 mg Q4H PRN ORAL T>100.5 03/01/18 22:30 03/28/18 10:29 Acetaminophen (Tylenol) 650 mg Q6H PRN ORAL Mild Pain 03/01/18 23:45 03/28/18 06:29 Allopurinol (Allopurinol) 300 mg DAILY ORAL 03/02/18 09:00 04/01/18 08:59 03/05/18 08:51 Chlorhexidine Gluconate (Silva-Hex 2%) 1 applic DAILY@2000 TOPIC 03/02/18 20:00 03/29/18 19:59 03/04/18 20:19 Dextrose (Dextrose 50%) 25 ml Q30M PRN IV Hypoglycemia 03/02/18 13:45 04/01/18 13:44 Dextrose (Dextrose 50%) 50 ml Q30M PRN IV Hypoglycemia 03/02/18 13:45 04/01/18 13:44 Dextrose/Sodium Chloride 1,000 ml @ 100 mls/hr Q10H IV 03/05/18 11:00 04/04/18 10:59 03/05/18 11:09 Docusate Sodium (Colace) 100 mg THREE TIMES A DAY ORAL 03/02/18 09:00 03/29/18 17:59 03/05/18 08:51 Heparin Sodium (Porcine) (Heparin 5000 units/ml) 5,000 units EVERY 12 HOURS SUBQ 03/02/18 09:00 03/28/18 08:59 03/05/18 08:52 Insulin Aspart (NovoLOG) BEFORE MEALS AND HS SUBQ 03/02/18 16:30 04/01/18 16:29 03/05/18 12:07 Levofloxacin 100 ml @ 100 mls/hr Q48H IVPB 03/06/18 12:00 03/13/18 11:59 Nitroglycerin (Ntg) 0.4 mg Q5MIN X 3 DOSES PRN SL Prn Chest Pain 03/01/18 21:15 03/28/18 10:44 Ondansetron HCl (Zofran) 4 mg Q6H PRN IVP Nausea & Vomiting 03/01/18 22:30 03/28/18 10:29 Pantoprazole (Protonix) 40 mg EVERY 12 HOURS ORAL 03/02/18 09:00 03/29/18 20:59 03/05/18 08:51 Polyethylene Glycol (Miralax) 17 gm DAILYPRN PRN ORAL Constipation 03/02/18 10:30 03/28/18 10:29 03/04/18 20:19 Potassium Chloride 100 ml @ 100 mls/hr Q1H IVPB 03/05/18 11:30 03/05/18 17:29 03/05/18 12:10 Sevelamer Carbonate (Renvela) 2,400 mg THREE TIMES A DAY ORAL 03/02/18 09:00 03/29/18 17:59 03/05/18 08:51 Temazepam (Restoril) 15 mg HSPRN PRN ORAL Insomnia 03/02/18 21:00 03/05/18 20:59 Allergies: Coded Allergies: NO KNOWN ALLERGIES (Verified Allergy, Unknown, 02/26/18) Subjective awake, alert, responsive, NAD, Daughter at bedside, WBC: 16.5, Hgb: 7.4 Objective Last Vital Signs Date Time Temp Pulse Resp B/P (MAP) Pulse Ox O2 Delivery O2 Flow Rate FiO2 03/05/18 09:00 Nasal Cannula 2.0 03/05/18 08:00 97.8 91 18 146/88 (107) 97 03/04/18 22:02 28 Laboratory Tests Test 03/05/18 05:05 03/05/18 05:07 C-Reactive Protein, Quantitative 11.3 mg/dL (0.00-0.90) H White Blood Count 16.5 K/UL (4.8-10.8) H Red Blood Count 2.50 M/UL (4.70-6.10) L Hemoglobin 7.4 G/DL (14.2-18.0) L Hematocrit 23.7 % (42.0-52.0) L Mean Corpuscular Volume 95 FL (80-99) Mean Corpuscular Hemoglobin 29.8 PG (27.0-31.0) Mean Corpuscular Hemoglobin Concent 31.4 G/DL (32.0-36.0) L Red Cell Distribution Width 13.5 % (11.6-14.8) Platelet Count 491 K/UL (150-450) H Mean Platelet Volume 5.4 FL (6.5-10.1) L Neutrophils (%) (Auto) % (45.0-75.0) Lymphocytes (%) (Auto) % (20.0-45.0) Monocytes (%) (Auto) % (1.0-10.0) Eosinophils (%) (Auto) % (0.0-3.0) Basophils (%) (Auto) % (0.0-2.0) Differential Total Cells Counted 100 Neutrophils % (Manual) 83 % (45-75) H Lymphocytes % (Manual) 8 % (20-45) L Monocytes % (Manual) 3 % (1-10) Eosinophils % (Manual) 0 % (0-3) Basophils % (Manual) 0 % (0-2) Myelocytes % 1 % (0-0) H Band Neutrophils 5 % (0-8) Platelet Estimate Adequate Platelet Morphology Normal Polychromasia Hypochromasia 2+ Anisocytosis 1+ Sodium Level 141 MMOL/L (136-145) Potassium Level 2.9 MMOL/L (3.5-5.1) L Chloride Level 104 MMOL/L (98-107) Carbon Dioxide Level 21 MMOL/L (21-32) Anion Gap 16 mmol/L (5-15) H Blood Urea Nitrogen 116 mg/dL (7-18) H Creatinine 5.5 MG/DL (0.55-1.30) H Estimat Glomerular Filtration Rate mL/min (>60) Glucose Level 147 MG/DL (74-106) H Uric Acid 10.7 MG/DL (2.6-7.2) H Calcium Level 7.6 MG/DL (8.5-10.1) L Phosphorus Level 5.8 MG/DL (2.5-4.9) H Magnesium Level 2.2 MG/DL (1.8-2.4) Total Bilirubin 1.1 MG/DL (0.2-1.0) H Direct Bilirubin 0.6 MG/DL (0.0-0.3) H Aspartate Amino Transf (AST/SGOT) 111 U/L (15-37) H Alanine Aminotransferase (ALT/SGPT) 97 U/L (12-78) H Alkaline Phosphatase 103 U/L (46-116) Total Creatine Kinase 1051 U/L (26-308) H Total Protein 6.5 G/DL (6.4-8.2) Albumin 2.0 G/DL (3.4-5.0) L Globulin 4.5 g/dL Albumin/Globulin Ratio 0.4 (1.0-2.7) L Intake and Output 03/04/18 03/05/18 18:59 06:59 Intake Total 300 ml 390 ml Output Total 800 ml 977 ml Balance -500 ml -587 ml Intake Oral 300 ml 390 ml Output Urine Total 800 ml 975 ml Stool Total 2 ml # Voids 1 Objective General: No acute distress, awake and alert HEENT: NCAT, sclera anicteric, PERRL, EOMI. Neck: Supple, Right IJ Dialysis cath. Lungs: Fair inspiratory effort, Bilateral air entry, no Wheeze or Rales. Heart: Regular rate and rhythm, normal S1/S2, no murmur. Abdomen: soft, nontender, nondistended. Normoactive bowel sounds, obesity, / Rectal: Refused and deferred. Extremities: No Cyanosis , clubbing or edema. Neuro: A&O x 3, Able to move all extremities Skin: warm, no rashes. Assessment/Plan Assessment/Plan Sepsis due to Legionella PNA and UTI- r/o bacteremia Fever, improving BRITT, worsening- started on HD 02/28 Rhabdomyolysis; improving AMS s/p Fall Acute transaminitis, infection-2ry to Legionella infection; improving Obesity Severe anemia most likely due to CKD. Plan: Abx: Levaquin 750mg q48hrs, Monitor Labs and cultures. Full code Heparin SQ Hold Dialysis PT Mobility Transfuse PRBC. F/U with Dr. Lora recommendations Ruperto Cowan MD Mar 05, 2018 12:18
--- NOTE | 2018-03-05 12:47 | Cardiology Progress Note ---
Assessment/Plan Assessment/Plan 1. Rhabdomyolysis. 2. Status post fall. 3. Prostate cancer, status post prostatectomy. 4. Colonic polyps, status post resection recently. 5. Acute renal failure on chronic renal insufficiency. 6. Leukocytosis. 7. Probable pneumonia, possible aspiration. 8. Mild diastolic relaxation on echocardiogram. 9. lyrica allergy 10. non sustianed wide complex tachy 11. afib spont converted to sinus tele noted sinus one episode of afib rvr yet but not recurrence iv metoprolol for hr control echo has shown normal wall motion dialysis as sched ct noted min trop down trend liekly demand related / renal insuf related has needed restriants is on nc abx hhn need to see if can limit hhn due to afib in better spirits Subjective Cardiovascular: Denies: chest pain, lightheadedness, palpitations Respiratory: Denies: shortness of breath Gastrointestinal/Abdominal: Denies: abdominal pain Genitourinary: Denies: burning Objective Last 24 Hour Vital Signs Date Time Temp Pulse Resp B/P (MAP) Pulse Ox O2 Delivery O2 Flow Rate FiO2 03/05/18 09:00 Nasal Cannula 2.0 03/05/18 08:00 97.8 91 18 146/88 (107) 97 03/05/18 08:00 96 03/05/18 04:00 97.8 60 22 154/86 (108) 98 03/05/18 04:00 93 03/05/18 00:00 87 03/05/18 00:00 98.1 98 23 156/88 (110) 97 03/04/18 22:02 98 Nasal Cannula 2.0 28 03/04/18 22:02 Nasal Cannula 2.0 28 03/04/18 22:02 90 18 Nasal Cannula 2.0 32 03/04/18 21:00 Nasal Cannula 2.0 03/04/18 20:00 97.6 92 20 157/85 (109) 95 03/04/18 20:00 93 03/04/18 16:43 97.7 90 20 150/71 (97) 94 03/04/18 16:00 90 General Appearance: no apparent distress, alert Cardiovascular: normal rate Respiratory/Chest: rhonchi - bilaterally, expiratory wheezing Abdomen: non tender, soft, distended Extremities: no swelling Intake and Output 03/04/18 03/05/18 18:59 06:59 Intake Total 300 ml 390 ml Output Total 800 ml 977 ml Balance -500 ml -587 ml Intake Oral 300 ml 390 ml Output Urine Total 800 ml 975 ml Stool Total 2 ml # Voids 1 Laboratory Tests Test 03/05/18 05:05 03/05/18 05:07 C-Reactive Protein, Quantitative 11.3 mg/dL (0.00-0.90) H White Blood Count 16.5 K/UL (4.8-10.8) H Red Blood Count 2.50 M/UL (4.70-6.10) L Hemoglobin 7.4 G/DL (14.2-18.0) L Hematocrit 23.7 % (42.0-52.0) L Mean Corpuscular Volume 95 FL (80-99) Mean Corpuscular Hemoglobin 29.8 PG (27.0-31.0) Mean Corpuscular Hemoglobin Concent 31.4 G/DL (32.0-36.0) L Red Cell Distribution Width 13.5 % (11.6-14.8) Platelet Count 491 K/UL (150-450) H Mean Platelet Volume 5.4 FL (6.5-10.1) L Neutrophils (%) (Auto) % (45.0-75.0) Lymphocytes (%) (Auto) % (20.0-45.0) Monocytes (%) (Auto) % (1.0-10.0) Eosinophils (%) (Auto) % (0.0-3.0) Basophils (%) (Auto) % (0.0-2.0) Differential Total Cells Counted 100 Neutrophils % (Manual) 83 % (45-75) H Lymphocytes % (Manual) 8 % (20-45) L Monocytes % (Manual) 3 % (1-10) Eosinophils % (Manual) 0 % (0-3) Basophils % (Manual) 0 % (0-2) Myelocytes % 1 % (0-0) H Band Neutrophils 5 % (0-8) Platelet Estimate Adequate Platelet Morphology Normal Polychromasia Hypochromasia 2+ Anisocytosis 1+ Sodium Level 141 MMOL/L (136-145) Potassium Level 2.9 MMOL/L (3.5-5.1) L Chloride Level 104 MMOL/L (98-107) Carbon Dioxide Level 21 MMOL/L (21-32) Anion Gap 16 mmol/L (5-15) H Blood Urea Nitrogen 116 mg/dL (7-18) H Creatinine 5.5 MG/DL (0.55-1.30) H Estimat Glomerular Filtration Rate mL/min (>60) Glucose Level 147 MG/DL (74-106) H Uric Acid 10.7 MG/DL (2.6-7.2) H Calcium Level 7.6 MG/DL (8.5-10.1) L Phosphorus Level 5.8 MG/DL (2.5-4.9) H Magnesium Level 2.2 MG/DL (1.8-2.4) Total Bilirubin 1.1 MG/DL (0.2-1.0) H Direct Bilirubin 0.6 MG/DL (0.0-0.3) H Aspartate Amino Transf (AST/SGOT) 111 U/L (15-37) H Alanine Aminotransferase (ALT/SGPT) 97 U/L (12-78) H Alkaline Phosphatase 103 U/L (46-116) Total Creatine Kinase 1051 U/L (26-308) H Total Protein 6.5 G/DL (6.4-8.2) Albumin 2.0 G/DL (3.4-5.0) L Globulin 4.5 g/dL Albumin/Globulin Ratio 0.4 (1.0-2.7) L Car Nelson MD Mar 05, 2018 12:47
--- NOTE | 2018-03-05 13:05 | NUR ---
NURSE NOTES: left a message to dr zhou regarding patients condition today, that he is more oriented and improving. and if dr zhou would like to order to dc restraints. awaitng callback and new orders.
--- NOTE | 2018-03-05 13:07 | NUR ---
NURSE NOTES: dr zhou called back and he ordered to dc restraints. will take note and carry out.
--- NOTE | 2018-03-05 14:24 | Nephrology Progress Note ---
Assessment/Plan Problem List: (1) ATN (acute tubular necrosis) (2) Rhabdomyolysis Assessment: CPK lowering (3) Pneumonia (4) encephalopathy due to toxin Assessment Acute renal failure- Rhabdo Pneumonia CVA ? Plan Slow Hydrate- albumin bolus monitor urine output Add Allopurinol hemodialysis 03/01 next 03/03 May not need any more HD Transfuse 2 units Phos binders check ABG- results noted Fortune Monitor CPK - Uric Acid- LFTs monitor Renal parameters Avoid Nephrotoxics per orders discussed with RN and daughter present in room 03/05/18 Subjective ROS Limited/Unobtainable: No Constitutional: Reports: other - more alert Objective Objective Last 24 Hour Vital Signs Date Time Temp Pulse Resp B/P (MAP) Pulse Ox O2 Delivery O2 Flow Rate FiO2 03/05/18 11:51 93 03/05/18 09:00 Nasal Cannula 2.0 03/05/18 08:00 97.8 91 18 146/88 (107) 97 03/05/18 08:00 96 03/05/18 04:00 97.8 60 22 154/86 (108) 98 03/05/18 04:00 93 03/05/18 00:00 87 03/05/18 00:00 98.1 98 23 156/88 (110) 97 03/04/18 22:02 98 Nasal Cannula 2.0 28 03/04/18 22:02 Nasal Cannula 2.0 28 03/04/18 22:02 90 18 Nasal Cannula 2.0 32 03/04/18 21:00 Nasal Cannula 2.0 03/04/18 20:00 97.6 92 20 157/85 (109) 95 03/04/18 20:00 93 03/04/18 16:43 97.7 90 20 150/71 (97) 94 03/04/18 16:00 90 Intake and Output 03/04/18 03/05/18 18:59 06:59 Intake Total 300 ml 390 ml Output Total 800 ml 977 ml Balance -500 ml -587 ml Intake Oral 300 ml 390 ml Output Urine Total 800 ml 975 ml Stool Total 2 ml # Voids 1 Laboratory Tests 03/05/18 05:05: C-Reactive Protein, Quantitative 11.3H 03/05/18 05:07: White Blood Count 16.5H, Red Blood Count 2.50L, Hemoglobin 7.4L, Hematocrit 23.7L, Mean Corpuscular Volume 95, Mean Corpuscular Hemoglobin 29.8, Mean Corpuscular Hemoglobin Concent 31.4L, Red Cell Distribution Width 13.5, Platelet Count 491H, Mean Platelet Volume 5.4L, Neutrophils (%) (Auto) , Lymphocytes (%) (Auto) , Monocytes (%) (Auto) , Eosinophils (%) (Auto) , Basophils (%) (Auto) , Differential Total Cells Counted 100, Neutrophils % ( Manual) 83H, Lymphocytes % (Manual) 8L, Monocytes % (Manual) 3, Eosinophils % ( Manual) 0, Basophils % (Manual) 0, Myelocytes % 1H, Band Neutrophils 5, Platelet Estimate Adequate, Platelet Morphology Normal, Polychromasia , Hypochromasia 2+, Anisocytosis 1+, Sodium Level 141, Potassium Level 2.9L, Chloride Level 104, Carbon Dioxide Level 21, Anion Gap 16H, Blood Urea Nitrogen 116H, Creatinine 5.5H, Estimat Glomerular Filtration Rate , Glucose Level 147H, Uric Acid 10.7H, Calcium Level 7.6L, Phosphorus Level 5.8H, Magnesium Level 2.2 , Total Bilirubin 1.1H, Direct Bilirubin 0.6H, Aspartate Amino Transf (AST/SGOT ) 111H, Alanine Aminotransferase (ALT/SGPT) 97H, Alkaline Phosphatase 103, Total Creatine Kinase 1051H, Total Protein 6.5, Albumin 2.0L, Globulin 4.5, Albumin/Globulin Ratio 0.4L Height (Feet): 5 Height (Inches): 7.00 Weight (Pounds): 216 General Appearance: no apparent distress, lethargic Cardiovascular: tachycardia Respiratory/Chest: decreased breath sounds Abdomen: distended Objective no change Yayo Lora MD Mar 05, 2018 14:24
--- NOTE | 2018-03-05 15:22 | Pulmonology Progress Note ---
Assessment/Plan Assessment/Plan Pulmonary Progress Note Assessment/Plan Problems: (1) Rhabdomyolysis (2) Legionella Pneumonia LLL, CXR improving (3) ATN (acute tubular necrosis) (4) Acute CVA (cerebrovascular accident) (5) Abdominal distension (6) Hypokalemia (7) Anemia Assessment/Plan Intermittant Dialysis 400, oliguria AB per ID WBC still high, respiratory treatment Antibiotics check electrolytes, CPK cxr in am dvt prophylaxis sputum induction f/u labs Subjective ROS Limited/Unobtainable: No Constitutional: Reports: no symptoms HEENT: Repors: no symptoms Respiratory: Reports: no symptoms Allergies: Coded Allergies: NO KNOWN ALLERGIES (Verified Allergy, Unknown, 02/26/18) Objective Vital Signs Notes General Appearance: WD/WN HEENT: normocephalic, atraumatic Respiratory/Chest: chest wall non-tender, lungs clear Cardiovascular: normal peripheral pulses, regular rhythm Abdomen: normal bowel sounds, soft, non tender, moderate distension Extremities: no cyanosis Skin: no rash 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 Lymphatic: no neck adenopathy Microbiology Date/Time Source Procedure Growth Status 02/26/18 08:00 Blood Blood Culture - Preliminary NO GROWTH AFTER 48 HOURS Resulted 02/26/18 07:50 Blood Blood Culture - Preliminary NO GROWTH AFTER 48 HOURS Resulted 02/26/18 22:30 Nasopharynx Influenza Types A,B Antigen (MARYSOL) - Final Complete 02/26/18 22:40 Stool Clostridium difficile Toxin Assay - Final Complete 02/26/18 14:15 Urine,Clean Catch Urine Culture - Final NO GROWTH AFTER 48 HOURS Complete RAY Chest 1v 03/05/2018 INDICATION: Cough COMPARISON: Chest x-ray dated 03/01/18 FINDINGS: Single frontal view demonstrates a prominent cardiac size. Improved aeration the left lung. Right internal jugular central venous catheter with tip in the proximal superior vena cava. No pleural effusions. The visualized osseous structures are within normal limits. IMPRESSION: Improved aeration of the left lung. Otherwise no significant change. Stable line as outlined above. Laboratory Tests 02/27/18 15:04: Urine Opiates Screen Negative, Urine Barbiturates Screen Negative, Phencyclidine (PCP) Screen Negative, Urine Amphetamines Screen Negative, Urine Benzodiazepines Screen Negative, Urine Cocaine Screen Negative, Urine Marijuana (THC) Screen Negative 02/28/18 03:55: White Blood Count 29.9*H, Red Blood Count 3.54L, Hemoglobin 10.8L, Hematocrit 31.5L, Mean Corpuscular Volume 89, Mean Corpuscular Hemoglobin 30.4, Mean Corpuscular Hemoglobin Concent 34.2, Red Cell Distribution Width 11.2L, Platelet Count 377, Mean Platelet Volume 7.0, Neutrophils (%) (Auto) , Lymphocytes (%) (Auto) , Monocytes (%) (Auto) , Eosinophils (%) (Auto) , Basophils (%) (Auto) , Differential Total Cells Counted 100, Neutrophils % ( Manual) 88H, Lymphocytes % (Manual) 3L, Monocytes % (Manual) 2, Eosinophils % ( Manual) 0, Basophils % (Manual) 0, Band Neutrophils 7, Platelet Estimate Adequate, Platelet Morphology Normal, Hypochromasia 1+, Sodium Level 134L, Potassium Level 3.8, Chloride Level 95L, Carbon Dioxide Level 18L, Anion Gap 21H , Blood Urea Nitrogen 113H, Creatinine 7.8H, Estimat Glomerular Filtration Rate , Glucose Level 118H, Uric Acid 11.8H, Calcium Level 8.1L, Phosphorus Level 9.0H , Magnesium Level 2.6H, Total Bilirubin 3.8H, Direct Bilirubin 2.1H, Gamma Glutamyl Transpeptidase 93H, Aspartate Amino Transf (AST/SGOT) 634H, Alanine Aminotransferase (ALT/SGPT) 218H, Alkaline Phosphatase 124H, Pro-B-Type Natriuretic Peptide 3919H, Total Protein 7.0, Albumin 1.6L, Globulin 6.0, Random Vancomycin Level 15.0, Hepatitis A IgM Antibody [Pending], Hepatitis B Surface Antigen [Pending], Hepatitis B Core IgM Antibody [Pending], Hepatitis C Antibody [Pending] Current Medications Medications (Trade) Dose Ordered Sig/Aristides Route PRN Reason Start Time Stop Time Status Last Admin Dose Admin Acetaminophen (Tylenol) 650 mg Q4H PRN ORAL T>100.5 02/26/18 10:30 03/28/18 10:29 02/27/18 10:51 Acetaminophen (Tylenol) 650 mg Q6H PRN ORAL Mild Pain 02/27/18 11:45 03/28/18 06:29 02/28/18 00:35 Albuterol/ Ipratropium (Albuterol/ Ipratropium) 3 ml Q4H PRN HHN Shortness of Breath 02/26/18 10:30 03/03/18 10:29 02/27/18 23:03 Cefepime HCl 1 gm/ Dextrose 55 ml @ 110 mls/hr Q24H IVPB 02/26/18 12:00 03/05/18 11:59 02/27/18 11:45 Chlorhexidine Gluconate (Silva-Hex 2%) 1 applic DAILY@2000 TOPIC 02/27/18 20:00 03/29/18 19:59 02/27/18 21:40 Dextrose (Dextrose 50%) 25 ml Q30M PRN IV hypoglycemia 02/26/18 10:45 03/28/18 10:42 Dextrose (Dextrose 50%) 50 ml Q30M PRN IV hypoglycemia 02/26/18 10:45 03/28/18 10:44 Docusate Sodium (Colace) 100 mg THREE TIMES A DAY ORAL 02/27/18 18:00 03/29/18 17:59 02/28/18 08:20 Heparin Sodium (Porcine) (Heparin 5000 units/ml) 5,000 units EVERY 12 HOURS SUBQ 02/26/18 09:00 03/28/18 08:59 02/28/18 08:21 Linezolid (Zyvox) 600 mg EVERY 12 HOURS ORAL 02/27/18 21:00 03/04/18 20:59 02/28/18 08:19 Metronidazole (Flagyl) 500 mg Q8HR ORAL 02/26/18 15:00 03/05/18 14:59 02/28/18 05:30 Morphine Sulfate (Morphine Sulfate) 2 mg Q4H PRN IVP PAIN 4-10 02/26/18 10:30 03/05/18 10:29 Nitroglycerin (Ntg) 0.4 mg Q5MIN X 3 DOSES PRN SL Prn Chest Pain 02/26/18 10:45 03/28/18 10:44 Ondansetron HCl (Zofran) 4 mg Q6H PRN IVP Nausea & Vomiting 02/26/18 10:30 03/28/18 10:29 Pantoprazole (Protonix) 40 mg EVERY 12 HOURS ORAL 02/27/18 21:00 03/29/18 20:59 02/28/18 08:20 Polyethylene Glycol (Miralax) 17 gm DAILYPRN PRN ORAL Constipation 02/26/18 10:30 03/28/18 10:29 Quetiapine Fumarate (SEROquel) 12.5 mg Q4H PRN ORAL agitation 02/26/18 12:15 03/28/18 12:14 Sevelamer Carbonate (Renvela) 1,600 mg THREE TIMES A DAY ORAL 02/27/18 18:00 03/29/18 17:59 02/28/18 08:20 Temazepam (Restoril) 15 mg HSPRN PRN ORAL Insomnia 02/26/18 21:00 03/05/18 20:59 Subjective ROS Limited/Unobtainable: No Allergies: Coded Allergies: NO KNOWN ALLERGIES (Verified Allergy, Unknown, 02/26/18) Objective Last 24 Hour Vital Signs Date Time Temp Pulse Resp B/P (MAP) Pulse Ox O2 Delivery O2 Flow Rate FiO2 03/05/18 11:51 93 03/05/18 09:00 Nasal Cannula 2.0 03/05/18 08:00 97.8 91 18 146/88 (107) 97 03/05/18 08:00 96 03/05/18 04:00 97.8 60 22 154/86 (108) 98 03/05/18 04:00 93 03/05/18 00:00 87 03/05/18 00:00 98.1 98 23 156/88 (110) 97 03/04/18 22:02 98 Nasal Cannula 2.0 28 03/04/18 22:02 Nasal Cannula 2.0 28 03/04/18 22:02 90 18 Nasal Cannula 2.0 32 03/04/18 21:00 Nasal Cannula 2.0 03/04/18 20:00 97.6 92 20 157/85 (109) 95 03/04/18 20:00 93 03/04/18 16:43 97.7 90 20 150/71 (97) 94 03/04/18 16:00 90 Intake and Output 03/04/18 03/05/18 18:59 06:59 Intake Total 300 ml 390 ml Output Total 800 ml 977 ml Balance -500 ml -587 ml Intake Oral 300 ml 390 ml Output Urine Total 800 ml 975 ml Stool Total 2 ml # Voids 1 Laboratory Tests 03/05/18 05:05: C-Reactive Protein, Quantitative 11.3H 03/05/18 05:07: White Blood Count 16.5H, Red Blood Count 2.50L, Hemoglobin 7.4L, Hematocrit 23.7L, Mean Corpuscular Volume 95, Mean Corpuscular Hemoglobin 29.8, Mean Corpuscular Hemoglobin Concent 31.4L, Red Cell Distribution Width 13.5, Platelet Count 491H, Mean Platelet Volume 5.4L, Neutrophils (%) (Auto) , Lymphocytes (%) (Auto) , Monocytes (%) (Auto) , Eosinophils (%) (Auto) , Basophils (%) (Auto) , Differential Total Cells Counted 100, Neutrophils % ( Manual) 83H, Lymphocytes % (Manual) 8L, Monocytes % (Manual) 3, Eosinophils % ( Manual) 0, Basophils % (Manual) 0, Myelocytes % 1H, Band Neutrophils 5, Platelet Estimate Adequate, Platelet Morphology Normal, Polychromasia , Hypochromasia 2+, Anisocytosis 1+, Sodium Level 141, Potassium Level 2.9L, Chloride Level 104, Carbon Dioxide Level 21, Anion Gap 16H, Blood Urea Nitrogen 116H, Creatinine 5.5H, Estimat Glomerular Filtration Rate , Glucose Level 147H, Uric Acid 10.7H, Calcium Level 7.6L, Phosphorus Level 5.8H, Magnesium Level 2.2 , Total Bilirubin 1.1H, Direct Bilirubin 0.6H, Aspartate Amino Transf (AST/SGOT ) 111H, Alanine Aminotransferase (ALT/SGPT) 97H, Alkaline Phosphatase 103, Total Creatine Kinase 1051H, Total Protein 6.5, Albumin 2.0L, Globulin 4.5, Albumin/Globulin Ratio 0.4L Current Medications Medications (Trade) Dose Ordered Sig/Aristides Route PRN Reason Start Time Stop Time Status Last Admin Dose Admin Acetaminophen (Tylenol) 650 mg Q4H PRN ORAL T>100.5 03/01/18 22:30 03/28/18 10:29 Acetaminophen (Tylenol) 650 mg Q6H PRN ORAL Mild Pain 03/01/18 23:45 03/28/18 06:29 Allopurinol (Allopurinol) 300 mg DAILY ORAL 03/02/18 09:00 04/01/18 08:59 03/05/18 08:51 Chlorhexidine Gluconate (Silva-Hex 2%) 1 applic DAILY@1999 TOPIC 03/02/18 20:00 03/29/18 19:59 03/04/18 20:19 Dextrose (Dextrose 50%) 25 ml Q30M PRN IV Hypoglycemia 03/02/18 13:45 04/01/18 13:44 Dextrose (Dextrose 50%) 50 ml Q30M PRN IV Hypoglycemia 03/02/18 13:45 04/01/18 13:44 Dextrose/Sodium Chloride 1,000 ml @ 100 mls/hr Q10H IV 03/05/18 11:00 04/04/18 10:59 03/05/18 11:09 Docusate Sodium (Colace) 100 mg THREE TIMES A DAY ORAL 03/02/18 09:00 03/29/18 17:59 03/05/18 12:16 Heparin Sodium (Porcine) (Heparin 5000 units/ml) 5,000 units EVERY 12 HOURS SUBQ 03/02/18 09:00 03/28/18 08:59 03/05/18 08:52 Insulin Aspart (NovoLOG) BEFORE MEALS AND HS SUBQ 03/02/18 16:30 04/01/18 16:29 03/05/18 12:07 Levofloxacin 100 ml @ 100 mls/hr Q48H IVPB 03/06/18 12:00 03/13/18 11:59 Nitroglycerin (Ntg) 0.4 mg Q5MIN X 3 DOSES PRN SL Prn Chest Pain 03/01/18 21:15 03/28/18 10:44 Ondansetron HCl (Zofran) 4 mg Q6H PRN IVP Nausea & Vomiting 03/01/18 22:30 03/28/18 10:29 Pantoprazole (Protonix) 40 mg EVERY 12 HOURS ORAL 03/02/18 09:00 03/29/18 20:59 03/05/18 08:51 Polyethylene Glycol (Miralax) 17 gm DAILYPRN PRN ORAL Constipation 03/02/18 10:30 03/28/18 10:29 03/04/18 20:19 Sevelamer Carbonate (Renvela) 2,400 mg THREE TIMES A DAY ORAL 03/02/18 09:00 03/29/18 17:59 03/05/18 12:16 Temazepam (Restoril) 15 mg HSPRN PRN ORAL Insomnia 03/02/18 21:00 03/05/18 20:59 Juancarlos Malin MD Mar 05, 2018 15:22
[2018-03-05 16:00] VITALS: BP 143/86
--- NOTE | 2018-03-05 16:00 | NUR ---
NURSE NOTES: blood transfusion started @ 1557. 1 PRBC administered per order.patient tolerated it very well. VSS taken and recorded. no acute reactions taken place. patient is stable.
--- NOTE | 2018-03-05 19:35 | NUR ---
HAND-OFF: Report given to larry hudson rn.
--- NOTE | 2018-03-05 19:53 | NUR ---
NURSE NOTES: Received report from BALTA Trinh. Patient resting in bed awake, alert, able to make needs known. Hooked to monitoring coordinator. On room air. No respiratory distress at moment. Fortune catheter in place, dry, intact and draining well. Right IJ daisy in place and intact. IV sites on Left AC 20G and Right hand 20G TKO. Bed in lowest position. Bed alarm on. Call light within reach. Will continue to monitor.
[2018-03-05 20:00] VITALS: BP 148/94
[2018-03-05] MEDS: Dyna-Hex 2% Top Sol 2oz TOPIC SCH (20:33)
[2018-03-06] VITALS: BP 133/83
[2018-03-06 04:00] VITALS: BP 150/83
[2018-03-06] MEDS: NovoLOG Insulin Flexpen SUBQ SCH ×4 (06:15→22:02)
[2018-03-06] MEDS: D5NS 1,000 ML IV SCH ×2 (06:16→16:46)
[2018-03-06 06:37] LABS: HEMATOCRIT 30.4 % (42.0-52.0); HEMOGLOBIN 9.9 G/DL (14.2-18.0); MEAN CORPUSCULAR VOLUME 91 FL (80-99); PLATELET COUNT 469 K/UL (150-450); RED BLOOD COUNT 3.33 M/UL (4.70-6.10); RED CELL DISTRIBUTION WIDTH 14.6 % (11.6-14.8); WHITE BLOOD COUNT 15.4 K/UL (4.8-10.8)
[2018-03-06 07:16] LABS: ALANINE AMINOTRANSFERASE 95 U/L (12-78); ALBUMIN 2.1 G/DL (3.4-5.0); ALBUMIN/GLOBULIN RATIO 0.5 (1.0-2.7); ALKALINE PHOSPHATASE 112 U/L (46-116); ANION GAP 18 mmol/L (5-15); ASPARTATE AMINO TRANSFERASE 96 U/L (15-37); BLOOD UREA NITROGEN 112 mg/dL (7-18); CARBON DIOXIDE 19 MMOL/L (21-32); CHLORIDE 106 MMOL/L (98-107); CREATINE KINASE 676 U/L (26-308); CREATININE 4.7 MG/DL (0.55-1.30); GAMMA GLUTAMYL TRANSPEPTIDASE 117 U/L (5-85); PHOSPHORUS 6.1 MG/DL (2.5-4.9); POTASSIUM 2.9 MMOL/L (3.5-5.1); SODIUM 143 MMOL/L (136-145)
--- NOTE | 2018-03-06 07:20 | NUR ---
NURSE NOTES: Received report from BALTA Buchanan. Patient is in stable condition. No acute distress/SOB noted. Patient denies pain/discomfort. Will continue plan of care.
--- NOTE | 2018-03-06 07:34 | NUR ---
HAND-OFF: Report given to Toby JAVIER RN. Patient resting in bed, stable.
[2018-03-06 08:00] VITALS: BP 145/89
[2018-03-06] MEDS: Docusate 100mg cap ORAL SCH ×3 (08:18→17:22)
[2018-03-06] MEDS: Heparin 5000 units/ml inj SUBQ SCH ×2 (08:27→22:03)
--- NOTE | 2018-03-06 10:54 | GI Progress Note ---
Assessment/Plan Problems: (1) Abdominal distention ICD Codes: R14.0 - Abdominal distension (gaseous) SNOMED: 55721467 (2) Anemia ICD Codes: D64.9 - Anemia, unspecified SNOMED: 977793790 (3) encephalopathy due to toxin (4) Elevated liver function tests ICD Codes: R94.5 - Abnormal results of liver function studies SNOMED: 669831323, 472917021 Status: stable, unchanged Status Narrative Discussed with Dr. Matos Assessment/Plan History of colorectal cancer status post colorectal resection Abdominal ultrasound was reviewed with no evidence of cirrhosis, no evidence of choledocholithiasis, no evidence of intrahepatic biliary ductal dilation. Anemia workup reviewed Abdominal pelvic CT and KUB reviewed >> gaseous colonic distention colace and miralax abx rectal tube>>>patient refused KUB in am>>no sig changes trending down LFTS Turn patient every 2 hours Simethicone as needed Electrolyte correction PPI On pured diet Follow-up labs The patient was seen and examined at bedside and all new and available data was reviewed in the patients chart. I agree with the above findings, impression and plan. (Patient seen earlier today. Signature stamp does not reflect patient encounter time.). - Ismael Matos MD Subjective Gastrointestinal/Abdominal: Reports: no symptoms Subjective Denies abdominal pain Denies any nausea vomiting or diarrhea Abdominal discomfort from distention Objective Last 24 Hour Vital Signs Date Time Temp Pulse Resp B/P (MAP) Pulse Ox O2 Delivery O2 Flow Rate FiO2 03/06/18 09:00 Room Air 03/06/18 08:00 92 03/06/18 08:00 97.0 96 20 145/89 (107) 96 03/06/18 04:00 97.5 98 19 150/83 (105) 96 03/06/18 04:00 101 03/06/18 00:00 97.2 91 18 133/83 (100) 96 03/06/18 00:00 100 03/05/18 21:00 Room Air 03/05/18 20:00 97 03/05/18 20:00 97.9 96 18 148/94 (112) 96 03/05/18 19:45 97 Nasal Cannula 2.0 28 03/05/18 19:45 93 18 Nasal Cannula 2.0 28 03/05/18 19:45 Nasal Cannula 2.0 28 03/05/18 16:00 96.8 93 20 143/86 (105) 95 03/05/18 16:00 93 03/05/18 12:00 97.3 93 20 140/83 (102) 95 03/05/18 11:51 93 Intake and Output 03/05/18 03/06/18 19:00 07:00 Intake Total 1480 ml Output Total 1100 ml 1950 ml Balance 380 ml -1950 ml Intake Oral 480 ml IV Total 1000 ml Output Urine Total 1100 ml 1950 ml # Bowel Movements 2 Laboratory Tests Test 03/06/18 05:00 White Blood Count 15.4 K/UL (4.8-10.8) H Red Blood Count 3.33 M/UL (4.70-6.10) L Hemoglobin 9.9 G/DL (14.2-18.0) #L Hematocrit 30.4 % (42.0-52.0) L Mean Corpuscular Volume 91 FL (80-99) Mean Corpuscular Hemoglobin 29.7 PG (27.0-31.0) Mean Corpuscular Hemoglobin Concent 32.6 G/DL (32.0-36.0) Red Cell Distribution Width 14.6 % (11.6-14.8) Platelet Count 469 K/UL (150-450) H Mean Platelet Volume 5.4 FL (6.5-10.1) L Neutrophils (%) (Auto) % (45.0-75.0) Lymphocytes (%) (Auto) % (20.0-45.0) Monocytes (%) (Auto) % (1.0-10.0) Eosinophils (%) (Auto) % (0.0-3.0) Basophils (%) (Auto) % (0.0-2.0) Differential Total Cells Counted 100 Neutrophils % (Manual) 82 % (45-75) H Lymphocytes % (Manual) 10 % (20-45) L Monocytes % (Manual) 4 % (1-10) Eosinophils % (Manual) 1 % (0-3) Basophils % (Manual) 0 % (0-2) Band Neutrophils 3 % (0-8) Platelet Estimate Increased H Platelet Morphology Normal Sodium Level 143 MMOL/L (136-145) Potassium Level 2.9 MMOL/L (3.5-5.1) L Chloride Level 106 MMOL/L (98-107) Carbon Dioxide Level 19 MMOL/L (21-32) L Anion Gap 18 mmol/L (5-15) H Blood Urea Nitrogen 112 mg/dL (7-18) H Creatinine 4.7 MG/DL (0.55-1.30) H Estimat Glomerular Filtration Rate mL/min (>60) Glucose Level 147 MG/DL (74-106) H Uric Acid 11.3 MG/DL (2.6-7.2) H Calcium Level 8.0 MG/DL (8.5-10.1) L Phosphorus Level 6.1 MG/DL (2.5-4.9) H Magnesium Level 2.0 MG/DL (1.8-2.4) Total Bilirubin 1.0 MG/DL (0.2-1.0) Gamma Glutamyl Transpeptidase 117 U/L (5-85) H Aspartate Amino Transf (AST/SGOT) 96 U/L (15-37) H Alanine Aminotransferase (ALT/SGPT) 95 U/L (12-78) H Alkaline Phosphatase 112 U/L (46-116) Total Creatine Kinase 676 U/L (26-308) H Pro-B-Type Natriuretic Peptide 998 pg/mL (0-125) H Total Protein 6.2 G/DL (6.4-8.2) L Albumin 2.1 G/DL (3.4-5.0) L Globulin 4.1 g/dL Albumin/Globulin Ratio 0.5 (1.0-2.7) L Height (Feet): 5 Height (Inches): 7.00 Weight (Pounds): 219 General Appearance: WD/WN, no apparent distress, alert Cardiovascular: normal rate Respiratory/Chest: normal breath sounds, no respiratory distress Abdominal Exam: normal bowel sounds, non tender, soft Extremities: non-tender Chapito Pedraza NP Mar 06, 2018 10:54
[2018-03-06] MEDS ORDERED: Simethicone 80mg tab ORAL SCH (11:00)
[2018-03-06] MEDS ORDERED: Simethicone 80mg tab ORAL PRN (11:00)
--- NOTE | 2018-03-06 11:42 | Nephrology Progress Note ---
Assessment/Plan Problem List: (1) ATN (acute tubular necrosis) (2) Rhabdomyolysis Assessment: CPK lowering (3) Pneumonia (4) encephalopathy due to toxin Assessment Acute renal failure- Cr lowering off HD Rhabdo Pneumonia CVA ? Plan Slow Hydrate- albumin bolus monitor urine output Add Allopurinol hemodialysis Last 03/03 May not need any more HD Transfuse 2 units Phos binders check ABG- results noted Fortune Monitor CPK - Uric Acid- LFTs monitor Renal parameters Avoid Nephrotoxics per orders discussed with RN and daughter present in room 03/05/18 Subjective ROS Limited/Unobtainable: No Constitutional: Reports: malaise Objective Objective Last 24 Hour Vital Signs Date Time Temp Pulse Resp B/P (MAP) Pulse Ox O2 Delivery O2 Flow Rate FiO2 03/06/18 09:00 Room Air 03/06/18 08:00 92 03/06/18 08:00 97.0 96 20 145/89 (107) 96 03/06/18 04:00 97.5 98 19 150/83 (105) 96 03/06/18 04:00 101 03/06/18 00:00 97.2 91 18 133/83 (100) 96 03/06/18 00:00 100 03/05/18 21:00 Room Air 03/05/18 20:00 97 03/05/18 20:00 97.9 96 18 148/94 (112) 96 03/05/18 19:45 97 Nasal Cannula 2.0 28 03/05/18 19:45 93 18 Nasal Cannula 2.0 28 03/05/18 19:45 Nasal Cannula 2.0 28 03/05/18 16:00 96.8 93 20 143/86 (105) 95 03/05/18 16:00 93 03/05/18 12:00 97.3 93 20 140/83 (102) 95 03/05/18 11:51 93 Intake and Output 03/05/18 03/06/18 19:00 07:00 Intake Total 1480 ml Output Total 1100 ml 1950 ml Balance 380 ml -1950 ml Intake Oral 480 ml IV Total 1000 ml Output Urine Total 1100 ml 1950 ml # Bowel Movements 2 Laboratory Tests 03/06/18 05:00: White Blood Count 15.4H, Red Blood Count 3.33L, Hemoglobin 9.9#L, Hematocrit 30.4L, Mean Corpuscular Volume 91, Mean Corpuscular Hemoglobin 29.7, Mean Corpuscular Hemoglobin Concent 32.6, Red Cell Distribution Width 14.6, Platelet Count 469H, Mean Platelet Volume 5.4L, Neutrophils (%) (Auto) , Lymphocytes (%) (Auto) , Monocytes (%) (Auto) , Eosinophils (%) (Auto) , Basophils (%) (Auto) , Differential Total Cells Counted 100, Neutrophils % (Manual) 82H, Lymphocytes % (Manual) 10L, Monocytes % (Manual) 4, Eosinophils % (Manual) 1, Basophils % ( Manual) 0, Band Neutrophils 3, Platelet Estimate IncreasedH, Platelet Morphology Normal, Sodium Level 143, Potassium Level 2.9L, Chloride Level 106, Carbon Dioxide Level 19L, Anion Gap 18H, Blood Urea Nitrogen 112H, Creatinine 4.7H, Estimat Glomerular Filtration Rate , Glucose Level 147H, Uric Acid 11.3H, Calcium Level 8.0L, Phosphorus Level 6.1H, Magnesium Level 2.0, Total Bilirubin 1.0, Gamma Glutamyl Transpeptidase 117H, Aspartate Amino Transf (AST/SGOT) 96H, Alanine Aminotransferase (ALT/SGPT) 95H, Alkaline Phosphatase 112, Total Creatine Kinase 676H, Pro-B-Type Natriuretic Peptide 998H, Total Protein 6.2L, Albumin 2.1L, Globulin 4.1, Albumin/Globulin Ratio 0.5L Height (Feet): 5 Height (Inches): 7.00 Weight (Pounds): 219 General Appearance: no apparent distress Cardiovascular: normal rate Respiratory/Chest: decreased breath sounds Abdomen: distended Objective no change Yayo Lora MD Mar 06, 2018 11:42
[2018-03-06 12:00] VITALS: BP 141/84
--- NOTE | 2018-03-06 12:34 | Infectious Diseases Prog Note ---
Assessment/Plan Assessment/Plan Abx: IV Vancomycin 02/26- Cefepime 02/26- Assessment: Sepsis,improving - 2ry to Legionella PNA and UTI -02/27 CXR: Increasing left upper lobe consolidation, over one day. -CXR: Left lung infiltrates, likely pneumonia, and pleural fluid. Borderline cardiomegaly -Bcx NTD -u/a wbc tnct, nit +, leuk +2; cx Neg -influenza sc neg -legionella ag urine + -sp cx normal resp ceci Fever, SP Leukocytosis, improving -CT abd/p: Dense left lower lobe consolidation and small pleural effusion. This is consistent with findings described on recent chest radiograph. Hypoattenuating bilateral kidneys with indistinctness of the renal margins, could indicate inflammatory change. Edema of the subcutaneous fat of the flanks bilaterally. The colon is diffusely gas-filled, upper limits normal in caliber. Probably indicates functional changes as no obstructive pathology is demonstrated. Other findings as noted, including small fat-containing bilateral inguinal hernias, 9 cm left renal cyst Acute respiratory failure, now at [facility], SP HD improving Rhabdomyolosis; improving AMS, improving s/p Fall Acute transaminitis, infection-2ry to Legionella infection; improving -HIV ab sc neg -Acute hepatitis panel neg Plan: -Continue Levaquin 750mg q48hrs # 6 for LEgionella for 10-14 days -IV as patient refusing PO; can transition to PO upon discharge - 03/04 Sp PO Linezolid #6 (abx d#7/7) and Cefepime #6 -02/28 SP Flagyl #2 -02/27 SP IV Vancomycin #2 -Monitor CBC/CMP, temperatures -Renal f/u -CXR am Subjective Allergies: Coded Allergies: NO KNOWN ALLERGIES (Verified Allergy, Unknown, 02/26/18) Subjective afebrile WBC improving Bcx NTD at now Objective Vital Signs Last 24 Hour Vital Signs Date Time Temp Pulse Resp B/P (MAP) Pulse Ox O2 Delivery O2 Flow Rate FiO2 03/06/18 09:00 Room Air 03/06/18 08:00 92 03/06/18 08:00 97.0 96 20 145/89 (107) 96 03/06/18 04:00 97.5 98 19 150/83 (105) 96 03/06/18 04:00 101 03/06/18 00:00 97.2 91 18 133/83 (100) 96 03/06/18 00:00 100 03/05/18 21:00 Room Air 03/05/18 20:00 97 03/05/18 20:00 97.9 96 18 148/94 (112) 96 03/05/18 19:45 97 Nasal Cannula 2.0 28 03/05/18 19:45 93 18 Nasal Cannula 2.0 28 03/05/18 19:45 Nasal Cannula 2.0 28 03/05/18 16:00 96.8 93 20 143/86 (105) 95 03/05/18 16:00 93 Height (Feet): 5 Height (Inches): 7.00 Weight (Pounds): 219 Objective General Appearance: WD/WN HEENT: normocephalic, atraumatic Respiratory/Chest: chest wall non-tender, lungs clear Cardiovascular: normal peripheral pulses, regular rhythm Abdomen: normal bowel sounds, soft, non tender, moderate distension Extremities: no cyanosis Skin: no rash Neurologic/Psychiatric: unit educator II-XII grossly normal Lymphatic: no neck adenopathy Laboratory Tests Test 03/06/18 05:00 03/06/18 05:50 White Blood Count 15.4 K/UL (4.8-10.8) H Red Blood Count 3.33 M/UL (4.70-6.10) L Hemoglobin 9.9 G/DL (14.2-18.0) #L Hematocrit 30.4 % (42.0-52.0) L Mean Corpuscular Volume 91 FL (80-99) Mean Corpuscular Hemoglobin 29.7 PG (27.0-31.0) Mean Corpuscular Hemoglobin Concent 32.6 G/DL (32.0-36.0) Red Cell Distribution Width 14.6 % (11.6-14.8) Platelet Count 469 K/UL (150-450) H Mean Platelet Volume 5.4 FL (6.5-10.1) L Neutrophils (%) (Auto) % (45.0-75.0) Lymphocytes (%) (Auto) % (20.0-45.0) Monocytes (%) (Auto) % (1.0-10.0) Eosinophils (%) (Auto) % (0.0-3.0) Basophils (%) (Auto) % (0.0-2.0) Differential Total Cells Counted 100 Neutrophils % (Manual) 82 % (45-75) H Lymphocytes % (Manual) 10 % (20-45) L Monocytes % (Manual) 4 % (1-10) Eosinophils % (Manual) 1 % (0-3) Basophils % (Manual) 0 % (0-2) Band Neutrophils 3 % (0-8) Platelet Estimate Increased H Platelet Morphology Normal Sodium Level 143 MMOL/L (136-145) Potassium Level 2.9 MMOL/L (3.5-5.1) L Chloride Level 106 MMOL/L (98-107) Carbon Dioxide Level 19 MMOL/L (21-32) L Anion Gap 18 mmol/L (5-15) H Blood Urea Nitrogen 112 mg/dL (7-18) H Creatinine 4.7 MG/DL (0.55-1.30) H Estimat Glomerular Filtration Rate mL/min (>60) Glucose Level 147 MG/DL (74-106) H Uric Acid 11.3 MG/DL (2.6-7.2) H Calcium Level 8.0 MG/DL (8.5-10.1) L Phosphorus Level 6.1 MG/DL (2.5-4.9) H Magnesium Level 2.0 MG/DL (1.8-2.4) Total Bilirubin 1.0 MG/DL (0.2-1.0) Gamma Glutamyl Transpeptidase 117 U/L (5-85) H Aspartate Amino Transf (AST/SGOT) 96 U/L (15-37) H Alanine Aminotransferase (ALT/SGPT) 95 U/L (12-78) H Alkaline Phosphatase 112 U/L (46-116) Total Creatine Kinase 676 U/L (26-308) H Pro-B-Type Natriuretic Peptide 998 pg/mL (0-125) H Total Protein 6.2 G/DL (6.4-8.2) L Albumin 2.1 G/DL (3.4-5.0) L Globulin 4.1 g/dL Albumin/Globulin Ratio 0.5 (1.0-2.7) L C-Reactive Protein, Quantitative 11.0 mg/dL (0.00-0.90) H Current Medications Medications (Trade) Dose Ordered Sig/Aristides Route PRN Reason Start Time Stop Time Status Last Admin Dose Admin Acetaminophen (Tylenol) 650 mg Q4H PRN ORAL T>100.5 03/01/18 22:30 03/28/18 10:29 Acetaminophen (Tylenol) 650 mg Q6H PRN ORAL Mild Pain 03/01/18 23:45 03/28/18 06:29 Allopurinol (Allopurinol) 300 mg DAILY ORAL 03/02/18 09:00 04/01/18 08:59 03/06/18 08:18 Chlorhexidine Gluconate (Silva-Hex 2%) 1 applic DAILY@2000 TOPIC 03/02/18 20:00 03/29/18 19:59 03/05/18 20:33 Dextrose (Dextrose 50%) 25 ml Q30M PRN IV Hypoglycemia 03/02/18 13:45 04/01/18 13:44 Dextrose (Dextrose 50%) 50 ml Q30M PRN IV Hypoglycemia 03/02/18 13:45 04/01/18 13:44 Dextrose/Sodium Chloride 1,000 ml @ 100 mls/hr Q10H IV 03/05/18 11:00 04/04/18 10:59 03/06/18 06:16 Docusate Sodium (Colace) 100 mg THREE TIMES A DAY ORAL 03/02/18 09:00 03/29/18 17:59 03/06/18 12:14 Heparin Sodium (Porcine) (Heparin 5000 units/ml) 5,000 units EVERY 12 HOURS SUBQ 03/02/18 09:00 03/28/18 08:59 03/06/18 08:27 Insulin Aspart (NovoLOG) BEFORE MEALS AND HS SUBQ 03/02/18 16:30 04/01/18 16:29 03/06/18 11:30 Levofloxacin 100 ml @ 100 mls/hr Q48H IVPB 03/06/18 12:00 03/13/18 11:59 03/06/18 12:14 Nitroglycerin (Ntg) 0.4 mg Q5MIN X 3 DOSES PRN SL Prn Chest Pain 03/01/18 21:15 03/28/18 10:44 Ondansetron HCl (Zofran) 4 mg Q6H PRN IVP Nausea & Vomiting 03/01/18 22:30 03/28/18 10:29 Pantoprazole (Protonix) 40 mg EVERY 12 HOURS ORAL 03/02/18 09:00 03/29/18 20:59 03/06/18 08:18 Polyethylene Glycol (Miralax) 17 gm DAILYPRN PRN ORAL Constipation 03/02/18 10:30 03/28/18 10:29 03/04/18 20:19 Potassium Chloride 100 ml @ 100 mls/hr Q1H IVPB 03/06/18 10:00 03/06/18 15:59 03/06/18 12:18 Sevelamer Carbonate (Renvela) 2,400 mg THREE TIMES A DAY ORAL 03/02/18 09:00 03/29/18 17:59 03/06/18 12:14 Simethicone (Mylicon) 80 mg QIDPRN PRN ORAL GAS PAIN 03/06/18 11:00 04/05/18 10:59 Melissa Martinez M.D. Mar 06, 2018 12:34
--- NOTE | 2018-03-06 12:52 | Diagnostic Imaging Report ---
APPROVED REPORT CPT Code: 11661 Present Symptoms Shortness of breath BILATERAL: Imaging reveals a patent deep venous system bilaterally. There is no evidence of thrombus within the femoral, popliteal or tibial segments. The greater saphenous veins are also within normal limits. Doppler indicates normal spontaneous flow within these segments.
--- NOTE | 2018-03-06 15:52 | Pulmonology Progress Note ---
Assessment/Plan Assessment/Plan Pulmonary Progress Note Assessment/Plan Problems: (1) Rhabdomyolysis (2) Legionella Pneumonia LLL, CXR improving (3) ATN (acute tubular necrosis) (4) Acute CVA (cerebrovascular accident) (5) Abdominal distension (6) Hypokalemia (7) Anemia Assessment/Plan Intermittant Dialysis 400, oliguria AB per ID WBC still high, respiratory treatment Antibiotics check electrolytes, CPK cxr in am dvt prophylaxis sputum induction f/u labs Subjective ROS Limited/Unobtainable: No Constitutional: Reports: no symptoms HEENT: Repors: no symptoms Respiratory: Reports: no symptoms Allergies: Coded Allergies: NO KNOWN ALLERGIES (Verified Allergy, Unknown, 02/26/18) Objective Vital Signs Notes General Appearance: WD/WN HEENT: normocephalic, atraumatic Respiratory/Chest: chest wall non-tender, lungs clear Cardiovascular: normal peripheral pulses, regular rhythm Abdomen: normal bowel sounds, soft, non tender, moderate distension Extremities: no cyanosis Skin: no rash 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 II-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 grossly normal Lymphatic: no neck adenopathy Microbiology Date/Time Source Procedure Growth Status 02/26/18 08:00 Blood Blood Culture - Preliminary NO GROWTH AFTER 48 HOURS Resulted 02/26/18 07:50 Blood Blood Culture - Preliminary NO GROWTH AFTER 48 HOURS Resulted 02/26/18 22:30 Nasopharynx Influenza Types A,B Antigen (MARYSOL) - Final Complete 02/26/18 22:40 Stool Clostridium difficile Toxin Assay - Final Complete 02/26/18 14:15 Urine,Clean Catch Urine Culture - Final NO GROWTH AFTER 48 HOURS Complete RAY Chest 1v 03/05/2018 INDICATION: Cough COMPARISON: Chest x-ray dated 03/01/18 FINDINGS: Single frontal view demonstrates a prominent cardiac size. Improved aeration the left lung. Right internal jugular central venous catheter with tip in the proximal superior vena cava. No pleural effusions. The visualized osseous structures are within normal limits. IMPRESSION: Improved aeration of the left lung. Otherwise no significant change. Stable line as outlined above. Laboratory Tests 02/27/18 15:04: Urine Opiates Screen Negative, Urine Barbiturates Screen Negative, Phencyclidine (PCP) Screen Negative, Urine Amphetamines Screen Negative, Urine Benzodiazepines Screen Negative, Urine Cocaine Screen Negative, Urine Marijuana (THC) Screen Negative 02/28/18 03:55: White Blood Count 29.9*H, Red Blood Count 3.54L, Hemoglobin 10.8L, Hematocrit 31.5L, Mean Corpuscular Volume 89, Mean Corpuscular Hemoglobin 30.4, Mean Corpuscular Hemoglobin Concent 34.2, Red Cell Distribution Width 11.2L, Platelet Count 377, Mean Platelet Volume 7.0, Neutrophils (%) (Auto) , Lymphocytes (%) (Auto) , Monocytes (%) (Auto) , Eosinophils (%) (Auto) , Basophils (%) (Auto) , Differential Total Cells Counted 100, Neutrophils % ( Manual) 88H, Lymphocytes % (Manual) 3L, Monocytes % (Manual) 2, Eosinophils % ( Manual) 0, Basophils % (Manual) 0, Band Neutrophils 7, Platelet Estimate Adequate, Platelet Morphology Normal, Hypochromasia 1+, Sodium Level 134L, Potassium Level 3.8, Chloride Level 95L, Carbon Dioxide Level 18L, Anion Gap 21H , Blood Urea Nitrogen 113H, Creatinine 7.8H, Estimat Glomerular Filtration Rate , Glucose Level 118H, Uric Acid 11.8H, Calcium Level 8.1L, Phosphorus Level 9.0H , Magnesium Level 2.6H, Total Bilirubin 3.8H, Direct Bilirubin 2.1H, Gamma Glutamyl Transpeptidase 93H, Aspartate Amino Transf (AST/SGOT) 634H, Alanine Aminotransferase (ALT/SGPT) 218H, Alkaline Phosphatase 124H, Pro-B-Type Natriuretic Peptide 3919H, Total Protein 7.0, Albumin 1.6L, Globulin 6.0, Random Vancomycin Level 15.0, Hepatitis A IgM Antibody [Pending], Hepatitis B Surface Antigen [Pending], Hepatitis B Core IgM Antibody [Pending], Hepatitis C Antibody [Pending] Current Medications Medications (Trade) Dose Ordered Sig/Aristides Route PRN Reason Start Time Stop Time Status Last Admin Dose Admin Acetaminophen (Tylenol) 650 mg Q4H PRN ORAL T>100.5 02/26/18 10:30 03/28/18 10:29 02/27/18 10:51 Acetaminophen (Tylenol) 650 mg Q6H PRN ORAL Mild Pain 02/27/18 11:45 03/28/18 06:29 02/28/18 00:35 Albuterol/ Ipratropium (Albuterol/ Ipratropium) 3 ml Q4H PRN HHN Shortness of Breath 02/26/18 10:30 03/03/18 10:29 02/27/18 23:03 Cefepime HCl 1 gm/ Dextrose 55 ml @ 110 mls/hr Q24H IVPB 02/26/18 12:00 03/05/18 11:59 02/27/18 11:45 Chlorhexidine Gluconate (Silva-Hex 2%) 1 applic DAILY@2000 TOPIC 02/27/18 20:00 03/29/18 19:59 02/27/18 21:40 Dextrose (Dextrose 50%) 25 ml Q30M PRN IV hypoglycemia 02/26/18 10:45 03/28/18 10:42 Dextrose (Dextrose 50%) 50 ml Q30M PRN IV hypoglycemia 02/26/18 10:45 03/28/18 10:44 Docusate Sodium (Colace) 100 mg THREE TIMES A DAY ORAL 02/27/18 18:00 03/29/18 17:59 02/28/18 08:20 Heparin Sodium (Porcine) (Heparin 5000 units/ml) 5,000 units EVERY 12 HOURS SUBQ 02/26/18 09:00 03/28/18 08:59 02/28/18 08:21 Linezolid (Zyvox) 600 mg EVERY 12 HOURS ORAL 02/27/18 21:00 03/04/18 20:59 02/28/18 08:19 Metronidazole (Flagyl) 500 mg Q8HR ORAL 02/26/18 15:00 03/05/18 14:59 02/28/18 05:30 Morphine Sulfate (Morphine Sulfate) 2 mg Q4H PRN IVP PAIN 4-10 02/26/18 10:30 03/05/18 10:29 Nitroglycerin (Ntg) 0.4 mg Q5MIN X 3 DOSES PRN SL Prn Chest Pain 02/26/18 10:45 03/28/18 10:44 Ondansetron HCl (Zofran) 4 mg Q6H PRN IVP Nausea & Vomiting 02/26/18 10:30 03/28/18 10:29 Pantoprazole (Protonix) 40 mg EVERY 12 HOURS ORAL 02/27/18 21:00 03/29/18 20:59 02/28/18 08:20 Polyethylene Glycol (Miralax) 17 gm DAILYPRN PRN ORAL Constipation 02/26/18 10:30 03/28/18 10:29 Quetiapine Fumarate (SEROquel) 12.5 mg Q4H PRN ORAL agitation 02/26/18 12:15 03/28/18 12:14 Sevelamer Carbonate (Renvela) 1,600 mg THREE TIMES A DAY ORAL 02/27/18 18:00 03/29/18 17:59 02/28/18 08:20 Temazepam (Restoril) 15 mg HSPRN PRN ORAL Insomnia 02/26/18 21:00 03/05/18 20:59 Subjective ROS Limited/Unobtainable: No Allergies: Coded Allergies: NO KNOWN ALLERGIES (Verified Allergy, Unknown, 02/26/18) Objective Last 24 Hour Vital Signs Date Time Temp Pulse Resp B/P (MAP) Pulse Ox O2 Delivery O2 Flow Rate FiO2 03/06/18 12:00 97.3 86 22 141/84 (103) 95 03/06/18 12:00 94 03/06/18 09:00 Room Air 03/06/18 08:00 92 03/06/18 08:00 97.0 96 20 145/89 (107) 96 03/06/18 04:00 97.5 98 19 150/83 (105) 96 03/06/18 04:00 101 03/06/18 00:00 97.2 91 18 133/83 (100) 96 03/06/18 00:00 100 03/05/18 21:00 Room Air 03/05/18 20:00 97 03/05/18 20:00 97.9 96 18 148/94 (112) 96 03/05/18 19:45 97 Nasal Cannula 2.0 28 03/05/18 19:45 93 18 Nasal Cannula 2.0 28 03/05/18 19:45 Nasal Cannula 2.0 28 03/05/18 16:00 96.8 93 20 143/86 (105) 95 03/05/18 16:00 93 Intake and Output 03/05/18 03/06/18 18:59 06:59 Intake Total 1480 ml Output Total 1100 ml 1950 ml Balance 380 ml -1950 ml Intake Oral 480 ml IV Total 1000 ml Output Urine Total 1100 ml 1950 ml # Bowel Movements 2 Laboratory Tests 03/06/18 05:00: White Blood Count 15.4H, Red Blood Count 3.33L, Hemoglobin 9.9#L, Hematocrit 30.4L, Mean Corpuscular Volume 91, Mean Corpuscular Hemoglobin 29.7, Mean Corpuscular Hemoglobin Concent 32.6, Red Cell Distribution Width 14.6, Platelet Count 469H, Mean Platelet Volume 5.4L, Neutrophils (%) (Auto) , Lymphocytes (%) (Auto) , Monocytes (%) (Auto) , Eosinophils (%) (Auto) , Basophils (%) (Auto) , Differential Total Cells Counted 100, Neutrophils % (Manual) 82H, Lymphocytes % (Manual) 10L, Monocytes % (Manual) 4, Eosinophils % (Manual) 1, Basophils % ( Manual) 0, Band Neutrophils 3, Platelet Estimate IncreasedH, Platelet Morphology Normal, Sodium Level 143, Potassium Level 2.9L, Chloride Level 106, Carbon Dioxide Level 19L, Anion Gap 18H, Blood Urea Nitrogen 112H, Creatinine 4.7H, Estimat Glomerular Filtration Rate , Glucose Level 147H, Uric Acid 11.3H, Calcium Level 8.0L, Phosphorus Level 6.1H, Magnesium Level 2.0, Total Bilirubin 1.0, Gamma Glutamyl Transpeptidase 117H, Aspartate Amino Transf (AST/SGOT) 96H, Alanine Aminotransferase (ALT/SGPT) 95H, Alkaline Phosphatase 112, Total Creatine Kinase 676H, Pro-B-Type Natriuretic Peptide 998H, Total Protein 6.2L, Albumin 2.1L, Globulin 4.1, Albumin/Globulin Ratio 0.5L 03/06/18 05:50: C-Reactive Protein, Quantitative 11.0H Current Medications Medications (Trade) Dose Ordered Sig/Aristides Route PRN Reason Start Time Stop Time Status Last Admin Dose Admin Acetaminophen (Tylenol) 650 mg Q4H PRN ORAL T>100.5 03/01/18 22:30 03/28/18 10:29 Acetaminophen (Tylenol) 650 mg Q6H PRN ORAL Mild Pain 03/01/18 23:45 03/28/18 06:29 Allopurinol (Allopurinol) 300 mg DAILY ORAL 03/02/18 09:00 04/01/18 08:59 03/06/18 08:18 Chlorhexidine Gluconate (Silva-Hex 2%) 1 applic DAILY@1999 TOPIC 03/02/18 20:00 03/29/18 19:59 03/05/18 20:33 Dextrose (Dextrose 50%) 25 ml Q30M PRN IV Hypoglycemia 03/02/18 13:45 04/01/18 13:44 Dextrose (Dextrose 50%) 50 ml Q30M PRN IV Hypoglycemia 03/02/18 13:45 04/01/18 13:44 Dextrose/Sodium Chloride 1,000 ml @ 100 mls/hr Q10H IV 03/05/18 11:00 04/04/18 10:59 03/06/18 06:16 Docusate Sodium (Colace) 100 mg THREE TIMES A DAY ORAL 03/02/18 09:00 03/29/18 17:59 03/06/18 12:14 Heparin Sodium (Porcine) (Heparin 5000 units/ml) 5,000 units EVERY 12 HOURS SUBQ 03/02/18 09:00 03/28/18 08:59 03/06/18 08:27 Insulin Aspart (NovoLOG) BEFORE MEALS AND HS SUBQ 03/02/18 16:30 04/01/18 16:29 03/06/18 11:30 Levofloxacin 100 ml @ 100 mls/hr Q48H IVPB 03/06/18 12:00 03/13/18 11:59 03/06/18 12:14 Nitroglycerin (Ntg) 0.4 mg Q5MIN X 3 DOSES PRN SL Prn Chest Pain 03/01/18 21:15 03/28/18 10:44 Ondansetron HCl (Zofran) 4 mg Q6H PRN IVP Nausea & Vomiting 03/01/18 22:30 03/28/18 10:29 Pantoprazole (Protonix) 40 mg EVERY 12 HOURS ORAL 03/02/18 09:00 03/29/18 20:59 03/06/18 08:18 Polyethylene Glycol (Miralax) 17 gm DAILYPRN PRN ORAL Constipation 03/02/18 10:30 03/28/18 10:29 03/04/18 20:19 Potassium Chloride 100 ml @ 100 mls/hr Q1H IVPB 03/06/18 10:00 03/06/18 15:59 03/06/18 14:33 Sevelamer Carbonate (Renvela) 2,400 mg THREE TIMES A DAY ORAL 03/02/18 09:00 03/29/18 17:59 03/06/18 12:14 Simethicone (Mylicon) 80 mg QIDPRN PRN ORAL GAS PAIN 03/06/18 11:00 04/05/18 10:59 Juancarlos Malin MD Mar 06, 2018 15:52
[2018-03-06 16:00] VITALS: BP 124/74
--- NOTE | 2018-03-06 16:20 | Internal Med Progress Note ---
Subjective Physician Name Ruperto Cowan Attending Physician Ruperto Cowan MD Current Medications Medications (Trade) Dose Ordered Sig/Aristides Route PRN Reason Start Time Stop Time Status Last Admin Dose Admin Acetaminophen (Tylenol) 650 mg Q4H PRN ORAL T>100.5 03/01/18 22:30 03/28/18 10:29 Acetaminophen (Tylenol) 650 mg Q6H PRN ORAL Mild Pain 03/01/18 23:45 03/28/18 06:29 Allopurinol (Allopurinol) 300 mg DAILY ORAL 03/02/18 09:00 04/01/18 08:59 03/06/18 08:18 Chlorhexidine Gluconate (Silva-Hex 2%) 1 applic DAILY@2000 TOPIC 03/02/18 20:00 03/29/18 19:59 03/05/18 20:33 Dextrose (Dextrose 50%) 25 ml Q30M PRN IV Hypoglycemia 03/02/18 13:45 04/01/18 13:44 Dextrose (Dextrose 50%) 50 ml Q30M PRN IV Hypoglycemia 03/02/18 13:45 04/01/18 13:44 Dextrose/Sodium Chloride 1,000 ml @ 100 mls/hr Q10H IV 03/05/18 11:00 04/04/18 10:59 03/06/18 06:16 Docusate Sodium (Colace) 100 mg THREE TIMES A DAY ORAL 03/02/18 09:00 03/29/18 17:59 03/06/18 12:14 Heparin Sodium (Porcine) (Heparin 5000 units/ml) 5,000 units EVERY 12 HOURS SUBQ 03/02/18 09:00 03/28/18 08:59 03/06/18 08:27 Insulin Aspart (NovoLOG) BEFORE MEALS AND HS SUBQ 03/02/18 16:30 04/01/18 16:29 03/06/18 11:30 Levofloxacin 100 ml @ 100 mls/hr Q48H IVPB 03/06/18 12:00 03/13/18 11:59 03/06/18 12:14 Nitroglycerin (Ntg) 0.4 mg Q5MIN X 3 DOSES PRN SL Prn Chest Pain 03/01/18 21:15 03/28/18 10:44 Ondansetron HCl (Zofran) 4 mg Q6H PRN IVP Nausea & Vomiting 03/01/18 22:30 03/28/18 10:29 Pantoprazole (Protonix) 40 mg EVERY 12 HOURS ORAL 03/02/18 09:00 03/29/18 20:59 03/06/18 08:18 Polyethylene Glycol (Miralax) 17 gm DAILYPRN PRN ORAL Constipation 03/02/18 10:30 03/28/18 10:29 03/04/18 20:19 Sevelamer Carbonate (Renvela) 2,400 mg THREE TIMES A DAY ORAL 03/02/18 09:00 03/29/18 17:59 03/06/18 12:14 Simethicone (Mylicon) 80 mg QIDPRN PRN ORAL GAS PAIN 03/06/18 11:00 04/05/18 10:59 Allergies: Coded Allergies: NO KNOWN ALLERGIES (Verified Allergy, Unknown, 02/26/18) Subjective awake, alert, responsive, NAD, feeling good, S/P 2 U PRBC --> Hgb: 9.9 Objective Last Vital Signs Date Time Temp Pulse Resp B/P (MAP) Pulse Ox O2 Delivery O2 Flow Rate FiO2 03/06/18 16:00 97.5 87 20 124/74 (91) 99 03/06/18 09:00 Room Air 03/05/18 19:45 2.0 28 Laboratory Tests Test 03/06/18 05:00 03/06/18 05:50 White Blood Count 15.4 K/UL (4.8-10.8) H Red Blood Count 3.33 M/UL (4.70-6.10) L Hemoglobin 9.9 G/DL (14.2-18.0) #L Hematocrit 30.4 % (42.0-52.0) L Mean Corpuscular Volume 91 FL (80-99) Mean Corpuscular Hemoglobin 29.7 PG (27.0-31.0) Mean Corpuscular Hemoglobin Concent 32.6 G/DL (32.0-36.0) Red Cell Distribution Width 14.6 % (11.6-14.8) Platelet Count 469 K/UL (150-450) H Mean Platelet Volume 5.4 FL (6.5-10.1) L Neutrophils (%) (Auto) % (45.0-75.0) Lymphocytes (%) (Auto) % (20.0-45.0) Monocytes (%) (Auto) % (1.0-10.0) Eosinophils (%) (Auto) % (0.0-3.0) Basophils (%) (Auto) % (0.0-2.0) Differential Total Cells Counted 100 Neutrophils % (Manual) 82 % (45-75) H Lymphocytes % (Manual) 10 % (20-45) L Monocytes % (Manual) 4 % (1-10) Eosinophils % (Manual) 1 % (0-3) Basophils % (Manual) 0 % (0-2) Band Neutrophils 3 % (0-8) Platelet Estimate Increased H Platelet Morphology Normal Sodium Level 143 MMOL/L (136-145) Potassium Level 2.9 MMOL/L (3.5-5.1) L Chloride Level 106 MMOL/L (98-107) Carbon Dioxide Level 19 MMOL/L (21-32) L Anion Gap 18 mmol/L (5-15) H Blood Urea Nitrogen 112 mg/dL (7-18) H Creatinine 4.7 MG/DL (0.55-1.30) H Estimat Glomerular Filtration Rate mL/min (>60) Glucose Level 147 MG/DL (74-106) H Uric Acid 11.3 MG/DL (2.6-7.2) H Calcium Level 8.0 MG/DL (8.5-10.1) L Phosphorus Level 6.1 MG/DL (2.5-4.9) H Magnesium Level 2.0 MG/DL (1.8-2.4) Total Bilirubin 1.0 MG/DL (0.2-1.0) Gamma Glutamyl Transpeptidase 117 U/L (5-85) H Aspartate Amino Transf (AST/SGOT) 96 U/L (15-37) H Alanine Aminotransferase (ALT/SGPT) 95 U/L (12-78) H Alkaline Phosphatase 112 U/L (46-116) Total Creatine Kinase 676 U/L (26-308) H Pro-B-Type Natriuretic Peptide 998 pg/mL (0-125) H Total Protein 6.2 G/DL (6.4-8.2) L Albumin 2.1 G/DL (3.4-5.0) L Globulin 4.1 g/dL Albumin/Globulin Ratio 0.5 (1.0-2.7) L C-Reactive Protein, Quantitative 11.0 mg/dL (0.00-0.90) H Intake and Output 03/05/18 03/06/18 19:00 07:00 Intake Total 1480 ml Output Total 1100 ml 1950 ml Balance 380 ml -1950 ml Intake Oral 480 ml IV Total 1000 ml Output Urine Total 1100 ml 1950 ml # Bowel Movements 2 Objective General: No acute distress, awake and alert HEENT: NCAT, sclera anicteric, PERRL, EOMI. Neck: Supple, Right IJ Dialysis cath. Lungs: Fair inspiratory effort, Bilateral air entry, no Wheeze or Rales. Heart: Regular rate and rhythm, normal S1/S2, no murmur. Abdomen: soft, nontender, nondistended. Normoactive bowel sounds, obesity, / Rectal: Refused and deferred. Extremities: No Cyanosis , clubbing or edema. Neuro: A&O x 3, Able to move all extremities Skin: warm, no rashes. Assessment/Plan Assessment/Plan Sepsis due to Legionella PNA and UTI- r/o bacteremia Fever, improving BRITT, worsening- started on HD 02/28 till last HD 03/03 Rhabdomyolysis; improving AMS s/p Fall Acute transaminitis, infection-2ry to Legionella infection; improving Obesity Severe anemia most likely due to CKD. Plan: Abx: Levaquin 750mg q48hrs, Monitor Labs and cultures. Full code Heparin SQ Hold Dialysis PT Mobility / OOB to chair F/U with Dr. Lora recommendations IN planning to [facility] Ruperto Cowan MD Mar 06, 2018 16:20
--- NOTE | 2018-03-06 16:54 | NUR ---
CASE MANAGEMENT:REVIEW 03/06/18 SI: SEPSIS D/T PNA AND UTI RHABDOMYOLYSIS. BRITT. SEVERE ANEMIA 97.5 87 20 124/74 99% ON RA WBC+15.4 K-2.9 BUN+112 CR+4.7 IS: IV LEVAQUIN Q48 IVF@100/HR IV KCL Q1HRS X3 HEPARIN SQ Q12 PROTONIX PO Q12 : NOW ON TELEMETRY FROM STEP DOWN UNIT
--- NOTE | 2018-03-06 19:32 | NUR ---
NURSE NOTES: Received pt. and report from BALTA Luis. Observed pt. resting in bed. Pt. will be transferring to med surg unit. Awaiting for room number assignment. IV site is intact, asymptomatic, and patent. Bed is in the lowest position and locked, call light within in. No acute distress noted at this time. Will continue plan of care.
--- NOTE | 2018-03-06 19:39 | NUR ---
HAND-OFF: Report given to BALTA Shah. Patient is in stable condition. Endorsed plan of care.
[2018-03-06 20:00] VITALS: BP 143/86
[2018-03-06] MEDS: Dyna-Hex 2% Top Sol 2oz TOPIC SCH (21:57)
--- NOTE | 2018-03-06 23:00 | NUR ---
NURSE NOTES:Patient received from Gregory Parisi from 203 bed 1 to 311 bed 1 . Patient awake, alert and oriented x3. Patient denies any pain at this time. no sob / no n/v noted .Patient RIj kecia catheter patent and intact. lacg#20 with D5NS AT 100 CC / hr. infusing well . patient vss, afebrile no sob noted . patient skin intact . family notified patient location 311 bed 1 . patient lugo catheter draining to yellow urine 400 cc. will continue to monitor patient. Addendum: 03/07/18 at 0420 by TAM MAY LVN Patient personal belongings given to patient.
--- NOTE | 2018-03-06 23:00 | NUR ---
HAND-OFF: Transferred pt. to room 311-1. Report given to NAIMA Rios. residential monitor removed. Vital signs are stable. Pt. transferred to unit without any incident. Bed locked and in the lowest position and call light within reach. Belongings list checked. Orders transferred.
[2018-03-06] MEDS ORDERED: Nitroglycerin Subl 0.4mg tab SL PRN (23:45)
[2018-03-07] VITALS: BP 158/90
--- NOTE | 2018-03-07 01:00 | NUR ---
NURSE NOTES:Patient iv site LAC g#20 was infiltrated. and new IV line Right #20 H/L Patent and intact. and left g#20 D5NS AT 100 CC/HR. infusing well. will continue to monitor. 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 Left hand G#20 DSNS AT 100 CC/HR infusing well. patient head of the bed elevated 30 degrees . will continue to monitor patient .
[2018-03-07] MEDS: D5NS 1,000 ML IV SCH ×3 (03:38→12:10)
[2018-03-07 04:00] VITALS: BP 144/72
[2018-03-07] MEDS: NovoLOG Insulin Flexpen SUBQ SCH ×4 (06:51→20:52)
--- NOTE | 2018-03-07 07:33 | NUR ---
HAND-OFF: Report given to LEFTY ParisiPatient in stable.conditions and endordsed patient personal belongings.
--- NOTE | 2018-03-07 07:54 | NUR ---
NURSE NOTES: During shift change patient awake laying on bed IV site intact, patient with out no distress or complaints of pain, bed at low position, call light with in reach will continue to monitor.
[2018-03-07] MEDS: Docusate 100mg cap ORAL SCH ×3 (08:36→17:15)
[2018-03-07] MEDS: Heparin 5000 units/ml inj SUBQ SCH ×3 (08:37→20:53)
[2018-03-07 09:00] VITALS: BP 165/94
--- NOTE | 2018-03-07 10:19 | NUR ---
NURSE NOTES: Patient refused morning printer helper explained the risk and benefit, still refused patient oriented time, place, person and situation. FC draining blood tinge urine and refused morning medication except Protonix and docusate. For Renvela patient stated it is too big RN offered to crush the pill and take it on apple sauce patient stated it testes like sand and refused. risk and benefit explained.
[2018-03-07] MEDS ORDERED: Miralax 17gm pkt ORAL PRN (10:30)
[2018-03-07] MEDS ORDERED: Simethicone 80mg tab ORAL PRN (11:00)
[2018-03-07 11:15] LABS: HEMATOCRIT 29.1 % (42.0-52.0); HEMOGLOBIN 9.5 G/DL (14.2-18.0); MEAN CORPUSCULAR VOLUME 91 FL (80-99); PLATELET COUNT 429 K/UL (150-450); RED BLOOD COUNT 3.21 M/UL (4.70-6.10); WHITE BLOOD COUNT 9.9 K/UL (4.8-10.8)
[2018-03-07 11:18] LABS: ALANINE AMINOTRANSFERASE 84 U/L (12-78); ALBUMIN/GLOBULIN RATIO 0.5 (1.0-2.7); ALKALINE PHOSPHATASE 106 U/L (46-116); ANION GAP 12 mmol/L (5-15); ASPARTATE AMINO TRANSFERASE 76 U/L (15-37); BILIRUBIN,TOTAL 0.8 MG/DL (0.2-1.0); BLOOD UREA NITROGEN 95 mg/dL (7-18); CARBON DIOXIDE 21 MMOL/L (21-32); CHLORIDE 108 MMOL/L (98-107); CREATINE KINASE 362 U/L (26-308); CREATININE 3.6 MG/DL (0.55-1.30); PHOSPHORUS 5.1 MG/DL (2.5-4.9); SODIUM 141 MMOL/L (136-145)
--- NOTE | 2018-03-07 11:23 | GI Progress Note ---
Assessment/Plan Problems: (1) Abdominal distention ICD Codes: R14.0 - Abdominal distension (gaseous) SNOMED: 37513602 (2) Anemia ICD Codes: D64.9 - Anemia, unspecified SNOMED: 345565768 (3) encephalopathy due to toxin (4) Elevated liver function tests ICD Codes: R94.5 - Abnormal results of liver function studies SNOMED: 706436673, 987594197 Status: stable Status Narrative Discussed with Dr. Matos Assessment/Plan History of colorectal cancer status post colorectal resection Abdominal ultrasound was reviewed with no evidence of cirrhosis, no evidence of choledocholithiasis, no evidence of intrahepatic biliary ductal dilation. Anemia workup reviewed Abdominal pelvic CT and KUB reviewed >> gaseous colonic distention KUB in am>>no sig changes rectal tube>>>patient refused colace and miralax abx trending down LFTS Turn patient every 2 hours encourage ambulation prn, PT to consult Simethicone as needed Electrolyte correction PPI On pured diet Follow-up labs Outpatient colonoscopy The patient was seen and examined at bedside and all new and available data was reviewed in the patients chart. I agree with the above findings, impression and plan. (Patient seen earlier today. Signature stamp does not reflect patient encounter time.). - Ismael Matos MD Subjective Subjective Denies abdominal pain Denies any nausea vomiting or diarrhea Abdominal discomfort from distention Stated he he had 2 large bowel movements last night Objective Last 24 Hour Vital Signs Date Time Temp Pulse Resp B/P (MAP) Pulse Ox O2 Delivery O2 Flow Rate FiO2 03/07/18 09:00 97.8 88 20 165/94 (117) 98 03/07/18 04:00 97.9 84 20 144/72 (96) 99 03/07/18 00:00 97.7 90 18 158/90 (112) 98 03/06/18 21:00 Room Air 03/06/18 20:40 98 Nasal Cannula 2.0 28 03/06/18 20:40 Nasal Cannula 2.0 28 03/06/18 20:00 97.7 91 22 143/86 (105) 98 03/06/18 16:00 97.5 87 20 124/74 (91) 99 03/06/18 16:00 84 03/06/18 12:00 97.3 86 22 141/84 (103) 95 03/06/18 12:00 94 Intake and Output 03/06/18 03/07/18 19:00 07:00 Intake Total 500 ml 1860 ml Output Total 1600 ml 1500 ml Balance -1100 ml 360 ml Intake Oral 500 ml 1060 ml IV Total 800 ml Output Urine Total 1600 ml 1500 ml # Bowel Movements 2 Laboratory Tests Test 03/07/18 10:50 White Blood Count 9.9 K/UL (4.8-10.8) Red Blood Count 3.21 M/UL (4.70-6.10) L Hemoglobin 9.5 G/DL (14.2-18.0) L Hematocrit 29.1 % (42.0-52.0) L Mean Corpuscular Volume 91 FL (80-99) Mean Corpuscular Hemoglobin 29.6 PG (27.0-31.0) Mean Corpuscular Hemoglobin Concent 32.6 G/DL (32.0-36.0) Red Cell Distribution Width 15.0 % (11.6-14.8) H Platelet Count 429 K/UL (150-450) Mean Platelet Volume 6.0 FL (6.5-10.1) L Neutrophils (%) (Auto) % (45.0-75.0) Lymphocytes (%) (Auto) % (20.0-45.0) Monocytes (%) (Auto) % (1.0-10.0) Eosinophils (%) (Auto) % (0.0-3.0) Basophils (%) (Auto) % (0.0-2.0) Neutrophils % (Manual) Pending Lymphocytes % (Manual) Pending Platelet Estimate Pending Platelet Morphology Pending Sodium Level 141 MMOL/L (136-145) Potassium Level 3.0 MMOL/L (3.5-5.1) L Chloride Level 108 MMOL/L (98-107) H Carbon Dioxide Level 21 MMOL/L (21-32) Anion Gap 12 mmol/L (5-15) Blood Urea Nitrogen 95 mg/dL (7-18) H Creatinine 3.6 MG/DL (0.55-1.30) H Estimat Glomerular Filtration Rate mL/min (>60) Glucose Level 154 MG/DL (74-106) H Hemoglobin A1c Pending Uric Acid 10.4 MG/DL (2.6-7.2) H Calcium Level 8.0 MG/DL (8.5-10.1) L Phosphorus Level 5.1 MG/DL (2.5-4.9) H Magnesium Level 1.9 MG/DL (1.8-2.4) Total Bilirubin 0.8 MG/DL (0.2-1.0) Aspartate Amino Transf (AST/SGOT) 76 U/L (15-37) H Alanine Aminotransferase (ALT/SGPT) 84 U/L (12-78) H Alkaline Phosphatase 106 U/L (46-116) Total Creatine Kinase 362 U/L (26-308) H Pro-B-Type Natriuretic Peptide 619 pg/mL (0-125) H Total Protein 6.3 G/DL (6.4-8.2) L Albumin 2.0 G/DL (3.4-5.0) L Globulin 4.3 g/dL Albumin/Globulin Ratio 0.5 (1.0-2.7) L Height (Feet): 5 Height (Inches): 7.00 Weight (Pounds): 210 General Appearance: WD/WN, no apparent distress, alert Cardiovascular: normal rate Respiratory/Chest: normal breath sounds, no respiratory distress Abdominal Exam: normal bowel sounds, non tender, soft, distended Extremities: normal range of motion, non-tender Chapito Pedraza NP Mar 07, 2018 11:23
--- NOTE | 2018-03-07 11:37 | NUR ---
NURSE NOTES: FC deflated and advanced and secured on leg draining well will continue to monitor. PT notified regarding new order for eval. Lab notified to draw blood patient agreed to have a blood draw after MD discussed with patient.
[2018-03-07 12:00] VITALS: BP 155/94
[2018-03-07] MEDS ORDERED: Metoprolol Tartrate 12.5mg TAB ORAL SCH (14:48)
--- NOTE | 2018-03-07 14:50 | Nephrology Progress Note ---
Assessment/Plan Problem List: (1) ATN (acute tubular necrosis) (2) Rhabdomyolysis Assessment: CPK lowering (3) Pneumonia (4) encephalopathy due to toxin Assessment Acute renal failure- Cr lowering off HD Rhabdo Pneumonia CVA ? Plan add lopressor Slow Hydrate- albumin bolus as needed monitor urine output Add Allopurinol hemodialysis Last 03/03 May not need any more HD Transfuse 2 units Phos binders Fortune Monitor CPK - Uric Acid- LFTs monitor Renal parameters Avoid Nephrotoxics per orders discussed with RN and daughter present in room 03/05/18 Subjective ROS Limited/Unobtainable: No Constitutional: Reports: other - more responsive Objective Objective Last 24 Hour Vital Signs Date Time Temp Pulse Resp B/P (MAP) Pulse Ox O2 Delivery O2 Flow Rate FiO2 03/07/18 09:00 97.8 88 20 165/94 (117) 98 03/07/18 04:00 97.9 84 20 144/72 (96) 99 03/07/18 00:00 97.7 90 18 158/90 (112) 98 03/06/18 21:00 Room Air 03/06/18 20:40 98 Nasal Cannula 2.0 28 03/06/18 20:40 Nasal Cannula 2.0 28 03/06/18 20:00 97.7 91 22 143/86 (105) 98 03/06/18 16:00 97.5 87 20 124/74 (91) 99 03/06/18 16:00 84 Intake and Output 03/06/18 03/07/18 19:00 07:00 Intake Total 500 ml 1860 ml Output Total 1600 ml 1500 ml Balance -1100 ml 360 ml Intake Oral 500 ml 1060 ml IV Total 800 ml Output Urine Total 1600 ml 1500 ml # Bowel Movements 2 Laboratory Tests 03/07/18 10:50: White Blood Count 9.9, Red Blood Count 3.21L, Hemoglobin 9.5L, Hematocrit 29.1L , Mean Corpuscular Volume 91, Mean Corpuscular Hemoglobin 29.6, Mean Corpuscular Hemoglobin Concent 32.6, Red Cell Distribution Width 15.0H, Platelet Count 429, Mean Platelet Volume 6.0L, Neutrophils (%) (Auto) , Lymphocytes (%) (Auto) , Monocytes (%) (Auto) , Eosinophils (%) (Auto) , Basophils (%) (Auto) , Differential Total Cells Counted 100, Neutrophils % ( Manual) 86H, Lymphocytes % (Manual) 10L, Monocytes % (Manual) 4, Eosinophils % ( Manual) 0, Basophils % (Manual) 0, Band Neutrophils 0, Platelet Estimate Adequate, Platelet Morphology Normal, Hypochromasia 1+, Anisocytosis 1+, Sodium Level 141, Potassium Level 3.0L, Chloride Level 108H, Carbon Dioxide Level 21, Anion Gap 12, Blood Urea Nitrogen 95H, Creatinine 3.6H, Estimat Glomerular Filtration Rate , Glucose Level 154H, Hemoglobin A1c 6.1H, Uric Acid 10.4H, Calcium Level 8.0L, Phosphorus Level 5.1H, Magnesium Level 1.9, Total Bilirubin 0.8, Aspartate Amino Transf (AST/SGOT) 76H, Alanine Aminotransferase (ALT/SGPT) 84H, Alkaline Phosphatase 106, Total Creatine Kinase 362H, Pro-B-Type Natriuretic Peptide 619H, Total Protein 6.3L, Albumin 2.0L, Globulin 4.3, Albumin/Globulin Ratio 0.5L Height (Feet): 5 Height (Inches): 7.00 Weight (Pounds): 210 Cardiovascular: other - variable Respiratory/Chest: decreased breath sounds Abdomen: soft, distended Objective no change Yayo Lora MD Mar 07, 2018 14:50
--- NOTE | 2018-03-07 15:26 | Internal Med Progress Note ---
Subjective Physician Name Ruperto Cowan Attending Physician Ruperto Cowan MD Current Medications Medications (Trade) Dose Ordered Sig/Aristides Route PRN Reason Start Time Stop Time Status Last Admin Dose Admin Acetaminophen (Tylenol) 650 mg Q4H PRN ORAL T>100.5 03/07/18 02:30 03/28/18 10:29 Acetaminophen (Tylenol) 650 mg Q6H PRN ORAL Mild Pain 03/06/18 23:45 03/28/18 06:29 Allopurinol (Allopurinol) 300 mg DAILY ORAL 03/07/18 09:00 04/01/18 08:59 Chlorhexidine Gluconate (Silva-Hex 2%) 1 applic DAILY@2000 TOPIC 03/07/18 20:00 03/29/18 19:59 Dextrose (Dextrose 50%) 25 ml Q30M PRN IV Hypoglycemia 03/06/18 23:45 04/01/18 13:44 Dextrose (Dextrose 50%) 50 ml Q30M PRN IV Hypoglycemia 03/06/18 23:45 04/01/18 13:44 Dextrose/Sodium Chloride 1,000 ml @ 100 mls/hr Q10H IV 03/06/18 23:45 04/04/18 10:59 03/07/18 12:10 Docusate Sodium (Colace) 100 mg THREE TIMES A DAY ORAL 03/07/18 09:00 03/29/18 17:59 03/07/18 12:07 Heparin Sodium (Porcine) (Heparin 5000 units/ml) 5,000 units EVERY 12 HOURS SUBQ 03/07/18 09:00 03/28/18 08:59 Insulin Aspart (NovoLOG) BEFORE MEALS AND HS SUBQ 03/07/18 06:30 04/01/18 16:29 03/07/18 12:09 Levofloxacin 100 ml @ 100 mls/hr Q48H IVPB 03/08/18 12:00 03/13/18 11:59 Metoprolol Tartrate (Lopressor) 12.5 mg ONCE ORAL 03/07/18 14:48 03/07/18 15:48 Metoprolol Tartrate (Lopressor) 12.5 mg Q12HR ORAL 03/07/18 21:00 04/06/18 20:59 Nitroglycerin (Ntg) 0.4 mg Q5MIN X 3 DOSES PRN SL Prn Chest Pain 03/06/18 23:45 03/28/18 10:44 Ondansetron HCl (Zofran) 4 mg Q6H PRN IVP Nausea & Vomiting 03/07/18 04:30 03/28/18 10:29 Pantoprazole (Protonix) 40 mg EVERY 12 HOURS ORAL 03/07/18 09:00 04/06/18 08:59 03/07/18 08:35 Polyethylene Glycol (Miralax) 17 gm DAILYPRN PRN ORAL Constipation 03/07/18 10:30 03/28/18 10:29 Potassium Chloride 100 ml @ 100 mls/hr Q1H IVPB 03/07/18 15:00 03/07/18 20:59 Sevelamer Carbonate (Renvela) 800 mg THREE TIMES A DAY ORAL 03/07/18 18:00 03/29/18 17:59 Simethicone (Mylicon) 80 mg QIDPRN PRN ORAL GAS PAIN 03/07/18 11:00 04/05/18 10:59 Allergies: Coded Allergies: NO KNOWN ALLERGIES (Verified Allergy, Unknown, 02/26/18) Subjective awake, alert, responsive, NAD, feeling good, WBC: 9.9, renal function improving Objective Last Vital Signs Date Time Temp Pulse Resp B/P (MAP) Pulse Ox O2 Delivery O2 Flow Rate FiO2 03/07/18 09:00 97.8 88 20 165/94 (117) 98 03/06/18 21:00 Room Air 03/06/18 20:40 2.0 28 Laboratory Tests Test 03/07/18 10:50 White Blood Count 9.9 K/UL (4.8-10.8) Red Blood Count 3.21 M/UL (4.70-6.10) L Hemoglobin 9.5 G/DL (14.2-18.0) L Hematocrit 29.1 % (42.0-52.0) L Mean Corpuscular Volume 91 FL (80-99) Mean Corpuscular Hemoglobin 29.6 PG (27.0-31.0) Mean Corpuscular Hemoglobin Concent 32.6 G/DL (32.0-36.0) Red Cell Distribution Width 15.0 % (11.6-14.8) H Platelet Count 429 K/UL (150-450) Mean Platelet Volume 6.0 FL (6.5-10.1) L Neutrophils (%) (Auto) % (45.0-75.0) Lymphocytes (%) (Auto) % (20.0-45.0) Monocytes (%) (Auto) % (1.0-10.0) Eosinophils (%) (Auto) % (0.0-3.0) Basophils (%) (Auto) % (0.0-2.0) Differential Total Cells Counted 100 Neutrophils % (Manual) 86 % (45-75) H Lymphocytes % (Manual) 10 % (20-45) L Monocytes % (Manual) 4 % (1-10) Eosinophils % (Manual) 0 % (0-3) Basophils % (Manual) 0 % (0-2) Band Neutrophils 0 % (0-8) Platelet Estimate Adequate Platelet Morphology Normal Hypochromasia 1+ Anisocytosis 1+ Sodium Level 141 MMOL/L (136-145) Potassium Level 3.0 MMOL/L (3.5-5.1) L Chloride Level 108 MMOL/L (98-107) H Carbon Dioxide Level 21 MMOL/L (21-32) Anion Gap 12 mmol/L (5-15) Blood Urea Nitrogen 95 mg/dL (7-18) H Creatinine 3.6 MG/DL (0.55-1.30) H Estimat Glomerular Filtration Rate mL/min (>60) Glucose Level 154 MG/DL (74-106) H Hemoglobin A1c 6.1 % (4.3-6.0) H Uric Acid 10.4 MG/DL (2.6-7.2) H Calcium Level 8.0 MG/DL (8.5-10.1) L Phosphorus Level 5.1 MG/DL (2.5-4.9) H Magnesium Level 1.9 MG/DL (1.8-2.4) Total Bilirubin 0.8 MG/DL (0.2-1.0) Aspartate Amino Transf (AST/SGOT) 76 U/L (15-37) H Alanine Aminotransferase (ALT/SGPT) 84 U/L (12-78) H Alkaline Phosphatase 106 U/L (46-116) Total Creatine Kinase 362 U/L (26-308) H Pro-B-Type Natriuretic Peptide 619 pg/mL (0-125) H Total Protein 6.3 G/DL (6.4-8.2) L Albumin 2.0 G/DL (3.4-5.0) L Globulin 4.3 g/dL Albumin/Globulin Ratio 0.5 (1.0-2.7) L Intake and Output 03/06/18 03/07/18 19:00 07:00 Intake Total 500 ml 1860 ml Output Total 1600 ml 1500 ml Balance -1100 ml 360 ml Intake Oral 500 ml 1060 ml IV Total 800 ml Output Urine Total 1600 ml 1500 ml # Bowel Movements 2 Objective General: No acute distress, awake and alert HEENT: NCAT, sclera anicteric, PERRL, EOMI. Neck: Supple, Right IJ Dialysis cath. Lungs: Fair inspiratory effort, Bilateral air entry, no Wheeze or Rales. Heart: Regular rate and rhythm, normal S1/S2, no murmur. Abdomen: soft, nontender, nondistended. Normoactive bowel sounds, obesity, / Rectal: Refused and deferred. Extremities: No Cyanosis , clubbing or edema. Neuro: A&O x 3, Able to move all extremities Skin: warm, no rashes. Assessment/Plan Assessment/Plan Sepsis due to Legionella PNA and UTI- r/o bacteremia Fever, improving BRITT, worsening- started on HD 02/28 till last HD 03/03 Rhabdomyolysis; improving AMS s/p Fall Acute transaminitis, infection-2ry to Legionella infection; improving Obesity Severe anemia most likely due to CKD. Plan: Abx: Continue Levaquin 750mg q48hrs # 6 for LEgionella for 10-14 days -IV as patient refusing PO; can transition to PO upon discharge Monitor Labs and cultures. Full code Heparin SQ Hold Dialysis PT Mobility / OOB to chair F/U with Dr. Lora recommendations [place] planning to SNF Discuss with Patient and family members regarding SNF placement for AM. Ruperto Cowan MD Mar 07, 2018 15:26
--- NOTE | 2018-03-07 15:43 | Infectious Diseases Prog Note ---
Assessment/Plan Assessment/Plan Abx: IV Vancomycin 02/26- Cefepime 02/26- Assessment: Sepsis,SP - 2ry to Legionella PNA and UTI -02/27 CXR: Increasing left upper lobe consolidation, over one day. -CXR: Left lung infiltrates, likely pneumonia, and pleural fluid. Borderline cardiomegaly -Bcx NTD -u/a wbc tnct, nit +, leuk +2; cx Neg -influenza sc neg -legionella ag urine + -sp cx normal resp ceci Fever, SP Leukocytosis,SP -CT abd/p: Dense left lower lobe consolidation and small pleural effusion. This is consistent with findings described on recent chest radiograph. Hypoattenuating bilateral kidneys with indistinctness of the renal margins, could indicate inflammatory change. Edema of the subcutaneous fat of the flanks bilaterally. The colon is diffusely gas-filled, upper limits normal in caliber. Probably indicates functional changes as no obstructive pathology is demonstrated. Other findings as noted, including small fat-containing bilateral inguinal hernias, 9 cm left renal cyst Acute respiratory failure, now at BRITT, SP HD improving Rhabdomyolosis; improving AMS, improving s/p Fall Acute transaminitis, infection-2ry to Legionella infection; improving -HIV ab sc neg -Acute hepatitis panel neg Plan: -Continue Levaquin 750mg q48hrs # 7 for LEgionella for 10-14 days -IV as patient refusing PO; can transition to PO upon discharge - 03/04 Sp PO Linezolid #6 (abx d#7/7) and Cefepime #6 -02/28 SP Flagyl #2 -02/27 SP IV Vancomycin #2 -Monitor CBC/CMP, temperatures -Renal f/u Subjective Allergies: Coded Allergies: NO KNOWN ALLERGIES (Verified Allergy, Unknown, 02/26/18) Subjective afebrile leukocytosis rseolved Bcx NTD at now much improved Objective Vital Signs Last 24 Hour Vital Signs Date Time Temp Pulse Resp B/P (MAP) Pulse Ox O2 Delivery O2 Flow Rate FiO2 03/07/18 09:00 97.8 88 20 165/94 (117) 98 03/07/18 04:00 97.9 84 20 144/72 (96) 99 03/07/18 00:00 97.7 90 18 158/90 (112) 98 03/06/18 21:00 Room Air 03/06/18 20:40 98 Nasal Cannula 2.0 28 03/06/18 20:40 Nasal Cannula 2.0 28 03/06/18 20:00 97.7 91 22 143/86 (105) 98 03/06/18 16:00 97.5 87 20 124/74 (91) 99 03/06/18 16:00 84 Height (Feet): 5 Height (Inches): 7.00 Weight (Pounds): 210 Objective General Appearance: WD/WN HEENT: normocephalic, atraumatic Respiratory/Chest: chest wall non-tender, lungs clear Cardiovascular: normal peripheral pulses, regular rhythm Abdomen: normal bowel sounds, soft, non tender, moderate distension Extremities: no cyanosis Skin: no rash Neurologic/Psychiatric: chromosomal disorders counselor II-XII grossly normal Lymphatic: no neck adenopathy Laboratory Tests Test 03/07/18 10:50 White Blood Count 9.9 K/UL (4.8-10.8) Red Blood Count 3.21 M/UL (4.70-6.10) L Hemoglobin 9.5 G/DL (14.2-18.0) L Hematocrit 29.1 % (42.0-52.0) L Mean Corpuscular Volume 91 FL (80-99) Mean Corpuscular Hemoglobin 29.6 PG (27.0-31.0) Mean Corpuscular Hemoglobin Concent 32.6 G/DL (32.0-36.0) Red Cell Distribution Width 15.0 % (11.6-14.8) H Platelet Count 429 K/UL (150-450) Mean Platelet Volume 6.0 FL (6.5-10.1) L Neutrophils (%) (Auto) % (45.0-75.0) Lymphocytes (%) (Auto) % (20.0-45.0) Monocytes (%) (Auto) % (1.0-10.0) Eosinophils (%) (Auto) % (0.0-3.0) Basophils (%) (Auto) % (0.0-2.0) Differential Total Cells Counted 100 Neutrophils % (Manual) 86 % (45-75) H Lymphocytes % (Manual) 10 % (20-45) L Monocytes % (Manual) 4 % (1-10) Eosinophils % (Manual) 0 % (0-3) Basophils % (Manual) 0 % (0-2) Band Neutrophils 0 % (0-8) Platelet Estimate Adequate Platelet Morphology Normal Hypochromasia 1+ Anisocytosis 1+ Sodium Level 141 MMOL/L (136-145) Potassium Level 3.0 MMOL/L (3.5-5.1) L Chloride Level 108 MMOL/L (98-107) H Carbon Dioxide Level 21 MMOL/L (21-32) Anion Gap 12 mmol/L (5-15) Blood Urea Nitrogen 95 mg/dL (7-18) H Creatinine 3.6 MG/DL (0.55-1.30) H Estimat Glomerular Filtration Rate mL/min (>60) Glucose Level 154 MG/DL (74-106) H Hemoglobin A1c 6.1 % (4.3-6.0) H Uric Acid 10.4 MG/DL (2.6-7.2) H Calcium Level 8.0 MG/DL (8.5-10.1) L Phosphorus Level 5.1 MG/DL (2.5-4.9) H Magnesium Level 1.9 MG/DL (1.8-2.4) Total Bilirubin 0.8 MG/DL (0.2-1.0) Aspartate Amino Transf (AST/SGOT) 76 U/L (15-37) H Alanine Aminotransferase (ALT/SGPT) 84 U/L (12-78) H Alkaline Phosphatase 106 U/L (46-116) Total Creatine Kinase 362 U/L (26-308) H Pro-B-Type Natriuretic Peptide 619 pg/mL (0-125) H Total Protein 6.3 G/DL (6.4-8.2) L Albumin 2.0 G/DL (3.4-5.0) L Globulin 4.3 g/dL Albumin/Globulin Ratio 0.5 (1.0-2.7) L Current Medications Medications (Trade) Dose Ordered Sig/Aristides Route PRN Reason Start Time Stop Time Status Last Admin Dose Admin Acetaminophen (Tylenol) 650 mg Q4H PRN ORAL T>100.5 03/07/18 02:30 03/28/18 10:29 Acetaminophen (Tylenol) 650 mg Q6H PRN ORAL Mild Pain 03/06/18 23:45 03/28/18 06:29 Allopurinol (Allopurinol) 300 mg DAILY ORAL 03/07/18 09:00 04/01/18 08:59 Chlorhexidine Gluconate (Silva-Hex 2%) 1 applic DAILY@2000 TOPIC 03/07/18 20:00 03/29/18 19:59 Dextrose (Dextrose 50%) 25 ml Q30M PRN IV Hypoglycemia 03/06/18 23:45 04/01/18 13:44 Dextrose (Dextrose 50%) 50 ml Q30M PRN IV Hypoglycemia 03/06/18 23:45 04/01/18 13:44 Dextrose/Sodium Chloride 1,000 ml @ 100 mls/hr Q10H IV 03/06/18 23:45 04/04/18 10:59 03/07/18 12:10 Docusate Sodium (Colace) 100 mg THREE TIMES A DAY ORAL 03/07/18 09:00 03/29/18 17:59 03/07/18 12:07 Heparin Sodium (Porcine) (Heparin 5000 units/ml) 5,000 units EVERY 12 HOURS SUBQ 03/07/18 09:00 03/28/18 08:59 Insulin Aspart (NovoLOG) BEFORE MEALS AND HS SUBQ 03/07/18 06:30 04/01/18 16:29 03/07/18 12:09 Levofloxacin 100 ml @ 100 mls/hr Q48H IVPB 03/08/18 12:00 03/13/18 11:59 Metoprolol Tartrate (Lopressor) 12.5 mg ONCE ORAL 03/07/18 14:48 03/07/18 15:48 Metoprolol Tartrate (Lopressor) 12.5 mg Q12HR ORAL 03/07/18 21:00 04/06/18 20:59 Nitroglycerin (Ntg) 0.4 mg Q5MIN X 3 DOSES PRN SL Prn Chest Pain 03/06/18 23:45 03/28/18 10:44 Ondansetron HCl (Zofran) 4 mg Q6H PRN IVP Nausea & Vomiting 03/07/18 04:30 03/28/18 10:29 Pantoprazole (Protonix) 40 mg EVERY 12 HOURS ORAL 03/07/18 09:00 04/06/18 08:59 03/07/18 08:35 Polyethylene Glycol (Miralax) 17 gm DAILYPRN PRN ORAL Constipation 03/07/18 10:30 03/28/18 10:29 Potassium Chloride 100 ml @ 100 mls/hr Q1H IVPB 03/07/18 15:00 03/07/18 20:59 Sevelamer Carbonate (Renvela) 800 mg THREE TIMES A DAY ORAL 03/07/18 18:00 03/29/18 17:59 Simethicone (Mylicon) 80 mg QIDPRN PRN ORAL GAS PAIN 03/07/18 11:00 04/05/18 10:59 Melissa Martinez M.D. Mar 07, 2018 15:43
--- NOTE | 2018-03-07 15:56 | NUR ---
P.T Note: P.T evaluation completed and treatment initiated. Please refer to P.T evaluation for current functional status. Pt limited mostly by generalized weakness and decreased activity tolerance. Pt currently require MOD A X 1 and extended time for bed mobility and transfer activities using the FWW. Attempted gait/ambulation however to weak and fatigued to ambulate. Skilled P.T services is warranted to improve strength, endurance and balance to increase functional mobility independence and safety. Recommend SNF for short term rehab VS home with P.T. DME to include FWW and bedside commode. Thank you for this referral.
[2018-03-07] MEDS ORDERED: D5NS 1000ml IV ONE (16:01)
[2018-03-07 16:23] VITALS: BP 147/88
--- NOTE | 2018-03-07 16:38 | NUR ---
CASE MANAGEMENT: REVIEW SI: AMS . DEHYDRATION T 97.9 HR 94 RR 20 BP 144/72 SAT 98% ROOM AI H/H 9.5/29.1 IS: LEVOFLOXACIN IV Q48HR LOPRESSOR PO Q12HR KCl 10mEq IVF @100ML/HR D5 NS IVF @100ML/HR MED/SURG UNIT STATUS DCP: PATIENT IS FROM HOME
--- NOTE | 2018-03-07 19:27 | Cardiology Progress Note ---
Assessment/Plan Assessment/Plan 1. Rhabdomyolysis. 2. Status post fall. 3. Prostate cancer, status post prostatectomy. 4. Colonic polyps, status post resection recently. 5. Acute renal failure on chronic renal insufficiency. 6. Leukocytosis. 7. Probable pneumonia, possible aspiration. 8. Mild diastolic relaxation on echocardiogram. 9. lyrica allergy 10. non sustianed wide complex tachy 11. afib spont converted to sinus echo has shown normal wall motion dialysis as sched ct noted min trop down trend liekly demand related / renal insuf related lwo dose metoprolol is on roomair now abx hhn looks better Subjective Cardiovascular: Reports: lightheadedness; Denies: chest pain Respiratory: Denies: shortness of breath, SOB with excertion Gastrointestinal/Abdominal: Denies: abdominal pain Genitourinary: Denies: burning Objective Last 24 Hour Vital Signs Date Time Temp Pulse Resp B/P (MAP) Pulse Ox O2 Delivery O2 Flow Rate FiO2 03/07/18 16:36 86 147/88 03/07/18 16:23 98.0 86 20 147/88 (107) 98 03/07/18 12:00 97.9 94 20 155/94 (114) 100 03/07/18 09:00 97.8 88 20 165/94 (117) 98 03/07/18 09:00 Room Air 03/07/18 04:00 97.9 84 20 144/72 (96) 99 03/07/18 00:00 97.7 90 18 158/90 (112) 98 03/06/18 21:00 Room Air 03/06/18 20:40 98 Nasal Cannula 2.0 28 03/06/18 20:40 Nasal Cannula 2.0 28 03/06/18 20:00 97.7 91 22 143/86 (105) 98 General Appearance: mild distress Neck: supple Cardiovascular: normal rate Respiratory/Chest: expiratory wheezing - min Abdomen: normal bowel sounds, non tender, soft Extremities: no swelling Intake and Output 03/06/18 03/07/18 19:00 07:00 Intake Total 500 ml 1860 ml Output Total 1600 ml 1500 ml Balance -1100 ml 360 ml Intake Oral 500 ml 1060 ml IV Total 800 ml Output Urine Total 1600 ml 1500 ml # Bowel Movements 2 Laboratory Tests Test 03/07/18 10:50 White Blood Count 9.9 K/UL (4.8-10.8) Red Blood Count 3.21 M/UL (4.70-6.10) L Hemoglobin 9.5 G/DL (14.2-18.0) L Hematocrit 29.1 % (42.0-52.0) L Mean Corpuscular Volume 91 FL (80-99) Mean Corpuscular Hemoglobin 29.6 PG (27.0-31.0) Mean Corpuscular Hemoglobin Concent 32.6 G/DL (32.0-36.0) Red Cell Distribution Width 15.0 % (11.6-14.8) H Platelet Count 429 K/UL (150-450) Mean Platelet Volume 6.0 FL (6.5-10.1) L Neutrophils (%) (Auto) % (45.0-75.0) Lymphocytes (%) (Auto) % (20.0-45.0) Monocytes (%) (Auto) % (1.0-10.0) Eosinophils (%) (Auto) % (0.0-3.0) Basophils (%) (Auto) % (0.0-2.0) Differential Total Cells Counted 100 Neutrophils % (Manual) 86 % (45-75) H Lymphocytes % (Manual) 10 % (20-45) L Monocytes % (Manual) 4 % (1-10) Eosinophils % (Manual) 0 % (0-3) Basophils % (Manual) 0 % (0-2) Band Neutrophils 0 % (0-8) Platelet Estimate Adequate Platelet Morphology Normal Hypochromasia 1+ Anisocytosis 1+ Sodium Level 141 MMOL/L (136-145) Potassium Level 3.0 MMOL/L (3.5-5.1) L Chloride Level 108 MMOL/L (98-107) H Carbon Dioxide Level 21 MMOL/L (21-32) Anion Gap 12 mmol/L (5-15) Blood Urea Nitrogen 95 mg/dL (7-18) H Creatinine 3.6 MG/DL (0.55-1.30) H Estimat Glomerular Filtration Rate mL/min (>60) Glucose Level 154 MG/DL (74-106) H Hemoglobin A1c 6.1 % (4.3-6.0) H Uric Acid 10.4 MG/DL (2.6-7.2) H Calcium Level 8.0 MG/DL (8.5-10.1) L Phosphorus Level 5.1 MG/DL (2.5-4.9) H Magnesium Level 1.9 MG/DL (1.8-2.4) Total Bilirubin 0.8 MG/DL (0.2-1.0) Aspartate Amino Transf (AST/SGOT) 76 U/L (15-37) H Alanine Aminotransferase (ALT/SGPT) 84 U/L (12-78) H Alkaline Phosphatase 106 U/L (46-116) Total Creatine Kinase 362 U/L (26-308) H Pro-B-Type Natriuretic Peptide 619 pg/mL (0-125) H Total Protein 6.3 G/DL (6.4-8.2) L Albumin 2.0 G/DL (3.4-5.0) L Globulin 4.3 g/dL Albumin/Globulin Ratio 0.5 (1.0-2.7) L Car Nelson MD Mar 07, 2018 19:27
--- NOTE | 2018-03-07 19:45 | NUR ---
HAND-OFF: Report given to BALTA Lundberg patient awake arert with out no distress, family at bed side, patient requested to get out of bed and stand but unable sat at the edge of bed and tolerated well requested BSC given endorsed to [employer] teacher nurse to complete the ordered IV potassium.
[2018-03-07 20:00] VITALS: BP 156/93
--- NOTE | 2018-03-07 20:10 | NUR ---
NURSE NOTES: Patient resting in bed watching TV, no s/s distress noted. IV potassium infusing. Fortune catheter intact and patent. Assisted to bedside commode. Bed in lowest position safety. Call light within reach.
[2018-03-07] MEDS: Dyna-Hex 2% Top Sol 2oz TOPIC SCH (20:14)
[2018-03-07] MEDS: Metoprolol Tartrate 12.5mg TAB ORAL SCH (20:52)
[2018-03-08] VITALS (7 sets, daily range): BP systolic 134–151; BP diastolic 77–92
[2018-03-08] MEDS: D5NS 1,000 ML IV SCH ×3 (02:01→21:22)
[2018-03-08] MEDS: NovoLOG Insulin Flexpen SUBQ SCH ×4 (06:18→20:20)
--- NOTE | 2018-03-08 07:07 | NUR ---
HAND-OFF: Report given to Earl GIFFORD.
--- NOTE | 2018-03-08 07:59 | NUR ---
NURSE NOTES: during shift change patient alert awake with out no distress, FC intact draining yellow clear urine no bloody urine, FC secured on leg. Refused Lab this morning discussed with the patient the importance of lab orders patient stated he will do it later I will follow up.
--- NOTE | 2018-03-08 08:21 | Infectious Diseases Prog Note ---
Assessment/Plan Assessment/Plan Sepsis,SP - 2ry to Legionella PNA and UTI -02/27 CXR: Increasing left upper lobe consolidation, over one day. -CXR: Left lung infiltrates, likely pneumonia, and pleural fluid. Borderline cardiomegaly -Bcx NTD -u/a wbc tnct, nit +, leuk +2; cx Neg -influenza sc neg -legionella ag urine + -sp cx normal resp ceci Fever, SP Leukocytosis,SP -CT abd/p: Dense left lower lobe consolidation and small pleural effusion. This is consistent with findings described on recent chest radiograph. Hypoattenuating bilateral kidneys with indistinctness of the renal margins, could indicate inflammatory change. Edema of the subcutaneous fat of the flanks bilaterally. The colon is diffusely gas-filled, upper limits normal in caliber. Probably indicates functional changes as no obstructive pathology is demonstrated. Other findings as noted, including small fat-containing bilateral inguinal hernias, 9 cm left renal cyst Acute respiratory failure, now at [facility], SP HD improving Rhabdomyolosis; improving AMS, improving s/p Fall Acute transaminitis, infection-2ry to Legionella infection; improving -HIV ab sc neg -Acute hepatitis panel neg Plan: -Continue Levaquin 750mg q48hrs # 8 for Legionella would recommend treating for for 14 days total ( End date 03/14/18) -IV as patient refusing PO; can transition to PO upon discharge - 03/04 Sp PO Linezolid #6 (abx d#7/7) and Cefepime #6 -02/28 SP Flagyl #2 -02/27 SP IV Vancomycin #2 -Monitor CBC/CMP, temperatures -Renal f/u Subjective Allergies: Coded Allergies: NO KNOWN ALLERGIES (Verified Allergy, Unknown, 02/26/18) Subjective Patient doing well, Working with PT No won RA and leukocytosis resolved Afebrile Objective Vital Signs Last 24 Hour Vital Signs Date Time Temp Pulse Resp B/P (MAP) Pulse Ox O2 Delivery O2 Flow Rate FiO2 03/08/18 04:00 97.3 82 20 147/86 (106) 98 03/08/18 00:00 97.8 83 18 150/87 (108) 98 03/07/18 21:00 Room Air 03/07/18 20:52 78 156/93 03/07/18 20:00 97.3 78 18 156/93 (114) 98 03/07/18 16:36 86 147/88 03/07/18 16:23 98.0 86 20 147/88 (107) 98 03/07/18 12:00 97.9 94 20 155/94 (114) 100 03/07/18 09:00 97.8 88 20 165/94 (117) 98 03/07/18 09:00 Room Air Height (Feet): 5 Height (Inches): 7.00 Weight (Pounds): 210 Objective General Appearance: NAD HEENT: normocephalic, atraumatic, MMM Respiratory/Chest: CTAB, No W Cardiovascular: normal peripheral pulses, regular rhythm Abdomen: normal bowel sounds, soft, non tender, moderate distension Laboratory Tests Test 03/07/18 10:50 White Blood Count 9.9 K/UL (4.8-10.8) Red Blood Count 3.21 M/UL (4.70-6.10) L Hemoglobin 9.5 G/DL (14.2-18.0) L Hematocrit 29.1 % (42.0-52.0) L Mean Corpuscular Volume 91 FL (80-99) Mean Corpuscular Hemoglobin 29.6 PG (27.0-31.0) Mean Corpuscular Hemoglobin Concent 32.6 G/DL (32.0-36.0) Red Cell Distribution Width 15.0 % (11.6-14.8) H Platelet Count 429 K/UL (150-450) Mean Platelet Volume 6.0 FL (6.5-10.1) L Neutrophils (%) (Auto) % (45.0-75.0) Lymphocytes (%) (Auto) % (20.0-45.0) Monocytes (%) (Auto) % (1.0-10.0) Eosinophils (%) (Auto) % (0.0-3.0) Basophils (%) (Auto) % (0.0-2.0) Differential Total Cells Counted 100 Neutrophils % (Manual) 86 % (45-75) H Lymphocytes % (Manual) 10 % (20-45) L Monocytes % (Manual) 4 % (1-10) Eosinophils % (Manual) 0 % (0-3) Basophils % (Manual) 0 % (0-2) Band Neutrophils 0 % (0-8) Platelet Estimate Adequate Platelet Morphology Normal Hypochromasia 1+ Anisocytosis 1+ Sodium Level 141 MMOL/L (136-145) Potassium Level 3.0 MMOL/L (3.5-5.1) L Chloride Level 108 MMOL/L (98-107) H Carbon Dioxide Level 21 MMOL/L (21-32) Anion Gap 12 mmol/L (5-15) Blood Urea Nitrogen 95 mg/dL (7-18) H Creatinine 3.6 MG/DL (0.55-1.30) H Estimat Glomerular Filtration Rate mL/min (>60) Glucose Level 154 MG/DL (74-106) H Hemoglobin A1c 6.1 % (4.3-6.0) H Uric Acid 10.4 MG/DL (2.6-7.2) H Calcium Level 8.0 MG/DL (8.5-10.1) L Phosphorus Level 5.1 MG/DL (2.5-4.9) H Magnesium Level 1.9 MG/DL (1.8-2.4) Total Bilirubin 0.8 MG/DL (0.2-1.0) Aspartate Amino Transf (AST/SGOT) 76 U/L (15-37) H Alanine Aminotransferase (ALT/SGPT) 84 U/L (12-78) H Alkaline Phosphatase 106 U/L (46-116) Total Creatine Kinase 362 U/L (26-308) H Pro-B-Type Natriuretic Peptide 619 pg/mL (0-125) H Total Protein 6.3 G/DL (6.4-8.2) L Albumin 2.0 G/DL (3.4-5.0) L Globulin 4.3 g/dL Albumin/Globulin Ratio 0.5 (1.0-2.7) L Current Medications Medications (Trade) Dose Ordered Sig/Aristides Route PRN Reason Start Time Stop Time Status Last Admin Dose Admin Acetaminophen (Tylenol) 650 mg Q4H PRN ORAL T>100.5 03/07/18 02:30 03/28/18 10:29 Acetaminophen (Tylenol) 650 mg Q6H PRN ORAL Mild Pain 03/06/18 23:45 03/28/18 06:29 Allopurinol (Allopurinol) 300 mg DAILY ORAL 03/07/18 09:00 04/01/18 08:59 Chlorhexidine Gluconate (Silva-Hex 2%) 1 applic DAILY@2000 TOPIC 03/07/18 20:00 03/29/18 19:59 03/07/18 20:14 Dextrose (Dextrose 50%) 25 ml Q30M PRN IV Hypoglycemia 03/06/18 23:45 04/01/18 13:44 Dextrose (Dextrose 50%) 50 ml Q30M PRN IV Hypoglycemia 03/06/18 23:45 04/01/18 13:44 Dextrose/Sodium Chloride 1,000 ml @ 100 mls/hr Q10H IV 03/06/18 23:45 04/04/18 10:59 03/08/18 02:01 Docusate Sodium (Colace) 100 mg THREE TIMES A DAY ORAL 03/07/18 09:00 03/29/18 17:59 03/07/18 17:15 Heparin Sodium (Porcine) (Heparin 5000 units/ml) 5,000 units EVERY 12 HOURS SUBQ 03/07/18 09:00 03/28/18 08:59 Insulin Aspart (NovoLOG) BEFORE MEALS AND HS SUBQ 03/07/18 06:30 04/01/18 16:29 03/08/18 06:18 Levofloxacin 100 ml @ 100 mls/hr Q48H IVPB 03/08/18 12:00 03/13/18 11:59 Metoprolol Tartrate (Lopressor) 12.5 mg Q12HR ORAL 03/07/18 21:00 04/06/18 20:59 03/07/18 20:52 Nitroglycerin (Ntg) 0.4 mg Q5MIN X 3 DOSES PRN SL Prn Chest Pain 03/06/18 23:45 03/28/18 10:44 Ondansetron HCl (Zofran) 4 mg Q6H PRN IVP Nausea & Vomiting 03/07/18 04:30 03/28/18 10:29 Pantoprazole (Protonix) 40 mg EVERY 12 HOURS ORAL 03/07/18 09:00 04/06/18 08:59 03/07/18 20:52 Polyethylene Glycol (Miralax) 17 gm DAILYPRN PRN ORAL Constipation 03/07/18 10:30 03/28/18 10:29 Sevelamer Carbonate (Renvela) 800 mg THREE TIMES A DAY ORAL 03/07/18 18:00 03/29/18 17:59 03/07/18 17:14 Simethicone (Mylicon) 80 mg QIDPRN PRN ORAL GAS PAIN 03/07/18 11:00 04/05/18 10:59 Juancarlos Lopez MD Mar 08, 2018 08:21
[2018-03-08] MEDS: Metoprolol Tartrate 12.5mg TAB ORAL SCH ×2 (09:00→20:23)
[2018-03-08] MEDS: Heparin 5000 units/ml inj SUBQ SCH ×2 (09:01→20:24)
[2018-03-08] MEDS: Docusate 100mg cap ORAL SCH ×3 (09:01→18:15)
[2018-03-08 09:20] LABS: BASOPHILS % (AUTO) 0.7 % (0.0-2.0); EOSINOPHILS % (AUTO) 0.8 % (0.0-3.0); HEMATOCRIT 26.7 % (42.0-52.0); HEMOGLOBIN 8.7 G/DL (14.2-18.0); LYMPHOCYTES % (AUTO) 11.4 % (20.0-45.0); MEAN CORPUSCULAR VOLUME 91 FL (80-99); MONOCYTES % (AUTO) 6.6 % (1.0-10.0); NEUTROPHILS % (AUTO) 80.4 % (45.0-75.0); PLATELET COUNT 395 K/UL (150-450); RED BLOOD COUNT 2.92 M/UL (4.70-6.10); RED CELL DISTRIBUTION WIDTH 14.8 % (11.6-14.8); WHITE BLOOD COUNT 7.8 K/UL (4.8-10.8)
[2018-03-08 09:42] LABS: ALANINE AMINOTRANSFERASE 73 U/L (12-78); ALBUMIN 2.1 G/DL (3.4-5.0); ALBUMIN/GLOBULIN RATIO 0.6 (1.0-2.7); ALKALINE PHOSPHATASE 98 U/L (46-116); ANION GAP 13 mmol/L (5-15); ASPARTATE AMINO TRANSFERASE 56 U/L (15-37); BILIRUBIN,TOTAL 0.8 MG/DL (0.2-1.0); BLOOD UREA NITROGEN 75 mg/dL (7-18); CALCIUM 8.1 MG/DL (8.5-10.1); CARBON DIOXIDE 20 MMOL/L (21-32); CHLORIDE 110 MMOL/L (98-107); CREATINE KINASE 232 U/L (26-308); CREATININE 2.8 MG/DL (0.55-1.30); GAMMA GLUTAMYL TRANSPEPTIDASE 89 U/L (5-85); PHOSPHORUS 4.3 MG/DL (2.5-4.9); POTASSIUM 3.1 MMOL/L (3.5-5.1); SODIUM 143 MMOL/L (136-145)
--- NOTE | 2018-03-08 10:42 | Pulmonology Progress Note ---
Assessment/Plan Assessment/Plan Pulmonary Progress Note Assessment/Plan Problems: (1) Rhabdomyolysis (2) Legionella Pneumonia LLL, CXR improving (3) ATN (acute tubular necrosis) (4) Acute CVA (cerebrovascular accident) (5) Abdominal distension (6) Hypokalemia (7) Anemia Assessment/Plan Intermittant Dialysis 400, oliguria AB per ID WBC still high, respiratory treatment Antibiotics check electrolytes, CPK cxr in am dvt prophylaxis sputum induction f/u labs Subjective ROS Limited/Unobtainable: No Constitutional: Reports: no symptoms HEENT: Repors: no symptoms Respiratory: Reports: no symptoms Allergies: Coded Allergies: NO KNOWN ALLERGIES (Verified Allergy, Unknown, 02/26/18) Objective Vital Signs Notes General Appearance: WD/WN HEENT: normocephalic, atraumatic Respiratory/Chest: chest wall non-tender, lungs clear Cardiovascular: normal peripheral pulses, regular rhythm Abdomen: normal bowel sounds, soft, non tender, moderate distension Extremities: no cyanosis Skin: no rash Neurologic/Psychiatric: 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 II-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 grossly normal Lymphatic: no neck adenopathy Microbiology Date/Time Source Procedure Growth Status 02/26/18 08:00 Blood Blood Culture - Preliminary NO GROWTH AFTER 48 HOURS Resulted 02/26/18 07:50 Blood Blood Culture - Preliminary NO GROWTH AFTER 48 HOURS Resulted 02/26/18 22:30 Nasopharynx Influenza Types A,B Antigen (MARYSOL) - Final Complete 02/26/18 22:40 Stool Clostridium difficile Toxin Assay - Final Complete 02/26/18 14:15 Urine,Clean Catch Urine Culture - Final NO GROWTH AFTER 48 HOURS Complete RAY Chest 1v 03/05/2018 INDICATION: Cough COMPARISON: Chest x-ray dated 03/01/18 FINDINGS: Single frontal view demonstrates a prominent cardiac size. Improved aeration the left lung. Right internal jugular central venous catheter with tip in the proximal superior vena cava. No pleural effusions. The visualized osseous structures are within normal limits. IMPRESSION: Improved aeration of the left lung. Otherwise no significant change. Stable line as outlined above. Laboratory Tests 02/27/18 15:04: Urine Opiates Screen Negative, Urine Barbiturates Screen Negative, Phencyclidine (PCP) Screen Negative, Urine Amphetamines Screen Negative, Urine Benzodiazepines Screen Negative, Urine Cocaine Screen Negative, Urine Marijuana (THC) Screen Negative 02/28/18 03:55: White Blood Count 29.9*H, Red Blood Count 3.54L, Hemoglobin 10.8L, Hematocrit 31.5L, Mean Corpuscular Volume 89, Mean Corpuscular Hemoglobin 30.4, Mean Corpuscular Hemoglobin Concent 34.2, Red Cell Distribution Width 11.2L, Platelet Count 377, Mean Platelet Volume 7.0, Neutrophils (%) (Auto) , Lymphocytes (%) (Auto) , Monocytes (%) (Auto) , Eosinophils (%) (Auto) , Basophils (%) (Auto) , Differential Total Cells Counted 100, Neutrophils % ( Manual) 88H, Lymphocytes % (Manual) 3L, Monocytes % (Manual) 2, Eosinophils % ( Manual) 0, Basophils % (Manual) 0, Band Neutrophils 7, Platelet Estimate Adequate, Platelet Morphology Normal, Hypochromasia 1+, Sodium Level 134L, Potassium Level 3.8, Chloride Level 95L, Carbon Dioxide Level 18L, Anion Gap 21H , Blood Urea Nitrogen 113H, Creatinine 7.8H, Estimat Glomerular Filtration Rate , Glucose Level 118H, Uric Acid 11.8H, Calcium Level 8.1L, Phosphorus Level 9.0H , Magnesium Level 2.6H, Total Bilirubin 3.8H, Direct Bilirubin 2.1H, Gamma Glutamyl Transpeptidase 93H, Aspartate Amino Transf (AST/SGOT) 634H, Alanine Aminotransferase (ALT/SGPT) 218H, Alkaline Phosphatase 124H, Pro-B-Type Natriuretic Peptide 3919H, Total Protein 7.0, Albumin 1.6L, Globulin 6.0, Random Vancomycin Level 15.0, Hepatitis A IgM Antibody [Pending], Hepatitis B Surface Antigen [Pending], Hepatitis B Core IgM Antibody [Pending], Hepatitis C Antibody [Pending] Current Medications Medications (Trade) Dose Ordered Sig/Aristides Route PRN Reason Start Time Stop Time Status Last Admin Dose Admin Acetaminophen (Tylenol) 650 mg Q4H PRN ORAL T>100.5 02/26/18 10:30 03/28/18 10:29 02/27/18 10:51 Acetaminophen (Tylenol) 650 mg Q6H PRN ORAL Mild Pain 02/27/18 11:45 03/28/18 06:29 02/28/18 00:35 Albuterol/ Ipratropium (Albuterol/ Ipratropium) 3 ml Q4H PRN HHN Shortness of Breath 02/26/18 10:30 03/03/18 10:29 02/27/18 23:03 Cefepime HCl 1 gm/ Dextrose 55 ml @ 110 mls/hr Q24H IVPB 02/26/18 12:00 03/05/18 11:59 02/27/18 11:45 Chlorhexidine Gluconate (Silva-Hex 2%) 1 applic DAILY@2000 TOPIC 02/27/18 20:00 03/29/18 19:59 02/27/18 21:40 Dextrose (Dextrose 50%) 25 ml Q30M PRN IV hypoglycemia 02/26/18 10:45 03/28/18 10:42 Dextrose (Dextrose 50%) 50 ml Q30M PRN IV hypoglycemia 02/26/18 10:45 03/28/18 10:44 Docusate Sodium (Colace) 100 mg THREE TIMES A DAY ORAL 02/27/18 18:00 03/29/18 17:59 02/28/18 08:20 Heparin Sodium (Porcine) (Heparin 5000 units/ml) 5,000 units EVERY 12 HOURS SUBQ 02/26/18 09:00 03/28/18 08:59 02/28/18 08:21 Linezolid (Zyvox) 600 mg EVERY 12 HOURS ORAL 02/27/18 21:00 03/04/18 20:59 02/28/18 08:19 Metronidazole (Flagyl) 500 mg Q8HR ORAL 02/26/18 15:00 03/05/18 14:59 02/28/18 05:30 Morphine Sulfate (Morphine Sulfate) 2 mg Q4H PRN IVP PAIN 4-10 02/26/18 10:30 03/05/18 10:29 Nitroglycerin (Ntg) 0.4 mg Q5MIN X 3 DOSES PRN SL Prn Chest Pain 02/26/18 10:45 03/28/18 10:44 Ondansetron HCl (Zofran) 4 mg Q6H PRN IVP Nausea & Vomiting 02/26/18 10:30 03/28/18 10:29 Pantoprazole (Protonix) 40 mg EVERY 12 HOURS ORAL 02/27/18 21:00 03/29/18 20:59 02/28/18 08:20 Polyethylene Glycol (Miralax) 17 gm DAILYPRN PRN ORAL Constipation 02/26/18 10:30 03/28/18 10:29 Quetiapine Fumarate (SEROquel) 12.5 mg Q4H PRN ORAL agitation 02/26/18 12:15 03/28/18 12:14 Sevelamer Carbonate (Renvela) 1,600 mg THREE TIMES A DAY ORAL 02/27/18 18:00 03/29/18 17:59 02/28/18 08:20 Temazepam (Restoril) 15 mg HSPRN PRN ORAL Insomnia 02/26/18 21:00 03/05/18 20:59 Subjective ROS Limited/Unobtainable: No Allergies: Coded Allergies: NO KNOWN ALLERGIES (Verified Allergy, Unknown, 02/26/18) Objective Last 24 Hour Vital Signs Date Time Temp Pulse Resp B/P (MAP) Pulse Ox O2 Delivery O2 Flow Rate FiO2 03/08/18 09:00 76 151/82 03/08/18 09:00 Room Air 03/08/18 08:25 97.6 76 19 151/82 (105) 98 03/08/18 04:00 97.3 82 20 147/86 (106) 98 03/08/18 00:00 97.8 83 18 150/87 (108) 98 03/07/18 21:00 Room Air 03/07/18 20:52 78 156/93 03/07/18 20:00 97.3 78 18 156/93 (114) 98 03/07/18 16:36 86 147/88 03/07/18 16:23 98.0 86 20 147/88 (107) 98 03/07/18 12:00 97.9 94 20 155/94 (114) 100 Intake and Output 03/07/18 03/08/18 19:00 07:00 Intake Total 2705 ml 1020 ml Output Total 1300 ml 1600 ml Balance 1405 ml -580 ml Intake Oral 605 ml 120 ml IV Total 2100 ml 900 ml Output Urine Total 1300 ml 1600 ml # Voids 1 # Bowel Movements 1 Laboratory Tests 03/07/18 10:50: White Blood Count 9.9, Red Blood Count 3.21L, Hemoglobin 9.5L, Hematocrit 29.1L , Mean Corpuscular Volume 91, Mean Corpuscular Hemoglobin 29.6, Mean Corpuscular Hemoglobin Concent 32.6, Red Cell Distribution Width 15.0H, Platelet Count 429, Mean Platelet Volume 6.0L, Neutrophils (%) (Auto) , Lymphocytes (%) (Auto) , Monocytes (%) (Auto) , Eosinophils (%) (Auto) , Basophils (%) (Auto) , Differential Total Cells Counted 100, Neutrophils % ( Manual) 86H, Lymphocytes % (Manual) 10L, Monocytes % (Manual) 4, Eosinophils % ( Manual) 0, Basophils % (Manual) 0, Band Neutrophils 0, Platelet Estimate Adequate, Platelet Morphology Normal, Hypochromasia 1+, Anisocytosis 1+, Sodium Level 141, Potassium Level 3.0L, Chloride Level 108H, Carbon Dioxide Level 21, Anion Gap 12, Blood Urea Nitrogen 95H, Creatinine 3.6H, Estimat Glomerular Filtration Rate , Glucose Level 154H, Hemoglobin A1c 6.1H, Uric Acid 10.4H, Calcium Level 8.0L, Phosphorus Level 5.1H, Magnesium Level 1.9, Total Bilirubin 0.8, Aspartate Amino Transf (AST/SGOT) 76H, Alanine Aminotransferase (ALT/SGPT) 84H, Alkaline Phosphatase 106, Total Creatine Kinase 362H, Pro-B-Type Natriuretic Peptide 619H, Total Protein 6.3L, Albumin 2.0L, Globulin 4.3, Albumin/Globulin Ratio 0.5L 03/08/18 09:00: White Blood Count 7.8, Red Blood Count 2.92L, Hemoglobin 8.7L, Hematocrit 26.7L , Mean Corpuscular Volume 91, Mean Corpuscular Hemoglobin 29.7, Mean Corpuscular Hemoglobin Concent 32.5, Red Cell Distribution Width 14.8, Platelet Count 395, Mean Platelet Volume 5.0L, Neutrophils (%) (Auto) 80.4H, Lymphocytes (%) (Auto) 11.4L, Monocytes (%) (Auto) 6.6, Eosinophils (%) (Auto) 0.8, Basophils (%) (Auto) 0.7, Sodium Level 143, Potassium Level 3.1L, Chloride Level 110H, Carbon Dioxide Level 20L, Anion Gap 13, Blood Urea Nitrogen 75H, Creatinine 2.8H, Estimat Glomerular Filtration Rate , Glucose Level 133H, Uric Acid 9.4H, Calcium Level 8.1L, Phosphorus Level 4.3, Magnesium Level 1.4L, Total Bilirubin 0.8, Aspartate Amino Transf (AST/SGOT) 56H, Alanine Aminotransferase (ALT/SGPT) 73, Alkaline Phosphatase 98, Total Creatine Kinase 232, Total Protein 5.6L, Albumin 2.1L, Globulin 3.5, Albumin/Globulin Ratio 0.6L , Gamma Glutamyl Transpeptidase 89H Current Medications Medications (Trade) Dose Ordered Sig/Aristides Route PRN Reason Start Time Stop Time Status Last Admin Dose Admin Acetaminophen (Tylenol) 650 mg Q4H PRN ORAL T>100.5 03/07/18 02:30 03/28/18 10:29 Acetaminophen (Tylenol) 650 mg Q6H PRN ORAL Mild Pain 03/06/18 23:45 03/28/18 06:29 Allopurinol (Allopurinol) 300 mg DAILY ORAL 03/07/18 09:00 04/01/18 08:59 03/08/18 09:00 Chlorhexidine Gluconate (Silva-Hex 2%) 1 applic DAILY@2000 TOPIC 03/07/18 20:00 03/29/18 19:59 03/07/18 20:14 Dextrose (Dextrose 50%) 25 ml Q30M PRN IV Hypoglycemia 03/06/18 23:45 04/01/18 13:44 Dextrose (Dextrose 50%) 50 ml Q30M PRN IV Hypoglycemia 03/06/18 23:45 04/01/18 13:44 Dextrose/Sodium Chloride 1,000 ml @ 100 mls/hr Q10H IV 03/06/18 23:45 04/04/18 10:59 03/08/18 02:01 Docusate Sodium (Colace) 100 mg THREE TIMES A DAY ORAL 03/07/18 09:00 03/29/18 17:59 03/08/18 09:01 Heparin Sodium (Porcine) (Heparin 5000 units/ml) 5,000 units EVERY 12 HOURS SUBQ 03/07/18 09:00 03/28/18 08:59 03/08/18 09:01 Insulin Aspart (NovoLOG) BEFORE MEALS AND HS SUBQ 03/07/18 06:30 04/01/18 16:29 03/08/18 06:18 Levofloxacin 100 ml @ 100 mls/hr Q48H IVPB 03/08/18 12:00 03/13/18 11:59 Metoprolol Tartrate (Lopressor) 12.5 mg Q12HR ORAL 03/07/18 21:00 04/06/18 20:59 03/08/18 09:00 Nitroglycerin (Ntg) 0.4 mg Q5MIN X 3 DOSES PRN SL Prn Chest Pain 03/06/18 23:45 03/28/18 10:44 Ondansetron HCl (Zofran) 4 mg Q6H PRN IVP Nausea & Vomiting 03/07/18 04:30 03/28/18 10:29 Pantoprazole (Protonix) 40 mg EVERY 12 HOURS ORAL 03/07/18 09:00 04/06/18 08:59 03/08/18 08:59 Polyethylene Glycol (Miralax) 17 gm DAILYPRN PRN ORAL Constipation 03/07/18 10:30 03/28/18 10:29 Potassium Chloride 100 ml @ 100 mls/hr Q1H IVPB 03/08/18 11:00 03/08/18 16:59 Sevelamer Carbonate (Renvela) 800 mg THREE TIMES A DAY ORAL 03/07/18 18:00 03/29/18 17:59 03/08/18 09:00 Simethicone (Mylicon) 80 mg QIDPRN PRN ORAL GAS PAIN 03/07/18 11:00 04/05/18 10:59 Juancarlos Malin MD Mar 08, 2018 10:42
--- NOTE | 2018-03-08 10:50 | GI Progress Note ---
Assessment/Plan Problems: (1) Abdominal distention ICD Codes: R14.0 - Abdominal distension (gaseous) SNOMED: 88092604 (2) Anemia ICD Codes: D64.9 - Anemia, unspecified SNOMED: 081643456 (3) encephalopathy due to toxin (4) Elevated liver function tests ICD Codes: R94.5 - Abnormal results of liver function studies SNOMED: 595688018, 992736339 Status: stable Status Narrative Discussed with Dr. Matos Assessment/Plan History of colorectal cancer status post colorectal resection Abdominal ultrasound was reviewed with no evidence of cirrhosis, no evidence of choledocholithiasis, no evidence of intrahepatic biliary ductal dilation. Anemia workup reviewed Abdominal pelvic CT and KUB reviewed >> gaseous colonic distention KUB in am>>no sig changes rectal tube>>>patient refused Will consider 2 L GoLYTELY bowel flush, patient refused at this time colace and miralax abx trending down LFTS Turn patient every 2 hours encourage ambulation prn, PT to consult Simethicone as needed Electrolyte correction PPI On pured diet Follow-up labs Outpatient colonoscopy The patient was seen and examined at bedside and all new and available data was reviewed in the patients chart. I agree with the above findings, impression and plan. (Patient seen earlier today. Signature stamp does not reflect patient encounter time.). - Ismael Matos MD Subjective Subjective Denies abdominal pain Denies any nausea vomiting or diarrhea Ambulating with physical therapy Denies any abdominal discomfort Objective Last 24 Hour Vital Signs Date Time Temp Pulse Resp B/P (MAP) Pulse Ox O2 Delivery O2 Flow Rate FiO2 03/08/18 09:00 76 151/82 03/08/18 09:00 Room Air 03/08/18 08:25 97.6 76 19 151/82 (105) 98 03/08/18 04:00 97.3 82 20 147/86 (106) 98 03/08/18 00:00 97.8 83 18 150/87 (108) 98 03/07/18 21:00 Room Air 03/07/18 20:52 78 156/93 03/07/18 20:00 97.3 78 18 156/93 (114) 98 03/07/18 16:36 86 147/88 03/07/18 16:23 98.0 86 20 147/88 (107) 98 03/07/18 12:00 97.9 94 20 155/94 (114) 100 Intake and Output 03/07/18 03/08/18 19:00 07:00 Intake Total 2705 ml 1020 ml Output Total 1300 ml 1600 ml Balance 1405 ml -580 ml Intake Oral 605 ml 120 ml IV Total 2100 ml 900 ml Output Urine Total 1300 ml 1600 ml # Voids 1 # Bowel Movements 1 Laboratory Tests Test 03/07/18 10:50 03/08/18 09:00 White Blood Count 9.9 K/UL (4.8-10.8) 7.8 K/UL (4.8-10.8) Red Blood Count 3.21 M/UL (4.70-6.10) L 2.92 M/UL (4.70-6.10) L Hemoglobin 9.5 G/DL (14.2-18.0) L 8.7 G/DL (14.2-18.0) L Hematocrit 29.1 % (42.0-52.0) L 26.7 % (42.0-52.0) L Mean Corpuscular Volume 91 FL (80-99) 91 FL (80-99) Mean Corpuscular Hemoglobin 29.6 PG (27.0-31.0) 29.7 PG (27.0-31.0) Mean Corpuscular Hemoglobin Concent 32.6 G/DL (32.0-36.0) 32.5 G/DL (32.0-36.0) Red Cell Distribution Width 15.0 % (11.6-14.8) H 14.8 % (11.6-14.8) Platelet Count 429 K/UL (150-450) 395 K/UL (150-450) Mean Platelet Volume 6.0 FL (6.5-10.1) L 5.0 FL (6.5-10.1) L Neutrophils (%) (Auto) % (45.0-75.0) 80.4 % (45.0-75.0) H Lymphocytes (%) (Auto) % (20.0-45.0) 11.4 % (20.0-45.0) L Monocytes (%) (Auto) % (1.0-10.0) 6.6 % (1.0-10.0) Eosinophils (%) (Auto) % (0.0-3.0) 0.8 % (0.0-3.0) Basophils (%) (Auto) % (0.0-2.0) 0.7 % (0.0-2.0) Differential Total Cells Counted 100 Neutrophils % (Manual) 86 % (45-75) H Lymphocytes % (Manual) 10 % (20-45) L Monocytes % (Manual) 4 % (1-10) Eosinophils % (Manual) 0 % (0-3) Basophils % (Manual) 0 % (0-2) Band Neutrophils 0 % (0-8) Platelet Estimate Adequate Platelet Morphology Normal Hypochromasia 1+ Anisocytosis 1+ Sodium Level 141 MMOL/L (136-145) 143 MMOL/L (136-145) Potassium Level 3.0 MMOL/L (3.5-5.1) L 3.1 MMOL/L (3.5-5.1) L Chloride Level 108 MMOL/L (98-107) H 110 MMOL/L (98-107) H Carbon Dioxide Level 21 MMOL/L (21-32) 20 MMOL/L (21-32) L Anion Gap 12 mmol/L (5-15) 13 mmol/L (5-15) Blood Urea Nitrogen 95 mg/dL (7-18) H 75 mg/dL (7-18) H Creatinine 3.6 MG/DL (0.55-1.30) H 2.8 MG/DL (0.55-1.30) H Estimat Glomerular Filtration Rate mL/min (>60) mL/min (>60) Glucose Level 154 MG/DL (74-106) H 133 MG/DL (74-106) H Hemoglobin A1c 6.1 % (4.3-6.0) H Uric Acid 10.4 MG/DL (2.6-7.2) H 9.4 MG/DL (2.6-7.2) H Calcium Level 8.0 MG/DL (8.5-10.1) L 8.1 MG/DL (8.5-10.1) L Phosphorus Level 5.1 MG/DL (2.5-4.9) H 4.3 MG/DL (2.5-4.9) Magnesium Level 1.9 MG/DL (1.8-2.4) 1.4 MG/DL (1.8-2.4) L Total Bilirubin 0.8 MG/DL (0.2-1.0) 0.8 MG/DL (0.2-1.0) Aspartate Amino Transf (AST/SGOT) 76 U/L (15-37) H 56 U/L (15-37) H Alanine Aminotransferase (ALT/SGPT) 84 U/L (12-78) H 73 U/L (12-78) Alkaline Phosphatase 106 U/L (46-116) 98 U/L (46-116) Total Creatine Kinase 362 U/L (26-308) H 232 U/L (26-308) Pro-B-Type Natriuretic Peptide 619 pg/mL (0-125) H Total Protein 6.3 G/DL (6.4-8.2) L 5.6 G/DL (6.4-8.2) L Albumin 2.0 G/DL (3.4-5.0) L 2.1 G/DL (3.4-5.0) L Globulin 4.3 g/dL 3.5 g/dL Albumin/Globulin Ratio 0.5 (1.0-2.7) L 0.6 (1.0-2.7) L Gamma Glutamyl Transpeptidase 89 U/L (5-85) H Height (Feet): 5 Height (Inches): 7.00 Weight (Pounds): 210 General Appearance: WD/WN, no apparent distress, alert Cardiovascular: normal rate Respiratory/Chest: normal breath sounds, no respiratory distress Abdominal Exam: normal bowel sounds, non tender, soft Extremities: normal range of motion, non-tender, other - Generalized weakness Objective Out of bed Chapito Pedraza [employer] Mar 08, 2018 10:50
[2018-03-08] MEDS ORDERED: D5NS 1000ml IV ONE (11:03)
--- NOTE | 2018-03-08 12:35 | Nephrology Progress Note ---
Assessment/Plan Problem List: (1) ATN (acute tubular necrosis) (2) Rhabdomyolysis Assessment: CPK lowering (3) Pneumonia (4) encephalopathy due to toxin Assessment Acute renal failure- Cr lowering off HD Rhabdo Pneumonia CVA ? Plan Dc lugo- DC Dialysis Cath PT Mag and K supplement regular diet add Norvasc add lopressor Slow Hydrate- albumin bolus as needed monitor urine output Add Allopurinol hemodialysis Last 03/03 May not need any more HD Transfuse 2 units Phos binders Lugo Monitor CPK - Uric Acid- LFTs monitor Renal parameters Avoid Nephrotoxics per orders discussed with RN and daughter present in room 03/05/18 Subjective ROS Limited/Unobtainable: No Constitutional: Reports: other - more alert Objective Objective Last 24 Hour Vital Signs Date Time Temp Pulse Resp B/P (MAP) Pulse Ox O2 Delivery O2 Flow Rate FiO2 03/08/18 09:00 76 151/82 03/08/18 09:00 Room Air 03/08/18 08:25 97.6 76 19 151/82 (105) 98 03/08/18 04:00 97.3 82 20 147/86 (106) 98 03/08/18 00:00 97.8 83 18 150/87 (108) 98 03/07/18 21:00 Room Air 03/07/18 20:52 78 156/93 03/07/18 20:00 97.3 78 18 156/93 (114) 98 03/07/18 16:36 86 147/88 03/07/18 16:23 98.0 86 20 147/88 (107) 98 Intake and Output 03/07/18 03/08/18 19:00 07:00 Intake Total 2705 ml 1020 ml Output Total 1300 ml 1600 ml Balance 1405 ml -580 ml Intake Oral 605 ml 120 ml IV Total 2100 ml 900 ml Output Urine Total 1300 ml 1600 ml # Voids 1 # Bowel Movements 1 Laboratory Tests 03/08/18 09:00: White Blood Count 7.8, Red Blood Count 2.92L, Hemoglobin 8.7L, Hematocrit 26.7L , Mean Corpuscular Volume 91, Mean Corpuscular Hemoglobin 29.7, Mean Corpuscular Hemoglobin Concent 32.5, Red Cell Distribution Width 14.8, Platelet Count 395, Mean Platelet Volume 5.0L, Neutrophils (%) (Auto) 80.4H, Lymphocytes (%) (Auto) 11.4L, Monocytes (%) (Auto) 6.6, Eosinophils (%) (Auto) 0.8, Basophils (%) (Auto) 0.7, Sodium Level 143, Potassium Level 3.1L, Chloride Level 110H, Carbon Dioxide Level 20L, Anion Gap 13, Blood Urea Nitrogen 75H, Creatinine 2.8H, Estimat Glomerular Filtration Rate , Glucose Level 133H, Uric Acid 9.4H, Calcium Level 8.1L, Phosphorus Level 4.3, Magnesium Level 1.4L, Total Bilirubin 0.8, Gamma Glutamyl Transpeptidase 89H, Aspartate Amino Transf ( AST/SGOT) 56H, Alanine Aminotransferase (ALT/SGPT) 73, Alkaline Phosphatase 98, Total Creatine Kinase 232, Total Protein 5.6L, Albumin 2.1L, Globulin 3.5, Albumin/Globulin Ratio 0.6L Height (Feet): 5 Height (Inches): 7.00 Weight (Pounds): 210 General Appearance: no apparent distress Cardiovascular: normal rate Respiratory/Chest: decreased breath sounds Abdomen: soft, distended Objective no change Yayo Lora MD Mar 08, 2018 12:35
--- NOTE | 2018-03-08 13:47 | NUR ---
RD ASSESSMENT & RECOMMENDATIONS SEE CARE ACTIVITY FOR COMPLETE ASSESSMENT DAILY ESTIMATED NEEDS: Needs based on ARF, DM 74.5kg 25-30 kcals/kg [id number] total kcals 1-1.5 g protein/kg 75-112 g total protein Fluid per MD NUTRITION DIAGNOSIS: 1) Increased protein needs r/t ARF as evidenced by pt with ATN, requiring HD, elev Creat (9.6-> 5.9-> 2.8), elev BUN, elev Phos (5.3-> wnl), adm w. Rhabdo (Creat kinase >95254 on adm-> wnl). 2) Swallowing difficulty r/t dysphagia and PNA as evidenced by FISHER MUSSEL eval, recs for puree texture and NTL. CURRENT DIET:Now regular PO DIET RECOMMENDATIONS: LOW NA DIET + DOUBLE PROTEIN PORTIONS (texture per FISHER MUSSEL) ADDITIONAL RECOMMENDATIONS: 1) Add NEPRO 1 tetra meggan daily w/ variable po intake (425 kcal/ 19g prot each) 2) Recalibrate bed scale for accurate CBW -> POST HD for dry wt 3) Monitor po intake, need for snacks 4) Add CCHO MED w/ BG >150
--- NOTE | 2018-03-08 13:57 | Internal Med Progress Note ---
Subjective Physician Name Ruperto Cowan Attending Physician Ruperto Cowan MD Current Medications Medications (Trade) Dose Ordered Sig/Aristides Route PRN Reason Start Time Stop Time Status Last Admin Dose Admin Acetaminophen (Tylenol) 650 mg Q4H PRN ORAL T>100.5 03/07/18 02:30 03/28/18 10:29 Acetaminophen (Tylenol) 650 mg Q6H PRN ORAL Mild Pain 03/06/18 23:45 03/28/18 06:29 Allopurinol (Allopurinol) 300 mg DAILY ORAL 03/07/18 09:00 04/01/18 08:59 03/08/18 09:00 Amlodipine Besylate (Norvasc) 5 mg DAILY ORAL 03/09/18 09:00 04/08/18 08:59 Chlorhexidine Gluconate (Silva-Hex 2%) 1 applic DAILY@2000 TOPIC 03/07/18 20:00 03/29/18 19:59 03/07/18 20:14 Dextrose (Dextrose 50%) 25 ml Q30M PRN IV Hypoglycemia 03/06/18 23:45 04/01/18 13:44 Dextrose (Dextrose 50%) 50 ml Q30M PRN IV Hypoglycemia 03/06/18 23:45 04/01/18 13:44 Dextrose/Sodium Chloride 1,000 ml @ 100 mls/hr Q10H IV 03/06/18 23:45 04/04/18 10:59 03/08/18 02:01 Docusate Sodium (Colace) 100 mg THREE TIMES A DAY ORAL 03/07/18 09:00 03/29/18 17:59 03/08/18 12:48 Heparin Sodium (Porcine) (Heparin 5000 units/ml) 5,000 units EVERY 12 HOURS SUBQ 03/07/18 09:00 03/28/18 08:59 03/08/18 09:01 Insulin Aspart (NovoLOG) BEFORE MEALS AND HS SUBQ 03/07/18 06:30 04/01/18 16:29 03/08/18 06:18 Levofloxacin 100 ml @ 100 mls/hr Q48H IVPB 03/08/18 12:00 03/13/18 11:59 03/08/18 12:47 Magnesium Sulfate 100 ml @ 100 mls/hr Q1H IVPB 03/08/18 13:00 03/08/18 16:59 Metoprolol Tartrate (Lopressor) 12.5 mg Q12HR ORAL 03/07/18 21:00 04/06/18 20:59 03/08/18 09:00 Nitroglycerin (Ntg) 0.4 mg Q5MIN X 3 DOSES PRN SL Prn Chest Pain 03/06/18 23:45 03/28/18 10:44 Ondansetron HCl (Zofran) 4 mg Q6H PRN IVP Nausea & Vomiting 03/07/18 04:30 03/28/18 10:29 Pantoprazole (Protonix) 40 mg EVERY 12 HOURS ORAL 03/07/18 09:00 04/06/18 08:59 03/08/18 08:59 Polyethylene Glycol (Miralax) 17 gm DAILYPRN PRN ORAL Constipation 03/07/18 10:30 03/28/18 10:29 Potassium Chloride 100 ml @ 100 mls/hr Q1H IVPB 03/08/18 11:00 03/08/18 16:59 03/08/18 11:04 Tamsulosin HCl (Flomax) 0.4 mg BID ORAL 03/08/18 13:15 04/07/18 13:14 Allergies: Coded Allergies: NO KNOWN ALLERGIES (Verified Allergy, Unknown, 02/26/18) Subjective awake, alert, responsive, NAD, feeling good, renal function improving Objective Last Vital Signs Date Time Temp Pulse Resp B/P (MAP) Pulse Ox O2 Delivery O2 Flow Rate FiO2 03/08/18 12:48 76 151/82 03/08/18 09:00 Room Air 03/08/18 08:25 97.6 19 98 03/06/18 20:40 2.0 28 Laboratory Tests Test 03/08/18 09:00 White Blood Count 7.8 K/UL (4.8-10.8) Red Blood Count 2.92 M/UL (4.70-6.10) L Hemoglobin 8.7 G/DL (14.2-18.0) L Hematocrit 26.7 % (42.0-52.0) L Mean Corpuscular Volume 91 FL (80-99) Mean Corpuscular Hemoglobin 29.7 PG (27.0-31.0) Mean Corpuscular Hemoglobin Concent 32.5 G/DL (32.0-36.0) Red Cell Distribution Width 14.8 % (11.6-14.8) Platelet Count 395 K/UL (150-450) Mean Platelet Volume 5.0 FL (6.5-10.1) L Neutrophils (%) (Auto) 80.4 % (45.0-75.0) H Lymphocytes (%) (Auto) 11.4 % (20.0-45.0) L Monocytes (%) (Auto) 6.6 % (1.0-10.0) Eosinophils (%) (Auto) 0.8 % (0.0-3.0) Basophils (%) (Auto) 0.7 % (0.0-2.0) Sodium Level 143 MMOL/L (136-145) Potassium Level 3.1 MMOL/L (3.5-5.1) L Chloride Level 110 MMOL/L (98-107) H Carbon Dioxide Level 20 MMOL/L (21-32) L Anion Gap 13 mmol/L (5-15) Blood Urea Nitrogen 75 mg/dL (7-18) H Creatinine 2.8 MG/DL (0.55-1.30) H Estimat Glomerular Filtration Rate mL/min (>60) Glucose Level 133 MG/DL (74-106) H Uric Acid 9.4 MG/DL (2.6-7.2) H Calcium Level 8.1 MG/DL (8.5-10.1) L Phosphorus Level 4.3 MG/DL (2.5-4.9) Magnesium Level 1.4 MG/DL (1.8-2.4) L Total Bilirubin 0.8 MG/DL (0.2-1.0) Gamma Glutamyl Transpeptidase 89 U/L (5-85) H Aspartate Amino Transf (AST/SGOT) 56 U/L (15-37) H Alanine Aminotransferase (ALT/SGPT) 73 U/L (12-78) Alkaline Phosphatase 98 U/L (46-116) Total Creatine Kinase 232 U/L (26-308) C-Reactive Protein, Quantitative 5.2 mg/dL (0.00-0.90) H Total Protein 5.6 G/DL (6.4-8.2) L Albumin 2.1 G/DL (3.4-5.0) L Globulin 3.5 g/dL Albumin/Globulin Ratio 0.6 (1.0-2.7) L Intake and Output 03/07/18 03/08/18 19:00 07:00 Intake Total 2705 ml 1020 ml Output Total 1300 ml 1600 ml Balance 1405 ml -580 ml Intake Oral 605 ml 120 ml IV Total 2100 ml 900 ml Output Urine Total 1300 ml 1600 ml # Voids 1 # Bowel Movements 1 Objective General: No acute distress, awake and alert HEENT: NCAT, sclera anicteric, PERRL, EOMI. Neck: Supple, Right IJ Dialysis cath. Lungs: Fair inspiratory effort, Bilateral air entry, no Wheeze or Rales. Heart: Regular rate and rhythm, normal S1/S2, no murmur. Abdomen: soft, nontender, nondistended. Normoactive bowel sounds, obesity, / Rectal: Refused and deferred. Extremities: No Cyanosis , clubbing or edema. Neuro: A&O x 3, Able to move all extremities Skin: warm, no rashes. Assessment/Plan Assessment/Plan Sepsis due to Legionella PNA and UTI- r/o bacteremia Fever, improving BRITT, worsening- started on HD 02/28 till last HD 03/03 Rhabdomyolysis; improving AMS s/p Fall Acute transaminitis, infection-2ry to Legionella infection; improving Obesity Severe anemia most likely due to CKD. Plan: Abx: Levaquin 750mg q48hrs # 8 for Legionella would recommend treating for for 14 days total ( End date 03/14/18). -IV as patient refusing PO; can transition to PO upon discharge Monitor Labs and cultures. Full code Heparin SQ PT Mobility / OOB to chair F/U with Dr. Lora recommendations DC planning to SNF in AM Discuss with Patient and family members regarding SNF placement for AM. Ruperto Cowan MD Mar 08, 2018 13:57
[2018-03-08] MEDS: Tamsulosin 0.4mg cap ORAL SCH ×2 (13:58→18:15)
--- NOTE | 2018-03-08 14:27 | NUR ---
CASE MANAGEMENT: REVIEW SI: AMS . DEHYDRATION T 97.3 HR 82 RR 20 BP 150/87 SAT 98% ROOM AIR H/H 8.7/26.7 IS: NORVASC PO QD FLOMAX PO BID MAG SULFATE IV @100ML/HR LEVOFLOXACIN IV Q48HR KCl 10 mEq IVF @100ML/HR NOVOLOG SQ AC/HS MED/SURG UNIT STATUS DCP: PATIENT IS FROM HOME . DC TO SNF FOR REHAB
--- NOTE | 2018-03-08 14:30 | NUR ---
CASE MANAGEMENT: DCPNOTE UPON DISCHARGE PATIENT WILL TRANSFER TO [facility] [phone] SKILLED ROOM 24A PATIENT AND FAMILY BRAD [phone] IN AGREEMENT WITH TRANSFERRING TO THIS FACILITY TRANSPORTATION VIA [id number]
--- NOTE | 2018-03-08 16:04 | Consultation ---
History of Present Illness General Date patient seen: Mar 08, 2018 Referring physician: SHIELA ALEJANDRA Reason for Consultation: catheter removal Present Illness HPI 72M currently under medical care and management. Prior had Right IJ temp HD cath placed for dialysis. since has improved. large bore catheter requiring removal since no longer needs HD. surgery called to evaluate and assist with care. patient seen, chart reviewed, patient examined. family at bedside Allergies: Coded Allergies: NO KNOWN ALLERGIES (Verified Allergy, Unknown, 02/26/18) Medication History Scheduled Aspirin* (Aspir 81*), 81 MG ORAL DAILY, (Reported) Atorvastatin Calcium* (Atorvastatin Calcium*), 40 MG ORAL BEDTIME, (Reported) Enalapril Maleate* (Enalapril Maleate*), 10 MG ORAL DAILY, (Reported) Gabapentin* (Gabapentin*), 300 MG ORAL THREE TIMES A DAY, (Reported) Multivitamins* (Multivitamins*), 1 TAB ORAL DAILY, (Reported) Probenecid* (Benemid*), 500 MG PO BID, (Reported) Triamterene/Hydrochlorothiazid (Triamterene-Hctz 75-50 Mg Tab), 1 TAB ORAL DAILY , (Reported) Patient History History Provided By: Patient, Medical Record, PMD Healthcare decision maker Resuscitation status Full Code Advanced Directive on File No Past Medical/Surgical History Past Medical/Surgical History: (1) Unknown (2) ATN (acute tubular necrosis) (3) Pneumonia (4) Acute CVA (cerebrovascular accident) (5) Rhabdomyolysis (6) Hypercholesterolemia (7) Hyponatremia (8) Leukocytosis (9) Renal failure (10) Syncope (11) Prostate cancer (12) Colon cancer (13) Hypertension (14) Elevated liver function tests (15) Sepsis (16) Cardiac enzymes elevated (17) encephalopathy due to toxin (18) Respiratory failure (19) Anemia (20) Abdominal distention (21) PNA (pneumonia) (22) colonic ileus Review of Systems All Other Systems: negative except mentioned in HPI Physical Exam General Appearance: no apparent distress, alert Lines, tubes and drains: dialysis access, other HEENT: normocephalic, anicteric Neck: supple Respiratory/Chest: normal breath sounds Cardiovascular/Chest: regular rhythm Abdomen: soft, no organomegaly Extremities: normal inspection Neurologic: alert, oriented x 3 Last 24 Hour Vital Signs Date Time Temp Pulse Resp B/P (MAP) Pulse Ox O2 Delivery O2 Flow Rate FiO2 03/08/18 12:48 76 151/82 03/08/18 09:00 76 151/82 03/08/18 09:00 Room Air 03/08/18 08:25 97.6 76 19 151/82 (105) 98 03/08/18 04:00 97.3 82 20 147/86 (106) 98 03/08/18 00:00 97.8 83 18 150/87 (108) 98 03/07/18 21:00 Room Air 03/07/18 20:52 78 156/93 03/07/18 20:00 97.3 78 18 156/93 (114) 98 03/07/18 16:36 86 147/88 03/07/18 16:23 98.0 86 20 147/88 (107) 98 Intake and Output 03/07/18 03/08/18 19:00 07:00 Intake Total 2705 ml 1020 ml Output Total 1300 ml 1600 ml Balance 1405 ml -580 ml Intake Oral 605 ml 120 ml IV Total 2100 ml 900 ml Output Urine Total 1300 ml 1600 ml # Voids 1 # Bowel Movements 1 Laboratory Tests Test 03/08/18 09:00 White Blood Count 7.8 K/UL (4.8-10.8) Red Blood Count 2.92 M/UL (4.70-6.10) L Hemoglobin 8.7 G/DL (14.2-18.0) L Hematocrit 26.7 % (42.0-52.0) L Mean Corpuscular Volume 91 FL (80-99) Mean Corpuscular Hemoglobin 29.7 PG (27.0-31.0) Mean Corpuscular Hemoglobin Concent 32.5 G/DL (32.0-36.0) Red Cell Distribution Width 14.8 % (11.6-14.8) Platelet Count 395 K/UL (150-450) Mean Platelet Volume 5.0 FL (6.5-10.1) L Neutrophils (%) (Auto) 80.4 % (45.0-75.0) H Lymphocytes (%) (Auto) 11.4 % (20.0-45.0) L Monocytes (%) (Auto) 6.6 % (1.0-10.0) Eosinophils (%) (Auto) 0.8 % (0.0-3.0) Basophils (%) (Auto) 0.7 % (0.0-2.0) Sodium Level 143 MMOL/L (136-145) Potassium Level 3.1 MMOL/L (3.5-5.1) L Chloride Level 110 MMOL/L (98-107) H Carbon Dioxide Level 20 MMOL/L (21-32) L Anion Gap 13 mmol/L (5-15) Blood Urea Nitrogen 75 mg/dL (7-18) H Creatinine 2.8 MG/DL (0.55-1.30) H Estimat Glomerular Filtration Rate mL/min (>60) Glucose Level 133 MG/DL (74-106) H Uric Acid 9.4 MG/DL (2.6-7.2) H Calcium Level 8.1 MG/DL (8.5-10.1) L Phosphorus Level 4.3 MG/DL (2.5-4.9) Magnesium Level 1.4 MG/DL (1.8-2.4) L Total Bilirubin 0.8 MG/DL (0.2-1.0) Gamma Glutamyl Transpeptidase 89 U/L (5-85) H Aspartate Amino Transf (AST/SGOT) 56 U/L (15-37) H Alanine Aminotransferase (ALT/SGPT) 73 U/L (12-78) Alkaline Phosphatase 98 U/L (46-116) Total Creatine Kinase 232 U/L (26-308) C-Reactive Protein, Quantitative 5.2 mg/dL (0.00-0.90) H Total Protein 5.6 G/DL (6.4-8.2) L Albumin 2.1 G/DL (3.4-5.0) L Globulin 3.5 g/dL Albumin/Globulin Ratio 0.6 (1.0-2.7) L Height (Feet): 5 Height (Inches): 7.00 Weight (Pounds): 210 Medications Current Medications Medications (Trade) Dose Ordered Sig/Aristides Route PRN Reason Start Time Stop Time Status Last Admin Dose Admin Acetaminophen (Tylenol) 650 mg Q4H PRN ORAL T>100.5 03/07/18 02:30 03/28/18 10:29 Acetaminophen (Tylenol) 650 mg Q6H PRN ORAL Mild Pain 03/06/18 23:45 03/28/18 06:29 Allopurinol (Allopurinol) 300 mg DAILY ORAL 03/07/18 09:00 04/01/18 08:59 03/08/18 09:00 Amlodipine Besylate (Norvasc) 5 mg DAILY ORAL 03/09/18 09:00 04/08/18 08:59 Chlorhexidine Gluconate (Silva-Hex 2%) 1 applic DAILY@2000 TOPIC 03/07/18 20:00 03/29/18 19:59 03/07/18 20:14 Dextrose (Dextrose 50%) 25 ml Q30M PRN IV Hypoglycemia 03/06/18 23:45 04/01/18 13:44 Dextrose (Dextrose 50%) 50 ml Q30M PRN IV Hypoglycemia 03/06/18 23:45 04/01/18 13:44 Dextrose/Sodium Chloride 1,000 ml @ 100 mls/hr Q10H IV 03/06/18 23:45 04/04/18 10:59 03/08/18 02:01 Docusate Sodium (Colace) 100 mg THREE TIMES A DAY ORAL 03/07/18 09:00 03/29/18 17:59 03/08/18 12:48 Heparin Sodium (Porcine) (Heparin 5000 units/ml) 5,000 units EVERY 12 HOURS SUBQ 03/07/18 09:00 03/28/18 08:59 03/08/18 09:01 Insulin Aspart (NovoLOG) BEFORE MEALS AND HS SUBQ 03/07/18 06:30 04/01/18 16:29 03/08/18 06:18 Levofloxacin 100 ml @ 100 mls/hr Q48H IVPB 03/08/18 12:00 03/13/18 11:59 03/08/18 12:47 Magnesium Sulfate 100 ml @ 100 mls/hr Q1H IVPB 03/08/18 13:00 03/08/18 16:59 03/08/18 15:17 Metoprolol Tartrate (Lopressor) 12.5 mg Q12HR ORAL 03/07/18 21:00 04/06/18 20:59 03/08/18 09:00 Nitroglycerin (Ntg) 0.4 mg Q5MIN X 3 DOSES PRN SL Prn Chest Pain 03/06/18 23:45 03/28/18 10:44 Ondansetron HCl (Zofran) 4 mg Q6H PRN IVP Nausea & Vomiting 03/07/18 04:30 03/28/18 10:29 Pantoprazole (Protonix) 40 mg EVERY 12 HOURS ORAL 03/07/18 09:00 04/06/18 08:59 03/08/18 08:59 Polyethylene Glycol (Miralax) 17 gm DAILYPRN PRN ORAL Constipation 03/07/18 10:30 03/28/18 10:29 Potassium Chloride 100 ml @ 100 mls/hr Q1H IVPB 03/08/18 11:00 03/08/18 16:59 03/08/18 15:22 Tamsulosin HCl (Flomax) 0.4 mg BID ORAL 03/08/18 13:15 04/07/18 13:14 03/08/18 13:58 Assessment/Plan Problem List: (1) Sepsis Assessment & Plan: improving. no longer needs temp HD cath large bore catheter noted in right IJ. dressings removed site cleaned. suture removed catheter d/c safely pressure held for 10 minutes until hemostasis noted. dressings applied monitor for bleeding thank you ICD Codes: A41.9 - Sepsis, unspecified organism SNOMED: [id number] Status: stable Fritz Fritz Mar 08, 2018 16:03
--- NOTE | 2018-03-08 19:00 | NUR ---
NURSE NOTES: Received a report from BALTA Elliott. Pt is in stable condition. AAOX3. Able to make needs known. Family members at the bedside. No respiratory distress noted. On room air. No c/o pain/discomfort. IV site is patent and intact. Bed in lowest position. Bed alarm is on. Call light within reach. Will continue to monitor.
--- NOTE | 2018-03-08 19:30 | NUR ---
NURSE NOTES: Earl RN, stated that she administered the last bag (#6) of kcl, but it did not scan. She will do an incident report about it when she comes back. Charge Nurse Anastasiya is aware.
--- NOTE | 2018-03-08 19:32 | NUR ---
NURSE NOTES: Received patient in ghe Addendum: 03/08/18 at 1933 by Ann-Marie Jiang RN wrong entry
--- NOTE | 2018-03-08 19:33 | NUR ---
NURSE NOTES: Received patient in bed, alert x3, family at bed side, no respiratory distress noted, Bed alarm is on, bed low in position, No c/o pain or any discomfort at this time, Call light and need with in reach, Will continue to monitor.
--- NOTE | 2018-03-08 20:04 | NUR ---
NURSE NOTES: 1230 FC removed patient tolerated well, voided after FC removed, IJ catheter removed by Dr. Fritz no bleeding noted pt. tolerated well, dressing dry and intact. Potassium and magnesium sulfate dose competed. patient tolerated regular diet still poor appetite but didn't refused to eat. skin intact. uses BSC and urinal.
[2018-03-08] MEDS: Dyna-Hex 2% Top Sol 2oz TOPIC SCH (20:23)
--- NOTE | 2018-03-08 22:24 | General Progress Note ---
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 Status: stable Assessment/Plan seroquel prn provided ro/st Subjective Neurologic/Psychiatric: Reports: anxiety, depressed, emotional problems Allergies: Coded Allergies: NO KNOWN ALLERGIES (Verified Allergy, Unknown, 02/26/18) Objective Last 24 Hour Vital Signs Date Time Temp Pulse Resp B/P (MAP) Pulse Ox O2 Delivery O2 Flow Rate FiO2 03/08/18 20:29 97.4 83 18 134/77 (96) 100 83 03/08/18 20:23 83 134/77 03/08/18 20:00 97.4 83 18 134/77 (96) 100 03/08/18 16:00 98.4 90 20 148/92 (110) 98 03/08/18 12:48 76 151/82 03/08/18 12:00 97.6 74 20 147/92 (110) 99 03/08/18 09:00 76 151/82 03/08/18 09:00 Room Air 03/08/18 08:25 97.6 76 19 151/82 (105) 98 03/08/18 04:00 97.3 82 20 147/86 (106) 98 03/08/18 00:00 97.8 83 18 150/87 (108) 98 Intake and Output 03/07/18 03/08/18 19:00 07:00 Intake Total 2705 ml 1020 ml Output Total 1300 ml 1600 ml Balance 1405 ml -580 ml Intake Oral 605 ml 120 ml IV Total 2100 ml 900 ml Output Urine Total 1300 ml 1600 ml # Voids 1 # Bowel Movements 1 Laboratory Tests 03/08/18 09:00: White Blood Count 7.8, Red Blood Count 2.92L, Hemoglobin 8.7L, Hematocrit 26.7L , Mean Corpuscular Volume 91, Mean Corpuscular Hemoglobin 29.7, Mean Corpuscular Hemoglobin Concent 32.5, Red Cell Distribution Width 14.8, Platelet Count 395, Mean Platelet Volume 5.0L, Neutrophils (%) (Auto) 80.4H, Lymphocytes (%) (Auto) 11.4L, Monocytes (%) (Auto) 6.6, Eosinophils (%) (Auto) 0.8, Basophils (%) (Auto) 0.7, Sodium Level 143, Potassium Level 3.1L, Chloride Level 110H, Carbon Dioxide Level 20L, Anion Gap 13, Blood Urea Nitrogen 75H, Creatinine 2.8H, Estimat Glomerular Filtration Rate , Glucose Level 133H, Uric Acid 9.4H, Calcium Level 8.1L, Phosphorus Level 4.3, Magnesium Level 1.4L, Total Bilirubin 0.8, Gamma Glutamyl Transpeptidase 89H, Aspartate Amino Transf ( AST/SGOT) 56H, Alanine Aminotransferase (ALT/SGPT) 73, Alkaline Phosphatase 98, Total Creatine Kinase 232, C-Reactive Protein, Quantitative 5.2H, Total Protein 5.6L, Albumin 2.1L, Globulin 3.5, Albumin/Globulin Ratio 0.6L Height (Feet): 5 Height (Inches): 7.00 Weight (Pounds): 210 General Appearance: no apparent distress, alert Neurologic: responsive, depressed affect Emely Henry MD Mar 08, 2018 22:24
[2018-03-09] VITALS: BP 123/75
[2018-03-09 04:00] VITALS: BP 119/72
[2018-03-09] MEDS: NovoLOG Insulin Flexpen SUBQ SCH ×3 (06:39→16:30)
--- NOTE | 2018-03-09 07:00 | NUR ---
HAND-OFF: Report given to Jennifer Fields RN.
--- NOTE | 2018-03-09 07:30 | NUR ---
NURSE NOTES: Received report from BALTA Azevedo. Rounding done with outgoing nurse. Patient denies any pain at this time. stays at bed side. Call light within reach. Will continue to monitor.
[2018-03-09 08:00] VITALS: BP 119/81
[2018-03-09] MEDS: Heparin 5000 units/ml inj SUBQ SCH (09:00)
[2018-03-09] MEDS: Docusate 100mg cap ORAL SCH ×3 (09:00→18:00)
[2018-03-09] MEDS: Tamsulosin 0.4mg cap ORAL SCH ×2 (09:07→18:12)
[2018-03-09] MEDS: Metoprolol Tartrate 12.5mg TAB ORAL SCH (09:07)
[2018-03-09] MEDS: D5NS 1,000 ML IV SCH (10:17)
[2018-03-09 10:32] LABS: BASOPHILS % (AUTO) 0.7 % (0.0-2.0); EOSINOPHILS % (AUTO) 0.7 % (0.0-3.0); HEMATOCRIT 29.9 % (42.0-52.0); HEMOGLOBIN 9.5 G/DL (14.2-18.0); LYMPHOCYTES % (AUTO) 11.6 % (20.0-45.0); MEAN CORPUSCULAR VOLUME 92 FL (80-99); MONOCYTES % (AUTO) 5.9 % (1.0-10.0); NEUTROPHILS % (AUTO) 81.1 % (45.0-75.0); PLATELET COUNT 375 K/UL (150-450); RED BLOOD COUNT 3.27 M/UL (4.70-6.10); RED CELL DISTRIBUTION WIDTH 14.6 % (11.6-14.8); WHITE BLOOD COUNT 7.7 K/UL (4.8-10.8)
[2018-03-09 11:23] LABS: ALANINE AMINOTRANSFERASE 70 U/L (12-78); ALBUMIN 2.2 G/DL (3.4-5.0); ALBUMIN/GLOBULIN RATIO 0.6 (1.0-2.7); ALKALINE PHOSPHATASE 99 U/L (46-116); ANION GAP 11 mmol/L (5-15); ASPARTATE AMINO TRANSFERASE 52 U/L (15-37); BILIRUBIN,TOTAL 0.7 MG/DL (0.2-1.0); BLOOD UREA NITROGEN 55 mg/dL (7-18); CALCIUM 8.2 MG/DL (8.5-10.1); CARBON DIOXIDE 23 MMOL/L (21-32); CHLORIDE 112 MMOL/L (98-107); CREATININE 2.2 MG/DL (0.55-1.30); POTASSIUM 3.5 MMOL/L (3.5-5.1); SODIUM 145 MMOL/L (136-145)
[2018-03-09 12:00] VITALS: BP 120/65
--- NOTE | 2018-03-09 12:07 | Pulmonology Progress Note ---
Assessment/Plan Assessment/Plan Pulmonary Progress Note Assessment/Plan Problems: (1) Rhabdomyolysis (2) Legionella Pneumonia LLL, CXR improving (3) ATN (acute tubular necrosis) (4) Acute CVA (cerebrovascular accident) (5) Abdominal distension (6) Hypokalemia (7) Anemia Assessment/Plan Intermittant Dialysis 400, oliguria AB per ID WBC still high, respiratory treatment Antibiotics check electrolytes, CPK cxr in am dvt prophylaxis sputum induction f/u labs Subjective ROS Limited/Unobtainable: No Constitutional: Reports: no symptoms HEENT: Repors: no symptoms Respiratory: Reports: no symptoms Allergies: Coded Allergies: NO KNOWN ALLERGIES (Verified Allergy, Unknown, 02/26/18) Objective Vital Signs Notes General Appearance: WD/WN HEENT: normocephalic, atraumatic Respiratory/Chest: chest wall non-tender, lungs clear Cardiovascular: normal peripheral pulses, regular rhythm Abdomen: normal bowel sounds, soft, non tender, moderate distension Extremities: no cyanosis Skin: no rash 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 Lymphatic: no neck adenopathy Microbiology Date/Time Source Procedure Growth Status 02/26/18 08:00 Blood Blood Culture - Preliminary NO GROWTH AFTER 48 HOURS Resulted 02/26/18 07:50 Blood Blood Culture - Preliminary NO GROWTH AFTER 48 HOURS Resulted 02/26/18 22:30 Nasopharynx Influenza Types A,B Antigen (MARYSOL) - Final Complete 02/26/18 22:40 Stool Clostridium difficile Toxin Assay - Final Complete 02/26/18 14:15 Urine,Clean Catch Urine Culture - Final NO GROWTH AFTER 48 HOURS Complete RAY Chest 1v 03/05/2018 INDICATION: Cough COMPARISON: Chest x-ray dated 03/01/18 FINDINGS: Single frontal view demonstrates a prominent cardiac size. Improved aeration the left lung. Right internal jugular central venous catheter with tip in the proximal superior vena cava. No pleural effusions. The visualized osseous structures are within normal limits. IMPRESSION: Improved aeration of the left lung. Otherwise no significant change. Stable line as outlined above. Laboratory Tests 02/27/18 15:04: Urine Opiates Screen Negative, Urine Barbiturates Screen Negative, Phencyclidine (PCP) Screen Negative, Urine Amphetamines Screen Negative, Urine Benzodiazepines Screen Negative, Urine Cocaine Screen Negative, Urine Marijuana (THC) Screen Negative 02/28/18 03:55: White Blood Count 29.9*H, Red Blood Count 3.54L, Hemoglobin 10.8L, Hematocrit 31.5L, Mean Corpuscular Volume 89, Mean Corpuscular Hemoglobin 30.4, Mean Corpuscular Hemoglobin Concent 34.2, Red Cell Distribution Width 11.2L, Platelet Count 377, Mean Platelet Volume 7.0, Neutrophils (%) (Auto) , Lymphocytes (%) (Auto) , Monocytes (%) (Auto) , Eosinophils (%) (Auto) , Basophils (%) (Auto) , Differential Total Cells Counted 100, Neutrophils % ( Manual) 88H, Lymphocytes % (Manual) 3L, Monocytes % (Manual) 2, Eosinophils % ( Manual) 0, Basophils % (Manual) 0, Band Neutrophils 7, Platelet Estimate Adequate, Platelet Morphology Normal, Hypochromasia 1+, Sodium Level 134L, Potassium Level 3.8, Chloride Level 95L, Carbon Dioxide Level 18L, Anion Gap 21H , Blood Urea Nitrogen 113H, Creatinine 7.8H, Estimat Glomerular Filtration Rate , Glucose Level 118H, Uric Acid 11.8H, Calcium Level 8.1L, Phosphorus Level 9.0H , Magnesium Level 2.6H, Total Bilirubin 3.8H, Direct Bilirubin 2.1H, Gamma Glutamyl Transpeptidase 93H, Aspartate Amino Transf (AST/SGOT) 634H, Alanine Aminotransferase (ALT/SGPT) 218H, Alkaline Phosphatase 124H, Pro-B-Type Natriuretic Peptide 3919H, Total Protein 7.0, Albumin 1.6L, Globulin 6.0, Random Vancomycin Level 15.0, Hepatitis A IgM Antibody [Pending], Hepatitis B Surface Antigen [Pending], Hepatitis B Core IgM Antibody [Pending], Hepatitis C Antibody [Pending] Current Medications Medications (Trade) Dose Ordered Sig/Aristides Route PRN Reason Start Time Stop Time Status Last Admin Dose Admin Acetaminophen (Tylenol) 650 mg Q4H PRN ORAL T>100.5 02/26/18 10:30 03/28/18 10:29 02/27/18 10:51 Acetaminophen (Tylenol) 650 mg Q6H PRN ORAL Mild Pain 02/27/18 11:45 03/28/18 06:29 02/28/18 00:35 Albuterol/ Ipratropium (Albuterol/ Ipratropium) 3 ml Q4H PRN HHN Shortness of Breath 02/26/18 10:30 03/03/18 10:29 02/27/18 23:03 Cefepime HCl 1 gm/ Dextrose 55 ml @ 110 mls/hr Q24H IVPB 02/26/18 12:00 03/05/18 11:59 02/27/18 11:45 Chlorhexidine Gluconate (Silva-Hex 2%) 1 applic DAILY@2000 TOPIC 02/27/18 20:00 03/29/18 19:59 02/27/18 21:40 Dextrose (Dextrose 50%) 25 ml Q30M PRN IV hypoglycemia 02/26/18 10:45 03/28/18 10:42 Dextrose (Dextrose 50%) 50 ml Q30M PRN IV hypoglycemia 02/26/18 10:45 03/28/18 10:44 Docusate Sodium (Colace) 100 mg THREE TIMES A DAY ORAL 02/27/18 18:00 03/29/18 17:59 02/28/18 08:20 Heparin Sodium (Porcine) (Heparin 5000 units/ml) 5,000 units EVERY 12 HOURS SUBQ 02/26/18 09:00 03/28/18 08:59 02/28/18 08:21 Linezolid (Zyvox) 600 mg EVERY 12 HOURS ORAL 02/27/18 21:00 03/04/18 20:59 02/28/18 08:19 Metronidazole (Flagyl) 500 mg Q8HR ORAL 02/26/18 15:00 03/05/18 14:59 02/28/18 05:30 Morphine Sulfate (Morphine Sulfate) 2 mg Q4H PRN IVP PAIN 4-10 02/26/18 10:30 03/05/18 10:29 Nitroglycerin (Ntg) 0.4 mg Q5MIN X 3 DOSES PRN SL Prn Chest Pain 02/26/18 10:45 03/28/18 10:44 Ondansetron HCl (Zofran) 4 mg Q6H PRN IVP Nausea & Vomiting 02/26/18 10:30 03/28/18 10:29 Pantoprazole (Protonix) 40 mg EVERY 12 HOURS ORAL 02/27/18 21:00 03/29/18 20:59 02/28/18 08:20 Polyethylene Glycol (Miralax) 17 gm DAILYPRN PRN ORAL Constipation 02/26/18 10:30 03/28/18 10:29 Quetiapine Fumarate (SEROquel) 12.5 mg Q4H PRN ORAL agitation 02/26/18 12:15 03/28/18 12:14 Sevelamer Carbonate (Renvela) 1,600 mg THREE TIMES A DAY ORAL 02/27/18 18:00 03/29/18 17:59 02/28/18 08:20 Temazepam (Restoril) 15 mg HSPRN PRN ORAL Insomnia 02/26/18 21:00 03/05/18 20:59 Subjective ROS Limited/Unobtainable: No Allergies: Coded Allergies: NO KNOWN ALLERGIES (Verified Allergy, Unknown, 02/26/18) Objective Last 24 Hour Vital Signs Date Time Temp Pulse Resp B/P (MAP) Pulse Ox O2 Delivery O2 Flow Rate FiO2 03/09/18 09:07 77 119/81 03/09/18 09:00 77 119/81 03/09/18 08:00 96.2 77 18 119/81 (94) 99 03/09/18 04:00 96.3 76 18 119/72 (88) 100 03/09/18 00:00 97.4 77 18 123/75 (91) 97 03/08/18 21:00 Room Air 03/08/18 20:29 97.4 83 18 134/77 (96) 100 83 03/08/18 20:23 83 134/77 03/08/18 20:00 97.4 83 18 134/77 (96) 100 03/08/18 20:00 Nasal Cannula 2.0 28 03/08/18 20:00 97 Nasal Cannula 2.0 28 03/08/18 16:00 98.4 90 20 148/92 (110) 98 03/08/18 12:48 76 151/82 Intake and Output 03/08/18 03/09/18 19:00 07:00 Intake Total 935 ml 1100 ml Output Total 550 ml 650 ml Balance 385 ml 450 ml Intake Oral 935 ml IV Total 1100 ml Output Urine Total 550 ml 650 ml # Voids 2 3 # Bowel Movements 2 4 Laboratory Tests 03/09/18 10:00: White Blood Count 7.7, Red Blood Count 3.27L, Hemoglobin 9.5L, Hematocrit 29.9L , Mean Corpuscular Volume 92, Mean Corpuscular Hemoglobin 28.9, Mean Corpuscular Hemoglobin Concent 31.6L, Red Cell Distribution Width 14.6, Platelet Count 375, Mean Platelet Volume 5.2L, Neutrophils (%) (Auto) 81.1H, Lymphocytes (%) (Auto) 11.6L, Monocytes (%) (Auto) 5.9, Eosinophils (%) (Auto) 0.7, Basophils (%) (Auto) 0.7, Sodium Level 145, Potassium Level 3.5, Chloride Level 112H, Carbon Dioxide Level 23, Anion Gap 11, Blood Urea Nitrogen 55H, Creatinine 2.2H, Estimat Glomerular Filtration Rate , Glucose Level 118H, Uric Acid 7.9H, Calcium Level 8.2L, Phosphorus Level 4.0, Magnesium Level 1.7L, Total Bilirubin 0.7, Aspartate Amino Transf (AST/SGOT) 52H, Alanine Aminotransferase (ALT/SGPT) 70, Alkaline Phosphatase 99, Pro-B-Type Natriuretic Peptide 828H, Total Protein 5.7L, Albumin 2.2L, Globulin 3.5, Albumin/Globulin Ratio 0.6L Current Medications Medications (Trade) Dose Ordered Sig/Aristides Route PRN Reason Start Time Stop Time Status Last Admin Dose Admin Acetaminophen (Tylenol) 650 mg Q4H PRN ORAL T>100.5 03/07/18 02:30 03/28/18 10:29 Acetaminophen (Tylenol) 650 mg Q6H PRN ORAL Mild Pain 03/06/18 23:45 03/28/18 06:29 Allopurinol (Allopurinol) 300 mg DAILY ORAL 03/07/18 09:00 04/01/18 08:59 03/09/18 09:07 Amlodipine Besylate (Norvasc) 5 mg DAILY ORAL 03/09/18 09:00 04/08/18 08:59 Chlorhexidine Gluconate (Silva-Hex 2%) 1 applic DAILY@1999 TOPIC 03/07/18 20:00 03/29/18 19:59 03/08/18 20:23 Dextrose (Dextrose 50%) 25 ml Q30M PRN IV Hypoglycemia 03/06/18 23:45 04/01/18 13:44 Dextrose (Dextrose 50%) 50 ml Q30M PRN IV Hypoglycemia 03/06/18 23:45 04/01/18 13:44 Dextrose/Sodium Chloride 1,000 ml @ 100 mls/hr Q10H IV 03/06/18 23:45 04/04/18 10:59 03/09/18 10:17 Docusate Sodium (Colace) 100 mg THREE TIMES A DAY ORAL 03/07/18 09:00 03/29/18 17:59 03/08/18 18:15 Heparin Sodium (Porcine) (Heparin 5000 units/ml) 5,000 units EVERY 12 HOURS SUBQ 03/07/18 09:00 03/28/18 08:59 03/08/18 20:24 Insulin Aspart (NovoLOG) BEFORE MEALS AND HS SUBQ 03/07/18 06:30 04/01/18 16:29 03/09/18 06:39 Levofloxacin 100 ml @ 100 mls/hr Q48H IVPB 03/08/18 12:00 03/13/18 11:59 03/08/18 12:47 Metoprolol Tartrate (Lopressor) 12.5 mg Q12HR ORAL 03/07/18 21:00 04/06/18 20:59 03/09/18 09:07 Nitroglycerin (Ntg) 0.4 mg Q5MIN X 3 DOSES PRN SL Prn Chest Pain 03/06/18 23:45 03/28/18 10:44 Ondansetron HCl (Zofran) 4 mg Q6H PRN IVP Nausea & Vomiting 03/07/18 04:30 03/28/18 10:29 Pantoprazole (Protonix) 40 mg EVERY 12 HOURS ORAL 03/07/18 09:00 04/06/18 08:59 03/09/18 09:07 Polyethylene Glycol (Miralax) 17 gm DAILYPRN PRN ORAL Constipation 03/07/18 10:30 03/28/18 10:29 Tamsulosin HCl (Flomax) 0.4 mg BID ORAL 03/08/18 13:15 04/07/18 13:14 03/09/18 09:07 Juancarlos Malin MD Mar 09, 2018 12:07
--- NOTE | 2018-03-09 12:30 | General Surgery Progress Note ---
General Surgery-Progress Note Subjective Symptoms: improved, pain absent, tolerating diet, passing flatus Objective Last 24 Hour Vital Signs Date Time Temp Pulse Resp B/P (MAP) Pulse Ox O2 Delivery O2 Flow Rate FiO2 03/09/18 09:07 77 119/81 03/09/18 09:00 77 119/81 03/09/18 08:00 96.2 77 18 119/81 (94) 99 03/09/18 04:00 96.3 76 18 119/72 (88) 100 03/09/18 00:00 97.4 77 18 123/75 (91) 97 03/08/18 21:00 Room Air 03/08/18 20:29 97.4 83 18 134/77 (96) 100 83 03/08/18 20:23 83 134/77 03/08/18 20:00 97.4 83 18 134/77 (96) 100 03/08/18 20:00 Nasal Cannula 2.0 28 03/08/18 20:00 97 Nasal Cannula 2.0 28 03/08/18 16:00 98.4 90 20 148/92 (110) 98 03/08/18 12:48 76 151/82 I&O Intake and Output 03/08/18 03/09/18 19:00 07:00 Intake Total 935 ml 1100 ml Output Total 550 ml 650 ml Balance 385 ml 450 ml Intake Oral 935 ml IV Total 1100 ml Output Urine Total 550 ml 650 ml # Voids 2 3 # Bowel Movements 2 4 Dressing: dry Wound: clean, dry Drains: none Cardiovascular: RSR Respiratory: clear Abdomen: soft, flat, non-tender, present bowel sounds Extremities: other Laboratory Tests Test 03/09/18 10:00 White Blood Count 7.7 K/UL (4.8-10.8) Red Blood Count 3.27 M/UL (4.70-6.10) L Hemoglobin 9.5 G/DL (14.2-18.0) L Hematocrit 29.9 % (42.0-52.0) L Mean Corpuscular Volume 92 FL (80-99) Mean Corpuscular Hemoglobin 28.9 PG (27.0-31.0) Mean Corpuscular Hemoglobin Concent 31.6 G/DL (32.0-36.0) L Red Cell Distribution Width 14.6 % (11.6-14.8) Platelet Count 375 K/UL (150-450) Mean Platelet Volume 5.2 FL (6.5-10.1) L Neutrophils (%) (Auto) 81.1 % (45.0-75.0) H Lymphocytes (%) (Auto) 11.6 % (20.0-45.0) L Monocytes (%) (Auto) 5.9 % (1.0-10.0) Eosinophils (%) (Auto) 0.7 % (0.0-3.0) Basophils (%) (Auto) 0.7 % (0.0-2.0) Sodium Level 145 MMOL/L (136-145) Potassium Level 3.5 MMOL/L (3.5-5.1) Chloride Level 112 MMOL/L (98-107) H Carbon Dioxide Level 23 MMOL/L (21-32) Anion Gap 11 mmol/L (5-15) Blood Urea Nitrogen 55 mg/dL (7-18) H Creatinine 2.2 MG/DL (0.55-1.30) H Estimat Glomerular Filtration Rate mL/min (>60) Glucose Level 118 MG/DL (74-106) H Uric Acid 7.9 MG/DL (2.6-7.2) H Calcium Level 8.2 MG/DL (8.5-10.1) L Phosphorus Level 4.0 MG/DL (2.5-4.9) Magnesium Level 1.7 MG/DL (1.8-2.4) L Total Bilirubin 0.7 MG/DL (0.2-1.0) Aspartate Amino Transf (AST/SGOT) 52 U/L (15-37) H Alanine Aminotransferase (ALT/SGPT) 70 U/L (12-78) Alkaline Phosphatase 99 U/L (46-116) Pro-B-Type Natriuretic Peptide 828 pg/mL (0-125) H Total Protein 5.7 G/DL (6.4-8.2) L Albumin 2.2 G/DL (3.4-5.0) L Globulin 3.5 g/dL Albumin/Globulin Ratio 0.6 (1.0-2.7) L Plan Problems: (1) Sepsis Assessment & Plan: improving. no longer needs temp HD cath large bore catheter noted in right IJ. dressings removed site cleaned. suture removed catheter d/c safely pressure held for 10 minutes until hemostasis noted. dressings applied monitor for bleeding no bleeding after 24hrs. site clean and dry wound stable okay to d/c from surgical standpoint dressings prn okay to shower thank you Fritz Fritz Mar 09, 2018 12:30
--- NOTE | 2018-03-09 12:57 | Infectious Diseases Prog Note ---
Assessment/Plan Assessment/Plan Assessment/Plan Sepsis,SP - 2ry to Legionella PNA and UTI -02/27 CXR: Increasing left upper lobe consolidation, over one day. -CXR: Left lung infiltrates, likely pneumonia, and pleural fluid. Borderline cardiomegaly -Bcx NTD -u/a wbc tnct, nit +, leuk +2; cx Neg -influenza sc neg -legionella ag urine + -sp cx normal resp ceci Fever, SP Leukocytosis,SP -CT abd/p: Dense left lower lobe consolidation and small pleural effusion. This is consistent with findings described on recent chest radiograph. Hypoattenuating bilateral kidneys with indistinctness of the renal margins, could indicate inflammatory change. Edema of the subcutaneous fat of the flanks bilaterally. The colon is diffusely gas-filled, upper limits normal in caliber. Probably indicates functional changes as no obstructive pathology is demonstrated. Other findings as noted, including small fat-containing bilateral inguinal hernias, 9 cm left renal cyst Acute respiratory failure, now at [facility], SP HD improving Rhabdomyolosis; improving AMS, improving s/p Fall Acute transaminitis, infection-2ry to Legionella infection; improving -HIV ab sc neg -Acute hepatitis panel neg Plan: -Continue Levaquin 750mg q48hrs # 9 for Legionella would recommend treating for for 14 days total ( End date 03/14/18) -IV as patient refusing PO; can transition to PO upon discharge - 03/04 Sp PO Linezolid #6 (abx d#7/7) and Cefepime #6 -02/28 SP Flagyl #2 -02/27 SP IV Vancomycin #2 -Monitor CBC/CMP, temperatures -Renal f/u Subjective Allergies: Coded Allergies: NO KNOWN ALLERGIES (Verified Allergy, Unknown, 02/26/18) Subjective comfortable, afebrile Objective Vital Signs Last 24 Hour Vital Signs Date Time Temp Pulse Resp B/P (MAP) Pulse Ox O2 Delivery O2 Flow Rate FiO2 03/09/18 09:07 77 119/81 03/09/18 09:00 Room Air 03/09/18 09:00 77 119/81 03/09/18 08:00 96.2 77 18 119/81 (94) 99 03/09/18 04:00 96.3 76 18 119/72 (88) 100 03/09/18 00:00 97.4 77 18 123/75 (91) 97 03/08/18 21:00 Room Air 03/08/18 20:29 97.4 83 18 134/77 (96) 100 83 03/08/18 20:23 83 134/77 03/08/18 20:00 97.4 83 18 134/77 (96) 100 03/08/18 20:00 Nasal Cannula 2.0 28 03/08/18 20:00 97 Nasal Cannula 2.0 28 03/08/18 16:00 98.4 90 20 148/92 (110) 98 Height (Feet): 5 Height (Inches): 7.00 Weight (Pounds): 210 HEENT: anicteric Respiratory/Chest: no respiratory distress Cardiovascular: normal rate Abdomen: no organomegaly Laboratory Tests Test 03/09/18 10:00 White Blood Count 7.7 K/UL (4.8-10.8) Red Blood Count 3.27 M/UL (4.70-6.10) L Hemoglobin 9.5 G/DL (14.2-18.0) L Hematocrit 29.9 % (42.0-52.0) L Mean Corpuscular Volume 92 FL (80-99) Mean Corpuscular Hemoglobin 28.9 PG (27.0-31.0) Mean Corpuscular Hemoglobin Concent 31.6 G/DL (32.0-36.0) L Red Cell Distribution Width 14.6 % (11.6-14.8) Platelet Count 375 K/UL (150-450) Mean Platelet Volume 5.2 FL (6.5-10.1) L Neutrophils (%) (Auto) 81.1 % (45.0-75.0) H Lymphocytes (%) (Auto) 11.6 % (20.0-45.0) L Monocytes (%) (Auto) 5.9 % (1.0-10.0) Eosinophils (%) (Auto) 0.7 % (0.0-3.0) Basophils (%) (Auto) 0.7 % (0.0-2.0) Sodium Level 145 MMOL/L (136-145) Potassium Level 3.5 MMOL/L (3.5-5.1) Chloride Level 112 MMOL/L (98-107) H Carbon Dioxide Level 23 MMOL/L (21-32) Anion Gap 11 mmol/L (5-15) Blood Urea Nitrogen 55 mg/dL (7-18) H Creatinine 2.2 MG/DL (0.55-1.30) H Estimat Glomerular Filtration Rate mL/min (>60) Glucose Level 118 MG/DL (74-106) H Uric Acid 7.9 MG/DL (2.6-7.2) H Calcium Level 8.2 MG/DL (8.5-10.1) L Phosphorus Level 4.0 MG/DL (2.5-4.9) Magnesium Level 1.7 MG/DL (1.8-2.4) L Total Bilirubin 0.7 MG/DL (0.2-1.0) Aspartate Amino Transf (AST/SGOT) 52 U/L (15-37) H Alanine Aminotransferase (ALT/SGPT) 70 U/L (12-78) Alkaline Phosphatase 99 U/L (46-116) Pro-B-Type Natriuretic Peptide 828 pg/mL (0-125) H Total Protein 5.7 G/DL (6.4-8.2) L Albumin 2.2 G/DL (3.4-5.0) L Globulin 3.5 g/dL Albumin/Globulin Ratio 0.6 (1.0-2.7) L Current Medications Medications (Trade) Dose Ordered Sig/Aristides Route PRN Reason Start Time Stop Time Status Last Admin Dose Admin Acetaminophen (Tylenol) 650 mg Q4H PRN ORAL T>100.5 03/07/18 02:30 03/28/18 10:29 Acetaminophen (Tylenol) 650 mg Q6H PRN ORAL Mild Pain 03/06/18 23:45 03/28/18 06:29 Allopurinol (Allopurinol) 300 mg DAILY ORAL 03/07/18 09:00 04/01/18 08:59 03/09/18 09:07 Amlodipine Besylate (Norvasc) 5 mg DAILY ORAL 03/09/18 09:00 04/08/18 08:59 Chlorhexidine Gluconate (Silva-Hex 2%) 1 applic DAILY@1999 TOPIC 03/07/18 20:00 03/29/18 19:59 03/08/18 20:23 Dextrose (Dextrose 50%) 25 ml Q30M PRN IV Hypoglycemia 03/06/18 23:45 04/01/18 13:44 Dextrose (Dextrose 50%) 50 ml Q30M PRN IV Hypoglycemia 03/06/18 23:45 04/01/18 13:44 Dextrose/Sodium Chloride 1,000 ml @ 100 mls/hr Q10H IV 03/06/18 23:45 04/04/18 10:59 03/09/18 10:17 Docusate Sodium (Colace) 100 mg THREE TIMES A DAY ORAL 03/07/18 09:00 03/29/18 17:59 03/08/18 18:15 Heparin Sodium (Porcine) (Heparin 5000 units/ml) 5,000 units EVERY 12 HOURS SUBQ 03/07/18 09:00 03/28/18 08:59 03/08/18 20:24 Insulin Aspart (NovoLOG) BEFORE MEALS AND HS SUBQ 03/07/18 06:30 04/01/18 16:29 03/09/18 12:25 Levofloxacin 100 ml @ 100 mls/hr Q48H IVPB 03/08/18 12:00 03/13/18 11:59 03/08/18 12:47 Metoprolol Tartrate (Lopressor) 12.5 mg Q12HR ORAL 03/07/18 21:00 04/06/18 20:59 03/09/18 09:07 Nitroglycerin (Ntg) 0.4 mg Q5MIN X 3 DOSES PRN SL Prn Chest Pain 03/06/18 23:45 03/28/18 10:44 Ondansetron HCl (Zofran) 4 mg Q6H PRN IVP Nausea & Vomiting 03/07/18 04:30 03/28/18 10:29 Pantoprazole (Protonix) 40 mg EVERY 12 HOURS ORAL 03/07/18 09:00 04/06/18 08:59 03/09/18 09:07 Polyethylene Glycol (Miralax) 17 gm DAILYPRN PRN ORAL Constipation 03/07/18 10:30 03/28/18 10:29 Tamsulosin HCl (Flomax) 0.4 mg BID ORAL 03/08/18 13:15 04/07/18 13:14 03/09/18 09:07 Varun Ramirez MD Mar 09, 2018 12:57
--- NOTE | 2018-03-09 13:26 | Nephrology Progress Note ---
Assessment/Plan Problem List: (1) ATN (acute tubular necrosis) (2) Rhabdomyolysis Assessment: CPK lowering (3) Pneumonia (4) encephalopathy due to toxin Assessment Acute renal failure- Cr lowering off HD Rhabdo Pneumonia CVA ? Plan OK to DC Dc lugo- DC Dialysis Cath PT Mag and K supplement regular diet add Norvasc add lopressor Slow Hydrate- albumin bolus as needed monitor urine output Add Allopurinol hemodialysis Last 03/03 May not need any more HD Transfuse 2 units Phos binders Lugo Monitor CPK - Uric Acid- LFTs monitor Renal parameters Avoid Nephrotoxics per orders discussed with RN and daughter present in room 03/05/18 Subjective ROS Limited/Unobtainable: No Objective Objective Last 24 Hour Vital Signs Date Time Temp Pulse Resp B/P (MAP) Pulse Ox O2 Delivery O2 Flow Rate FiO2 03/09/18 12:00 96.5 69 19 120/65 (83) 98 03/09/18 09:07 77 119/81 03/09/18 09:00 Room Air 03/09/18 09:00 77 119/81 03/09/18 08:00 96.2 77 18 119/81 (94) 99 03/09/18 04:00 96.3 76 18 119/72 (88) 100 03/09/18 00:00 97.4 77 18 123/75 (91) 97 03/08/18 21:00 Room Air 03/08/18 20:29 97.4 83 18 134/77 (96) 100 83 03/08/18 20:23 83 134/77 03/08/18 20:00 97.4 83 18 134/77 (96) 100 03/08/18 20:00 Nasal Cannula 2.0 28 03/08/18 20:00 97 Nasal Cannula 2.0 28 03/08/18 16:00 98.4 90 20 148/92 (110) 98 Intake and Output 03/08/18 03/09/18 19:00 07:00 Intake Total 935 ml 1100 ml Output Total 550 ml 650 ml Balance 385 ml 450 ml Intake Oral 935 ml IV Total 1100 ml Output Urine Total 550 ml 650 ml # Voids 2 3 # Bowel Movements 2 4 Current Medications Medications (Trade) Dose Ordered Sig/Aristides Route PRN Reason Start Time Stop Time Status Last Admin Dose Admin Acetaminophen (Tylenol) 650 mg Q4H PRN ORAL T>100.5 03/07/18 02:30 03/28/18 10:29 Acetaminophen (Tylenol) 650 mg Q6H PRN ORAL Mild Pain 03/06/18 23:45 03/28/18 06:29 Allopurinol (Allopurinol) 300 mg DAILY ORAL 03/07/18 09:00 04/01/18 08:59 03/09/18 09:07 Amlodipine Besylate (Norvasc) 5 mg DAILY ORAL 03/09/18 09:00 04/08/18 08:59 Chlorhexidine Gluconate (Silva-Hex 2%) 1 applic DAILY@2000 TOPIC 03/07/18 20:00 03/29/18 19:59 03/08/18 20:23 Dextrose (Dextrose 50%) 25 ml Q30M PRN IV Hypoglycemia 03/06/18 23:45 04/01/18 13:44 Dextrose (Dextrose 50%) 50 ml Q30M PRN IV Hypoglycemia 03/06/18 23:45 04/01/18 13:44 Dextrose/Sodium Chloride 1,000 ml @ 100 mls/hr Q10H IV 03/06/18 23:45 04/04/18 10:59 03/09/18 10:17 Docusate Sodium (Colace) 100 mg THREE TIMES A DAY ORAL 03/07/18 09:00 03/29/18 17:59 03/08/18 18:15 Heparin Sodium (Porcine) (Heparin 5000 units/ml) 5,000 units EVERY 12 HOURS SUBQ 03/07/18 09:00 03/28/18 08:59 03/08/18 20:24 Insulin Aspart (NovoLOG) BEFORE MEALS AND HS SUBQ 03/07/18 06:30 04/01/18 16:29 03/09/18 12:25 Levofloxacin 100 ml @ 100 mls/hr Q48H IVPB 03/08/18 12:00 03/13/18 11:59 03/08/18 12:47 Metoprolol Tartrate (Lopressor) 12.5 mg Q12HR ORAL 03/07/18 21:00 04/06/18 20:59 03/09/18 09:07 Nitroglycerin (Ntg) 0.4 mg Q5MIN X 3 DOSES PRN SL Prn Chest Pain 03/06/18 23:45 03/28/18 10:44 Ondansetron HCl (Zofran) 4 mg Q6H PRN IVP Nausea & Vomiting 03/07/18 04:30 03/28/18 10:29 Pantoprazole (Protonix) 40 mg EVERY 12 HOURS ORAL 03/07/18 09:00 04/06/18 08:59 03/09/18 09:07 Polyethylene Glycol (Miralax) 17 gm DAILYPRN PRN ORAL Constipation 03/07/18 10:30 03/28/18 10:29 Tamsulosin HCl (Flomax) 0.4 mg BID ORAL 03/08/18 13:15 04/07/18 13:14 03/09/18 09:07 Laboratory Tests 03/09/18 10:00: White Blood Count 7.7, Red Blood Count 3.27L, Hemoglobin 9.5L, Hematocrit 29.9L , Mean Corpuscular Volume 92, Mean Corpuscular Hemoglobin 28.9, Mean Corpuscular Hemoglobin Concent 31.6L, Red Cell Distribution Width 14.6, Platelet Count 375, Mean Platelet Volume 5.2L, Neutrophils (%) (Auto) 81.1H, Lymphocytes (%) (Auto) 11.6L, Monocytes (%) (Auto) 5.9, Eosinophils (%) (Auto) 0.7, Basophils (%) (Auto) 0.7, Sodium Level 145, Potassium Level 3.5, Chloride Level 112H, Carbon Dioxide Level 23, Anion Gap 11, Blood Urea Nitrogen 55H, Creatinine 2.2H, Estimat Glomerular Filtration Rate , Glucose Level 118H, Uric Acid 7.9H, Calcium Level 8.2L, Phosphorus Level 4.0, Magnesium Level 1.7L, Total Bilirubin 0.7, Aspartate Amino Transf (AST/SGOT) 52H, Alanine Aminotransferase (ALT/SGPT) 70, Alkaline Phosphatase 99, Pro-B-Type Natriuretic Peptide 828H, Total Protein 5.7L, Albumin 2.2L, Globulin 3.5, Albumin/Globulin Ratio 0.6L Height (Feet): 5 Height (Inches): 7.00 Weight (Pounds): 210 General Appearance: no apparent distress Cardiovascular: normal rate Respiratory/Chest: decreased breath sounds Abdomen: distended Objective no change Yayo Lora MD Mar 09, 2018 13:26
--- NOTE | 2018-03-09 13:31 | Discharge Instructions ---
Discharge Instructions Discharge Instructions Follow up with: PMD Diet: cardiac 2 GM Na, low fat For Congestive Heart Failure Reminder Report to your physician any weight gain of 5 pounds or more in one week. Yayo Lora MD Mar 09, 2018 13:31
--- NOTE | 2018-03-09 14:30 | NUR ---
NURSE NOTES: Dr. Cowan and Dr. Nicole clarify for d/c. Patient was arranged for [facility] per caseworker intake note. Patient and daughter did not agree to go to [facility]. They said that they heard patient will be arranged to [facility] by caseworker intake, Tea on 03/08/2018. Finally family accepted going to [facility] room 36B and confirm with [facility] too.
--- NOTE | 2018-03-09 15:04 | Internal Med Progress Note ---
Subjective Date of Service: Mar 09, 2018 Physician Name Christofer Biggs Attending Physician Ruperto Cowan MD Current Medications Medications (Trade) Dose Ordered Sig/Aristides Route PRN Reason Start Time Stop Time Status Last Admin Dose Admin Acetaminophen (Tylenol) 650 mg Q4H PRN ORAL T>100.5 03/07/18 02:30 03/28/18 10:29 Acetaminophen (Tylenol) 650 mg Q6H PRN ORAL Mild Pain 03/06/18 23:45 03/28/18 06:29 Allopurinol (Allopurinol) 300 mg DAILY ORAL 03/07/18 09:00 04/01/18 08:59 03/09/18 09:07 Amlodipine Besylate (Norvasc) 5 mg DAILY ORAL 03/09/18 09:00 04/08/18 08:59 Chlorhexidine Gluconate (Silva-Hex 2%) 1 applic DAILY@2000 TOPIC 03/07/18 20:00 03/29/18 19:59 03/08/18 20:23 Dextrose (Dextrose 50%) 25 ml Q30M PRN IV Hypoglycemia 03/06/18 23:45 04/01/18 13:44 Dextrose (Dextrose 50%) 50 ml Q30M PRN IV Hypoglycemia 03/06/18 23:45 04/01/18 13:44 Docusate Sodium (Colace) 100 mg THREE TIMES A DAY ORAL 03/07/18 09:00 03/29/18 17:59 03/08/18 18:15 Heparin Sodium (Porcine) (Heparin 5000 units/ml) 5,000 units EVERY 12 HOURS SUBQ 03/07/18 09:00 03/28/18 08:59 03/08/18 20:24 Insulin Aspart (NovoLOG) BEFORE MEALS AND HS SUBQ 03/07/18 06:30 04/01/18 16:29 03/09/18 12:25 Levofloxacin (Levaquin) 250 mg DAILY ORAL 03/10/18 09:00 03/14/18 09:01 Metoprolol Tartrate (Lopressor) 12.5 mg Q12HR ORAL 03/07/18 21:00 04/06/18 20:59 03/09/18 09:07 Nitroglycerin (Ntg) 0.4 mg Q5MIN X 3 DOSES PRN SL Prn Chest Pain 03/06/18 23:45 03/28/18 10:44 Ondansetron HCl (Zofran) 4 mg Q6H PRN IVP Nausea & Vomiting 03/07/18 04:30 03/28/18 10:29 Pantoprazole (Protonix) 40 mg EVERY 12 HOURS ORAL 03/07/18 09:00 04/06/18 08:59 03/09/18 09:07 Polyethylene Glycol (Miralax) 17 gm DAILYPRN PRN ORAL Constipation 03/07/18 10:30 03/28/18 10:29 Tamsulosin HCl (Flomax) 0.4 mg BID ORAL 03/08/18 13:15 04/07/18 13:14 03/09/18 09:07 Allergies: Coded Allergies: NO KNOWN ALLERGIES (Verified Allergy, Unknown, 02/26/18) ROS Limited/Unobtainable: No Constitutional: Reports: no symptoms HEENT: Reports: no symptoms Cardiovascular: Reports: no symptoms Respiratory: Reports: shortness of breath Gastrointestinal/Abdominal: Reports: no symptoms Genitourinary: Reports: no symptoms Neurologic/Psychiatric: Reports: no symptoms Subjective 72 YO M admitted after syncopal episode. Now pneumonia and renal failure. Cover for Int Med-Dr Cowan. Objective Last Vital Signs Date Time Temp Pulse Resp B/P (MAP) Pulse Ox O2 Delivery O2 Flow Rate FiO2 03/09/18 12:00 96.5 69 19 120/65 (83) 98 03/09/18 09:00 Room Air 03/08/18 20:00 2.0 28 Laboratory Tests Test 03/09/18 10:00 White Blood Count 7.7 K/UL (4.8-10.8) Red Blood Count 3.27 M/UL (4.70-6.10) L Hemoglobin 9.5 G/DL (14.2-18.0) L Hematocrit 29.9 % (42.0-52.0) L Mean Corpuscular Volume 92 FL (80-99) Mean Corpuscular Hemoglobin 28.9 PG (27.0-31.0) Mean Corpuscular Hemoglobin Concent 31.6 G/DL (32.0-36.0) L Red Cell Distribution Width 14.6 % (11.6-14.8) Platelet Count 375 K/UL (150-450) Mean Platelet Volume 5.2 FL (6.5-10.1) L Neutrophils (%) (Auto) 81.1 % (45.0-75.0) H Lymphocytes (%) (Auto) 11.6 % (20.0-45.0) L Monocytes (%) (Auto) 5.9 % (1.0-10.0) Eosinophils (%) (Auto) 0.7 % (0.0-3.0) Basophils (%) (Auto) 0.7 % (0.0-2.0) Sodium Level 145 MMOL/L (136-145) Potassium Level 3.5 MMOL/L (3.5-5.1) Chloride Level 112 MMOL/L (98-107) H Carbon Dioxide Level 23 MMOL/L (21-32) Anion Gap 11 mmol/L (5-15) Blood Urea Nitrogen 55 mg/dL (7-18) H Creatinine 2.2 MG/DL (0.55-1.30) H Estimat Glomerular Filtration Rate mL/min (>60) Glucose Level 118 MG/DL (74-106) H Uric Acid 7.9 MG/DL (2.6-7.2) H Calcium Level 8.2 MG/DL (8.5-10.1) L Phosphorus Level 4.0 MG/DL (2.5-4.9) Magnesium Level 1.7 MG/DL (1.8-2.4) L Total Bilirubin 0.7 MG/DL (0.2-1.0) Aspartate Amino Transf (AST/SGOT) 52 U/L (15-37) H Alanine Aminotransferase (ALT/SGPT) 70 U/L (12-78) Alkaline Phosphatase 99 U/L (46-116) Pro-B-Type Natriuretic Peptide 828 pg/mL (0-125) H Total Protein 5.7 G/DL (6.4-8.2) L Albumin 2.2 G/DL (3.4-5.0) L Globulin 3.5 g/dL Albumin/Globulin Ratio 0.6 (1.0-2.7) L Intake and Output 03/08/18 03/09/18 19:00 07:00 Intake Total 935 ml 1100 ml Output Total 550 ml 650 ml Balance 385 ml 450 ml Intake Oral 935 ml IV Total 1100 ml Output Urine Total 550 ml 650 ml # Voids 2 3 # Bowel Movements 2 4 Objective PHYSICAL EXAMINATION: GENERAL: The patient is a well-developed and well-nourished, slightly obese male, in no apparent distress. HEENT: Eyes, pupils are equal and responsive to light and accommodation. Extraocular movements are intact. NECK: Supple without lymphadenopathy. CHEST: venturi mask; wheezes bilaterally, without rales. CARDIOVASCULAR: Regular rhythm and rate. S1 and S2 are normal without murmurs, rubs, or gallops. ABDOMEN: Soft, nontender, and nondistended. Positive bowel sounds. No evidence of hepatosplenomegaly. Currently, no rebound or guarding noted. EXTREMITIES: Negative for clubbing, cyanosis, or edema. RECTAL/GENITAL: Refused. NEUROLOGICAL: Cranial nerves II through XII are grossly intact without focal deficits. Motor strength is 5/5 bilaterally. Deep tendon reflexes are 2+ plantar. Assessment/Plan Problem List: (1) Leukocytosis Assessment & Plan: See ID note. Continue levaquin per ID (2) Renal failure Assessment & Plan: Last Hemodialysis 03/03/18. See nephrology note. (3) Elevated liver function tests Assessment & Plan: Await GI consult. (4) Syncope (5) Hyponatremia Assessment & Plan: Continue IVF per nephrology (6) Hypertension (7) Hypercholesterolemia (8) Prostate cancer (9) Colon cancer (10) Rhabdomyolysis Assessment & Plan: CK>10,000. See cardiology note. (11) Pneumonia Assessment & Plan: See pulmonary note. Continue linezolid, cefepime and flagyl per ID (12) Respiratory failure (13) Legionella infection Assessment & Plan: Continue levaquin day #11/23 per ID Status: progressing Christofer Biggs MD Mar 09, 2018 15:04
[2018-03-09 16:00] VITALS: BP 135/74
--- NOTE | 2018-03-09 17:20 | NUR ---
NURSE NOTES: Report was given to BALTA Reilly at [facility].
--- NOTE | 2018-03-09 18:30 | NUR ---
NURSE NOTES: Belongings checked with the patient and removed IV. Patient in stable condition. Discharged with ambulance tech.
[2018-03-09] MEDS ORDERED: Tubing IV Secondary IV ONE (19:02)
[2018-03-09] MEDS ORDERED: NS 275ml ONE (19:02)
--- NOTE | 2018-03-10 09:29 | Discharge Summary ---
Discharge Summary Discharge Summary _ DATE OF ADMISSION: 02/26/2018 DATE OF DISCHARGE: 03/09/2018 DISCHARGED BY: Dr. Cowan REASON FOR ADMISSION: 72 years old male with past medical history of hypertension, hypercholesterolemia, prostate cancer, colorectal cancer, presented initially to [facility] emergency department. Patient reported not feeling the well for a week. Patient reported shortness of breath. Patient was found on the floor. Patient had acute loss of consciousness, Noted right-sided weakness. Upon evaluation in emergency department laboratory workup revealed leukocytosis WBC 29.3. Sodium 124. BUN 113, creatinine 8 . Glucose 228. Troponin elevated at 0 20. AST 989 , ALT 180 , CK 24,719. Chest x-ray revealed left upper lobe pneumonia. Patient admitted with diagnoses of sepsis, left lobe pneumonia, renal failure, rhabdomyolysis, syncope ,right-sided weakness ,history of prostate cancer , history of colon cancer. CONSULTANTS: roofer gypsum Dr. Nelson neurologist pulmonary Dr. Dinh ID specialist Dr. Ramirez GI specialist V souvenir and novelty maker Dr. Lora j2ee android developer/oncologist surgery Dr. Fritz psychiatrist [place] HOSPITAL COURSE: Patient admitted to monitored bed and started on broad-spectrum antibiotics and IV hydration. Supplemental oxygen provided as needed to keep pulse oximetry above 92%. Pulmonary toilet provided [id number] and as needed. Infectious disease specialist and brim pouncer closely followed. Blood cultures were negative. Urine culture was negative. Influenza screen test was negative. Sputum culture was negative. Stool for C. difficile was negative. Urine for Legionella was positive. Follow-up chest x-ray revealed increased consolidation in the left upper lung CT of the chest revealed dense left lower lobe consolidation and small pleural effusion. Patient was clinically improving. Leukocytosis resolved. No fever. Last chest x-ray prior to discharge revealed improved aeration of the left lung. ID specialist recommended continue on Levaquin with regards to renal failure 750 mg every 48 hours for total of 14 days with end date on 03/14/2018. Patient refused further IV line , and can be transitioned to oral route upon discharge. Venous duplex revealed no evidence of acute DVT. DVT prophylaxis provided. Tire Fabricator followed. Serial troponin trending down from initial 1.257 on 02/26 to last troponin 0.087 on 03/02. Echocardiogram revealed preserved ejection fraction of 60-65%. No evidence of left ventricular hypertrophy. No evidence of wall motion abnormality. Right ventricular systolic pressure of 28. Mild diastolic relaxation. Per roofer gypsum minimal troponin elevation with trend down , was likely demand related due to renal failure. Patient started on low-dose of metoprolol. Pulse oximetry was stable on room air. Patient had a paroxysmal episode of atrial fibrillation with spontaneous conversion to sinus rhyth along with non sustained wide complex tachycardia. Sous Chef Kitchen Manager followed. Patient was on IV fluids. Renal ultrasound was negative for hydronephrosis. Renal parameters and electrolytes were closely monitored. Electrolytes were corrected as needed. Nephrotoxics were avoided. Hemodialysis catheter inserted. Patient started on hemodialysis with close monitoring of volumes and renal parameters. Creatinine trending down. No further hemodialysis was needed. Hemodialysis catheter discontinued. by surgeon. Norvasc added for better blood pressure control along with metoprolol. Urine output was closely monitored. Prior to discharge sodium 145. BUN 55. Creatinine 2.2. CK was trended, downn to normal -232, prior to discharge. GI specialist followed. Patient has a history of colorectal cancer ,status post colorectal resection. CEA within normal limits. Abdominal ultrasound showed no evidence of cirrhosis , no evidence of choledocholithiasis,no evidence of intrahepatic biliary ductal dilatation. Abdominal pelvic CT and KUB revealed no obvious colonic distention. KUB showed no significant changes. Patient declined rectal tube. Patient was ordered 2 L of GoLYTELY for bowel flush, but patient refused. Patient started on intensive bowel regimen. LFTs trending down. Hepatitis panel was negative. HIV was negative. prior to discharge AST 52. ALT 70. GI prophylaxis with PPI provided. GI recommended outpatient colonoscopy. Anemia workup was consistent with anemia of chronic disease. Stable B12 and folate. Stool for occult blood as negative. Hemoglobin and hematocrit were closely monitored with goal to keep hemoglobin above 7. Patient undergone transfusion of 2 units of packed red blood cells. Hemoglobin and hematocrit remained stable upon discharge. Patient had right-sided weakness, possible CVA. Urine toxicology screen was negative Bedside swallow evaluation revealed evidence of dysphagia and high aspiration risk. Diet started as per speech therapist recommendation with strict aspiration/ reflux precaution. Nutritional recommendation implemented in plan of care. Patient was working with physical therapy. Blood sugar was closely monitored. Hemoglobin A1c 6.1. Psychiatry seen and evaluated patient,diagnosed patient with encephalopathy due to toxin, likely secondary to sepsis and renal failure. Reality orientation supportive therapy provided. Seroquel was on board on as needed basis. Placement was arranged and secured at the half-way facility. Patient and family agree with the transfer. Patient was discharged to half-way facility for continuation of care FINAL DIAGNOSES: Sepsis secondary to Legionella pneumonia and UTI Legionella pneumonia Legionella UTI Rhabdomyolysis Acute renal failure on chronic renal insufficiency ( requiring temporarily hemodialysis) Hyponatremia Acute encephalopathy due to toxin Acute transaminitis Elevated troponin, likely demand related due to renal failure. Status post fall Syncopal episode possibly due to sepsis and renal failure with hyponatremia Right side weakness , possible CVA Dysphagia with high aspiration risk Anemia of chronic kidney disease Prostate cancer status post resection Colorectal cancer ,s/p resection Mild diastolic relaxation on echocardiogram Nonsustained wide complex tachycardia Episode of A. fib -converted to sinus rate Obesity DISCHARGE MEDICATIONS: See Medication Reconciliation list. DISCHARGE INSTRUCTIONS: Patient was discharged to the half-way facility. Follow up with medical doctor at the facility. I have been assigned to dictate discharge summary for this account. I was not involved in the patient's management. Giovanna Jones NP Mar 10, 2018 09:29
--- NOTE | 2018-03-10 18:17 | General Progress Note ---
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 Status: stable, progressing Assessment/Plan seroquel prn provided ro/st Subjective Date patient seen: Mar 09, 2018 Neurologic/Psychiatric: Reports: anxiety, depressed Allergies: Coded Allergies: NO KNOWN ALLERGIES (Verified Allergy, Unknown, 02/26/18) Objective Intake and Output 03/09/18 03/10/18 19:00 07:00 Intake Total 1200 ml Balance 1200 ml Intake Oral 1200 ml # Voids 6 # Bowel Movements 1 Height (Feet): 5 Height (Inches): 7.00 Weight (Pounds): 210 General Appearance: no apparent distress, alert Neurologic: oriented x 3, responsive Emely Henry MD Mar 10, 2018 18:17
== END 2018-03-09 19:03 | DRG 871 ==
LOC: 2W 02-26 01:04 → 2E 03-01 22:02 → 3E 03-06 23:04
PROC: 5A1D70Z Performance of Urinary Filtration, Intermittent, Less than 6 Hours Per Day (ICD-10-PCS; principal; 2018-02-27)
PROC: 05HM33Z Insertion of Infusion Device into Right Internal Jugular Vein, Percutaneous Approach (ICD-10-PCS; principal; 2018-02-27)
DX: A41.59 Other Gram-negative sepsis (principal); N17.0 Acute kidney failure with tubular necrosis; A48.1 Legionnaires' disease; I63.9 Cerebral infarction, unspecified; G92 Toxic encephalopathy; K72.00 Acute and subacute hepatic failure without coma; J96.00 Acute respiratory failure, unspecified whether with hypoxia or hypercapnia; E87.1 Hypo-osmolality and hyponatremia; M62.82 Rhabdomyolysis; N39.0 Urinary tract infection, site not specified; G81.91 Hemiplegia, unspecified affecting right dominant side; K56.7 Ileus, unspecified; E87.6 Hypokalemia; R55 Syncope and collapse; E78.00 Pure hypercholesterolemia, unspecified; I12.9 Hypertensive chronic kidney disease with stage 1 through stage 4 chronic kidney disease, or unspecified chronic kidney disease; N18.3 Chronic kidney disease, stage 3 (moderate); Z85.038 Personal history of other malignant neoplasm of large intestine; Z85.46 Personal history of malignant neoplasm of prostate; I48.0 Paroxysmal atrial fibrillation; D63.1 Anemia in chronic kidney disease; R74.0 Nonspecific elevation of levels of transaminase and lactic acid dehydrogenase [LDH]; E66.9 Obesity, unspecified; Z68.32 Body mass index [BMI] 32.0-32.9, adult
CPT/HCPCS: 36415; 36569; 36600; 71045; 74018; 74177; 76700; 76770; 76937; 80048; 80053; 80076; 80202; 80307; 81001; 82164; 82248; 82270; 82378; 82436; 82550; 82607; 82746; 82803; 82962; 82977; 83036; 83540; 83550; 83615; 83735; 83880; 83930; 83935; 84100; 84133; 84300; 84439; 84484; 84550; 85007; 85025; 85044; 85060; 85610; 85651; 85730; 86140; 86703; 86705; 86709; 86710; 86803; 86850; 86900; 86901; 86920; 87040; 87070; 87086; 87205; 87324; 87340; 89050; 93005; 93306; 93970; 94640; 94664; 94760; J1815; J7620; J8499